=== PATIENT | male | born 1955 | race Caucasian/White ===

== ENCOUNTER 2018-12-10 15:49 | Emergency (ER) | payer MEDICARE, MEDICAID ==
[2018-12-10 16:05] VITALS: RESP 18; TEMP 98.2; O2SAT 98
[2018-12-10 16:12] VITALS: BMI 26.6
--- NOTE | 2018-12-10 16:43 | ED PDOC ---
Arrival/HPI - General Chief Complaint: Cough, Cold, Congestion Time Seen by Provider: 12/10/18 16:16 Historian: Patient - History of Present Illness Narrative History of Present Illness (Text): 12/10/18 16:16 Patient is a 63 year old male with past medical history of hypertension and hypothyroidism who presents to the emergency department with complaints of nasal congestion and non productive cough since 2 days. Patient states a subjective fever, but denies any chills, headache, dizziness, chest pain, shortness of breath, dyspnea on exertion, abdominal pain, nausea, vomiting, diarrhea, back pain, neck pain, or any other complaint. Time/Duration: < week Symptom Onset: Gradual Symptom Course: Unchanged Activities at Onset: Light Context: Home Past Medical History - Provider Review Nursing Documentation Reviewed: Yes - Cardiac Hx Hypertension: Yes - Neurological Hx Neurological Disorder: Yes Other/Comment: Brain tumor - HEENT Hx HEENT Disorder: Yes Hx Blind: Yes (LEGALLY BLIND) - Endocrine/Metabolic Hx Hypothyroidism: Yes - Musculoskeletal/Rheumatological Hx Musculoskeletal Disorders: Yes Hx Back Pain: Yes - Gastrointestinal Hx Gastrointestinal Disorders: Yes Hx Liver Failure: Yes (Liver transplant) - Psychiatric Hx Depression: Yes Hx Substance Use: No - Surgical History Hx Liver Transplant: Yes (2008) Other/Comment: Brain tumor removal - Anesthesia Hx Anesthesia: Yes Hx Anesthesia Reactions: No Hx Malignant Hyperthermia: No - Suicidal Assessment Feels Threatened In Home Enviroment: No Family/Social History - Physician Review Nursing Documentation Reviewed: Yes Family/Social History: Unknown Family HX Smoking Status: Light Smoker < 10 Cigarettes Daily Hx Alcohol Use: No Hx Substance Use: No Allergies/Home Meds Allergies/Adverse Reactions: Allergies No Known Allergies Allergy (Verified 12/10/18 16:13) Home Medications: Home Meds Medication Instructions Recorded Confirmed DULoxetine 07/28/18 Desmopressin 07/28/18 Donepezil 07/28/18 Gabapentin 07/28/18 Levothyroxine 07/28/18 Mag-Ox 07/28/18 Mycophenolate 07/28/18 Zolpidem 07/28/18 Review of Systems - Review of Systems Constitutional: Fevers Eyes: absent: Vision Changes ENT: Sinus Congestion Respiratory: Cough (non productive cough). absent: SOB Cardiovascular: absent: Chest Pain Gastrointestinal: absent: Abdominal Pain, Diarrhea, Nausea, Vomiting Genitourinary Male: absent: Dysuria Musculoskeletal: absent: Back Pain, Neck Pain Skin: absent: Rash Neurological: absent: Headache Psychiatric: absent: Anxiety Physical Exam Vital Signs Reviewed: Yes Vital Signs Temp Pulse Resp BP Pulse Ox 12/10/18 16:04 98.2 F 86 18 124/74 98 Temperature: Afebrile Blood Pressure: Normal Pulse: Regular Respiratory Rate: Normal Appearance: Positive for: Well-Appearing, Non-Toxic, Comfortable Pain Distress: None Mental Status: Positive for: Alert and Oriented X 3 - Systems Exam Head: Present: Atraumatic, Normocephalic Pupils: Present: PERRL Extroacular Muscles: Present: EOMI Conjunctiva: Present: Normal Mouth: Present: Moist Mucous Membranes Neck: Present: Normal Range of Motion Respiratory/Chest: Present: Clear to Auscultation, Good Air Exchange. No: Respiratory Distress, Accessory Muscle Use Cardiovascular: Present: Regular Rate and Rhythm, Normal S1, S2. No: Murmurs Abdomen: No: Tenderness, Distention, Peritoneal Signs Back: Present: Normal Inspection Upper Extremity: Present: Normal Inspection. No: Cyanosis, Edema Lower Extremity: Present: Normal Inspection. No: Edema Neurological: Present: GCS=15, CN II-XII Intact, Speech Normal Skin: Present: Warm, Dry, Normal Color. No: Rashes Psychiatric: Present: Alert, Oriented x 3, Normal Insight, Normal Concentration Medical Decision Making ED Course and Treatment: 12/10/18 16:16 Impression: Patient is a 63 year old male who presents to the Emergency department with nasal congestion and non productive cough. Plan: -- Chest X-Ray -- Reassess and disposition Prior Visits: Notes and results from previous visits were reviewed. Progress Notes: 12/10/18 17:50 CT Chest as reviewed by radiologist shows that: FINDINGS: LUNGS: No active pulmonary disease. PLEURA: No significant pleural effusion identified. No pneumothorax apparent. CARDIOVASCULAR: No aortic atherosclerotic calcification present. Normal cardiac size. No pulmonary vascular congestion. OSSEOUS STRUCTURES: No significant abnormalities. VISUALIZED UPPER ABDOMEN: Normal. OTHER FINDINGS: None. IMPRESSION: No active disease. - RAD Interpretation Radiology Orders: 12/10/18 16:31 CHEST TWO VIEWS (PA/LAT) [RAD] Stat Hospice Liaison: Radiologist - Scribe Statement The provider has reviewed the documentation as recorded by the Scribmerrill Barroso training with Fred All medical record entries made by the Scribe were at my direction and personally dictated by me. I have reviewed the chart and agree that the record accurately reflects my personal performance of the history, physical exam, medical decision making, and the department course for this patient. I have also personally directed, reviewed, and agree with the discharge instructions and disposition. Disposition/Present on Arrival - Present on Arrival Any Indicators Present on Arrival: No History of DVT/PE: No History of Uncontrolled Diabetes: No Urinary Catheter: No History of Decub. Ulcer: No History Surgical Site Infection Following: None - Disposition Have Diagnosis and Disposition been Completed?: Yes Diagnosis: Upper respiratory infection Disposition: HOME/ ROUTINE Disposition Time: 17:59 Patient Plan: Discharge Condition: GOOD Discharge Instructions (ExitCare): Viral Upper Respiratory Infection, Adult (DC) Prescriptions: Benzonatate [Tessalon Perles] 100 mg PO TID PRN #30 sgl PRN Reason: Cough Referrals: Chandrakant Yeung MD [Primary Care Provider] - Follow up with primary Forms: [facility] (Yakut)
--- NOTE | 2018-12-10 17:48 | RAD ---
Date of service: 12/10/2018 HISTORY: Cough COMPARISON: No prior. TECHNIQUE: Chest PA and lateral FINDINGS: LUNGS: No active pulmonary disease. PLEURA: No significant pleural effusion identified. No pneumothorax apparent. CARDIOVASCULAR: No aortic atherosclerotic calcification present. Normal cardiac size. No pulmonary vascular congestion. OSSEOUS STRUCTURES: No significant abnormalities. VISUALIZED UPPER ABDOMEN: Normal. OTHER FINDINGS: None. IMPRESSION: No active disease.
[2018-12-10 18:05] VITALS: BP 120/74; PULSE 81
== END 2018-12-10 18:49 | disposition home or self-care (01) ==
LOC: ED 15:49
DX: J06.9 Acute upper respiratory infection, unspecified (principal); F17.210 Nicotine dependence, cigarettes, uncomplicated; E03.9 Hypothyroidism, unspecified; I10 Essential (primary) hypertension

== ENCOUNTER 2019-01-03 15:30 | Inpatient (IN) | payer MEDICARE, MEDICAID ==
[2019-01-03 15:30] VITALS: BMI 26.6
--- NOTE | 2019-01-03 16:26 | ED PDOC ---
Arrival/HPI - General Chief Complaint: Back Pain Time Seen by Provider: 01/03/19 16:06 Historian: Patient - History of Present Illness Narrative History of Present Illness (Text): 01/03/19 16:23 63 year old male, whose past medical history includes includes Depression, hypertension , Hypothyroidism, chronic pain on narcotic regimen, liver transplant s/p psoriasis for evaluation of neck pain and back pain s/p mechanical fall 3 days ago. Patient is a poor historian. Patient reports history of brain tumor resection in the . Patient denies any fever, chills, chest pain, shortness of breath, nausea, vomiting, diarrhea, urinary symptoms, headache, dizziness, or any other complaints. PMD: Dr. Inocencio Yeung Time/Duration: Other (3 days) Symptom Onset: Sudden Symptom Course: Unchanged Activities at Onset: Light Context: Other (mechanical fall) Past Medical History - Provider Review Nursing Documentation Reviewed: Yes - Infectious Disease Hx of Infectious Diseases: None - Cardiac Hx Cardiac Disorders: Yes Hx Hypertension: Yes - Pulmonary Hx Respiratory Disorders: No - Neurological Hx Neurological Disorder: Yes HX Cerebrovascular Accident: Yes (x 3) Other/Comment: Brain tumor - HEENT Hx HEENT Disorder: Yes Hx Blind: Yes (LEGALLY BLIND) - Renal Hx Renal Disorder: No - Endocrine/Metabolic Hx Endocrine Disorders: Yes Hx Hypothyroidism: Yes - Hematological/Oncological Hx Blood Disorders: Yes Hx Anemia: Yes - Integumentary Hx Dermatological Disorder: No - Musculoskeletal/Rheumatological Hx Musculoskeletal Disorders: Yes Hx Back Pain: Yes - Gastrointestinal Hx Gastrointestinal Disorders: Yes Hx Liver Failure: Yes (Liver transplant) - Genitourinary/Gynecological Hx Genitourinary Disorders: No - Psychiatric Hx Depression: Yes Hx Substance Use: No - Surgical History Hx Liver Transplant: Yes (2008) Other/Comment: Brain tumor removal - Anesthesia Hx Anesthesia: Yes Hx Anesthesia Reactions: No Hx Malignant Hyperthermia: No - Suicidal Assessment Feels Threatened In Home Enviroment: No Family/Social History - Physician Review Nursing Documentation Reviewed: Yes Family/Social History: No Known Family HX Smoking Status: Light Smoker < 10 Cigarettes Daily Hx Alcohol Use: No Hx Substance Use: No Allergies/Home Meds Allergies/Adverse Reactions: Allergies No Known Allergies Allergy (Verified 12/24/18 16:48) Home Medications: Home Meds Medication Instructions Recorded Confirmed DULoxetine 60 mg PO BID 07/28/18 01/04/19 Desmopressin 10 mg PO BID 07/28/18 01/04/19 Mycophenolate 07/28/18 Atorvastatin [Lipitor] 40 mg PO 12/31/18 Donepezil [Aricept] 10 mg PO DAILY 12/31/18 01/04/19 Duloxetine HCl 60 mg PO DAILY 12/31/18 01/04/19 Everolimus [Zortress] 0.25 mg PO BID 12/31/18 01/04/19 Gabapentin [Neurontin] 300 mg PO QID 12/31/18 01/04/19 Metoprolol Tartrate [Lopressor] 25 mg PO BID 12/31/18 01/04/19 Mycophenolate Mofetil 2 tab PO BID 12/31/18 01/04/19 Omeprazole 40 mg PO DAILY 12/31/18 01/04/19 Tamsulosin [Flomax] 0.4 mg PO DAILY 01/04/19 01/04/19 Review of Systems - Physician Review All systems were reviewed & negative as marked: Yes - Review of Systems Constitutional: absent: Fevers, Other (chills) Respiratory: absent: SOB Cardiovascular: absent: Chest Pain Gastrointestinal: absent: Diarrhea, Nausea, Vomiting Genitourinary Male: absent: Dysuria, Frequency, Hematuria Musculoskeletal: Back Pain, Neck Pain Physical Exam Vital Signs Reviewed: Yes Vital Signs Temp Pulse Resp BP Pulse Ox 01/03/19 15:53 98.6 F 80 20 131/90 100 Temperature: Afebrile Blood Pressure: Normal Pulse: Regular Respiratory Rate: Normal Appearance: Positive for: Well-Appearing, Non-Toxic, Comfortable Pain Distress: None Mental Status: Positive for: Alert and Oriented X 3 - Systems Exam Head: Present: Atraumatic, Normocephalic Pupils: Present: PERRL Extroacular Muscles: Present: EOMI Conjunctiva: Present: Normal Mouth: Present: Moist Mucous Membranes Neck: Present: Normal Range of Motion, Other (Paracervical tenderness) Respiratory/Chest: Present: Clear to Auscultation, Good Air Exchange. No: Respiratory Distress, Accessory Muscle Use Cardiovascular: Present: Regular Rate and Rhythm, Normal S1, S2. No: Murmurs Abdomen: No: Tenderness, Distention, Peritoneal Signs Back: Present: Other (paralumbar tenderness) Upper Extremity: Present: Normal Inspection. No: Cyanosis, Edema Lower Extremity: Present: Normal Inspection. No: Edema Neurological: Present: GCS=15, CN II-XII Intact, Speech Normal Skin: Present: Warm, Dry, Normal Color. No: Rashes Psychiatric: Present: Alert, Oriented x 3, Normal Insight, Normal Concentration Medical Decision Making ED Course and Treatment: 01/03/19 16:23 Impression: 63 year old male presents complaining of neck pain and back pain s/p mechanical fall 3 days ago. Plan: -- CT Cervical Spine w/o contrast -- Head CT w/o contrast -- Labs -- Tylenol 325mg -- LS Spine AP/LAT x-ray -- Reassess and disposition Prior Visits: Notes and results from previous visits were reviewed. Progress Notes: 01/04/19 17:[address] shows mass. xr shows age indtermiante fx. accpeted by dr castillo for admissio will need neurosrugical and neuro eval. possible ir intervention and mri. - Lab Interpretations I have reviewed the lab results: Yes - RAD Interpretation Radiology Orders: 01/03/19 16:20 CERVICAL SPINE W/O CONTRAST [CT] Stat HEAD W/O CONTRAST [CT] Stat LS SPINE AP/LAT [RAD] Stat Babbitt Spinner: Radiologist - Medication Orders Current Medication Orders: Acetaminophen (Tylenol 325mg Tab) 975 mg PO STAT STA Stop: 01/03/19 16:21 - Scribe Statement The provider has reviewed the documentation as recorded by the Herman Trevino Provider Scribe Attestation: All medical record entries made by the Scribe were at my direction and personally dictated by me. I have reviewed the chart and agree that the record accurately reflects my personal performance of the history, physical exam, medical decision making, and the department course for this patient. I have also personally directed, reviewed, and agree with the discharge instructions and disposition. Disposition/Present on Arrival - Present on Arrival Any Indicators Present on Arrival: No History of DVT/PE: No History of Uncontrolled Diabetes: No Urinary Catheter: No History of Decub. Ulcer: No History Surgical Site Infection Following: None - Disposition Have Diagnosis and Disposition been Completed?: Yes Diagnosis: Craniopharyngioma, Compression fracture Disposition: HOSPITALIZED Disposition Time: 17:00 Condition: STABLE
--- NOTE | 2019-01-03 17:00 | RAD ---
Date of service: 01/03/2019 PROCEDURE: Radiographs of the Lumbar Spine. HISTORY: Fall COMPARISON: No prior. FINDINGS: BONES: There is degenerative 8 mm retrolisthesis of L2 on L3. There is normal lumbar lordosis. There is moderate dextroscoliosis in the thoracolumbar spine centered at L2-3. there is an age indeterminate anterior wedging of the L1 vertebral body. DISC SPACES: There is advanced multilevel degenerative disc disease with anterior spurring, reduced disc heights and multilevel facet arthropathy, worse at L2-3. OTHER FINDINGS: Large amount of stool in the colon. No pathologic soft tissue calcifications. IMPRESSION: 1. Age indeterminate anterior wedging of the L1 vertebral body. 2. Advanced multilevel degenerative disc disease, worse at L2-3 with degenerative 8 mm retrolisthesis of L2 on L3.
--- NOTE | 2019-01-03 17:23 | CT ---
Date of service: 01/03/2019 PROCEDURE: CT HEAD WITHOUT CONTRAST. HISTORY: fall COMPARISON: None available. TECHNIQUE: Axial computed tomography images were obtained through the head/brain without intravenous contrast. Radiation dose: Total exam DLP = 1036.49 mGy-cm. This CT exam was performed using one or more of the following dose reduction techniques: Automated exposure control, adjustment of the mA and/or kV according to patient size, and/or use of iterative reconstruction technique. FINDINGS: HEMORRHAGE: No intracranial hemorrhage. BRAIN: There is multifocal cystic encephalomalacia in the right frontal, parietal and parieto-occipital lobes. There is an old lacunar infarction in the right posterior limb of internal capsule. There is a large low-density mass with peripheral coarse calcifications in the sella with suprasellar extension predominantly on the right. VENTRICLES: There is mild age-related global parenchymal volume loss and proportionate enlargement of the ventricles and cortical sulci. CALVARIUM: Status post right perianal craniotomy. PARANASAL SINUSES: Predominantly clear. MASTOID AIR CELLS: Predominantly clear. OTHER FINDINGS: None. IMPRESSION: 1. No acute intracranial abnormality. 2. Large predominantly cystic sellar mass with suprasellar extension and peripheral coarse calcifications most compatible with a craniopharyngioma. 3. Multifocal cystic encephalomalacia in the right frontal lobe, parietal lobe and parieto-occipital lobes.
--- NOTE | 2019-01-03 17:27 | CT ---
Date of service: 01/03/2019 PROCEDURE: CT Cervical Spine without contrast HISTORY: trauma COMPARISON: None available. TECHNIQUE: Axial computed tomography images were obtained of the cervical spine without the use of intravenous contrast. Coronal and sagittal reformatted images were created and reviewed. Radiation dose: Total exam DLP = 600.01 mGy-cm. This CT exam was performed using one or more of the following dose reduction techniques: Automated exposure control, adjustment of the mA and/or kV according to patient size, and/or use of iterative reconstruction technique. FINDINGS: VERTEBRAE: There is degenerative 4 mm retrolisthesis of C5 on C6. There is normal cervical lordosis. There is no acute fracture or spondylolisthesis. The craniocervical junction is normal. The atlantoaxial joint is normal DISCS/SPINAL CANAL/NEURAL FORAMINA: There is multilevel degenerative disc disease due to combination of disc osteophyte complexes, uncovertebral joint hypertrophy and multilevel facet arthropathy worse at C6-7 with moderate right and severe left neural foraminal narrowing and mild spinal canal stenosis. PARASPINAL SOFT TISSUES: The paraspinous soft tissues are normal. OTHER FINDINGS: No apical pneumothorax. IMPRESSION: 1. No acute fracture or traumatic anterior listhesis. 2. Multilevel degenerative disc disease, worse at C6-7 with moderate right and severe left neural foraminal narrowing and mild spinal canal stenosis.
[2019-01-03 18:18] LABS: BASO # 0.03 K/mm3 (0.0-2.0); BASO % 0.4 % (0.0-3.0); EOS # 0.2 (0.0-0.7); EOS % 2.5 % (1.5-5.0); HEMOGLOBIN 12.5 g/dL (14.0-18.0); LYMPH # 3.3 (1.2-3.4); LYMPH % 44.7 % (22.0-35.0); MEAN CELL VOLUME 86.4 fl (80.0-105.0); MEAN CORPUSCULAR HEMOGLOBIN 27.4 pg (25.0-35.0); MEAN CORPUSCULAR HGB CONC 31.6 g/dl (31.0-37.0); MEAN PLATELET VOLUME 8.6 fl (7.0-11.0); MONO # 0.5 (0.1-0.6); MONO % 6.6 % (1.0-6.0); RBC 4.57 10^6/uL (3.5-6.1); RED CELL DISTRIBUTION WIDTH 14.9 % (11.5-14.5); WHITE BLOOD COUNT 7.3 10^3/uL (4.5-11.0)
[2019-01-03 18:22] LABS: INR 0.96; PARTIAL THROMBOPLASTIN TIME 36.3 Seconds (26.9-38.3); PROTHROMBIN TIME 10.7 SECONDS (9.4-12.5)
[2019-01-03 18:24] LABS: BLOOD UREA NITROGEN 17 mg/dL (7-21); CALCIUM 9.3 mg/dL (8.4-10.5); GFR NON-AFRICAN AMERICAN > 60
[2019-01-03 18:47] LABS: ALB/GLOB RATIO 1.3 (1.1-1.8); ALT/SGPT < 6 U/L (7-56); AST/SGOT 40 U/L (17-59)
[2019-01-04] MEDS ORDERED: POLYETHYLENE GLYCOL 3350 17 GM/Dose PACKET PO ONE (03:35)
[2019-01-04 07:57] VITALS: RESP 20
[2019-01-04] MEDS ORDERED: Lidocaine 5% Patch TD SCH (13:00)
[2019-01-04 13:08] LABS: IRON 52 ug/dL (45-180)
[2019-01-04 13:17] LABS: % IRON SATURATION 25 % (20-55); TOTAL IRON BINDING CAPACITY 204 ug/dL (261-462)
--- NOTE | 2019-01-04 15:11 | CP.PCM.APN ---
Subjective - Date & Time of Evaluation Date of Evaluation: 01/04/19 Time of Evaluation: 12:15 - Subjective Subjective: pt. seen and examined in bed, is complaining of pain to neck, lower back, facial pain, states pain is all over, denied shortness of breath, denied chest pain. Objective - Vital Signs/Intake and Output Vital Signs (last 24 hours): Temp Pulse Resp BP Pulse Ox 98.1 F 64 20 151/81 H 94 L 01/04/19 07:57 01/04/19 07:57 01/04/19 07:57 01/04/19 08:55 01/04/19 07:57 - Medications Medications: Current Medications Donepezil HCl (Aricept) 10 mg PO HS NETTA Duloxetine HCl (Cymbalta) 60 mg PO DAILY NETTA Lidocaine (Lidoderm) 1 ea TD DAILY NETTA Last Admin: 01/04/19 13:38 Dose: 1 ea Metoprolol Tartrate (Lopressor) 25 mg PO BRKDIN NETTA Ondansetron HCl (Zofran Inj) 4 mg IVP STAT PRN PRN Reason: Nausea/Vomiting Pantoprazole Sodium (Protonix Ec Tab) 40 mg PO 0600,1600 NETTA Pregabalin (Lyrica) 50 mg PO BID NETTA - Labs Labs: 01/03/19 18:00 01/03/19 18:00 PT 10.7 SECONDS (9.4-12.5) 01/03/19 18:00 INR 0.96 01/03/19 18:00 APTT 36.3 Seconds (26.9-38.3) 01/03/19 18:00 - Constitutional Appears: Well, Non-toxic - Head Exam Head Exam: NORMOCEPHALIC - Eye Exam Eye Exam: absent: Conjunctival injection, EOMI, Normal appearance, Nystagmus, Periorbital swelling, Periorbital tenderness, PERRL, Scleral icterus - ENT Exam ENT Exam: absent: Mucous Membranes Dry, Mucous Membranes Moist, Normal Exam, Normal External Ear Exam, Normal Oropharynx, TM's Normal Bilaterally - Neck Exam Neck Exam: Full ROM - Respiratory Exam Respiratory Exam: Clear to Ausculation Bilateral, NORMAL BREATHING PATTERN - Cardiovascular Exam Cardiovascular Exam: REGULAR RHYTHM - GI/Abdominal Exam GI & Abdominal Exam: Soft, Normal Bowel Sounds - Rectal Exam Rectal Exam: Deferred - Exam Exam: absent: Circumcision, NORMAL INSPECTION, Scrotal Swelling, Testicular Tenderness, Uretheral Discharge, Testicular Vertical Lie, Bladder Distension External exam: absent: Ecchymosis, Erythema, Lacerations, Lesions, NORMAL EXTERNAL EXAM, Swelling Speculum exam: absent: Cervical Discharge, Erythema, Foreign Body, Laceration, NORMAL SPECULUM EXAM, Tissue, Vaginal Bleeding, Vaginal Discharge Bimanual exam: absent: Adenexal Mass, Adnexal, Cervical Motion Tendernes, NORMAL BIMANUAL EXAM, Uterine Enlargement, Uterine Tenderness - Back Exam Back Exam: tenderness - Neurological Exam Neurological Exam: Awake - Skin Skin Exam: Dry, Intact, Normal Color Assessment and Plan - Assessment and Plan (Free Text) Assessment: ITS Impressions Cervical Spine CT 01/03/19 16:20 IMPRESSION: 1. No acute fracture or traumatic anterior listhesis. 2. Multilevel degenerative disc disease, worse at C6-7 with moderate right and severe left neural foraminal narrowing and mild spinal canal stenosis. Head CT 01/03/19 16:20 IMPRESSION: 1. No acute intracranial abnormality. 2. Large predominantly cystic sellar mass with suprasellar extension and peripheral coarse calcifications most compatible with a craniopharyngioma. 3. Multifocal cystic encephalomalacia in the right frontal lobe, parietal lobe and parieto-occipital lobes. Lumbar Spine X-Ray 01/03/19 16:20 IMPRESSION: 1. Age indeterminate anterior wedging of the L1 vertebral body. 2. Advanced multilevel degenerative disc disease, worse at L2-3 with degenerative 8 mm retrolisthesis of L2 on L3. Assessment: 63 yr. male, w.pmh of Depression, hypertension , Hypothyroidism, chronic pain on narcotic regimen, craniopharyngioma, liver transplant s/p psoriasis for evaluation of neck pain and back pain s/p mechanical fall 3 days ago. Plan: 1. Neck pain r/t C6,7 moderate foraminal narrowing w.stenosis pain meds per neurology, recs per neuro. advised neurosurgery consult. 2. Cystic encephalomalacia of right frontal lobe, chronic Neurosurg consult pending. 3. Deconditioning, PT eval pending. continue d/w consultants and PMD. Will continue to monitor closely
--- NOTE | 2019-01-04 15:49 | CP.PCM.PN ---
Subjective - Date & Time of Evaluation Date of Evaluation: 01/04/19 Time of Evaluation: 15:46 - Subjective Subjective: 63 year old male, whose past medical history includes includes Depression, hypertension , Hypothyroidism, chronic pain on narcotic regimen, liver transplant s/p psoriasis c/ total body pain thinks he hadmechanical fall 4 days ago. Patient is a poor historian. Patient reports history of brain tumor resection in the 1980s. Patient denies any fever, chills, chest pain, shortness of breath, nausea, vomiting, diarrhea, urinary symptoms, headache, dizziness, or any other complaints. has mult prior adm for back pain CT neck some dege disease X ray l spine l1 end plate fracture indeterminate age CT head craniopharyngioma He is a a not very cooperative has good st all limbs but state' he feel paralysed' no dec to pin all limbs Given hx would not suggest surgical intervention would be best off with PT and analgesic Very poor surgical candidate Objective - Vital Signs/Intake and Output Vital Signs (last 24 hours): Temp Pulse Resp BP Pulse Ox 98.1 F 64 20 151/81 H 94 L 01/04/19 07:57 01/04/19 07:57 01/04/19 07:57 01/04/19 08:55 01/04/19 07:57 - Medications Medications: Current Medications Donepezil HCl (Aricept) 10 mg PO HS NETTA Duloxetine HCl (Cymbalta) 60 mg PO DAILY COUNT INCLUDES THE [facility] Home Med (Home Med) 1 unit PO BID COUNT INCLUDES THE [facility] Lidocaine (Lidoderm) 1 ea TD DAILY COUNT INCLUDES THE [facility] Last Admin: 01/04/19 13:38 Dose: 1 ea Metoprolol Tartrate (Lopressor) 25 mg PO BRKDIN COUNT INCLUDES THE [facility] Ondansetron HCl (Zofran Inj) 4 mg IVP STAT PRN PRN Reason: Nausea/Vomiting Pantoprazole Sodium (Protonix Ec Tab) 40 mg PO 0600,1600 COUNT INCLUDES THE [facility] Pregabalin (Lyrica) 50 mg PO BID NETTA Tamsulosin HCl (Flomax) 0.4 mg PO DAILY COUNT INCLUDES THE [facility] - Labs Labs: 01/03/19 18:00 01/03/19 18:00 PT 10.7 SECONDS (9.4-12.5) 01/03/19 18:00 INR 0.96 01/03/19 18:00 APTT 36.3 Seconds (26.9-38.3) 01/03/19 18:00
[2019-01-04] MEDS ORDERED: Pantoprazole 40 mg EC Tab PO SCH (16:00)
[2019-01-04 16:47] LABS: FOLATE > 20.0 ng/mL
[2019-01-04 17:11] VITALS: BP 156/98; PULSE 93; TEMP 98.6; O2SAT 96
--- NOTE | 2019-01-04 17:30 | CON ---
DATE: 01/04/2019 NEUROLOGY CONSULTATION CHIEF COMPLAINT: Craniopharyngioma. HISTORY OF PRESENT ILLNESS: This is a 63-year-old man with history of right side craniotomy in the past for possible benign brain tumor in the 1980s, history of chronic back pain, neck pain, on chronic narcotics by pain management Dr. Loving at home, history of liver transplant status post liver cirrhosis, came in for mechanical fall few days ago and with chronic neck and back pain, was called to evaluate given the CAT scan showing large predominant cystic sellar mass with suprasellar extension and peripheral coarse calcification consistent with craniopharyngioma and history of evidence of a right pterional craniotomy at this time given with regard to his chronic pain we just recommend only Lyrica 50 mg p.o. twice a day, and Lidoderm patch for his lower back, and then possible neurosurgery consult with regard to his craniopharyngioma and suprasellar mass. No acute events overnight. He was apparently on Cymbalta and gabapentin at home, which we will recommend to hold off those agents for neuropathic relief since the patient will be placed on Lyrica. PAST MEDICAL HISTORY: As above. SOCIAL HISTORY: No illicit drug, smoking or EtOH abuse. FAMILY HISTORY: Noncontributory. ALLERGIES: NO KNOWN DRUG ALLERGIES. MEDICATIONS: Reviewed by nurse reconciliation sheet. REVIEW OF SYSTEMS: A 14-point review of systems is negative except as per HPI. LABORATORY DATA: Today's iron is 52, TIBC 204, total transferrin saturation 25. PHYSICAL EXAMINATION: VITAL SIGNS: Temperature 98.1, pulse rate is 64, blood pressure 172/97, respirations 20, oxygen saturation 98% on room air. GENERAL: The patient is lying in bed, in no acute distress. HEENT: Head is atraumatic and normocephalic. PERRLA. Extraocular muscles are intact. NECK: Supple. No JVD. No adenopathy noted. LUNGS: Clear to auscultation. No adventitious sounds. HEART: S1 and S2. Normal rate and rhythm. No murmurs, rubs, or gallops. ABDOMEN: Soft, nontender, and nondistended. Bowel sounds present. EXTREMITIES: No clubbing and no cyanosis. Peripheral pulses are 2+ bilaterally. NEUROLOGICAL: The patient is alert and oriented to person, place, month and year. Speech is fluent without any errors. Cranial nerves II through XII are intact. Motor exam; moves all extremities equally. Toes are downgoing bilaterally. Sensory; decreased light touch and pinprick, proprioception, and vibration are intact. DTRs are 2+throughout and 1 at both knees and ankles. Coordination; [id number] is intact. No dysmetria noted. Gait is deferred for now. IMPRESSION: This patient has evidence of a super large predominant cystic suprasellar mass with suprasellar extension consistent with craniopharyngioma, which is not emergent at this time, which possibly need to be evaluated by neurosurgery for further management down the line. In regard to his chronic pain, he does see a pain management by Dr. Loving, which he gets chronic opioid therapy as well as gabapentin and Cymbalta in the past for pain management. RECOMMENDATION: At this time, we recommend at least for his; 1. Chronic pain in terms of cervical lumbosacral area, give him Lyrica 50 mg p.o. twice a day for neuropathic relief, which is much stronger then gabapentin and in addition Lidoderm patch for lumbosacral area for low back pain. 2. PT/OT evaluation and follow with neurosurgery evaluation with regard to his craniopharyngioma. Thank you for this consult. Guido Nichols MD
[2019-01-04] MEDS ORDERED: ZORTRESS PO SCH (18:00)
[2019-01-04] MEDS ORDERED: MYCOPHENOLATE MOFETIL 500 MG PO SCH (18:00)
--- NOTE | 2019-01-04 20:04 | CP.PCM.CON ---
<Alan Guerrero - Last Filed: 01/04/19 20:22> History of Present Illness - History of Present Illness History of Present Illness: PGY5 Initial GI Consult Note Terrie Jean is a 63 year old male w/ hx of Depression, hypertension , Hypothyroidism, chronic pain on narcotic regimen, liver transplant s/p psoriasis for evaluation of neck pain and back pain s/p mechanical fall 3 days ago. GI was consulted for Liver med management. Pt was alert and oriented x3, but unable to give complete hx. Pt states that he has not been to [facility] since Apr 2018. He notes being transplanted in 2008. He stated that his etiology for liver cirrhosis or failure was drug induce or medication induced. Spoke with [facility] transplant center and as per their last records, he was on everolimus 0.5mg BID, cellcept 1g BID, and prednisone 5mg daily. He failed to follow-up since April 2018. Denies any scleral icturus or juandice. Denies nay fever, chills or diaphoresis. Denies any diarrhea or recent surgery or wound. PMHx: Cirrhosis? Medication Induced? s/p liver transplant 2008, HTN, Hypothyroid, Chronic Painm PSHx: brain tumor removal, Liver transplant Family Hx: unknown Social Hx: unknown Endo Hx: could not recall ROS: 12 point ROS conducted, neg other than above Past Patient History - Infectious Disease Hx of Infectious Diseases: None - Past Medical History & Family History Past Medical History?: Yes - Past Social History Smoking Status: Light Smoker < 10 Cigarettes Daily - CARDIAC Hx Cardiac Disorders: Yes Hx Hypertension: Yes - PULMONARY Hx Respiratory Disorders: No - NEUROLOGICAL Hx Neurological Disorder: Yes HX Cerebrovascular Accident: Yes (x 3) Other/Comment: Brain tumor - HEENT Hx HEENT Problems: Yes Hx Blind: Yes (LEGALLY BLIND) - RENAL Hx Chronic Kidney Disease: No - ENDOCRINE/METABOLIC Hx Endocrine Disorders: Yes Hx Hypothyroidism: Yes - HEMATOLOGICAL/ONCOLOGICAL Hx Blood Disorders: Yes Hx Anemia: Yes - INTEGUMENTARY Hx Dermatological Problems: No - MUSCULOSKELETAL/RHEUMATOLOGICAL Hx Musculoskeletal Disorders: Yes Hx Back Pain: Yes - GASTROINTESTINAL Hx Gastrointestinal Disorders: Yes Hx Liver Failure: Yes (Liver transplant) - GENITOURINARY/GYNECOLOGICAL Hx Genitourinary Disorders: No - PSYCHIATRIC Hx Depression: Yes Hx Substance Use: No - SURGICAL HISTORY Hx Liver Transplant: Yes (2008) Other/Comment: Brain tumor removal - ANESTHESIA Hx Anesthesia: Yes Hx Anesthesia Reactions: No Hx Malignant Hyperthermia: No Meds Allergies/Adverse Reactions: Allergies Allergy/AdvReac Type Severity Reaction Status Date / Time No Known Allergies Allergy Verified 12/24/18 16:48 Physical Exam - Constitutional Appears: Non-toxic, No Acute Distress - Head Exam Head Exam: ATRAUMATIC, NORMOCEPHALIC - Eye Exam Eye Exam: Normal appearance - ENT Exam ENT Exam: Mucous Membranes Moist, Normal Exam - Neck Exam Neck exam: Positive for: Normal Inspection - Respiratory Exam Respiratory Exam: Clear to Auscultation Bilateral, NORMAL BREATHING PATTERN. absent: Rales, Rhonchi, Wheezes, Respiratory Distress - Cardiovascular Exam Cardiovascular Exam: REGULAR RHYTHM, +S1, +S2 - GI/Abdominal Exam GI & Abdominal Exam: Normal Bowel Sounds, Soft. absent: Distended, Firm, Guarding, Hernia, Organomegaly, Pulsatile Mass, Rebound, Rigid, Tenderness - Extremities Exam Extremities exam: Negative for: joint swelling, pedal edema - Neurological Exam Neurological exam: Alert, Oriented x3 - Psychiatric Exam Psychiatric exam: Normal Affect, Normal Mood - Skin Skin Exam: Dry, Intact, Normal Color, Warm Results - Vital Signs Recent Vital Signs: Last Vital Signs Temp 98.6 F 01/04/19 17:10 Pulse 93 H 01/04/19 17:10 Resp 20 01/04/19 17:10 BP 156/98 H 01/04/19 17:10 Pulse Ox 96 01/04/19 17:10 - Labs Result Diagrams: 01/03/19 18:00 01/03/19 18:00 Labs: Laboratory Results - last 24 hr 01/04/19 01/04/19 10:38 10:38 Iron 52 TIBC 204 L % Saturation 25 Ferritin 100.0 Vitamin B12 283 Folate > 20.0 Assessment & Plan - Assessment and Plan (Free Text) Assessment: Terrie Jean is a 63 year old male w/ hx of Depression, hypertension , Hypothyroidism, chronic pain on narcotic regimen, liver transplant s/p psoriasis for evaluation of neck pain and back pain s/p mechanical fall 3 days ago. Liver transplant on chronic immunosupressive therapy HTN Depression Blind Plan: -will get everolimus levels -can restart everolimus 0.5mg BID -can start Cellcept 1g BID -will hold Prednisone for now -continue to monitor LFTs daily -recommend F/U with [facility], will try to make an appt for the Pt D/W Dr. Vu <Sabrina Vu V - Last Filed: 01/05/19 00:45> Results - Vital Signs Recent Vital Signs: Last Vital Signs Temp 98.6 F 01/04/19 17:10 Pulse 93 H 01/04/19 17:10 Resp 20 01/04/19 17:10 BP 156/98 H 01/04/19 17:10 Pulse Ox 96 01/04/19 17:10 - Labs Result Diagrams: 01/03/19 18:00 01/03/19 18:00 Labs: Laboratory Results - last 24 hr 01/04/19 01/04/19 10:38 10:38 Iron 52 TIBC 204 L % Saturation 25 Ferritin 100.0 Vitamin B12 283 Folate > 20.0 Attending/Attestation - Attestation I have personally seen and examined this patient.: Yes I have fully participated in the care of the patient.: Yes I have reviewed all pertinent clinical information: Yes Notes (Text): This is an addendum to GI progress report dictated by the GI Fellow. The patient was seen and examined earlier. Medical records, lab studies, imagings were reviewed. Last 24 hours events reviewed. Agreed with the above treatment plan as outlined in GI Fellow 's notes with the addition of the following 01/05/19 00:45
--- NOTE | 2019-01-04 21:23 | HP ---
DATE OF EXAM: 01/04/2019 HISTORY OF PRESENT ILLNESS: This 63-year-old male who was examined at his bedside on the cardiac [facility] of the [facility] on the morning of 01/04/2019. Present for this interview was his nurse, Andrew Shell, registered nurse. The patient presented to the [facility] ER and this case was reviewed with emergency room physician, Eric Nuñez. In the emergency room, he complained of neck and back pain. He stated he had fell at his home approximately 3 days prior and has a past medical history of depression, hypertension, hypothyroidism and is on chronic narcotics for chronic back pain. He states he also has a past medical history of psoriasis and a brain tumor resection in the at the [facility]. MEDICATIONS: The patient states as an outpatient his medications include Ambien, Neurontin, Aricept, and Lipitor. When I asked him specific doses of medications, he could not respond. REVIEW OF SYSTEMS: CONSTITUTIONAL REVIEW: He denied fever or chills. HEAD: No headache or seizures. EYES: No change in visual acuity. EARS: No hearing loss. THROAT: No swallowing difficulty. NECK: No stiffness. CARDIAC REVIEW: He states he has chronic hypertension. PULMONARY: No cough. No hemoptysis. GASTROINTESTINAL: Peptic ulcer disease with gastroesophageal reflux disease. GENITOURINARY: No dysuria. SKIN: No rash. VASCULAR: No claudication. PSYCHOLOGICAL: Chronic depression and anxiety. NEUROLOGICAL: No knowledge of stroke. SOCIAL HISTORY: He states he is a smoker, but denies any IV drug misuse or alcohol abuse. ALLERGIES: HE DENIED ANY ALLERGIES TO MEDICATION. PHYSICAL EXAMINATION: VITAL SIGNS: He was in a normal sinus rhythm on workshop manager with temperature 98.1, respirations 20, pulse 64, blood pressure 151/81, and a pulse ox of 94%. HEAD: Normocephalic and atraumatic. He has a scar that goes across his scalp from his ear to ear. EYES: No icterus. EARS: Clear. THROAT: Noninjected. NECK: Supple. HEART: S1 and S2. LUNGS: Clear. ABDOMEN: Soft. EXTREMITIES: No edema. SKIN: Without rash. NEUROLOGIC: He is lying in bed and appears deconditioned. VASCULAR: Legs warm to touch. PSYCHOLOGICAL: Alert. LABORATORY DATA: White count 7300, hemoglobin 12.5, hematocrit 39.5, and platelets 275,000. PT/INR 0.96 and PTT 36.3. Sodium 136, K 4.9, chloride 101, bicarb 30, BUN 17, creatinine 0.6, random blood sugar 74, and calcium 9.3. Bilirubin 0.6, AST 40, ALT 6, and alk phos 51. Cervical spine CT and lumbar spine CTs were reviewed and consistent with degenerative arthritis. Head CT was reviewed, it showed no acute intracranial abnormalities, but a cystic sellar mass with a suprasellar extension and calcifications compatible with craniopharyngioma and encephalomalacia in the right frontal lobe, parietal lobe, and parietal occipital lobes. IMPRESSION: A 63-year-old male with intractable back pain, abnormal CT of the head, history of hypertension, hyperlipidemia, and degenerative arthritis. PLAN: My plans are to obtain neurological evaluation with Dr. Guido Nichols from Neurology to outline a pain management program and I will consult Dr. Vu from GI to clarify if this gentleman did have a liver transplant and correct medication he should be on accordingly. For present, he will receive Lopressor 25 mg b.i.d., Tylenol 650 p.o. every 6 hours p.r.n. fever greater than 101 and Zofran 4 mg IV every 8 hours p.r.n. nausea and vomiting. I will also order given his mild anemia, vitamin B12 levels, ferritin, folic acid, iron and TIBC and a basic metabolic panel for the a.m. as well as an serum immunoelectrophoresis and CBC. Based on clinical progress, additional diagnostic workup and testing will be entertained. Greater than 75 minutes was spent in the care management, review of labs, orders and x-rays and discussion of this patient with himself and nursing. All questions were answered. Marleen Dasilva MD
== END 2019-01-04 19:22 | disposition left against medical advice (07) | DRG 552 ==
LOC: ED 15:30 → ERH 18:47 → 3RNO 22:04
PROVIDERS: ADMIT Internal Medicine; ATTEND Internal Medicine
DX: M51.36 Other intervertebral disc degeneration, lumbar region (principal); Z94.4 Liver transplant status; D44.4 Neoplasm of uncertain behavior of craniopharyngeal duct; M54.9 Dorsalgia, unspecified; M50.323 Other cervical disc degeneration at C6-C7 level; M48.02 Spinal stenosis, cervical region; I10 Essential (primary) hypertension; E03.9 Hypothyroidism, unspecified; G89.29 Other chronic pain; H54.8 Legal blindness, as defined in USA; Z86.73 Personal history of transient ischemic attack (TIA), and cerebral infarction without residual deficits; E78.5 Hyperlipidemia, unspecified; F17.210 Nicotine dependence, cigarettes, uncomplicated; F32.89 Other specified depressive episodes; M19.90 Unspecified osteoarthritis, unspecified site; Z91.81 History of falling; Z79.891 Long term (current) use of opiate analgesic; Z79.899 Other long term (current) drug therapy; Z86.011 Personal history of benign neoplasm of the brain

== ENCOUNTER 2019-02-14 13:05 | Inpatient (IN) | payer MEDICARE, MEDICAID ==
[2019-02-14 13:30] VITALS: BMI 27.4
--- NOTE | 2019-02-14 13:37 | ED PDOC ---
Arrival/HPI - General Time Seen by Provider: 02/14/19 13:17 Historian: Patient - History of Present Illness Narrative History of Present Illness (Text): 02/14/19 13:32 63 M with pmh of depression, CVA, Brain tumor, hypertension, Hypothyroidism, chronic pain on narcotic regimen, liver transplant presents with chief complaint of generalized weakness x3days. Patient reports that he has problems staying awake and eating less. Patient also complains of dysuria, cough w/SOB, and depression but denies any SI or HI. Patient endorses taking Aspirin but denies taking any medications relating to liver transplant. Patient denies any fevers, chills, headache, dizziness, abdominal pain, chest pain, shortness of breath, nausea, vomiting, diarrhea, back pain, neck pain, or any other complaint. Time/Duration: < week Symptom Onset: Gradual Symptom Course: Unchanged Activities at Onset: Light Context: Home Past Medical History - Provider Review Nursing Documentation Reviewed: Yes - Infectious Disease Hx of Infectious Diseases: None - Cardiac Hx Cardiac Disorders: Yes Hx Hypertension: Yes - Pulmonary Hx Respiratory Disorders: No - Neurological Hx Neurological Disorder: Yes HX Cerebrovascular Accident: Yes (x 3) Other/Comment: Brain tumor - HEENT Hx HEENT Disorder: Yes Hx Blind: Yes (LEGALLY BLIND) - Renal Hx Renal Disorder: No - Endocrine/Metabolic Hx Endocrine Disorders: Yes Hx Hypothyroidism: Yes - Hematological/Oncological Hx Blood Disorders: Yes Hx Anemia: Yes - Integumentary Hx Dermatological Disorder: No - Musculoskeletal/Rheumatological Hx Musculoskeletal Disorders: Yes Hx Back Pain: Yes - Gastrointestinal Hx Gastrointestinal Disorders: Yes Hx Liver Failure: Yes (Liver transplant) - Genitourinary/Gynecological Hx Genitourinary Disorders: No - Psychiatric Hx Depression: Yes Hx Substance Use: No - Surgical History Hx Liver Transplant: Yes (2008) Other/Comment: Brain tumor removal - Anesthesia Hx Anesthesia: Yes Hx Anesthesia Reactions: No Hx Malignant Hyperthermia: No - Suicidal Assessment Feels Threatened In Home Enviroment: No Family/Social History - Physician Review Nursing Documentation Reviewed: Yes Family/Social History: Unknown Family HX Smoking Status: Light Smoker < 10 Cigarettes Daily Hx Alcohol Use: No Hx Substance Use: No Allergies/Home Meds Allergies/Adverse Reactions: Allergies No Known Allergies Allergy (Verified 12/24/18 16:48) Home Medications: Home Meds Medication Instructions Recorded Confirmed DULoxetine 60 mg PO BID 07/28/18 01/04/19 Desmopressin 10 mg PO BID 07/28/18 01/04/19 Mycophenolate 07/28/18 Atorvastatin [Lipitor] 40 mg PO 12/31/18 Donepezil [Aricept] 10 mg PO DAILY 12/31/18 01/04/19 Duloxetine HCl 60 mg PO DAILY 12/31/18 01/04/19 Everolimus [Zortress] 0.25 mg PO BID 12/31/18 01/04/19 Gabapentin [Neurontin] 300 mg PO QID 12/31/18 01/04/19 Metoprolol Tartrate [Lopressor] 25 mg PO BID 12/31/18 01/04/19 Mycophenolate Mofetil 2 tab PO BID 12/31/18 01/04/19 Omeprazole 40 mg PO DAILY 12/31/18 01/04/19 Tamsulosin [Flomax] 0.4 mg PO DAILY 01/04/19 01/04/19 Review of Systems - Physician Review All systems were reviewed & negative as marked: Yes - Review of Systems Constitutional: Other (generalized weakness). absent: Fevers Eyes: absent: Vision Changes, Photophobia ENT: Normal. absent: Hearing Changes Respiratory: Normal. absent: SOB, Cough Cardiovascular: Normal. absent: Chest Pain, Palpitations, Calf Pain Gastrointestinal: Appetite Changes. absent: Abdominal Pain, Constipation, Diarrhea, Nausea, Vomiting Genitourinary Male: Dysuria. absent: Frequency, Hematuria Musculoskeletal: absent: Arthralgias, Back Pain Skin: Normal. absent: Rash Neurological: Normal. absent: Headache, Dizziness Endocrine: Normal Hemo/Lymphatic: Normal. absent: Adenopathy Psychiatric: Depression. absent: Suicidal Ideation Physical Exam Vital Signs Reviewed: Yes Temperature: Afebrile Blood Pressure: Normal Pulse: Regular Respiratory Rate: Normal Appearance: Positive for: Well-Appearing, Non-Toxic Pain Distress: Mild Mental Status: Positive for: Alert and Oriented X 3 - Systems Exam Head: Present: Atraumatic, Normocephalic Pupils: Present: PERRL Extroacular Muscles: Present: EOMI Conjunctiva: Present: Normal Ears: Present: Normal, NORMAL TM, Normal Canal. No: Erythema, TM Bulging, Fluid, TM Perf Mouth: Present: Moist Mucous Membranes Pharnyx: Present: Normal. No: ERYTHEMA, EXUDATE Neck: Present: Normal Range of Motion. No: Meningeal Signs, MIDLINE TENDERNESS Respiratory/Chest: Present: Clear to Auscultation, Good Air Exchange. No: Respiratory Distress, Accessory Muscle Use Cardiovascular: Present: Regular Rate and Rhythm, Normal S1, S2. No: Murmurs Abdomen: Present: Scars (previous for liver transplant). No: Tenderness, Distention, Peritoneal Signs Back: Present: Normal Inspection. No: CVA Tenderness, Midline Tenderness Upper Extremity: Present: Normal Inspection, Other (Good b/l strength). No: Cyanosis, Edema Lower Extremity: Present: Normal Inspection, Other (Good b/l strength). No: Edema Neurological: Present: GCS=15, CN II-XII Intact, Speech Normal, Motor Func Grossly Intact, Normal Sensory Function Skin: Present: Warm, Dry, Normal Color. No: Rashes Psychiatric: Present: Alert, Oriented x 3, Normal Insight, Normal Concentration Medical Decision Making ED Course and Treatment: 02/14/19 13:37 Impression: 63 M presents with hx of depression, CVA w/ residual L sided deficits, Brain tumor, hypertension, Hypothyroidism, chronic pain on narcotic regimen, liver transplant who presents with generalized weakness x3days. Per attached note written by pts sister; pt has sleeping continously since february 02 and has decreased PO intake. They were also concerned about possible UTI and ammonia levels. They are requesting Dr. Elizondo for admission, not Dr. marquez. On exam no meningeal signs, abdomen non-ttp. No fall or trauma noted. Good strength b/l. Likely FTT w/ depression Plan: -- Labs -- EKG -- CXR -- UA Prior Visits: Notes and results from previous visits were reviewed. Progress Notes: 02/14/19 13:37 EKG: Ordered, reviewed, and independently interpreted the EKG. Rate : 97 BPM Rhythm : NSR Interpretation : No STEMI 02/14/19 15:13 labs largely unremarkable pending imaging and UA 02/14/19 15:[address] WITHOUT CONTRAST Re-identified complex partially cystic sellar mass with suprasellar extension and associated coarse calcifications. Multifocal cystic encephalomalacia involving right frontal, parietal, and parietal occipital lobes. Please note that MRI with diffusion imaging is more sensitive in the detection of acute ischemic event. Small fluid within the right mastoid air cells; correlate clinically for history of mastoiditis. 02/14/19 15:46 pending ua repeat TM exam unremarkable, no erythema. No mastoid tenderness or erythema accepted by jaclyn, request DVT study, endorsed pending UA pt in NAD, no SI or HI - Scribe Statement The provider has reviewed the documentation as recorded by the Herman Viveros Provider Scribe Attestation: All medical record entries made by the Scribe were at my direction and personally dictated by me. I have reviewed the chart and agree that the record accurately reflects my personal performance of the history, physical exam, medical decision making, and the department course for this patient. I have also personally directed, reviewed, and agree with the discharge instructions and disposition. Disposition/Present on Arrival - Present on Arrival Any Indicators Present on Arrival: Yes History of DVT/PE: No History of Uncontrolled Diabetes: No Urinary Catheter: No History Surgical Site Infection Following: None - Disposition Have Diagnosis and Disposition been Completed?: No Diagnosis: FTT (failure to thrive) in adult Disposition Time: 15:48 Patient Problems: Current Active Problems Problem Status Onset FTT (failure to thrive) in adult Acute Condition: STABLE
[2019-02-14 14:25] LABS: BASO # 0.02 K/mm3 (0.0-2.0); BASO % 0.3 % (0.0-3.0); EOS # 0.2 (0.0-0.7); EOS % 2.5 % (1.5-5.0); HEMOGLOBIN 10.7 g/dL (14.0-18.0); LYMPH # 2.1 (1.2-3.4); LYMPH % 34.2 % (22.0-35.0); MEAN CORPUSCULAR HEMOGLOBIN 26.4 pg (25.0-35.0); MEAN CORPUSCULAR HGB CONC 32.2 g/dl (31.0-37.0); MEAN PLATELET VOLUME 8.5 fl (7.0-11.0); MONO # 0.4 (0.1-0.6); MONO % 6.7 % (1.0-6.0); RBC 4.05 10^6/uL (3.5-6.1); RED CELL DISTRIBUTION WIDTH 13.6 % (11.5-14.5); WHITE BLOOD COUNT 6.1 10^3/uL (4.5-11.0)
[2019-02-14 14:28] LABS: VENOUS BLOOD GAS BASE EXCESS 6.7 mmol/L (0.0-2.0); VENOUS BLOOD GAS PO2 34 mm/Hg (30-55); VENOUS BLOOD PH 7.39 (7.32-7.43)
[2019-02-14 14:39] LABS: ACETAMINOPHEN < 10.0 ug/ml (10.0-20.0); SALICYLATE < 1 mg/dL (2.0-20.0)
[2019-02-14 14:43] LABS: ALB/GLOB RATIO 1.1 (1.1-1.8); ALBUMIN 3.9 g/dL (3.0-4.8); ALT/SGPT 40 U/L (7-56); AST/SGOT 112 U/L (17-59); BLOOD UREA NITROGEN 11 mg/dL (7-21); CALCIUM 8.9 mg/dL (8.4-10.5); GFR NON-AFRICAN AMERICAN > 60
[2019-02-14 14:55] LABS: TROPONIN I < 0.01 ng/mL
[2019-02-14 15:13] LABS: B-TYPE NATRIURETIC PEPTIDE 169 pg/mL (0-450)
--- NOTE | 2019-02-14 15:15 | CT ---
Date of service: 02/14/2019 PROCEDURE: CT HEAD WITHOUT CONTRAST. HISTORY: weakness COMPARISON: Noncontrast head CT performed 01/03/19 TECHNIQUE: Axial computed tomography images were obtained through the head/brain without intravenous contrast. Radiation dose: Total exam DLP = 798.58 mGy-cm. This CT exam was performed using one or more of the following dose reduction techniques: Automated exposure control, adjustment of the mA and/or kV according to patient size, and/or use of iterative reconstruction technique. FINDINGS: Streak artifact limits evaluation of the skull base. HEMORRHAGE: No intracranial hemorrhage. BRAIN: There is multifocal cystic encephalomalacia in the right frontal, parietal and parieto-occipital lobes. Chronic lacunar infarction in the right posterior limb of internal capsule. Re-identified large low-density mass with peripheral coarse calcifications in the sella with suprasellar extension predominantly on the right. VENTRICLES: No hydrocephalus. CALVARIUM: Prior right sided craniotomy changes. PARANASAL SINUSES: Unremarkable as visualized. No significant inflammatory changes. MASTOID AIR CELLS: Small fluid in the right mastoid air cells. Included left mastoid air cells appear clear. OTHER FINDINGS: None. IMPRESSION: Re-identified complex partially cystic sellar mass with suprasellar extension and associated coarse calcifications. Multifocal cystic encephalomalacia involving right frontal, parietal, and parietal occipital lobes. Please note that MRI with diffusion imaging is more sensitive in the detection of acute ischemic event. Small fluid within the right mastoid air cells; correlate clinically for history of mastoiditis.
--- NOTE | 2019-02-14 15:57 | RAD ---
HISTORY: weak COMPARISON: Chest x-ray performed 12/10/18 TECHNIQUE: Chest PA and lateral, 2 views FINDINGS: LUNGS: No focal consolidation. Please note that chest x-ray has limited sensitivity for the detection of pulmonary masses. PLEURA: No significant pleural effusion identified. No definite pneumothorax . CARDIOVASCULAR: Heart size appears within normal limits. Ectatic aorta. Atherosclerotic calcifications of the aorta. OSSEOUS STRUCTURES: Degenerative changes. VISUALIZED UPPER ABDOMEN: Unremarkable. OTHER FINDINGS: None. IMPRESSION: No focal consolidation.
--- NOTE | 2019-02-14 17:19 | CP.PCM.HP ---
History of Present Illness - History of Present Illness History of Present Illness: Srikanth Pablo, PGY1 H&P for Dr. Elizondo's Service This is a 63 year old male with PMH of chronic pain on narcotics, HTN, depression, hypothyroidism, liver transplant 2/2 liver cirrhosis, craniopharyngioma, blindness, and psoriasis presenting to the hospital for 2 week history of generalized weakness. Patient states "every bone in my body hurts." He denies any recent trauma, lifestyle change or other inciting event. He denies ever having similar complaints in the past. He endorses compliance with his medication. He currently admits to fevers and denies CP, SOB, nausea, vomiting, numbness, tingling, abdominal pain, diarrhea, constipation, chills, urinary complaints, swelling, recent travel, recent sickness, sick contacts at home, recent diet change and recent medication change. 12 point ROS noted here, otherwise unremarkable. He was admitted to the hospital after mechanical fall two months ago and CT head at that time showed craniopharyngioma but neurosurgery recommended medical management. Patient signed out AMA during that admission. PMH: chronic pain on narcotics, HTN, depression, hypothyroidism, liver transplant 2/2 liver cirrhosis, blindness, craniopharyngioma and psoriasis PSH: Liver transplant, brain tumor removal SH: smokes 10 ciggs/per day for 5 years, uses marijuana. Denies drinking FH: denies PMD: Dr. Yeung All: NKDA Present on Admission - Present on Admission Any Indicators Present on Admission: No Past Patient History - Infectious Disease Hx of Infectious Diseases: None - Past Medical History & Family History Past Medical History?: Yes - Past Social History Smoking Status: Light Smoker < 10 Cigarettes Daily - CARDIAC Hx Cardiac Disorders: Yes Hx Hypertension: Yes - PULMONARY Hx Respiratory Disorders: No - NEUROLOGICAL Hx Neurological Disorder: Yes HX Cerebrovascular Accident: Yes (x 3) Other/Comment: Brain tumor - HEENT Hx HEENT Problems: Yes Hx Blind: Yes (LEGALLY BLIND) - RENAL Hx Chronic Kidney Disease: No - ENDOCRINE/METABOLIC Hx Endocrine Disorders: Yes Hx Hypothyroidism: Yes - HEMATOLOGICAL/ONCOLOGICAL Hx Blood Disorders: Yes Hx Anemia: Yes - INTEGUMENTARY Hx Dermatological Problems: No - MUSCULOSKELETAL/RHEUMATOLOGICAL Hx Musculoskeletal Disorders: Yes Hx Back Pain: Yes - GASTROINTESTINAL Hx Gastrointestinal Disorders: Yes Hx Liver Failure: Yes (Liver transplant) - GENITOURINARY/GYNECOLOGICAL Hx Genitourinary Disorders: No - PSYCHIATRIC Hx Depression: Yes Hx Substance Use: No - SURGICAL HISTORY Hx Liver Transplant: Yes (2008) Other/Comment: Brain tumor removal - ANESTHESIA Hx Anesthesia: Yes Hx Anesthesia Reactions: No Hx Malignant Hyperthermia: No Meds Allergies/Adverse Reactions: Allergies Allergy/AdvReac Type Severity Reaction Status Date / Time No Known Allergies Allergy Verified 12/24/18 16:48 Physical Exam - Constitutional Appears: No Acute Distress, Cachectic, Chronically Ill - Head Exam Head Exam: ATRAUMATIC, NORMAL INSPECTION - Eye Exam Eye Exam: EOMI Pupil Exam: PERRL - ENT Exam ENT Exam: Mucous Membranes Moist - Respiratory Exam Respiratory Exam: Clear to Auscultation Bilateral. absent: Wheezes, Respiratory Distress - Cardiovascular Exam Cardiovascular Exam: REGULAR RHYTHM, +S1, +S2 - GI/Abdominal Exam GI & Abdominal Exam: Normal Bowel Sounds, Soft. absent: Firm, Guarding, Tenderness Additional comments: Right sided abdominal scar noted - Extremities Exam Extremities exam: Positive for: pedal pulses present. Negative for: calf tenderness, tenderness Additional comments: +1 B/L LE edema noted - Back Exam Back exam: NORMAL INSPECTION - Neurological Exam Neurological exam: Alert, CN II-XII Intact, Oriented x3 - Skin Skin Exam: Normal Color, Warm Results - Vital Signs Recent Vital Signs: Last Vital Signs Temp 99.2 F 02/14/19 14:08 Pulse 93 H 02/14/19 14:08 Resp 18 02/14/19 14:08 BP 103/66 02/14/19 14:08 Pulse Ox 100 02/14/19 14:08 - Labs Result Diagrams: 02/14/19 14:15 02/14/19 14:15 Labs: Laboratory Results - last 24 hr 02/14/19 02/14/19 02/14/19 14:15 14:15 14:15 WBC 6.1 RBC 4.05 Hgb 10.7 L Hct 33.2 L MCV 82.0 D MCH 26.4 MCHC 32.2 RDW 13.6 Plt Count 330 MPV 8.5 Neut % (Auto) 56.3 Lymph % (Auto) 34.2 Benton % (Auto) 6.7 H Eos % (Auto) 2.5 Baso % (Auto) 0.3 Lymph # (Auto) 2.1 Benton # (Auto) 0.4 Eos # (Auto) 0.2 Baso # (Auto) 0.02 Absolute Neuts (auto) 3.42 pO2 34 VBG pH 7.39 VBG pCO2 55.0 VBG HCO3 33.3 H VBG Total CO2 35.0 H VBG O2 Sat (Calc) 67.8 H VBG Base Excess 6.7 H VBG Potassium 4.2 Sodium 134.0 135 Chloride 98.0 96 L Glucose 100 Lactate 0.8 FiO2 21.0 Potassium 4.3 Carbon Dioxide 29 Anion Gap 14 BUN 11 Creatinine 0.7 L Est GFR ( Amer) > 60 Est GFR (Non-Af Amer) > 60 Random Glucose 98 Calcium 8.9 Magnesium 1.7 Total Bilirubin 0.6 AST 112 H D ALT 40 Alkaline Phosphatase 84 Ammonia Troponin I < 0.01 NT-Pro-B Natriuret Pep 169 Total Protein 7.3 Albumin 3.9 Globulin 3.5 Albumin/Globulin Ratio 1.1 Venous Blood Potassium 4.2 Salicylates Acetaminophen Alcohol, Quantitative 02/14/19 02/14/19 02/14/19 14:15 14:15 14:15 WBC RBC Hgb Hct MCV MCH MCHC RDW Plt Count MPV Neut % (Auto) Lymph % (Auto) Benton % (Auto) Eos % (Auto) Baso % (Auto) Lymph # (Auto) Benton # (Auto) Eos # (Auto) Baso # (Auto) Absolute Neuts (auto) pO2 VBG pH VBG pCO2 VBG HCO3 VBG Total CO2 VBG O2 Sat (Calc) VBG Base Excess VBG Potassium Sodium Chloride Glucose Lactate FiO2 Potassium Carbon Dioxide Anion Gap BUN Creatinine Est GFR ( Amer) Est GFR (Non-Af Amer) Random Glucose Calcium Magnesium Total Bilirubin AST ALT Alkaline Phosphatase Ammonia < 9 L Troponin I NT-Pro-B Natriuret Pep Total Protein Albumin Globulin Albumin/Globulin Ratio Venous Blood Potassium Salicylates < 1 L Acetaminophen < 10.0 L Alcohol, Quantitative < 10 Assessment & Plan - Assessment and Plan (Free Text) Assessment: This is a 63 year old male with PMH of chronic pain on narcotics, HTN, depression, hypothyroidism, liver transplant 2/2 liver cirrhosis, craniopharyngioma, blindness, and psoriasis presenting to the hospital for 2 week history of generalized weakness. Plan: Generalized Weakness -history of craniopharyngioma -afebrile, no WBC count noted -CT head shows cystic sellar mass with suprasellar extension and calcifications. Multifocal cystic encephalomalacia in right frontal, parietal, occipital lobes. -CXR shows no focal consolidation -MRA head without contrast pending -CTAP with PO and IV contrast in the morning -D-dimer pending, will get CTA if elevated -PT/PTT pending -CEA, PSA pending -UDS pending -NS @ 100cc/hr -neurochecks q4 -Neuro on consult, Dr. Guido Nichols History of liver transplant -continue mycophenalate, zortress -transaminitis noted -GI on consult, Dr. Canas Depression -continue duloxetine, aricept -Psych on consult, Dr. Martin -denies suicidal/homicidal ideation Hx HTN -continue lopressor 25mg BID Anemia -iron studies pending Peripheral Neuropathy -continue gabapentin -LE duplex negative for DVT BPH -continue flomax HLD -continue lipitor PPX -SCD, protonix Patient case reviewed and discussed with attending, Dr. Elizondo
[2019-02-14] MEDS ORDERED: MYCOPHENOLATE MOFETIL PO SCH ×2 (18:00→18:17)
[2019-02-14 18:28] LABS: INR 1.29; PROTHROMBIN TIME 14.3 SECONDS (9.4-12.5)
[2019-02-14] MEDS: DESMOPRESSIN PO SCH (18:40)
[2019-02-14] MEDS: EVEROLIMUS 0.25 MG PO SCH (18:40)
[2019-02-14] MEDS: Sodium Chloride 0.9% 1,000 ML IV SCH (18:56)
[2019-02-14 19:05] LABS: PARTIAL THROMBOPLASTIN TIME 39.4 Seconds (26.9-38.3)
[2019-02-14] MEDS ORDERED: Enoxaparin 80 mg Syringe SC STA (19:05)
[2019-02-14] MEDS ORDERED: Iohexol 350 MG/100 ML VIAL ONE (19:26)
[2019-02-14 19:35] LABS: URINE BILIRUBIN NEGATIVE (NEGATIVE); URINE BLOOD NEGATIVE (NEGATIVE); URINE GLUCOSE (UA) NEGATIVE (NEGATIVE); URINE LEUKOCYTE ESTERASE NEGATIVE Leu/uL (NEGATIVE); URINE PROTEIN TRACE mg/dL (<30 mg/dL); URINE UROBILINOGEN 0.2 E.U./dL (<1 E.U./dL)
[2019-02-14 19:43] LABS: URINE APPEARANCE CLEAR (CLEAR); URINE COLOR YELLOW (YELLOW)
[2019-02-14 19:51] LABS: IRON < 10 ug/dL (45-180); TOTAL IRON BINDING CAPACITY 182 ug/dL (261-462)
[2019-02-14 19:56] LABS: % IRON SATURATION 5 % (20-55)
[2019-02-14 20:10] LABS: BARBITURATES, UR NEGATIVE (NEGATIVE); BENZODIAZEPINES, UR NEGATIVE (NEGATIVE)
[2019-02-14 20:11] LABS: OPIATES, UR NEGATIVE (NEGATIVE); PHENCYCLIDINE, UR NEGATIVE (NEGATIVE)
--- NOTE | 2019-02-14 20:30 | CARD ---
APPROVED REPORT Date of service: 02/14/2019 EKG Measurement Heart [id number] <Conclusion> Normal sinus rhythm Prolonged QT Abnormal ECG
[2019-02-15] MEDS ORDERED: Barium Sulfate Susp 2.1% w/v, 2.0% w/w 450 mL Bottle PO ONE (02:49)
[2019-02-15] MEDS: Pantoprazole 40 mg EC Tab PO SCH (05:46)
[2019-02-15] MEDS: Sodium Chloride 0.9% 1,000 ML IV SCH (05:58)
[2019-02-15] MEDS ORDERED: Enoxaparin 80 mg Syringe SC SCH (07:00)
[2019-02-15 07:17] LABS: BASO # 0.02 K/mm3 (0.0-2.0); BASO % 0.4 % (0.0-3.0); EOS # 0.1 (0.0-0.7); EOS % 1.8 % (1.5-5.0); HEMOGLOBIN 9.5 g/dL (14.0-18.0); LYMPH # 2.3 (1.2-3.4); LYMPH % 40.9 % (22.0-35.0); MEAN CORPUSCULAR HEMOGLOBIN 25.5 pg (25.0-35.0); MEAN CORPUSCULAR HGB CONC 31.5 g/dl (31.0-37.0); MEAN PLATELET VOLUME 8.6 fl (7.0-11.0); MONO # 0.6 (0.1-0.6); RBC 3.73 10^6/uL (3.5-6.1); RED CELL DISTRIBUTION WIDTH 13.7 % (11.5-14.5); WHITE BLOOD COUNT 5.5 10^3/uL (4.5-11.0)
[2019-02-15 07:21] LABS: ALBUMIN 3.3 g/dL (3.0-4.8); ALT/SGPT 36 U/L (7-56); AST/SGOT 102 U/L (17-59); BLOOD UREA NITROGEN 7 mg/dL (7-21); CALCIUM 8.4 mg/dL (8.4-10.5); GFR NON-AFRICAN AMERICAN > 60
[2019-02-15 07:25] LABS: FREE T4 0.42 ng/dL (0.78-2.19)
--- NOTE | 2019-02-15 07:47 | CP.PCM.PN ---
Subjective - Date & Time of Evaluation Date of Evaluation: 02/15/19 Time of Evaluation: 07:07 - Subjective Subjective: Sly Meade PGY2 IM Progress Note for Dr. Elizondo Patient was seen and examined at bedside. The patient is oriented to person and place but not time. He is not aware why he is admitted. There were no acute over night events. Objective - Vital Signs/Intake and Output Vital Signs (last 24 hours): Temp Pulse Resp BP Pulse Ox 97.4 F L 109 H 20 129/95 H 99 02/15/19 06:00 02/15/19 06:00 02/15/19 06:00 02/15/19 06:00 02/15/19 06:00 Intake and Output: 02/15/19 02/15/19 06:59 18:59 Intake Total 380 Output Total 228 Balance 152 - Medications Medications: Current Medications Atorvastatin Calcium (Lipitor) 40 mg PO DIN NETTA Donepezil HCl (Aricept) 10 mg PO HS [facility] Last Admin: 02/14/19 21:09 Dose: 10 mg Duloxetine HCl (Cymbalta) 60 mg PO BID [facility] Last Admin: 02/14/19 19:00 Dose: 60 mg Duloxetine HCl (Cymbalta) 60 mg PO DAILY [facility] Enoxaparin Sodium (Lovenox) 80 mg SC Q12H [facility]; Protocol Gabapentin (Neurontin) 300 mg PO QID [facility]; Protocol Last Admin: 02/14/19 21:10 Dose: 300 mg Home Med (Home Med) 10 unit PO BID [facility] Last Admin: 02/14/19 18:40 Dose: Not Given Home Med (Home Med) 0.25 unit PO BID [facility] Last Admin: 02/14/19 18:40 Dose: Not Given Sodium Chloride (Sodium Chloride 0.9%) 1,000 mls @ 100 mls/hr IV .Q10H [facility] Last Admin: 02/15/19 05:58 Dose: 100 mls/hr Metoprolol Tartrate (Lopressor) 25 mg PO BID [facility] Last Admin: 02/14/19 18:59 Dose: 25 mg Non-Formulary Medication (Mycophenolate Mofetil [Mycophenolate Mofetil]) 500 tab PO BID [facility] Pantoprazole Sodium (Protonix Ec Tab) 40 mg PO 0600 [facility] Last Admin: 02/15/19 05:46 Dose: 40 mg Tamsulosin HCl (Flomax) 0.4 mg PO DAILY NETTA - Labs Labs: 02/15/19 06:30 02/15/19 06:30 PT 14.3 SECONDS (9.4-12.5) H 02/14/19 14:15 INR 1.29 02/14/19 14:15 APTT 39.4 Seconds (26.9-38.3) H 02/14/19 14:15 - Constitutional Appears: Well, Non-toxic, No Acute Distress - Head Exam Head Exam: ATRAUMATIC, NORMAL INSPECTION - Eye Exam Eye Exam: Normal appearance Additional comments: decreased visual acuity - ENT Exam ENT Exam: Mucous Membranes Moist, Normal Exam - Neck Exam Neck Exam: Full ROM, Normal Inspection - Respiratory Exam Respiratory Exam: NORMAL BREATHING PATTERN. absent: Wheezes, Respiratory Distress - Cardiovascular Exam Cardiovascular Exam: RRR, +S1, +S2 - GI/Abdominal Exam GI & Abdominal Exam: Soft, Normal Bowel Sounds. absent: Tenderness - Extremities Exam Extremities Exam: Full ROM. absent: Pedal Edema - Neurological Exam Neurological Exam: Alert. absent: Oriented x3 (oriented to person and place, not time) - Skin Skin Exam: Normal Color, Warm Assessment and Plan - Assessment and Plan (Free Text) Assessment: 63 year old male with a PMH of chronic pain on narcotics, HTN, depression, hypothyroidism, liver transplant 2/2 liver cirrhosis, craniopharyngioma, blindness, and psoriasis presenting to the hospital for 2 week history of generalized weakness. Plan: 1. Generalized Weakness, r/o sepsis - CT head reviewed, re-demonstrates cystic sellar mass with suprasellar extension and calcifications. Multifocal cystic e ncephalomalacia in right frontal, parietal, occipital lobes. - CXR shows no focal consolidation - blood and urine cultures drawn - starting cefepime empirically - MRA head without contrast pending - CTA chest reviewed - will order MRI lumbar spine to evaluate lumbar spine compression fracture - bone scan to r/o pathologic fractures - NS @ 100cc/hr - neurochecks q4 - Neuro on consult, Dr. Guido Nichols 2. s/p liver transplant - continue mycophenalate, zortress - transaminitis noted - GI on consult, Dr. Canas 3. Depression - continue duloxetine, aricept - Psych on consult, Dr. Martin - denies suicidal/homicidal ideation 4. HTN - continue lopressor 25mg BID 5. Anemia - iron studies pending 6. Peripheral Neuropathy - hold gabapentin at this time - LE duplex negative for DVT 7. BPH - continue flomax 8. HLD - continue lipitor 9. PPX - SCDs for DVT ppx - protonix for GI ppx CAse was reviewed and discussed with Dr. Elizondo
--- NOTE | 2019-02-15 08:54 | US ---
HISTORY: Leg pain and swelling. Evaluate for DVT PHYSICIAN(S): Ac Bear MD. TECHNIQUE: Duplex sonography and color-flow Doppler with graded compression were used to evaluate the deep venous systems of both lower extremities. FINDINGS: The visualized deep venous systems of both lower extremities are sonographically normal and compressible. Normal wave forms and augmentation are seen. There is no sonographic evidence for deep venous thrombosis in the visualized segments of both lower extremities. IMPRESSION: No sonographic evidence for deep venous thrombosis in the visualized segments of both lower extremities.
--- NOTE | 2019-02-15 09:29 | CT ---
Date of service: 02/14/2019 PROCEDURE: CT Chest with contrast (Pulmonary Angiogram) HISTORY: generalized weakness, elevated d-dimer COMPARISON: None available. TECHNIQUE: Axial computed tomography images were obtained of the chest in the pulmonary arterial phase of enhancement. Coronal and sagittal reformatted images were created and reviewed. Intravenous contrast dose: 100 mL Omnipaque 350 Radiation dose: Total exam DLP = 514.56 mGy-cm. This CT exam was performed using one or more of the following dose reduction techniques: Automated exposure control, adjustment of the mA and/or kV according to patient size, and/or use of iterative reconstruction technique. FINDINGS: PULMONARY ARTERIES: Unremarkable. No pulmonary embolism. AORTA: No acute findings. No thoracic aortic aneurysm. No aortic atherosclerotic calcification or mural plaque present. LUNGS: Unremarkable. No nodule, mass or pulmonary consolidation. PLEURAL SPACES: Unremarkable. No effusion or pneumothorax. HEART: Unremarkable. No cardiomegaly. No significant pericardial effusion. LYMPH NODES: No lymphadenopathy. BONES, CHEST WALL: Mild anterior wedge compression deformity of the L1 vertebral body, age indeterminate. Old healed sternal body fracture. Old healed manubrium sternum fracture. OTHER FINDINGS: Questionable wedge-shaped areas of diminished or non enhancement in the kidneys bilaterally. Evaluation grossly limited by the timing of contrast administration for this CT angiogram. Nevertheless, the possibility of pyelonephritis should be considered and correlation with clinical and laboratory evaluation is advised. IMPRESSION: No evidence of pulmonary embolism. Mild anterior compression deformity of L1 vertebral body, age indeterminate. Old healed fractures of the sternal body and manubrium sternum. No infiltrate. Question is raised as to possible acute pyelonephritis though the evaluation is grossly limited due to the timing of contrast administration. Correlate clinically. The preliminary findings for this examination were reported by [facility] at 8:48 p.m. on 02/14/2019. There is discordance of this report with the preliminary findings. The possibility of bilateral pyelonephritis was not described in the preliminary report of this examination. Findings in this report were discussed by telephone with the patient's nurse on at 9:24 a.m. on 02/15/2019.
[2019-02-15] MEDS: DESMOPRESSIN PO SCH ×2 (09:35→20:31)
[2019-02-15] MEDS: EVEROLIMUS 0.25 MG PO SCH ×2 (09:35→20:31)
--- NOTE | 2019-02-15 13:19 | CON ---
DATE OF CONSULTATION: 02/15/2019 GASTROENTEROLOGY CONSULTATION REQUESTING PHYSICIAN: Dr. Elizondo. REASON FOR CONSULTATION/HISTORY OF PRESENT ILLNESS: I have been asked to see this 63-year-old male with multiple medical conditions including history of craniopharyngioma, blindness, depression, hypothyroidism, hypertension, chronic pain on narcotic analgesics with a history of liver transplantation back in 2008, whom I have been asked to see for mildly elevated AST. He denies any abdominal pain, nausea, or vomiting. He is unclear as to what kind of liver disease and cirrhosis prompted his liver transplantation. He follows up with his transplant surgeons every 2-3 months at [facility] in [place]. He denies any abdominal pain, nausea, or vomiting. PAST MEDICAL HISTORY: As above. Again, he has a history of liver transplant, liver cirrhosis, hypertension, hypothyroidism, craniopharyngioma, chronic pain, hypertension, and depression. PAST SURGICAL HISTORY: Notable for liver transplant. SOCIAL HISTORY: He smokes up to half a pack of cigarettes per day. Smokes marijuana. He denies alcohol use. FAMILY HISTORY: Noncontributory. REVIEW OF SYSTEMS: Fourteen-point review of systems is notable for generalized weakness and diffuse body aches. MEDICATIONS: Medications at home include tamsulosin, omeprazole, mycophenolate mofetil, metoprolol, Neurontin, Zortress, duloxetine, Aricept, desmopressin, and Lipitor. PHYSICAL EXAMINATION: GENERAL: Elderly male, appearing older than his stated age, in no distress. VITAL SIGNS: Reveal a temperature of 97.4, blood pressure 129/95, heart rate of 109. HEENT: Reveals sclerae to be white. Conjunctivae pink. He is blind. NECK: Supple. CHEST: Lungs are clear. HEART: Reveals regular rate and rhythm. ABDOMEN: Soft, nontender. There is a well-healed mid abdominal scar from his liver transplant. EXTREMITIES: Show no edema. LABORATORY DATA: Revealed a white blood cell count of 5.5, hemoglobin 9.5. Chemistries reveal a potassium of 3.5, iron saturation is 5, AST 102, ALT 36, alkaline phosphatase 179, and albumin of 3.3. IMPRESSION: A 63-year-old male with multiple medical problems and chronic pain, status post liver transplant in 2008, admitted to hospital with generalized weakness with mildly elevated AST. It is unclear to me if this is coming from his liver. I doubt that this is rejection of his transplant. Given the fact that only his AST is elevated, one must rule out chronic low-grade homolysis RECOMMENDATIONS: 1. Check a serum LDH level. 2. Check hepatitis serology. 3. The patient can follow up with the liver transplant team at [facility] upon discharge from the hospital. Kole Canas MD MTDD
[2019-02-15] MEDS: Levalbuterol 0.63 MG/3 ML Inhal Soln UD IH SCH ×2 (13:31→20:23)
--- NOTE | 2019-02-15 14:13 | PN ---
DATE: 02/15/2019 SUBJECTIVE: The patient is in room 563 bed 2. The patient is seen and evaluated. Overnight nurse's notes were reviewed. PHYSICAL EXAMINATION VITAL SIGNS: T-max is 99.7 down to 99, heart rate is 99 to 109, blood pressure 129/95, respirations 20 and O2 sat is 99%. GENERAL: The patient is lying in the bed. Overnight nurse's notes were reviewed. HEENT: Head examination shows positive right craniotomy. Positive blindness. Pale conjunctivae. Dry oral mucosa. No neck rigidity. CHEST: Kyphosis. LUNGS: Shows occasional rhonchi upper lung melara. CARDIOVASCULAR: S1 and S2, regular rhythm. ABDOMEN: Soft, positive bowel sounds. Positive stigmata of the liver transplant. GENITALIA: Male. EXTREMITIES: Shows positive swelling of the lower extremity. MUSCULOSKELETAL: Shows decreased muscle mass. NEUROLOGICAL: Examination is limited secondary to blindness. Gait examination is not tested. PSYCHIATRIC: Positive for depression. DIAGNOSTICS: WBC 5.5, hemoglobin/hematocrit 9.5/30.2 and platelets 365. D-dimer 941 and PT 14.3. Chemistry from today, potassium 3.5, iron less than 10, TIBC 182, iron saturation 5. The patient's MRI of the brain, CAT scan of the abdomen and pelvis is pending. CTA of the chest results were reviewed. IMPRESSION: 1. Generalized weakness and fatigue. 2. Low grade fever. 3. Tachycardia. 4. Questionable systemic inflammatory response syndrome. 5. Normocytic iron-deficiency anemia. 6. Elevated D-dimer. 7. Mild coagulopathy. 8. Hypokalemia. 9. Proteinuria. 10. Ketonuria. 11. Failure to thrive with poor p.o. intake. 12. Insomnia. 13. Tachycardia. 14. Anemia. 15. Esophagitis. 16. Right frontoparietal occipital cystic encephalomalacia. 17. Right internal capsule lacunar infarct. 18. Large sellar mass with right-sided suprasellar extension. 19. Right craniotomy. 20. History of hepatic cirrhosis status post liver transplant. 21. Depression. 22. Peripheral neuropathy. 23. Prostatic hypertrophy. 24. Narcotic dependent pain syndrome. 25. Hypothyroidism. 26. Bilateral eye blindness. 27. History of craniopharyngioma. 28. Nicotine dependence. 29. History of marijuana use. 30. History of cerebral infarct. 31. Questionable dementia. PLAN: At this time, the patient has been ordered serial labs. The patient is awaiting MRI and MRA of the brain. The patient is awaiting CT of the chest, abdomen and pelvis. The patient is awaiting Neurology and Gastroenterology evaluation and Psychiatry evaluation. The patient has been ordered GI/ DVT prophylaxis. Both pharmacological and non-pharmacological GI/DVT prophylaxis. The patient has been ordered out of bed physical therapy and occupational therapy. The patient is awaiting GI, Psychiatry and Neurology evaluation and recommendations. The patient has been ordered repeat labs. The patient will be continued on all the therapeutic intervention as per the MAR. The patient's further management will be dependent upon the patient's clinical condition, hemodynamic status and response to the therapeutic intervention as per the patient diagnostics test results. Due to the patient's multiple comorbidity and underlying medical condition, the patient prognosis appears to be guarded to poor which he has been explained. Dictated and electronically signed, not read. Signing off Neeraj Elizondo MD Neeraj Elizondo MD
--- NOTE | 2019-02-15 14:15 | CP.PCM.PCO ---
Additional Comments - Additional Comments Additional Comments: Generalized weakness, FTT, PMHx Liver transplant, hypothyroidism, HTN, Sellar brain mass, encephalomalacia. GI consulted elevated AST/liver transplant, MRI brain with and without contrast, MRA brain, CT abdomen/pelvis, BC/UC, PT/OT eval, pending, continue empiric treatment with antibiotics, repeat labs in am, reeval in am.
[2019-02-15] MEDS: Cefepime 1gm in NS 100ml 1 GM/100 ML BAG IVPB SCH ×2 (15:03→21:48)
[2019-02-15 15:04] LABS: FOLATE 18.2 ng/mL
[2019-02-15] MEDS: Enoxaparin 40 mg Syringe SC SCH (15:07)
--- NOTE | 2019-02-15 16:08 | CON ---
DATE: 02/15/2019 CHIEF COMPLAINT: History of craniopharyngioma, near syncope. HISTORY OF PRESENT ILLNESS: This is a 63-year-old man with history of right-sided craniotomy in the past for a benign brain tumor in , for which craniopharyngioma; history of chronic neck and back pain, on chronic narcotics in the past; history of liver cirrhosis, status post liver transplant; who comes in for generalized weakness and fatigue, found to have severely low iron level less than 10 and low saturation and ferritin and therefore was given IV iron infusion and had a low free T4 and low TSH. Currently, from a Neuro perspective, there is nothing surgical to be done in regards to his craniopharyngioma. Neurosurgery said in his last visit that he was not a surgical candidate. He is on gabapentin, Cymbalta for neuropathic relief as well. PAST MEDICAL HISTORY: As above. SOCIAL HISTORY: No illicit drug use, smoking or EtOH abuse. ALLERGIES: NO KNOWN DRUG ALLERGIES. MEDICATIONS: Reviewed by nurse's reconciliation sheet. REVIEW OF SYSTEMS: A 14-point review of systems is as per the HPI. PHYSICAL EXAMINATION: GENERAL: The patient is sitting up in bed, in no acute distress. VITAL SIGNS: Temperature 97.4, pulse rate of 108, blood pressure 102/81, respiratory rate 18, and oxygen saturation 98% on room air. HEENT: Atraumatic and normocephalic. PERRLA. Extraocular muscles intact. NECK: Supple. No JVD. No adenopathy noted. LUNGS: Clear to auscultation. No adventitious sounds. HEART: S1 and S2. Normal rate and rhythm. No murmurs, rubs, or gallops. ABDOMEN: Soft, nontender, nondistended. Bowel sounds present. EXTREMITIES: No clubbing. No cyanosis. Peripheral pulses are 2+ felt bilaterally. NEUROLOGIC: The patient is alert and oriented to person, place, month and year. Speech is fluent without any errors. Cranial nerves II through XII are intact. Motor Exam: Moves all extremities equally. Toes are downgoing bilaterally. Sensory Exam: Decreased light touch and pinprick up to the calves bilaterally. Decreased vibration of the toes. DTRs are 2+ throughout and 1 at both knees and ankles. Coordination: [id number] intact. No dysmetria noted. Gait is deferred for now. LABORATORY DATA: Sodium is 138, potassium 3.4, chloride 104, carbon dioxide 26, BUN of 7, creatinine 0.5, random glucose 106. IMPRESSION: The patient has evidence of large predominant cystic suprasellar mass with suprasellar extension consistent with craniopharyngioma. No neurosurgical intervention needed at this time from the last neurosurgery followup was done. His generalized weakness is also secondary to deconditioned state and generalized iron deficiency for which he was given iron replacement. RECOMMENDATIONS: At this time: 1. Continue with his Cymbalta and gabapentin in regards to his neuropathic relief. 2. PT/OT eval. 3. Iron infusion given low iron levels and monitor electrolytes and correct accordingly. Thank you for this consult. Guido Nichols MD
[2019-02-15] MEDS ORDERED: Iohexol 350 MG/100 ML VIAL ONE (19:14)
--- NOTE | 2019-02-15 20:55 | CON ---
DATE: 02/15/2019 HISTORY OF PRESENT ILLNESS: The patient is a 63-year-old [place] male with a history of depression, no psychiatric admissions, currently compliant with Cymbalta prescribed by Dr. Spears who was admitted to the medical floor due to a 2-week history of generalized weakness. The patient has numerous medical issues which to can be contributing to his depression and disorganization; please refer to medical notes for more details. I reviewed the patient's medical history. I also reviewed recent staff notes. The patient has had fair control on the unit, oriented x3 with periods of forgetfulness, which this provider also observed during our interview. Overall the patient is cooperative. Eye contact is poor likely secondary to the patient being legally blind. Affect is a little bit constricted, flat, preoccupied and the patient is surprisingly coherent regarding his responses and consistent, though he does not appear engaged with questioning. The patient reports he has been depressed, he has been depressed for years. Does not feel that Cymbalta ever helped him and reports having anxiety. The patient can be vague at times. He reports that major source of stress are problems with family. He says he does not want to kill himself, he does not want to . However, he says this extremely sadly and apathetically. The patient is willing to try a medication to help with his depression. Provocatively he indicates that he hallucinates all the time "whenever the situation comes and goes", however, he cannot elaborate on this. He has not been observed to be responding to internal stimuli by staff members or by this provider, however, I cannot discount the patient having these symptoms. His insight and judgment considered to be fair at this time. PAST PSYCHIATRIC HISTORY: The patient denies any psychiatric admissions, suicide attempts, reports he has been taking Cymbalta for a few years prescribed by Dr. Spears. He has never seen a psychiatrist. SOCIAL HISTORY: The patient was born in [place]. He is not . He has no kids. He lives by himself. He used to working in [employer]. He denies any drug or alcohol problems. The patient reports that he has conflicts with his family, which are contributing to his depression. RELEVANT PSYCHIATRIC MEDICATIONS: The patient is prescribed over the years include Cymbalta 60 mg b.i.d. IMPRESSION: Major depressive disorder, moderate. Likely contribution of adjustment disorder with anxiety and depression. Rule out contribution of mood disorder due to general medical condition. Rule out delirium as patient has been noted to exhibit forgetfulness on the unit. RECOMMENDATIONS: We will continue cymbalta 60 mg p.o. b.i.d. as this medication might be helping for neuropathic pain as the patient does have a history of chronic pain. I will add Abilify to complement Cymbalta at this time as this medication can be added as an augmenting agent for depression and will also help with hallucinations that patient may or may not have at this time. We have started a conservative dose of 2.5 mg at bedtime. Psychiatry will continue to follow up and to monitor his progress. Dheeraj George MD [facility]
[2019-02-16] MEDS: Levalbuterol 0.63 MG/3 ML Inhal Soln UD IH SCH ×4 (02:48→21:51)
[2019-02-16] MEDS: Pantoprazole 40 mg EC Tab PO SCH (05:36)
[2019-02-16] MEDS: Cefepime 1gm in NS 100ml 1 GM/100 ML BAG IVPB SCH ×3 (05:36→21:55)
[2019-02-16 06:42] LABS: BASO # 0.01 K/mm3 (0.0-2.0); BASO % 0.2 % (0.0-3.0); EOS # 0.1 (0.0-0.7); EOS % 2.5 % (1.5-5.0); HEMOGLOBIN 9.5 g/dL (14.0-18.0); LYMPH # 1.6 (1.2-3.4); LYMPH % 40.3 % (22.0-35.0); MEAN CELL VOLUME 82.1 fl (80.0-105.0); MEAN CORPUSCULAR HEMOGLOBIN 25.4 pg (25.0-35.0); MEAN CORPUSCULAR HGB CONC 30.9 g/dl (31.0-37.0); MEAN PLATELET VOLUME 8.7 fl (7.0-11.0); MONO # 0.2 (0.1-0.6); MONO % 5.9 % (1.0-6.0); RBC 3.74 10^6/uL (3.5-6.1); RED CELL DISTRIBUTION WIDTH 13.8 % (11.5-14.5); WHITE BLOOD COUNT 4.1 10^3/uL (4.5-11.0)
[2019-02-16 07:07] LABS: ALB/GLOB RATIO 1.1 (1.1-1.8); ALBUMIN 3.5 g/dL (3.0-4.8); ALT/SGPT 38 U/L (7-56); AST/SGOT 104 U/L (17-59); BILIRUBIN,DIRECT 0.4 mg/dL (0.0-0.4); BLOOD UREA NITROGEN 3 mg/dL (7-21); CALCIUM 8.9 mg/dL (8.4-10.5); GFR NON-AFRICAN AMERICAN > 60
--- NOTE | 2019-02-16 09:17 | CT ---
Date of service: 02/15/2019 PROCEDURE: CT Abdomen and Pelvis with contrast HISTORY: generalized weakness, history of liver transplant COMPARISON: None. TECHNIQUE: Contrast dose: 100 cc of Omni 350 Radiation dose: Total exam DLP = 682.58 mGy-cm. This CT exam was performed using one or more of the following dose reduction techniques: Automated exposure control, adjustment of the mA and/or kV according to patient size, and/or use of iterative reconstruction technique. FINDINGS: LOWER THORAX: There is mild mural thickening of the distal esophagus. Possible esophagitis LIVER: Unremarkable. No gross lesion or ductal dilatation. GALLBLADDER AND BILE DUCTS: Unremarkable. PANCREAS: Unremarkable. No gross lesion or ductal dilatation. SPLEEN: Unremarkable. ADRENALS: Unremarkable. No mass. KIDNEYS AND URETERS: Unremarkable. No hydronephrosis. No solid mass. VASCULATURE: Unremarkable. No aortic aneurysm. No aortic atherosclerotic calcification or mural plaque present. BOWEL: Unremarkable. No obstruction. No gross mural thickening. APPENDIX: Normal appendix. PERITONEUM: Unremarkable. No free fluid. No free air. LYMPH NODES: Unremarkable. No enlarged lymph nodes. BLADDER: There is a small 1 x 2 cm diverticulum arising from the left posterior bladder wall REPRODUCTIVE: Unremarkable. BONES: Multilevel disc degeneration. Chronic appearing compression deformity of L1 OTHER FINDINGS: The report concurs with the preliminary [facility] report IMPRESSION: There is mild mural thickening of the distal esophagus. Possible esophagitis No acute intra-abdominal findings
[2019-02-16] MEDS ORDERED: Potassium Chloride 20 mEq ER Tab PO ONE (09:36)
--- NOTE | 2019-02-16 09:37 | CP.PCM.PN ---
Subjective - Date & Time of Evaluation Date of Evaluation: 02/16/19 Time of Evaluation: 09:07 - Subjective Subjective: Sly Meade PGY2 IM Progress Note for Dr. Elizondo Patient was seen and examined at bedside. There were no acute events overnight. Patient has no complaints. Labs and nursing notes were reviewed. Objective - Vital Signs/Intake and Output Vital Signs (last 24 hours): Temp Pulse Resp BP Pulse Ox 97.7 F 88 18 109/71 90 L 02/16/19 06:00 02/16/19 06:00 02/16/19 06:00 02/16/19 06:00 02/16/19 06:00 Intake and Output: 02/16/19 02/16/19 06:59 18:59 Intake Total 600 Balance 600 - Medications Medications: Current Medications Acetaminophen (Tylenol 325mg Tab) 650 mg PO Q6 PRN PRN Reason: TEMP>=99.5F Acetaminophen (Tylenol 650 Mg Supp) 650 mg RC Q6H PRN PRN Reason: TEMP>=99.5F Aripiprazole (Abilify) 5 mg PO HS [facility] Aripiprazole (Abilify) 2.5 mg PO QAM [facility] Atorvastatin Calcium (Lipitor) 40 mg PO DIN [facility] Last Admin: 02/15/19 16:35 Dose: 40 mg Donepezil HCl (Aricept) 10 mg PO HS [facility] Last Admin: 02/15/19 21:49 Dose: 10 mg Duloxetine HCl (Cymbalta) 60 mg PO BID [facility] Last Admin: 02/15/19 18:57 Dose: 60 mg Enoxaparin Sodium (Lovenox) 40 mg SC DAILY [facility]; Protocol Last Admin: 02/15/19 15:07 Dose: 40 mg Home Med (Home Med) 10 unit PO BID [facility] Last Admin: 02/15/19 20:31 Dose: Not Given Home Med (Home Med) 0.25 unit PO BID [facility] Last Admin: 02/15/19 20:31 Dose: Not Given Sodium Chloride (Sodium Chloride 0.9%) 1,000 mls @ 100 mls/hr IV .Q10H [facility] Last Admin: 02/15/19 05:58 Dose: 100 mls/hr Iron Sucrose 200 mg/ Sodium (Chloride) 110 mls @ 110 mls/hr IVPB DAILY [facility] Stop: 02/19/19 10:59 Last Admin: 02/15/19 13:35 Dose: 110 mls/hr Cefepime HCl (Maxipime 1gm) 1 gm in 100 mls @ 100 mls/hr IVPB Q8 [facility]; Protocol Last Admin: 02/16/19 05:36 Dose: 100 mls/hr Levalbuterol HCl (Xopenex) 0.63 mg IH [id number] [facility] Last Admin: 02/16/19 07:41 Dose: 0.63 mg Metoprolol Tartrate (Lopressor) 25 mg PO BID [facility] Last Admin: 02/15/19 19:01 Dose: Not Given Mycophenolate Mofetil (Cellcept Cap) 500 mg PO BID [facility] Last Admin: 02/15/19 18:57 Dose: 500 mg Ondansetron HCl (Zofran Inj) 4 mg IVP Q4H PRN PRN Reason: Nausea/Vomiting Pantoprazole Sodium (Protonix Ec Tab) 40 mg PO 0600 [facility] Last Admin: 02/16/19 05:36 Dose: 40 mg Potassium Chloride (K-Dur 20 Meq Er Tab) 40 meq PO ONCE ONE Stop: 02/16/19 09:37 Tamsulosin HCl (Flomax) 0.4 mg PO DAILY [facility] Last Admin: 02/15/19 09:24 Dose: 0.4 mg - Labs Labs: 02/16/19 06:15 02/16/19 06:15 PT 14.3 SECONDS (9.4-12.5) H 02/14/19 14:15 INR 1.29 02/14/19 14:15 APTT 39.4 Seconds (26.9-38.3) H 02/14/19 14:15 - Constitutional Appears: Well, Non-toxic, No Acute Distress - Head Exam Head Exam: ATRAUMATIC, NORMAL INSPECTION - Eye Exam Eye Exam: Normal appearance Additional comments: decreased visual acuity - ENT Exam ENT Exam: Mucous Membranes Moist, Normal Exam - Neck Exam Neck Exam: Full ROM, Normal Inspection - Respiratory Exam Respiratory Exam: NORMAL BREATHING PATTERN. absent: Wheezes, Respiratory Distress - Cardiovascular Exam Cardiovascular Exam: RRR, +S1, +S2 - GI/Abdominal Exam GI & Abdominal Exam: Soft, Normal Bowel Sounds. absent: Tenderness - Extremities Exam Extremities Exam: Full ROM. absent: Pedal Edema - Neurological Exam Neurological Exam: Alert. absent: Oriented x3 (oriented to person and place, not time) - Skin Skin Exam: Normal Color, Warm Assessment and Plan - Assessment and Plan (Free Text) Assessment: 63 year old male with a PMH of chronic pain on narcotics, HTN, depression, hypothyroidism, liver transplant 2/2 liver cirrhosis, craniopharyngioma, blindness, and psoriasis presenting to the hospital for 2 week history of generalized weakness. Plan: 1. Generalized Weakness, r/o sepsis - CT head reviewed, re-demonstrates cystic sellar mass with suprasellar extension and calcifications. Multifocal cystic e ncephalomalacia in right frontal, parietal, occipital lobes. - MRI brain and MRA head pending - CXR shows no focal consolidation - blood cultures pending; urine cx negative - cont cefepime empirically - CTA chest reviewed - d/c NS and start LR @ 100cc/hr - neurochecks q4 - speech therapy eval - Neuro on consult, Dr. Guido Nichols 2. Lumbar compression fracture - MRI lumbar spine pending to evaluate lumbar spine compression fracture - bone scan to r/o pathologic fractures 3. s/p liver transplant - continue mycophenalate, zortress - transaminitis noted; hepatitis panel ordered - GI on consult, Dr. Canas 4. Depression - continue duloxetine, aricept - Psych on consult, Dr. Martin - denies suicidal/homicidal ideation 5. HTN - continue lopressor 25mg BID 6. Anemia, likely iron deficiency anemia - transfusing venofer 7. Peripheral Neuropathy - hold gabapentin at this time - LE duplex negative for DVT 8. BPH - continue flomax 9. HLD - continue lipitor 10. PPX - SCDs for DVT ppx - protonix for GI ppx Further recs per Dr. Elizondo Case was reviewed and discussed with Dr. Elizondo
[2019-02-16] MEDS ORDERED: Gadodiamide 287 MG/ML VIAL (15ML) IV ONE (10:31)
[2019-02-16] MEDS ORDERED: Potassium Phosphate 15 MMOLE in Sodium Chloride 0.9% 250 ML IVPB ONE (10:32)
[2019-02-16] MEDS: Enoxaparin 40 mg Syringe SC SCH (11:27)
[2019-02-16] MEDS: DESMOPRESSIN PO SCH ×2 (11:33→20:10)
[2019-02-16] MEDS: EVEROLIMUS 0.25 MG PO SCH ×2 (11:34→20:10)
--- NOTE | 2019-02-16 11:43 | CP.PCM.PCO ---
Physician Communication Note - Physician Communication Note Physician Communication Note: MRI/MRA results pending, PT eval pending
--- NOTE | 2019-02-16 11:49 | MRI ---
Date of service: 02/16/2019 PROCEDURE: MR LUMBAR SPINE WITHOUT CONTRAST HISTORY: Evaluate L1 compression fracture COMPARISON: Plain radiographs from 01/03/2019. TECHNIQUE: Multiecho multiplanar sequences were performed through the lumbar spine without the use of intravenous contrast. FINDINGS: There is mild dextroscoliosis in the lumbar spine. There is degenerative 5 mm retrolisthesis of L2 on L3. There is normal lumbar lordosis. There are advanced multilevel degenerative endplate marrow changes at L1-2, L2-3 and L3-4 with multilevel Schmorl's nodes. Otherwise bone marrow signal is heterogeneous however within normal limits. There is no evidence for acute fracture. There is a chronic anterior compression deformity in the L1 vertebral body. The conus medullaris terminates at a normal level. There is multilevel ventral indentation of the thecal sac and multilevel spinal canal stenosis in the upper lumbar spine. The paraspinous muscles are normal. Imaged portion of the retroperitoneum is within normal limits. T12-L1: Diffuse posterior disc bulge. No disc herniation, spinal canal stenosis or neural foraminal narrowing. L1-2: Diffuse posterior disc bulge without spinal canal stenosis or neural foraminal narrowing. L2-3: Diffuse posterior disc bulge indents the ventral thecal sac and in conjunction with mild ligamentum flavum infolding result in mild spinal canal stenosis. Mild bilateral facet arthropathy contribute to moderate neural foraminal narrowing, worse on the left. L3-4: Diffuse posterior disc bulge with superimposed large central and right paracentral disc protrusion result in mass effect on the ventral thecal sac and severe spinal canal stenosis. Severe bilateral facet arthropathy contribute to severe neural foraminal narrowing. L4-5: Diffuse posterior disc bulge indents the ventral thecal sac without central spinal canal stenosis. There is superimposed right posterolateral and foraminal annular tear and disc protrusion with probable impingement on the exiting right L4 nerve root. Moderate bilateral facet arthropathy contribute to this moderate to severe right and mild left neural foraminal narrowing. L5-S1: Diffuse posterior disc bulge indents the ventral thecal sac with mild spinal canal stenosis. Moderate bilateral facet arthropathy contribute to moderate neural foraminal narrowing. OTHER FINDINGS: None. IMPRESSION: 1. No acute fracture. Chronic anterior compression fracture deformity in the L1 vertebral body. 2. Advanced multilevel degenerative disc disease, worse at L3-4 with a large central and right paracentral disc protrusion which result in mass effect on the ventral thecal sac with severe spinal canal stenosis. Severe bilateral facet arthropathy contribute to severe neural foraminal narrowing. 3. At L4-5 with a diffuse posterior disc bulge and superimposed right posterolateral and foraminal annular tear and disc protrusions which impinge on the exiting right L4 nerve root.
[2019-02-16 12:21] LABS: HEPATITIS B SURFACE AG Negative (NEGATIVE)
[2019-02-16 12:27] LABS: HEPATITIS A IGM NEGATIVE (NEGATIVE); HEPATITIS B CORE AB NEGATIVE (NEGATIVE)
--- NOTE | 2019-02-16 12:27 | MRI ---
Date of service: 02/16/2019 PROCEDURE: Magnetic Resonance Angiography Brain HISTORY: weakness COMPARISON: None available. TECHNIQUE: 3D time of flight MR angiography of the intracranial arteries was performed. Rotating maximum intensity projection images were generated. FINDINGS: INTERNAL CAROTID ARTERIES: Normal flow related signal. The skull base, petrous, cavernous and supraclinoid segments are bilaterally widely patient. ANTERIOR CEREBRAL ARTERIES: Normal flow related signal. A1 and A2 segments are widely patent. Smaller distal branches unremarkable, as visualized. MIDDLE CEREBRAL ARTERIES: Normal flow related signal. There is short segment high-grade stenosis in the right distal M1 segment proximal to the bifurcation. There is normal flow related signal in the right proximal M1 segment. The left M1 and M2 segments are widely patent. There is attenuation of the right M2 branches. The left perisylvian branches are widely patent. POSTERIOR CIRCULATION: Basilar Artery: Normal flow related signal. Normal in caliber and widely patent. Distal Vertebral Arteries: Normal flow related signal. Widely patent. Posterior Cerebral Arteries: Normal flow related signal. Widely patent. Posterior Inferior Cerebellar Arteries: Normal flow related signal. Widely patent. ANEURYSM/ VASCULAR MALFORMATIONS: None. OTHER FINDINGS: None. IMPRESSION: 1. Short segment high-grade stenosis in the right distal M1 segment proximal to the bifurcation with attenuation of the distal branches. 2. No evidence of occlusion or saccular aneurysm.
[2019-02-16 12:39] LABS: HEPATITIS C ANTIBODY NEGATIVE (NEGATIVE)
--- NOTE | 2019-02-16 13:11 | MRI ---
Date of service: 02/16/2019 PROCEDURE: MRI BRAIN WITH AND WITHOUT CONTRAST HISTORY: ?CRANIOPHYRINGIOMA COMPARISON: CT head without contrast from 02/14/2019. TECHNIQUE: Multiplanar, multisequence MR images of the brain were obtained with and without intravenous contrast enhancement. 15 cc Omniscan was injected intravenously. FINDINGS: HEMORRHAGE: None DWI: There are few small foci of restricted diffusion in the right frontal cortex and right posterior parietal cortex. BRAIN PARENCHYMA: There is redemonstration of multifocal cystic encephalomalacia in the right frontal, parietal and parieto-occipital lobes with volume loss there is a chronic lacunar infarction in the right posterior basal ganglia. There is also a chronic infarction in the left frontal lobe and smaller chronic infarctions in the left parietal lobe. There is also a chronic infarction in the left jerrell wayne. There is a large T1 isointense and T2 hypointense sellar mass with suprasellar extension on the right measuring approximately 4.5 x 3.7 x 5.1 cm. The mass demonstrates peripheral coarse calcifications and results in expansion of the sella turcica and lateral displacement of the cavernous carotid signal voids. The cavernous carotid signal voids are patent. ENHANCEMENT: No abnormal parenchymal or leptomeningeal enhancement. VENTRICLES: There is moderate age advanced global parenchymal volume loss and proportionate enlargement of the ventricles and cortical sulci. CRANIUM: Status post right frontal and parietal craniotomies. ORBITS: Grossly unremarkable. PARANASAL SINUSES/MASTOIDS: Mild mucosal thickening in the paranasal sinuses. Bilateral mastoid effusions. VASCULAR SYSTEM: There are normal signal voids in the larger intracranial arteries. OTHER FINDINGS: None . IMPRESSION: 1. Approximately 4.5 x 3.7 x 5.6 cm sellar mass with suprasellar extension on the right site, the mass expense the sella, has peripheral coarse calcifications and demonstrates minimal enhancement, there is mass effect on the cavernous segments of the carotid arteries. Findings are most compatible with a craniopharyngioma. 2. Multifocal cystic encephalomalacia on the right and multifocal chronic infarctions as described above. 3. Moderate age-related global parenchymal volume loss.
[2019-02-16] MEDS ORDERED: Lactated Ringer's 1,000 ML IV SCH (14:30)
--- NOTE | 2019-02-16 17:12 | NM ---
Date of service: 02/16/2019 PROCEDURE: Whole Body Bone Scan HISTORY: r/o pathologic fractures COMPARISON: February 16, 2019. MR lumbar spine. 02/15/2019 CT abdomen and pelvis. 02/14/2019 01/03/2019 CT cervical spine. TECHNIQUE: Following administration of 26.8 miCu of Tc MDP multiplanar whole body images were obtained. FINDINGS: Evidence for bony metastatic disease: None. Degenerative uptake: Cervical, thoracic and lumbar spine. Bilateral knees. Physiologic uptake: Normal physiologic activity in the kidneys. Other findings: Abnormal foci of increased uptake right jerrell calvarium. Findings appear to be related to monica hole defect/craniotomy findings. Increased uptake in the sternum IMPRESSION: Multiple foci of abnormal uptake axial and appendicular skeleton described in greater detail above. Rigorous review, comparison with studies described above failed to identify any suspicious metastatic lesions. Confirmation of findings primarily in the spine and calvarium likely benign etiologies.
--- NOTE | 2019-02-16 17:12 | PN ---
DATE: 02/16/2019 SUBJECTIVE: The patient is lying in bed comfortable. He denies any abdominal pain, nausea or vomiting. He does admit to frequent reflux. The patient states that he had an upper endoscopy at [facility] ([facility] about for 4 to 5 weeks ago. He does not remember the physician or the results. OBJECTIVE: VITAL SIGNS: Reveal temperature of 97.7, blood pressure 109/71, heart rate of 88. HEENT: Reveal sclerae to be white. Conjunctivae pale. The patient is blind. NECK: Supple. CHEST: Reveal distant breath sounds. HEART: Reveals regular rate and rhythm. ABDOMEN: Soft, nontender. EXTREMITIES: Show no edema. LABORATORY DATA: Reveal white blood cell count 4.1, hemoglobin 9.5. Chemistries reveal BUN 3, creatinine 0.6, AST is stable at 104, ALT 38, LDH of 693. CT scan of the abdomen and pelvis revealed normal-appearing liver, mild nonspecific mural thickening of the EG junction. IMPRESSION: A 63-year-old male status post liver transplant about 10 years ago with elevated AST, etiology is unclear. He has nonspecific mild mural thickening of the esophagogastric junction on CAT scan. He does complain of frequent gastroesophageal reflux disease. He did have an endoscopy within the last 4-5 weeks at [facility] ([facility] RECOMMENDATIONS: 1. We will check a serum GGTP level. 2. Continue pantoprazole 40 mg once a day. Kole Canas MD
--- NOTE | 2019-02-16 19:04 | CON ---
DATE: 02/16/2019 HISTORY OF PRESENT ILLNESS: The patient is a 63-year-old [place] male with a history of depression. No psychiatric admissions. Currently compliant with Cymbalta prescribed by Dr. Spears. He was admitted to the medical floor and Psychiatry is following up due to depression and altered mental status. I reviewed recent staff notes. I met with the patient at bedside again this morning. The patient has been in fair control on the unit with periods of orientation interspersed with periods of confusion as well as forgetfulness. He is legally blind and demonstrates poor eye contact in this respect; however, he is cooperative with questions though is not entirely engaged, consistent with his presentation yesterday. Patient reports continued depression; however, he continues to deny having any suicidal or homicidal thoughts. Today, he appears to be more disoriented and indicates that it is 11/1918, however, he notes he is in a hospital. The patient reports that he is hallucinating. He says he sees children all over his legs and at his bed and he keeps trying to tell them to be careful so that they do not get harmed. The patient reports that he is seeing the children during night visit. The patient also reports hearing voices, although he does not elaborate on that. The patient took a dose of Abilify last night and denies any side effects and he is agreeable to increasing the dose. Again I reviewed its indication as well as possible benefits, possible side effects, and possible latency with the patient. His insight and judgment are poor due to his altered mental status at this time. RELEVANT PSYCHIATRIC MEDICATIONS: Include Cymbalta 60 mg b.i.d. and Abilify 2.5 mg at bedtime. Labs and vitals were reviewed. IMPRESSION: Major depressive disorder, severe with psychotic symptoms, likely contribution of adjustment disorder with depression and anxiety, rule out contribution of mood disorder due to general medical condition, rule out likely delirium as the patient has been noted to exhibit alternating states of consciousness, focus, and memory. RECOMMENDATIONS: We will continue with Cymbalta 60 mg b.i.d. and increase dose of Abilify to 5 mg at bedtime and 2.5 mg in the morning to help with psychosis including hallucinations and Psychiatry will continue to follow up and monitor the patient's tolerance to medications and indication per any further medication changes. Dheeraj George MD [facility] # [id number]
[2019-02-17] MEDS: Levalbuterol 0.63 MG/3 ML Inhal Soln UD IH SCH ×4 (03:19→20:10)
[2019-02-17] MEDS: Pantoprazole 40 mg EC Tab PO SCH (05:45)
[2019-02-17] MEDS: Cefepime 1gm in NS 100ml 1 GM/100 ML BAG IVPB SCH ×3 (05:45→22:18)
[2019-02-17 07:05] LABS: BASO # 0.01 K/mm3 (0.0-2.0); BASO % 0.2 % (0.0-3.0); EOS # 0.1 (0.0-0.7); EOS % 1.5 % (1.5-5.0); HEMOGLOBIN 10.2 g/dL (14.0-18.0); LYMPH # 1.9 (1.2-3.4); LYMPH % 34.8 % (22.0-35.0); MEAN CELL VOLUME 82.8 fl (80.0-105.0); MEAN CORPUSCULAR HEMOGLOBIN 25.8 pg (25.0-35.0); MEAN CORPUSCULAR HGB CONC 31.2 g/dl (31.0-37.0); MEAN PLATELET VOLUME 8.6 fl (7.0-11.0); MONO # 0.4 (0.1-0.6); MONO % 8.1 % (1.0-6.0); RBC 3.95 10^6/uL (3.5-6.1); RED CELL DISTRIBUTION WIDTH 14.1 % (11.5-14.5); WHITE BLOOD COUNT 5.4 10^3/uL (4.5-11.0)
[2019-02-17 07:27] LABS: ALBUMIN 3.3 g/dL (3.0-4.8); ALT/SGPT 33 U/L (7-56); AST/SGOT 81 U/L (17-59); BILIRUBIN,DIRECT 0.4 mg/dL (0.0-0.4); BLOOD UREA NITROGEN 4 mg/dL (7-21); CALCIUM 9.5 mg/dL (8.4-10.5); GAMMA GLUTAMYL TRANSPEPTIDASE 19 U/L (8-78); GFR NON-AFRICAN AMERICAN > 60
--- NOTE | 2019-02-17 08:30 | PN ---
DATE: 02/16/2019 SUBJECTIVE: The patient is in room 563, bed 2. Overnight nurse's notes were reviewed. The patient has been episodically screaming with episodic questionable disorientation and confusion, which the patient was reoriented. Overnight nurse's notes were reviewed. The patient was seen by Neurology and Psychiatry overnight. The patient was seen by Gastroenterology overnight. PHYSICAL EXAMINATION: VITAL SIGNS: T-max 97.7, heart rate 59-88, blood pressure 109/71 and 98/74, and O2 sat 90%-96%. HEENT: Head examination shows right craniotomy. Positive bilateral blindness. No facial asymmetry. Questionable soft carotid bruit. CHEST: Kyphosis. LUNGS: Shows no audible crackle, rales or wheezing. CARDIOVASCULAR: S1, S2, regular rhythm. ABDOMEN: Soft, positive bowel sounds, positive surgical scar of the liver transplant. GENITALIA: Male. RECTAL: Deferred. EXTREMITIES: Shows trace swelling of the lower extremity. NEUROLOGICAL: The patient is alert, awake, responsive, is able to answer questions. GAIT: Not tested. The patient is lying in the bed. Neurological examination is limited. Cranial nerves II-XII are limited. PSYCHIATRIC: As per the psychiatrist evaluation. DIAGNOSTICS: WBC 4.1, hemoglobin/hematocrit 9.5 and 30.7, and platelets 356. Sodium 148, potassium 3.7, chloride 115, CO2 of 26, BUN 3, creatinine 0.6. Glucose 139, calcium 8.9, phosphorus 2.1, magnesium 2.1, AST 104. The patient's MRI of the lumbar spine results are available, which is reviewed. MRI and MRA of the brain and bone scan is pending. IMPRESSION: 1. Episodic confusion, disorientation versus altered mental status versus toxic metabolic encephalopathy, etiology undetermined. 2. Hypotension. 3. Hypoxemia. 4. Normocytic iron-deficiency anemia. 5. Mild relative hypernatremia. 6. Hypokalemia, hypophosphatemia. 7. Transaminitis. 8. Dementia. 9. Episodic confusion. 10. Bilateral pyelonephritis. 11. Depression. 12. Adjustment disorder. 13. Anxiety disorder. 14. Possible delirium. 15. Questionable mood disorder. 16. Acute versus chronic L1 compression fracture. 17. Severe lumbar spine degenerative disc disease, multilevel lumbar spine degenerative disc disease. 18. Lumbar spine spinal stenosis and foraminal narrowing. 19. Sternal body and manubrium sterni fracture. 20. Distal esophageal thickening and esophagitis. 21. 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 23. Failure to thrive. 24. Generalized weakness and deconditioning. 25. Bilateral blindness. 26. History of hepatic cirrhosis and liver transplant. PLAN: At this time, the patient has been continued on IV fluid hydration. The patient will be continued on IV fluid hydration. The patient will be continued on incentive spirometry. The patient will be continued on oxygen supplementation. The patient will be continued on GI and DVT prophylaxis. The patient has been started on impairing broad-spectrum IV antibiotics for pyelonephritis. The patient will be continued on pharmacological and non-pharmacological GI and DVT prophylaxis. The patient will be given and continued on IV Venofer treatment. The patient will be continued on medications recommended by Psychiatry, Neurology and Gastroenterology. At present, the patient's MRI and MRA of the brain is pending, which will be reviewed once available. The patient's bone scan results is pending, which will be reviewed. The patient already had a CT of the chest, abdomen and pelvis, which was already reviewed. The patient's case has been referred for physical therapy, occupational therapy, ambulation therapy, and gait training. Overall, the patient's prognosis is guarded to poor once the patient has been evaluated and cleared by all the subspecialty. The patient will be considered for discharge. The patient's will be continued on the therapeutic intervention as per the MAR today, which was reviewed. Dictated and electronically signed, not read. Neeraj Elizondo MD
[2019-02-17] MEDS: Enoxaparin 40 mg Syringe SC SCH ×2 (09:16→09:24)
[2019-02-17] MEDS: DESMOPRESSIN PO SCH ×2 (09:17→17:50)
[2019-02-17] MEDS: EVEROLIMUS 0.25 MG PO SCH ×2 (09:17→17:50)
--- NOTE | 2019-02-17 09:19 | US ---
Date of service: 02/16/2019 PROCEDURE: HISTORY: swollen left arm COMPARISON: TECHNIQUE: FINDINGS: IMPRESSION:
--- NOTE | 2019-02-17 13:17 | CP.PCM.PCO ---
Physician Communication Note - Physician Communication Note Physician Communication Note: cont. IV antibiotics as per Dr. Elizondo for pyelonephritis, possible TCU 02/18
--- NOTE | 2019-02-17 14:40 | CP.PCM.PN ---
Subjective - Date & Time of Evaluation Date of Evaluation: 02/17/19 Time of Evaluation: 07:09 - Subjective Subjective: Sly Meade PGY2 IM Progress Note for Dr. Elizondo Patient was seen and examined at bedside. No acute overnight events per hospital staff. Patient complaining of constipation. Pending PT eval. Objective - Vital Signs/Intake and Output Vital Signs (last 24 hours): Temp Pulse Resp BP Pulse Ox 102.6 F H 98 H 18 102/69 94 L 02/17/19 14:00 02/17/19 06:00 02/17/19 06:00 02/17/19 06:00 02/17/19 06:00 Intake and Output: 02/17/19 02/17/19 06:59 18:59 Intake Total 120 Balance 120 - Medications Medications: Current Medications Acetaminophen (Tylenol 325mg Tab) 650 mg PO Q6 PRN PRN Reason: TEMP>=99.5F Acetaminophen (Tylenol 650 Mg Supp) 650 mg RC Q6H PRN PRN Reason: TEMP>=99.5F Aripiprazole (Abilify) 5 mg PO HS [facility] Last Admin: 02/16/19 21:56 Dose: 5 mg Aripiprazole (Abilify) 2.5 mg PO QAM [facility] Last Admin: 02/17/19 09:16 Dose: 2.5 mg Atorvastatin Calcium (Lipitor) 40 mg PO DIN [facility] Last Admin: 02/16/19 17:55 Dose: 40 mg Donepezil HCl (Aricept) 10 mg PO HS [facility] Last Admin: 02/16/19 21:56 Dose: 10 mg Duloxetine HCl (Cymbalta) 60 mg PO BID [facility] Last Admin: 02/17/19 09:16 Dose: 60 mg Enoxaparin Sodium (Lovenox) 40 mg SC DAILY [facility]; Protocol Last Admin: 02/17/19 09:24 Dose: Not Given Home Med (Home Med) 10 unit PO BID [facility] Last Admin: 02/17/19 09:17 Dose: Not Given Home Med (Home Med) 0.25 unit PO BID [facility] Last Admin: 02/17/19 09:17 Dose: Not Given Iron Sucrose 200 mg/ Sodium (Chloride) 110 mls @ 110 mls/hr IVPB DAILY [facility] Stop: 02/19/19 10:59 Last Admin: 02/17/19 11:05 Dose: 110 mls/hr Cefepime HCl (Maxipime 1gm) 1 gm in 100 mls @ 100 mls/hr IVPB Q8 [facility]; Protocol Last Admin: 02/17/19 13:16 Dose: 100 mls/hr Dextrose (Dextrose 5% In Water 1000 Ml) 1,000 mls @ 60 mls/hr IV .[id number] [facility] Last Admin: 02/17/19 09:15 Dose: 60 mls/hr Levalbuterol HCl (Xopenex) 0.63 mg IH [id number] [facility] Last Admin: 02/17/19 13:30 Dose: 0.63 mg Metoprolol Tartrate (Lopressor) 25 mg PO BID [facility] Last Admin: 02/17/19 09:17 Dose: 25 mg Mycophenolate Mofetil (Cellcept Cap) 500 mg PO BID [facility] Last Admin: 02/17/19 09:16 Dose: 500 mg Ondansetron HCl (Zofran Inj) 4 mg IVP Q4H PRN PRN Reason: Nausea/Vomiting Pantoprazole Sodium (Protonix Ec Tab) 40 mg PO 0600 [facility] Last Admin: 02/17/19 05:45 Dose: 40 mg Tamsulosin HCl (Flomax) 0.4 mg PO DAILY [facility] Last Admin: 02/17/19 09:16 Dose: 0.4 mg - Labs Labs: 02/17/19 06:35 02/17/19 06:35 PT 14.3 SECONDS (9.4-12.5) H 02/14/19 14:15 INR 1.29 02/14/19 14:15 APTT 39.4 Seconds (26.9-38.3) H 02/14/19 14:15 - Constitutional Appears: Well, Non-toxic, No Acute Distress - Head Exam Head Exam: ATRAUMATIC, NORMAL INSPECTION - Eye Exam Eye Exam: Normal appearance Additional comments: decreased visual acuity - ENT Exam ENT Exam: Mucous Membranes Moist, Normal Exam - Neck Exam Neck Exam: Full ROM, Normal Inspection - Respiratory Exam Respiratory Exam: NORMAL BREATHING PATTERN. absent: Wheezes, Respiratory Distress - Cardiovascular Exam Cardiovascular Exam: RRR, +S1, +S2 - GI/Abdominal Exam GI & Abdominal Exam: Soft, Normal Bowel Sounds. absent: Tenderness - Extremities Exam Extremities Exam: Full ROM. absent: Pedal Edema - Neurological Exam Neurological Exam: Alert, Oriented x3 - Skin Skin Exam: Normal Color, Warm Assessment and Plan - Assessment and Plan (Free Text) Assessment: 63 year old male with a PMH of chronic pain on narcotics, HTN, depression, hypothyroidism, liver transplant 2/2 liver cirrhosis, craniopharyngioma, blindness, and psoriasis presenting to the hospital for 2 week history of generalized weakness. Plan: 1. Generalized Weakness, r/o sepsis - CT head reviewed, re-demonstrates cystic sellar mass with suprasellar extension and calcifications. Multifocal cystic e ncephalomalacia in right frontal, parietal, occipital lobes. - MRI brain and MRA head reviewed - CXR shows no focal consolidation - blood cultures negative x48 hrs; urine cx negative - cont cefepime empirically - CTA chest reviewed - neurochecks q4 - speech therapy eval - Neuro on consult, Dr. Guido Nichols - PT eval pending 2. Lumbar compression fracture - MRI lumbar reviewed - bone scan r/o pathologic fractures 3. s/p liver transplant - continue mycophenalate, zortress - transaminitis improved - GI on consult, Dr. Canas 4. Depression - continue duloxetine, aricept - Psych on consult, Dr. Martin - denies suicidal/homicidal ideation 5. HTN - continue lopressor 25mg BID 6. Anemia, likely iron deficiency anemia - transfusing venofer 7. Peripheral Neuropathy - hold gabapentin at this time - LE duplex negative for DVT 8. BPH - continue flomax 9. HLD - continue lipitor 10. PPX - SCDs for DVT ppx - protonix for GI ppx Further recs per Dr. Elizondo Case was reviewed and discussed with Dr. Elizondo
[2019-02-17] MEDS ORDERED: Vancomycin 2 GM in Sodium Chloride 0.9% 500 ML IVPB ONE ×2 (14:44→14:47)
--- NOTE | 2019-02-17 14:52 | PN ---
DATE: 02/17/2019 LOCATION: The patient is seen in room 563, bed 2. SUBJECTIVE: Lying in the bed. Overnight nurse's notes were reviewed. The patient had some swelling of the upper extremity for which the patient underwent venous Doppler of both upper extremities which was negative for DVT, preliminary results. The patient was evaluated by speech therapist, was found to have oropharyngeal dysphagia with dietary modifications ordered. The patient refused physical therapy yesterday according to the physical therapy notes. PHYSICAL EXAMINATION: VITAL SIGNS: T-max 98.2; heart rate 98, 100, 120, down to heart rate of 100; blood pressure 110/70, 102/69; O2 sat 94%. HEENT: The patient's head examination shows positive right craniotomy. Positive bilateral blindness. Dry oral mucosa. Crusted lips. NECK: No neck rigidity. CHEST: Examination kyphosis. LUNGS: Examination shows occasional rhonchi in the upper lung melara. No audible crackle, rales or wheezing. CARDIOVASCULAR: S1, S2, regular rhythm. ABDOMEN: Soft, positive bowel sound. No palpable hepatosplenomegaly. GENITALIA: Male. RECTAL: Examination is deferred. EXTREMITIES: Shows no pitting edema. No calf tenderness. No Homans' sign. NEUROLOGIC: The patient is alert, awake, responsive; is able to move upper and lower extremities without assistance. Gait examination is not tested. The patient refused physical therapy. LABORATORY DATA: WBC 5.4, hemoglobin/hematocrit 10.2/33, platelet 4.7. Sodium has gone up to 154, potassium was still pending, chloride 118, CO2 of 28, BUN 4, creatinine 0.7, glucose 151, calcium 9.5, phosphorus 3.2, magnesium 1.9, AST 81. DIAGNOSTIC DATA: Bone scan, MRI of the brain, MRA of the brain reviewed. IMPRESSION: 1. Oropharyngeal dysphagia. 2. Bilateral upper extremity venous stasis with venous Doppler of the upper extremity negative. 3. Poor compliance and noncompliance. 4. Normocytic iron-deficiency anemia. 5. Hypernatremia 6. Hypokalemia and hypophosphatemia. 7. Transaminitis. 8. Degenerative joint disease of the cervical, thoracic and lumbar spine and knees. 9. Increased uptake of the right skull secondary to craniotomy and increased uptake in the sternum. 10. Right frontoparietal cortex restricted effusion with cystic encephalomalacia of the right frontoparietal occipital lobe. 11. Right basal ganglia, left frontal, left parietal; left pontine lacunar infarct. 12. Large sellar mass with suprasellar extension to the right with calcification consistent with craniopharyngioma. 13. Cerebral cortical atrophy of the brain with ventriculomegaly 14. Right frontal, right parietal craniotomy. 15. Bilateral mastoid effusion. 16. Right distal M1 high-grade stenosis proximal to bifurcation. 17. Distal esophagitis. 18. Major depression. 19. Psychosis. 20. Adjustment disorder. 21. Anxiety. 22. Failure to thrive. 23. History of liver transplant. 24. History of craniopharyngioma. 25. Generalized weakness, deconditioning, gait dysfunction. 26. Bilateral blindness. 27. Hypernatremia. 28. Bilateral possible pyelonephritis with bilateral perinephric stranding. 29. Gait dysfunction and deconditioning. 30. Poor compliance. 31. History of liver transplant. 32. Distal esophagitis. PLAN: At this time, the patient's IV fluid is changed to dextrose D5W. The patient is continued on IV antibiotic. The patient is continued on all the medications as per the MAR of today. The patient has been ordered physical therapy, occupational therapy, ambulation therapy, Neurology consultation, Psychiatry consultation. A Gastroenterology consultation has been ordered. Their recommendations are reviewed. The patient has been started on modified diet as per the speech therapist evaluation. The patient will be continued on all the therapeutic intervention as per the MAR of today. The patient's case will be referred to [facility] for discharge planning. As the patient most likely may require 24-hour care and supervision dependent upon the patient's family's needs and request and after evaluation by physical therapy, the patient's discharge disposition will be determined with cooperation of the patient and the patient's family. At present, the patient will be continued on above therapeutic intervention. Neeraj Elizondo MD
--- NOTE | 2019-02-17 15:23 | RAD ---
Date of service: 02/17/2019 HISTORY: fever COMPARISON: 02/14/2019 TECHNIQUE: 1 view obtained. FINDINGS: LUNGS: No active pulmonary disease. PLEURA: No significant pleural effusion identified, no pneumothorax apparent. CARDIOVASCULAR: No aortic atherosclerotic calcification present. Normal cardiac size. No pulmonary vascular congestion. OSSEOUS STRUCTURES: No significant abnormalities. VISUALIZED UPPER ABDOMEN: Normal. OTHER FINDINGS: None. IMPRESSION: No active disease.
[2019-02-17 15:56] LABS: BASO # 0.01 K/mm3 (0.0-2.0); BASO % 0.2 % (0.0-3.0); EOS # 0.1 (0.0-0.7); EOS % 0.9 % (1.5-5.0); HEMOGLOBIN 9.6 g/dL (14.0-18.0); LYMPH # 2.2 (1.2-3.4); LYMPH % 37.9 % (22.0-35.0); MEAN CELL VOLUME 83.7 fl (80.0-105.0); MEAN CORPUSCULAR HEMOGLOBIN 26.1 pg (25.0-35.0); MEAN CORPUSCULAR HGB CONC 31.2 g/dl (31.0-37.0); MEAN PLATELET VOLUME 8.8 fl (7.0-11.0); MONO # 0.4 (0.1-0.6); RBC 3.68 10^6/uL (3.5-6.1); RED CELL DISTRIBUTION WIDTH 14.3 % (11.5-14.5); WHITE BLOOD COUNT 5.9 10^3/uL (4.5-11.0)
[2019-02-17 16:15] LABS: ALBUMIN 3.2 g/dL (3.0-4.8); ALT/SGPT 27 U/L (7-56); AST/SGOT 77 U/L (17-59); BLOOD UREA NITROGEN 5 mg/dL (7-21); CALCIUM 9.2 mg/dL (8.4-10.5); GFR NON-AFRICAN AMERICAN > 60
--- NOTE | 2019-02-17 21:22 | PN ---
DATE: 02/17/2019 SUBJECTIVE: The patient is a 63-year-old [place] male with history of depression. The patient was admitted on medical side and psychiatric services were called in order to consult for the patient's agitation and confusion and forgetfulness and altered mental status. The patient was initially seen by Dr. Harris, notes reviewed, labs reviewed and medications reviewed. The patient was seen today on the medical side. The patient is comfortably resting in the bed. The patient is legally blind. The patient was disengaged and not willing to have an interview, but the patient was not in any acute distress. Collateral information was obtained from the patient's nurse. As per nurse, the patient took his medication, ate breakfast, and today the patient is not exhibiting any aggressive or agitated behavior. So far, the patient presented well. PHYSICAL EXAMINATION VITAL SIGNS: In regards of the patient's vital signs, the patient is having fever 104 today and tachycardia 98, blood pressure 102/69, respirations 18, and oxygen saturation is 94%. MEDICATIONS: Reviewed. The patient is on Tylenol, Abilify 2.5 mg in the morning time 5 mg at the night time, Lipitor, cefepime, dextrose, Colace, Aricept, Cymbalta 60 mg twice a day, and Lovenox. The patient also is on home medication. The patient is on , Lopressor, Zofran, Protonix, Flomax, and vancomycin. LABORATORY DATA: Reviewed, most recent was from today. Microbiology reviewed. Blood bank reviewed. Chest x-ray reviewed. No active diseases. DIAGNOSES: The patient was diagnosed with sepsis, generalized weakness, lumbar compression fracture, status post liver transplant, and depression. The patient also was diagnosed with hypertension, anemia, benign prostatic hyperplasia, dyslipidemia. MENTAL STATUS EXAMINATION: As this fha underwriter described above. The patient was disengaged. Not willing to have interview. IMPRESSION: As per his history, the patient has history of depression and anxiety. PLAN: We will continue current medications and current management as since the patient tolerates medications well and showed some improvement with his mood as well as behavior. This fha underwriter will follow up on the patient tomorrow and advice accordingly. Thank you very much for letting me to participate in the care of your patient. Veronica Brandt MD
[2019-02-18] MEDS: Levalbuterol 0.63 MG/3 ML Inhal Soln UD IH SCH ×4 (02:40→20:30)
[2019-02-18] MEDS: Pantoprazole 40 mg EC Tab PO SCH (06:06)
[2019-02-18] MEDS: Cefepime 1gm in NS 100ml 1 GM/100 ML BAG IVPB SCH ×3 (06:21→21:10)
[2019-02-18 06:49] LABS: BASO # 0.02 K/mm3 (0.0-2.0); BASO % 0.3 % (0.0-3.0); EOS # 0.2 (0.0-0.7); EOS % 2.7 % (1.5-5.0); HEMOGLOBIN 9.5 g/dL (14.0-18.0); LYMPH # 2.3 (1.2-3.4); LYMPH % 36.2 % (22.0-35.0); MEAN CELL VOLUME 84.5 fl (80.0-105.0); MEAN CORPUSCULAR HEMOGLOBIN 25.9 pg (25.0-35.0); MEAN CORPUSCULAR HGB CONC 30.6 g/dl (31.0-37.0); MONO # 0.4 (0.1-0.6); MONO % 6.5 % (1.0-6.0); RBC 3.67 10^6/uL (3.5-6.1); RED CELL DISTRIBUTION WIDTH 14.4 % (11.5-14.5); WHITE BLOOD COUNT 6.3 10^3/uL (4.5-11.0)
--- NOTE | 2019-02-18 07:29 | CP.PCM.PN ---
Subjective - Date & Time of Evaluation Date of Evaluation: 02/18/19 Time of Evaluation: 06:49 - Subjective Subjective: Sly Meade PGY2 IM Progress Note for Dr. Elizondo Patient was seen and examined at bedside. Yesterday, the patient had fevers early evening. sepsis work-up was ordered and patient received Vancomycin in addition to being on cefepime. Patient currently on cooling blanket, and fevers have improved. Patient is complaining of fevers and chills and appears uncomfortable, however, he denies any cough, abdominal pain, shortness of breath, nausea/vomiting/diarrhea, dysuria. Objective - Vital Signs/Intake and Output Vital Signs (last 24 hours): Temp Pulse Resp BP Pulse Ox 99.7 F H 98 H 18 96/62 L 94 L 02/18/19 06:00 02/18/19 06:00 02/18/19 06:00 02/18/19 06:00 02/18/19 06:00 Intake and Output: 02/18/19 02/18/19 06:59 18:59 Intake Total 240 Output Total 1100 Balance -860 - Medications Medications: Current Medications Acetaminophen (Tylenol 325mg Tab) 650 mg PO Q6 PRN PRN Reason: TEMP>=99.5F Last Admin: 02/17/19 22:18 Dose: 650 mg Acetaminophen (Tylenol 650 Mg Supp) 650 mg RC Q6H PRN PRN Reason: TEMP>=99.5F Last Admin: 02/17/19 14:44 Dose: 650 mg Aripiprazole (Abilify) 5 mg PO HS [facility] Last Admin: 02/17/19 22:18 Dose: 5 mg Aripiprazole (Abilify) 2.5 mg PO QAM [facility] Last Admin: 02/17/19 09:16 Dose: 2.5 mg Atorvastatin Calcium (Lipitor) 40 mg PO DIN [facility] Last Admin: 02/17/19 17:50 Dose: Not Given Docusate Sodium (Colace) 100 mg PO BID [facility] Last Admin: 02/17/19 17:50 Dose: Not Given Donepezil HCl (Aricept) 10 mg PO HS [facility] Last Admin: 02/17/19 22:18 Dose: 10 mg Duloxetine HCl (Cymbalta) 60 mg PO BID [facility] Last Admin: 02/17/19 17:50 Dose: Not Given Enoxaparin Sodium (Lovenox) 40 mg SC DAILY [facility]; Protocol Last Admin: 02/17/19 09:24 Dose: Not Given Home Med (Home Med) 10 unit PO BID [facility] Last Admin: 02/17/19 17:50 Dose: Not Given Home Med (Home Med) 0.25 unit PO BID [facility] Last Admin: 02/17/19 17:50 Dose: Not Given Iron Sucrose 200 mg/ Sodium (Chloride) 110 mls @ 110 mls/hr IVPB DAILY [facility] Stop: 02/19/19 10:59 Last Admin: 02/17/19 11:05 Dose: 110 mls/hr Cefepime HCl (Maxipime 1gm) 1 gm in 100 mls @ 100 mls/hr IVPB Q8 [facility]; Protocol Last Admin: 02/18/19 06:21 Dose: 100 mls/hr Dextrose (Dextrose 5% In Water 1000 Ml) 1,000 mls @ 60 mls/hr IV .[id number] [facility] Last Admin: 02/17/19 09:15 Dose: 60 mls/hr Vancomycin HCl (Vancomycin 1gm) 1 gm in 250 mls @ 167 mls/hr IVPB Q12H [facility]; Protocol Levalbuterol HCl (Xopenex) 0.63 mg IH [id number] [facility] Last Admin: 02/18/19 02:40 Dose: Not Given Metoprolol Tartrate (Lopressor) 25 mg PO BID [facility] Last Admin: 02/17/19 17:50 Dose: Not Given Mycophenolate Mofetil (Cellcept Cap) 500 mg PO BID [facility] Last Admin: 02/17/19 17:49 Dose: Not Given Ondansetron HCl (Zofran Inj) 4 mg IVP Q4H PRN PRN Reason: Nausea/Vomiting Pantoprazole Sodium (Protonix Ec Tab) 40 mg PO 0600 [facility] Last Admin: 02/18/19 06:06 Dose: 40 mg Tamsulosin HCl (Flomax) 0.4 mg PO DAILY [facility] Last Admin: 02/17/19 09:16 Dose: 0.4 mg - Labs Labs: 02/18/19 06:20 02/17/19 15:50 PT 14.3 SECONDS (9.4-12.5) H 02/14/19 14:15 INR 1.29 02/14/19 14:15 APTT 39.4 Seconds (26.9-38.3) H 02/14/19 14:15 - Constitutional Appears: Uncomfortable, Non-toxic, No Acute Distress - Head Exam Head Exam: ATRAUMATIC, NORMAL INSPECTION - Eye Exam Eye Exam: Normal appearance Additional comments: decreased visual acuity - ENT Exam ENT Exam: Mucous Membranes Dry, Normal Exam - Neck Exam Neck Exam: Full ROM, Normal Inspection - Respiratory Exam Respiratory Exam: NORMAL BREATHING PATTERN. absent: Wheezes, Respiratory Distress - Cardiovascular Exam Cardiovascular Exam: RRR, +S1, +S2 - GI/Abdominal Exam GI & Abdominal Exam: Soft, Normal Bowel Sounds. absent: Tenderness - Extremities Exam Extremities Exam: Full ROM. absent: Pedal Edema - Neurological Exam Neurological Exam: Alert, Oriented x3 - Skin Skin Exam: Normal Color, Warm Assessment and Plan - Assessment and Plan (Free Text) Assessment: 63 year old male with a PMH of chronic pain on narcotics, HTN, depression, hypothyroidism, liver transplant 2/2 liver cirrhosis, craniopharyngioma, blindness, and psoriasis presenting to the hospital for 2 week history of generalized weakness. Patient is febrile now, which prompted repeat of sepsis work-up. Plan: 1. Generalized Weakness, r/o sepsis - ID will be consulted - CXR reviewed - blood and urine cultures ordered - UA pending - on vanc and cefepime empirically - CT head reviewed, re-demonstrates cystic sellar mass with suprasellar extension and calcifications. Multifocal cystic e ncephalomalacia in right frontal, parietal, occipital lobes. - MRI brain and MRA head reviewed - CXR shows no focal consolidation - CTA chest reviewed - neurochecks q4 - speech therapy eval - Neuro on consult, Dr. Guido Nichols - PT eval pending 2. Hypernatremia - Serum Osm and Urine osm/lytes ordered - 4L free water deficity - will await osms and replete 3. Lumbar compression fracture - MRI lumbar reviewed - bone scan r/o pathologic fractures 4. s/p liver transplant - continue mycophenalate, zortress - transaminitis improved - GI on consult, Dr. Canas 5. Depression - continue duloxetine, aricept - Psych on consult, Dr. Martin - denies suicidal/homicidal ideation 6. HTN - continue lopressor 25mg BID 7. Anemia, likely iron deficiency anemia - monitor H/H 8. Peripheral Neuropathy - hold gabapentin at this time - LE duplex negative for DVT 9. BPH - continue flomax - PSA ordered 10. HLD - continue lipitor 11. PPX - SCDs for DVT ppx - protonix for GI ppx Further recs per Dr. Elizondo Case was reviewed and discussed with Dr. Elizondo
[2019-02-18 07:41] LABS: ALBUMIN 3.4 g/dL (3.0-4.8); ALT/SGPT 53 U/L (7-56); AST/SGOT 80 U/L (17-59); BILIRUBIN,DIRECT 0.2 mg/dL (0.0-0.4); BLOOD UREA NITROGEN 7 mg/dL (7-21); GFR NON-AFRICAN AMERICAN > 60
[2019-02-18 08:56] LABS: PH,URINE 6.5 (4.7-8.0); URINE BILIRUBIN NEGATIVE (NEGATIVE); URINE BLOOD NEGATIVE (NEGATIVE); URINE GLUCOSE (UA) NEGATIVE (NEGATIVE); URINE LEUKOCYTE ESTERASE TRACE Leu/uL (NEGATIVE); URINE PROTEIN 30 mg/dL (<30 mg/dL); URINE UROBILINOGEN 0.2 E.U./dL (<1 E.U./dL)
[2019-02-18 09:07] LABS: URINE APPEARANCE CLEAR (CLEAR); URINE COLOR YELLOW (YELLOW)
[2019-02-18 09:29] LABS: URINE BACTERIA MOD /hpf; URINE EPITHELIAL CELLS 0 - 2 /hpf (0-5)
[2019-02-18] MEDS: Enoxaparin 40 mg Syringe SC SCH (09:56)
[2019-02-18] MEDS: DESMOPRESSIN PO SCH ×2 (09:57→17:27)
[2019-02-18] MEDS: EVEROLIMUS 0.25 MG PO SCH ×2 (09:58→17:28)
[2019-02-18] MEDS: Vancomycin 1gm in NS 250ml 1 GM/250 ML BAG IVPB SCH ×2 (11:06→21:11)
[2019-02-18 11:37] LABS: OSMOLALITY,URINE 237 mosm/kg (300-1000)
--- NOTE | 2019-02-18 12:42 | PN ---
DATE: 02/18/2019 SUBJECTIVE: The patient is in room 563 bed two. Overnight and last 24 hours event noted. The patient developed high-grade fever later in the day yesterday with a peak temperature of 104 coming down to 99.8. The patient is in room 563 bed two. The patient is seen lying in the bed. The patient is lethargic, but responsive. PHYSICAL EXAMINATION: VITAL SIGNS: T-max 104 degrees Fahrenheit, down to 102, down to 101.8, down to 99.8. Heart rate 98-100, blood pressure 110/70, respirations 18-20, O2 sat 93-94%. HEENT: Head examination shows positive craniotomy. Positive pinkish pale conjunctivae. Crusted lips. Dry oral mucosa. Positive blindness. No jugular venous distention. CHEST: Kyphosis. LUNGS: Shows questionable rhonchi upper lung melara, no crackles, rales or wheezing. CARDIOVASCULAR: S1, S2, regular rhythm. ABDOMEN: Soft, positive bowel sounds. No palpable hepatosplenomegaly. Positive stigmata of liver transplant noted. GENITALIA: Male. RECTAL: Deferred. EXTREMITIES: Shows no pitting edema, no calf tenderness, no Homans' sign. NEUROLOGIC: The patient is alert, awake, responsive, but lethargic. He is able to move upper and lower extremity without assistance. Gait examination is not tested as the patient is lying in the bed. VASCULAR: Appears to be palpable pulses. Cranial nerves II-XII limited. PSYCHIATRIC: As per the psychiatrist evaluation. DIAGNOSTIC DATA: The patient's this morning 02/18/2019 diagnostic data is pending. Lactic acid was done which was 1.5. Chest x-ray was done which was negative for any infiltrate. Blood cultures, urine cultures were done and received. IMPRESSION AND PLAN: 1. High-grade fever of 104 degrees Fahrenheit, etiology undetermined. 2. Questionable systemic inflammatory response syndrome. 3. Tachycardia. 4. High-grade fever. 5. Transient hypoxemia. 6. Hypotension. 7. History of craniopharyngioma with suprasellar extension. 8. 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 9. Hypernatremia. 10. Normocytic iron-deficiency anemia. 11. Bilateral blindness. 12. Status post liver transplant. 13. Hepatic cirrhosis. 14. Deconditioning. 15. Gait dysfunction. 16. Failure to thrive. 17. Iron-deficiency anemia and normocytic anemia. 18. Questionable depression. PLAN: At this time, the patient has been ordered garcia cultures of blood and urine. Infectious Disease consultation requested. The patient is to be continued on IV cefepime for suspected pyelonephritis plus the patient has been started on IV vancomycin 1 g IV every 12 hours. We will await further recommendations by Infectious Disease regarding IV antibiotic recommendation and duration. The patient will be continued on D5W at present and the patient's electrolytes from this morning are available and CMP and LFTs are available from this morning. The patient will be continued on both GI and DVT prophylaxis. The patient will be continued on all the medications as per the MAR. The patient is currently on consult with Psychiatry, Infectious Disease, Gastroenterology, and Neurology. The patient will be followed up by all subspecialty. At present, we have contacted the patient's sister, and she is in agreement for the patient's consideration for TCU. The patient's sister does not want subacute rehab or long-term placement, and the patient's sister is agreeable to take the patient home after the TCU stay, but the patient's sister does not wish the patient to go to subacute rehab or long-term placement. At present, the patient will be continued on the therapeutic intervention as per the MAR. The patient will be continued on IV fluids. Depending upon the patient's chemistry, IV fluid will be modified and changed. The patient will have serial labs ordered on a daily basis, still we have consistent stable labs. The patient will be continued on physical therapy, occupational therapy, ambulation therapy, gait training, out of bed to chair. The patient will be continued on both pharmacological and non-pharmacological GI DVT prophylaxis. The patient's overall prognosis is guarded to poor due to multiple comorbidities and deconditioned state and acute decompensation. Neeraj Elizondo MD
--- NOTE | 2019-02-18 20:59 | PN ---
DATE: 02/18/2019 SUBJECTIVE: The patient is a 63-year-old male, legally blind. The patient has history of hypertension, depression, hypothyroidism, liver transplant secondary to liver cirrhosis. The patient was admitted for generalized weakness. The patient was febrile and right now he is on sepsis workup. Psychiatry was called for evaluation of agitated episodes and this television script writer took over on Friday. This television script writer is following up on the patient today. The patient presented as much better to compare with yesterday. Yesterday, the patient was feverish and that is why he refused to talk to this television script writer. Today, the patient was more talkative. The patient presented to be pleasant and cooperative. The patient's sister Alexandra Solano is next to the patient. The patient's sister's phone number is [phone]. The patient's sister reported that she is willing to accept the patient in her house in [place] and she flew here in order to take patient with her. The patient seems to be excited about that news. As per sister right now, the patient presented better and she is willing to take him back immediately. She wants to book the ticket and take the patient back. This television script writer advised the patient's sister to talk to the medical team and complete the treatment. Both the patient and as well as the sister verbalized understanding. The patient and sister are aware that the medical team is ruling out sepsis at the present moment. As per collateral information from the nursing staff, the patient refused to take Abilify because he was feeling that drowsiness was related to Abilify. This television script writer educated the patient that he had fever yesterday and probably that is why he was feeling drowsy. The patient verbalized understanding. No agitation. No aggression. The patient is having fair appetite and sleep. PHYSICAL EXAMINATION: Vital signs; seem to be stable. Temperature 98.4, pulse is 97, blood pressure 106/62, respiration 20 and oxygen saturation is 95%. MEDICATIONS: Reviewed. Tylenol, Abilify 5 mg at the nighttime and 2.5 mg at the morning time. We can hold morning dose of Abilify because the patient does not want to take it. The patient also is on Lipitor, amoxapine, dextrose, Colace, Aricept, Cymbalta 60 mg twice a day, Lovenox, also iron sucrose, Lopressor, Zofran, Protonix, Flomax, and vancomycin. LABORATORY DATA: Labs reviewed. Most recent was from today. Coagulation reviewed. Chemistry reviewed. Sodium 155. Urinalysis reviewed. Toxicology reviewed and serology reviewed. MENTAL EXAMINATION: The patient presented to be more alert and was able to participate in the interview. Mood described as better. Affect was flat. Thought process more coherent but concrete. Thought content; the patient denied visual, auditory or tactile hallucinations. Denied paranoid ideation. The patient denied thoughts of harming himself or others, denied intent or plan. Insight and judgment seems to be improving. Impulses are well controlled. IMPRESSION: Most likely the patient was in delirium stage, which is slowly improving. The patient also has major depressive disorder, for what he is taking Cymbalta. Rule out impulse control disorder. PLAN: Abilify in the morning time is on hold. Abilify 5 mg at the nighttime for mood stabilization. Cymbalta needs to be continued in case the patient wants to live with the sister. The risks, benefits and alternatives of the treatment need to be discussed with the patient as well as family. Meanwhile, the patient is not agitated, not aggressive, can be followed up every other day. Should you have any questions, give me a call back. Thank you very much for letting me participate in the care of your patient. Veronica Brandt MD
--- NOTE | 2019-02-18 23:30 | CON ---
DATE: 02/18/2019 LOCATION: The patient was seen earlier today in 563, bed 2. CHIEF COMPLAINT: Weakness times several days. HISTORY OF PRESENT ILLNESS: This is a 63-year-old male who was admitted with the diagnosis of generalized weakness and failure to thrive on 02/15/2019. The patient on admission did not have fevers on 02/14/2019, 02/15/2019, and 02/16/2019, and on 02/17/2019, yesterday the patient had a temperature of 102.6. An Infectious Disease consultation requested. The patient was seen in the emergency room on 02/14/[address] Sherman Obando, the patient was safe and that the patient has depression, cerebrovascular accident, brain tumor, hypertension, hypothyroidism, chronic pain syndrome on narcotics. The patient also has a history of liver transplant who was admitted with weakness, complained of dysuria, cough, shortness of breath, and depression. REVIEW OF SYSTEMS: A 12-point review of systems is performed. PAST MEDICAL HISTORY: Significant for depression, cerebrovascular accident, hypertension, hypothyroidism, brain tumor, chronic pain syndrome, arthritis, anemia, and legally blind. PAST SURGICAL HISTORY: Significant for liver transplant in 2008. ALLERGIES: THE PATIENT HAS NO KNOWN ALLERGIES. MEDICATIONS AT HOME: Include omeprazole, Lopressor, Neurontin, duloxetine, Aricept, Lipitor, Flomax, Mycophenolate. PHYSICAL EXAMINATION GENERAL: The patient in bed appearing chronically ill, debilitated, endstage, cachectic. VITAL SIGNS: Temperature of 98, T-max was 104 yesterday with a heart rate of 111, respiratory rate of 18 up to 20, and blood pressure is 120/70. HEENT: Unremarkable. NECK: Supple. LUNGS: Decreased breath sounds. HEART: Normal S1, S2. ABDOMEN: Soft and nontender. No organomegaly. No rebound. No guarding. No masses. EXTREMITIES: Examination of right arm; some infiltrate, erythema where the IV site was, which has been removed. LABORATORY DATA: Reveals white count of 6.3, hemoglobin of 9. Sed rate is 127, BUN of 7, creatinine of 0.8. Elevated C-reactive protein. Urinalysis is noted. Toxicology is noted. Serology is reviewed. Microbiology; blood cultures are negative from yesterday. Initial blood cultures and urine cultures are negative. The patient had an MRI of the spine, which shows advanced multilevel degenerative disc disease, disc bulge in L4 and L5. The patient had extremities ultrasound, results are pending. The patient had a bone scan, also had a CAT scan of the head which shows cystic sellar mass and the bone scan shows multiple uptake axial and appendicular of skeleton suspicious for metastatic disease. MRI of the head is reviewed. The patient also had an MRA of the head which shows a mass. 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 The patient was a liver transplant, currently on vancomycin and cefepime. Negative blood cultures. Local wound compresses for the right arm. Concern about the bone metastases most likely with malignancy, however, the transplant was compromised. The patient who is from [place] opportunistic infections may be a concern. We will check on our final culture results. We will discuss with Dr. Elizondo in this 63-year-old on his bone and metastases concern. Overall prognosis is quite poor for this patient. The patient's sister at the bedside, who is here from [place]. Lengthy discussion with the sister. We will follow with you. Marcelo Jones MD
[2019-02-19] MEDS: Levalbuterol 0.63 MG/3 ML Inhal Soln UD IH SCH ×4 (01:09→19:18)
[2019-02-19] MEDS: Cefepime 1gm in NS 100ml 1 GM/100 ML BAG IVPB SCH ×3 (05:20→22:06)
[2019-02-19] MEDS: Pantoprazole 40 mg EC Tab PO SCH (05:20)
[2019-02-19 06:58] LABS: BASO # 0.03 K/mm3 (0.0-2.0); BASO % 0.4 % (0.0-3.0); EOS # 0.4 (0.0-0.7); EOS % 5.8 % (1.5-5.0); HEMOGLOBIN 8.3 g/dL (14.0-18.0); LYMPH % 29.6 % (22.0-35.0); MEAN CELL VOLUME 84.2 fl (80.0-105.0); MEAN CORPUSCULAR HEMOGLOBIN 26.2 pg (25.0-35.0); MEAN CORPUSCULAR HGB CONC 31.1 g/dl (31.0-37.0); MEAN PLATELET VOLUME 8.8 fl (7.0-11.0); MONO # 0.4 (0.1-0.6); MONO % 6.4 % (1.0-6.0); RBC 3.17 10^6/uL (3.5-6.1); RED CELL DISTRIBUTION WIDTH 14.4 % (11.5-14.5); WHITE BLOOD COUNT 6.8 10^3/uL (4.5-11.0)
[2019-02-19 07:12] LABS: ALBUMIN 3.1 g/dL (3.0-4.8); ALT/SGPT 31 U/L (7-56); AST/SGOT 66 U/L (17-59); BILIRUBIN,DIRECT 0.2 mg/dL (0.0-0.4); BLOOD UREA NITROGEN 10 mg/dL (7-21); CALCIUM 8.3 mg/dL (8.4-10.5); GFR NON-AFRICAN AMERICAN > 60
[2019-02-19] MEDS ORDERED: Potassium Phosphate 15 MMOLE in Dextrose 5% In Water 250 ML IVPB ONE (08:45)
--- NOTE | 2019-02-19 09:08 | CP.PCM.PN ---
Subjective - Date & Time of Evaluation Date of Evaluation: 02/19/19 Time of Evaluation: 07:38 - Subjective Subjective: Sly Meade PGY2 IM Progress Note for Dr. Elizondo Patient was seen and examined at bedside. Patient had fever once overnight but has been afebrile for a majority of the time. ID was consulted yesterday. PAtient tolerating his diet, and denies any shortness of breath, cough or abdominal pain. Objective - Vital Signs/Intake and Output Vital Signs (last 24 hours): Temp Pulse Resp BP Pulse Ox 98.6 F 61 18 125/61 98 02/19/19 06:00 02/19/19 06:00 02/19/19 06:00 02/19/19 06:00 02/19/19 06:00 Intake and Output: 02/19/19 02/19/19 06:59 18:59 Intake Total 240 Output Total 400 Balance -160 - Medications Medications: Current Medications Acetaminophen (Tylenol 325mg Tab) 650 mg PO Q6 PRN PRN Reason: TEMP>=99.5F Last Admin: 02/18/19 21:11 Dose: 650 mg Acetaminophen (Tylenol 650 Mg Supp) 650 mg RC Q6H PRN PRN Reason: TEMP>=99.5F Last Admin: 02/17/19 14:44 Dose: 650 mg Aripiprazole (Abilify) 5 mg PO HS [facility] Last Admin: 02/18/19 21:11 Dose: 5 mg Atorvastatin Calcium (Lipitor) 40 mg PO DIN [facility] Last Admin: 02/18/19 17:27 Dose: 40 mg Docusate Sodium (Colace) 100 mg PO BID [facility] Last Admin: 02/18/19 17:27 Dose: 100 mg Donepezil HCl (Aricept) 10 mg PO HS [facility] Last Admin: 02/18/19 21:11 Dose: 10 mg Duloxetine HCl (Cymbalta) 60 mg PO BID [facility] Last Admin: 02/18/19 17:27 Dose: 60 mg Enoxaparin Sodium (Lovenox) 40 mg SC DAILY [facility]; Protocol Last Admin: 02/18/19 09:56 Dose: 40 mg Home Med (Home Med) 10 unit PO BID [facility] Last Admin: 02/18/19 17:27 Dose: Not Given Home Med (Home Med) 0.25 unit PO BID [facility] Last Admin: 02/18/19 17:28 Dose: Not Given Iron Sucrose 200 mg/ Sodium (Chloride) 110 mls @ 110 mls/hr IVPB DAILY [facility] Stop: 02/19/19 10:59 Last Admin: 02/18/19 09:58 Dose: 110 mls/hr Cefepime HCl (Maxipime 1gm) 1 gm in 100 mls @ 100 mls/hr IVPB Q8 [facility]; Protocol Last Admin: 02/19/19 05:20 Dose: 100 mls/hr Vancomycin HCl (Vancomycin 1gm) 1 gm in 250 mls @ 167 mls/hr IVPB Q12H [facility]; Protocol Last Admin: 02/18/19 21:11 Dose: 167 mls/hr Dextrose (Dextrose 5% In Water 1000 Ml) 1,000 mls @ 100 mls/hr IV .Q10H [facility] Last Admin: 02/19/19 03:59 Dose: 100 mls/hr Potassium Phosphate 15 mmole/ (Dextrose) 255 mls @ 42.5 mls/hr IVPB ONCE ONE Stop: 02/19/19 14:44 Levalbuterol HCl (Xopenex) 0.63 mg IH [id number] [facility] Last Admin: 02/19/19 07:27 Dose: 0.63 mg Metoprolol Tartrate (Lopressor) 25 mg PO BID [facility] Last Admin: 02/18/19 17:28 Dose: Not Given Mycophenolate Mofetil (Cellcept Cap) 500 mg PO BID [facility] Last Admin: 02/18/19 17:27 Dose: 500 mg Ondansetron HCl (Zofran Inj) 4 mg IVP Q4H PRN PRN Reason: Nausea/Vomiting Pantoprazole Sodium (Protonix Ec Tab) 40 mg PO 0600 [facility] Last Admin: 02/19/19 05:20 Dose: 40 mg Tamsulosin HCl (Flomax) 0.4 mg PO DAILY [facility] Last Admin: 02/18/19 09:56 Dose: 0.4 mg - Labs Labs: 02/19/19 06:20 02/19/19 06:20 PT 14.3 SECONDS (9.4-12.5) H 02/14/19 14:15 INR 1.29 02/14/19 14:15 APTT 39.4 Seconds (26.9-38.3) H 02/14/19 14:15 - Constitutional Appears: Uncomfortable, Non-toxic, No Acute Distress - Head Exam Head Exam: ATRAUMATIC, NORMAL INSPECTION - Eye Exam Eye Exam: Normal appearance Additional comments: decreased visual acuity - ENT Exam ENT Exam: Mucous Membranes Dry, Normal Exam - Neck Exam Neck Exam: Full ROM, Normal Inspection - Respiratory Exam Respiratory Exam: NORMAL BREATHING PATTERN. absent: Wheezes, Respiratory Distress - Cardiovascular Exam Cardiovascular Exam: RRR, +S1, +S2 - GI/Abdominal Exam GI & Abdominal Exam: Soft, Normal Bowel Sounds. absent: Tenderness - Extremities Exam Extremities Exam: Full ROM. absent: Pedal Edema - Neurological Exam Neurological Exam: Alert, Oriented x3 - Skin Skin Exam: Normal Color, Warm Assessment and Plan - Assessment and Plan (Free Text) Assessment: 63 year old male with a PMH of chronic pain on narcotics, HTN, depression, hypothyroidism, liver transplant 2/2 liver cirrhosis, craniopharyngioma, blindness, and psoriasis presenting to the hospital for 2 week history of generalized weakness. Patient is febrile now, which prompted repeat of sepsis work-up. Plan: 1. Generalized Weakness, r/o sepsis - ID consulted, recs apprecaited - CXR reviewed - urine cultures negative - blood cultures negative x24hrs, will f/u - on vanc and cefepime empirically - CT head reviewed, re-demonstrates cystic sellar mass with suprasellar extension and calcifications. Multifocal cystic e ncephalomalacia in right frontal, parietal, occipital lobes. - MRI brain and MRA head reviewed - CTA chest reviewed - neurochecks q4 - speech therapy eval - Neuro on consult, Dr. Guido Nichols - PT eval pending 2. Hypernatremia, likely due to fevers; improving - Serum Osm and Urine osm/lytes reviewed - 4L free water deficit, will cont to replete 3. Lumbar compression fracture - MRI lumbar reviewed - bone scan r/o pathologic fractures - cont pain regimen 4. s/p liver transplant - continue mycophenalate, zortress - transaminitis improved - GI on consult, Dr. Canas 5. Depression - continue duloxetine, aricept - Psych on consult, Dr. Martin - denies suicidal/homicidal ideation 6. HTN - continue lopressor 25mg BID 7. Anemia, likely iron deficiency anemia - monitor H/H 8. Peripheral Neuropathy - hold gabapentin at this time - LE duplex negative for DVT 9. BPH - continue flomax - PSA ordered 10. HLD - continue lipitor 11. PPX - SCDs for DVT ppx - protonix for GI ppx Further recs per Dr. Elizondo Case was reviewed and discussed with Dr. Elizondo
[2019-02-19] MEDS: Vancomycin 1gm in NS 250ml 1 GM/250 ML BAG IVPB SCH ×2 (10:13→22:07)
[2019-02-19] MEDS: Mupirocin 2% Ointment 15 GM TUBE TOP SCH ×2 (10:14→19:04)
[2019-02-19] MEDS: Enoxaparin 40 mg Syringe SC SCH (10:15)
[2019-02-19] MEDS: EVEROLIMUS 0.25 MG PO SCH ×2 (10:16→19:05)
[2019-02-19] MEDS: DESMOPRESSIN PO SCH ×2 (10:16→19:05)
--- NOTE | 2019-02-19 16:23 | PN ---
DATE: 02/19/2019 SUBJECTIVE: The patient is seen lying in the bed. The patient's sister is bedside. The patient is more comfortable today. Does not appear to be in any distress. Communicating very clearly. Overnight nurse's notes were reviewed. PHYSICAL EXAMINATION VITAL SIGNS: T-max in the last 24 to 48 hours, 104 degrees Fahrenheit down to 102.3, down to 101.4, down to 100.5, down to 99.9 to 100.5. Heart rate 61 to 88, O2 sat 97%, blood pressure 93/60, 125/61 and O2 sat 97% to 98%, respirations 18. HEENT: Head examination shows positive right craniotomy. Positive facial HEENT examination shows pinkish pale conjunctivae. Positive bilateral blindness. No oropharyngeal lesion. No neck rigidity. Dry oral mucosa. CHEST: Kyphosis. LUNGS: Shows no audible crackle, rales or wheezing. CARDIOVASCULAR: S1 and S2. Regular rhythm. ABDOMEN: Soft, positive bowel sounds positive surgical scar of the liver transplant. GENITALIA: Male. RECTAL: Examination is deferred. EXTREMITIES: Shows no pitting edema, no calf tenderness, no Homans' sign. Positive right upper extremity IV site noted. There is some very slight to mild erythema noted of the upper extremity, puffiness and swelling of the both upper extremities resolved. NEUROLOGIC: The patient is alert, awake, responsive, is able to follow command move upper and lower extremity without assistance. Gait examination is not tested. MUSCULOSKELETAL: Examination as per the body mass index. DIAGNOSTICS: From February 19, WBC 6.8, hemoglobin/hematocrit is dropped to 8.3 and 27 with platelets 354. ESR 127. Sodium down to 149, potassium 3.6, chloride 190, CO2 of 26, BUN and creatinine 0.8, glucose 94, calcium 8.3, phosphorus 2.1, magnesium 1.9, AST 66, CRP greater than 15 and greater than 153, blood urine cultures negative. IMPRESSION: 1. High-grade fever, etiology unclear questionable central pyrexia versus etiology questionable. 2. Questionable sepsis. 3. Questionable right upper extremity cellulitis. 4. Anemia with decreasing hemoglobin/hematocrit. 5. Elevated erythrocyte sedimentation rate of 127. 6. Hypernatremia, slow resolving. 7. Borderline hypokalemia. 8. Hypophosphatemia. 9. Elevated AST questionable transaminitis. 10. Elevated C-reactive protein of greater than 15 and 158. 11. Delirium. 12. Major depression. 13. Questionable impulse control disorder. 14. Bilateral blindness. 15. Craniopharyngioma with large sellar mass with suprasellar extension to the right with calcification. 16. Multiple right-sided frontoparietal occipital lobe infarct. 17. Status post right craniotomy. 18. Status post liver transplant. 19. Iron-deficiency normocytic anemia. 20. Gait dysfunction. 21. Deconditioning. 22. High-grade fever. 23. Questionable and possible central pyrexia. 24. Deconditioning. 25. Transient hypotension. 26. Tachycardia. 27. Failure to thrive. 28. Transient hypotension and tachycardia. PLAN: At this time the patient is to be maintained on cooling blanket foot temperature for high fever. The patient is to be continued on IV fluids, D5W till the patient's sodium corrects. The patient will be ordered transfusion of PRBC of 1 unit. The patient will be given K-Phos rider. The patient has been seen by Infectious Disease. The patient is to be continued on IV cefepime and IV vancomycin, which will be continued. The patient will be continued with Neurology, Infectious Disease, Gastroenterology and Psychiatric followup. We will evaluate possible consideration for Neurosurgery evaluation; though the patient was seen by Neurosurgery last month during the last previous admission and though Neurosurgery did not recommend any surgical intervention, but in the previous admission the patient did not have an MRI of the brain done. Now MRI is done and since we have new diagnostic data available, we may most likely consider neurosurgical evaluation for further input and recommendations. The patient will be continued on all the medications and IV antibiotics as per the MAR. The patient will be continued on both pharmacological and non-pharmacological GI/DVT prophylaxis. The patient will be continued on IV fluid. The patient's repeats labs have been ordered on a daily basis. The patient has been ordered out of bed to chair, physical therapy, occupational therapy, ambulation therapy and gait training. The patient's condition, diagnosis, treatment plan, treatment options detail discussed with the patient and the patient's sister who has been present at the bedside. The patient's sister have spoken to the social worker psychiatric, caser up. They do not want the patient to go to subacute rehab. They may consider TCU for 7 to 8 days and after that the patient's family wishes to take the patient home with them. I have explained to the patient's sister and the patient about the patient's overall guarded to poor prognosis, which they acknowledge and understand. Dictated and electronically signed, not read. Signing off Neeraj Elizondo MD, thank you. Neeraj Elizondo MD
[2019-02-20] MEDS: Levalbuterol 0.63 MG/3 ML Inhal Soln UD IH SCH ×4 (01:05→20:25)
--- NOTE | 2019-02-20 01:13 | PN ---
DATE: 02/19/2019 SUBJECTIVE: The patient is in bed, in no acute distress. The patient was seen early this morning in room 563, bed 2. No fevers and no chills. The patient did have a fever yesterday. PHYSICAL EXAMINATION: VITAL SIGNS: Temperature is 98, T-max was 100.5 actually earlier this morning, blood pressure is 85/50, respiratory rate of 18, heart rate of 70. HEENT: Unremarkable. NECK: Supple. LUNGS: Decreased breath sounds. HEART: Normal S1 and S2. ABDOMEN: Soft. LABORATORY EXAMINATION: Reveals a white count of 6.8, hemoglobin of 8. Platelets are noted. Chemistries are noted. BUN of 10, creatinine of 0.8. The patient's procalcitonin is 0.27. Microbiology reveals blood cultures are negative, repeat blood cultures are negative, urine cultures are negative. Review of orders reveals the patient to be on cefepime and vancomycin. 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 The patient is with liver transplant, currently with blood cultures and urine cultures negative, with sepsis with right arm cellulitis, most likely of the intravenous site. Continues to do well. If cultures are negative, we will able to discontinue the antibiotics in the next 24 hours. The patient did have a chest x-ray which revealed no active disease. The arm is improving. Marcelo Jones MD
[2019-02-20] MEDS: Cefepime 1gm in NS 100ml 1 GM/100 ML BAG IVPB SCH (06:07)
[2019-02-20] MEDS: Pantoprazole 40 mg EC Tab PO SCH (06:08)
[2019-02-20 08:16] LABS: BASO # 0.02 K/mm3 (0.0-2.0); BASO % 0.2 % (0.0-3.0); EOS # 0.2 (0.0-0.7); EOS % 2.3 % (1.5-5.0); HEMOGLOBIN 10.4 g/dL (14.0-18.0); LYMPH # 2.4 (1.2-3.4); LYMPH % 24.2 % (22.0-35.0); MEAN CELL VOLUME 84.5 fl (80.0-105.0); MEAN CORPUSCULAR HGB CONC 30.8 g/dl (31.0-37.0); MEAN PLATELET VOLUME 9.3 fl (7.0-11.0); MONO # 0.6 (0.1-0.6); MONO % 5.9 % (1.0-6.0); RED CELL DISTRIBUTION WIDTH 14.4 % (11.5-14.5); WHITE BLOOD COUNT 9.9 10^3/uL (4.5-11.0)
[2019-02-20 08:53] LABS: ALB/GLOB RATIO 1.1 (1.1-1.8); ALBUMIN 3.3 g/dL (3.0-4.8); ALT/SGPT 24 U/L (7-56); AST/SGOT 67 U/L (17-59); BLOOD UREA NITROGEN 10 mg/dL (7-21); CALCIUM 8.6 mg/dL (8.4-10.5); GFR NON-AFRICAN AMERICAN > 60
--- NOTE | 2019-02-20 09:47 | CP.PCM.PN ---
Subjective - Date & Time of Evaluation Date of Evaluation: 02/20/19 Time of Evaluation: 08:00 - Subjective Subjective: SUBJECTIVE: The patient was seen and examined at bedside on the general medical marley. He was noted to be febrile overnight with T 101.3. He continues to endorse malaise and chills as well as epigastric abdominal discomfort. He denies nausea, vomiting or diarrhea. OBJECTIVE: VS: Tm 101.3, Tc 101.3, P 73, BP 80/54, RR 20, O2 98% RA General: NAD HEENT: PERRL, EOMI, no scleral icterus, no conjunctival pallor Neck: No JVD Lungs: CTA CV: RRR, normal S1, S2 Abdomen: NABS, soft, tender to palpation to epigastrum with voluntary guarding, no rigidity, no tympany, no fluid wave Ext: no c/c/e Neurologic: AAO x 3, no focal motor deficits. LABORATORY DATA: CBC reviewed, no leukocytosis, Hb 10. CMP reviewed and with Na 149. ASSESSMENT: The patient is a 63 year old man with multiple medical comorbidities who was admitted for management of sepsis secondary to RUE cellulitis. PLAN: 1. Sepsis secondary to RUE cellulitis. Input from Dr. Jones noted. The patient remains febrile and with negative blood cultures. Continue with care as per ID. 2. Hypernatremia, trending favorably. Continue with gentle IV fluid hydration. 3. HTN. BP borderline low thus we will d/c Lopressor. We will monitor hemodynamics and resume antihypertensives as needed. 4. Normocytic anemia s/p transfusion of 2 units PRBC. Continue to monitor H/H and transfuse as needed. 5. BPH. Continue Flomax. 6. Hyperlipidemia. Continue Lipitor. 7. History of liver transplant. 8. Depression. Input from Dr. Martin noted. Continue with current medications. Objective - Vital Signs/Intake and Output Vital Signs (last 24 hours): Temp Pulse Resp BP Pulse Ox 101.3 F H 73 18 80/54 L 98 02/20/19 06:08 02/20/19 06:00 02/20/19 06:00 02/20/19 06:00 02/20/19 06:00 Intake and Output: 02/20/19 02/20/19 06:59 18:59 Intake Total 240 Balance 240 - Medications Medications: Current Medications Acetaminophen (Tylenol 325mg Tab) 650 mg PO Q6 PRN PRN Reason: TEMP>=99.5F Last Admin: 02/20/19 06:08 Dose: 650 mg Acetaminophen (Tylenol 650 Mg Supp) 650 mg RC Q6H PRN PRN Reason: TEMP>=99.5F Last Admin: 02/19/19 10:16 Dose: 650 mg Aripiprazole (Abilify) 5 mg PO HS [facility] Last Admin: 02/19/19 22:00 Dose: 5 mg Atorvastatin Calcium (Lipitor) 40 mg PO DIN [facility] Last Admin: 02/19/19 19:05 Dose: 40 mg Docusate Sodium (Colace) 100 mg PO BID [facility] Last Admin: 02/19/19 19:04 Dose: 100 mg Donepezil HCl (Aricept) 10 mg PO HS [facility] Last Admin: 02/19/19 22:00 Dose: 10 mg Duloxetine HCl (Cymbalta) 60 mg PO BID [facility] Last Admin: 02/19/19 19:04 Dose: 60 mg Enoxaparin Sodium (Lovenox) 40 mg SC DAILY [facility]; Protocol Last Admin: 02/19/19 10:15 Dose: 40 mg Home Med (Home Med) 10 unit PO BID [facility] Last Admin: 02/19/19 19:05 Dose: Not Given Home Med (Home Med) 0.25 unit PO BID [facility] Last Admin: 02/19/19 19:05 Dose: Not Given Cefepime HCl (Maxipime 1gm) 1 gm in 100 mls @ 100 mls/hr IVPB Q8 [facility]; Protocol Last Admin: 02/20/19 06:07 Dose: 100 mls/hr Vancomycin HCl (Vancomycin 1gm) 1 gm in 250 mls @ 167 mls/hr IVPB Q12H [facility]; Protocol Last Admin: 02/19/19 22:07 Dose: Not Given Dextrose (Dextrose 5% In Water 1000 Ml) 1,000 mls @ 100 mls/hr IV .Q10H [facility] Last Admin: 02/19/19 03:59 Dose: 100 mls/hr Levalbuterol HCl (Xopenex) 0.63 mg IH [id number] [facility] Last Admin: 02/20/19 07:35 Dose: 0.63 mg Midodrine (Proamatine) 2.5 mg PO Q8H [facility] Mupirocin (Bactroban Ointment) 0 gm TOP TID [facility] Last Admin: 02/19/19 19:04 Dose: 1 applic Mycophenolate Mofetil (Cellcept Cap) 500 mg PO BID [facility] Last Admin: 02/19/19 19:04 Dose: 500 mg Ondansetron HCl (Zofran Inj) 4 mg IVP Q4H PRN PRN Reason: Nausea/Vomiting Pantoprazole Sodium (Protonix Ec Tab) 40 mg PO 0600 [facility] Last Admin: 02/20/19 06:08 Dose: 40 mg Tamsulosin HCl (Flomax) 0.4 mg PO DAILY [facility] Last Admin: 02/19/19 10:15 Dose: 0.4 mg - Labs Labs: 02/20/19 07:00 02/20/19 07:00 PT 14.3 SECONDS (9.4-12.5) H 02/14/19 14:15 INR 1.29 02/14/19 14:15 APTT 39.4 Seconds (26.9-38.3) H 02/14/19 14:15
[2019-02-20] MEDS: Enoxaparin 40 mg Syringe SC SCH (11:33)
[2019-02-20] MEDS: Mupirocin 2% Ointment 15 GM TUBE TOP SCH ×3 (11:34→18:50)
[2019-02-20] MEDS: DESMOPRESSIN PO SCH ×2 (11:35→18:49)
[2019-02-20] MEDS: EVEROLIMUS 0.25 MG PO SCH ×2 (11:36→18:49)
[2019-02-20] MEDS: Vancomycin 1gm in NS 250ml 1 GM/250 ML BAG IVPB SCH (11:36)
[2019-02-20] MEDS: Meropenem IV 1 gm in NS 1 GM/50 ML BAG IVPB SCH ×2 (16:16→21:44)
--- NOTE | 2019-02-20 18:25 | PN ---
DATE: 02/20/2019 SUBJECTIVE: The patient seen earlier this morning in 563, bed 2. Has a fever which is new. No fevers yesterday. PHYSICAL EXAMINATION: VITAL SIGNS: On exam, temperature is 101.3, blood pressure is 80/50, respiratory rate of 18, heart rate of 73. HEENT: Examination of HEENT is unremarkable. NECK: Supple. LUNGS: Have decreased breath sounds. HEART: Normal S1, S2. ABDOMEN: Soft, nontender. LABORATORY DATA: Laboratory examination reveals a white count of 9.9, hemoglobin of 10, platelets of 388. Chemistries reveals a BUN of 10, creatinine of 1. Urinalysis is noted. Toxicology is reviewed. Serology is reviewed. Microbiology reveals blood culture is negative. Urine culture is negative. Repeat blood culture is negative. Repeat urine culture is negative. Dr. Tadeo Jeffery's note from this morning is noted. The patient had a chest x-ray on 02/17/2019 which shows no active disease. Review of orders reveals the patient to be on cefepime and vancomycin. ASSESSMENT/PLAN: A 63-year-old male with a history of depression, cerebrovascular accident, FIG WASHER tumor, bone metastases, chronic pain syndrome, arthritis, hypertension, hyperlipidemia, liver transplant and, blood cultures and urine cultures negative, sepsis of the right arm cellulitis which appears to be improving, now has fevers again. We will discontinue the vancomycin and cefepime and repeat pancultures and imaging.. Blood cultures x2, sputum cultures, urine cultures and pro calcitonin.. Review of the fever curve reveals the patient does have intermittent fevers on admission had low grade fevers and review of imaging reveals that the patient has had a CT scan of the chest on the 02/14/2019, no infiltrates. CT scan of the abdomen and pelvis, no acute findings. The patient has esophagitis. Ultrasound of the extremities on 02/16/2019, no results are available. Bone scan from 02/16/2019 is reviewed. We will start empiric meropenem and discontinue the vancomycin and Maxipime. We will start doxycycline we will make further recommendations. Marcelo Jones MD [facility] # [id number]
[2019-02-21] MEDS: Levalbuterol 0.63 MG/3 ML Inhal Soln UD IH SCH ×4 (05:50→20:35)
--- NOTE | 2019-02-21 06:32 | CP.PCM.PN ---
Subjective - Date & Time of Evaluation Date of Evaluation: 02/21/19 Time of Evaluation: 06:31 - Subjective Subjective: Patient was seen for hypoxia/hypotension. See my note from today elsewhere with . Objective - Vital Signs/Intake and Output Vital Signs (last 24 hours): Temp Pulse Resp BP Pulse Ox 102.9 F H 89 20 93/61 L 98 02/21/19 00:43 02/20/19 22:00 02/20/19 22:00 02/20/19 22:00 02/20/19 22:00 Intake and Output: 02/20/19 02/21/19 18:59 06:59 Output Total 140 Balance -140 - Medications Medications: Current Medications Acetaminophen (Tylenol 325mg Tab) 650 mg PO Q6 PRN PRN Reason: TEMP>=99.5F Last Admin: 02/21/19 00:43 Dose: 650 mg Acetaminophen (Tylenol 650 Mg Supp) 650 mg RC Q6H PRN PRN Reason: TEMP>=99.5F Last Admin: 02/19/19 10:16 Dose: 650 mg Aripiprazole (Abilify) 5 mg PO HS [facility] Last Admin: 02/20/19 21:44 Dose: 5 mg Atorvastatin Calcium (Lipitor) 40 mg PO DIN [facility] Last Admin: 02/20/19 18:47 Dose: 40 mg Docusate Sodium (Colace) 100 mg PO BID [facility] Last Admin: 02/20/19 18:47 Dose: 100 mg Donepezil HCl (Aricept) 10 mg PO HS [facility] Last Admin: 02/20/19 21:44 Dose: 10 mg Duloxetine HCl (Cymbalta) 60 mg PO BID [facility] Last Admin: 02/20/19 18:47 Dose: 60 mg Enoxaparin Sodium (Lovenox) 40 mg SC DAILY [facility]; Protocol Last Admin: 02/20/19 11:33 Dose: 40 mg Home Med (Home Med) 10 unit PO BID [facility] Last Admin: 02/20/19 18:49 Dose: Not Given Home Med (Home Med) 0.25 unit PO BID [facility] Last Admin: 02/20/19 18:49 Dose: Not Given Dextrose (Dextrose 5% In Water 1000 Ml) 1,000 mls @ 100 mls/hr IV .Q10H [facility] Last Admin: 02/20/19 11:34 Dose: 100 mls/hr Doxycycline Hyclate 100 mg/ (Sodium Chloride) 100 mls @ 100 mls/hr IVPB Q12 [facility]; Protocol Stop: 03/01/19 13:16 Last Admin: 02/20/19 23:35 Dose: 100 mls/hr Meropenem (Merrem Iv 1 Gm Premix) 1 gm in 50 mls @ 100 mls/hr IVPB Q8 [facility]; Protocol Stop: 03/01/19 14:01 Last Admin: 02/20/19 21:44 Dose: 100 mls/hr Levalbuterol HCl (Xopenex) 0.63 mg IH [id number] [facility] Last Admin: 02/20/19 20:25 Dose: 0.63 mg Midodrine (Proamatine) 2.5 mg PO Q8H [facility] Last Admin: 02/21/19 00:44 Dose: 2.5 mg Mupirocin (Bactroban Ointment) 0 gm TOP TID [facility] Last Admin: 02/20/19 18:50 Dose: 1 applic Mycophenolate Mofetil (Cellcept Cap) 500 mg PO BID [facility] Last Admin: 02/20/19 18:47 Dose: 500 mg Ondansetron HCl (Zofran Inj) 4 mg IVP Q4H PRN PRN Reason: Nausea/Vomiting Pantoprazole Sodium (Protonix Ec Tab) 40 mg PO 0600 [facility] Last Admin: 02/20/19 06:08 Dose: 40 mg Tamsulosin HCl (Flomax) 0.4 mg PO DAILY [facility] Last Admin: 02/20/19 11:34 Dose: 0.4 mg - Labs Labs: 02/20/19 07:00 02/20/19 07:00 PT 14.3 SECONDS (9.4-12.5) H 02/14/19 14:15 INR 1.29 02/14/19 14:15 APTT 39.4 Seconds (26.9-38.3) H 02/14/19 14:15
[2019-02-21] MEDS ORDERED: Magnesium Sulfate 1 gm in D5W 1 GM/100 ML BAG IVPB ONE ×2 (06:34→10:54)
--- NOTE | 2019-02-21 06:47 | CP.PCM.PN ---
Subjective - Date & Time of Evaluation Date of Evaluation: 02/21/19 Time of Evaluation: 06:34 - Subjective Subjective: House Doc Overnight Progress Note: Called by nurse for: low BP 86/56, pulse ox 84% This is a 63 year old male with PMH liver transplant s/p cirrhosis, chronic pain on narcotics, HTN, depression, hypothyroidism, blindness, craniopharyngioma and psoriasis, is currently hospitalized for fever, generalized weakness, sepsis 2/2 likely RUE cellulitis. Nurse called for low BP and low pulse ox 82-84%. Objective - Vital Signs/Intake and Output Vital Signs (last 24 hours): Temp Pulse Resp BP Pulse Ox 102.9 F H 89 20 93/61 L 98 02/21/19 00:43 02/20/19 22:00 02/20/19 22:00 02/20/19 22:00 02/20/19 22:00 Intake and Output: 02/20/19 02/21/19 18:59 06:59 Output Total 140 Balance -140 - Medications Medications: Current Medications Acetaminophen (Tylenol 325mg Tab) 650 mg PO Q6 PRN PRN Reason: TEMP>=99.5F Last Admin: 02/21/19 00:43 Dose: 650 mg Acetaminophen (Tylenol 650 Mg Supp) 650 mg RC Q6H PRN PRN Reason: TEMP>=99.5F Last Admin: 02/19/19 10:16 Dose: 650 mg Aripiprazole (Abilify) 5 mg PO HS [facility] Last Admin: 02/20/19 21:44 Dose: 5 mg Atorvastatin Calcium (Lipitor) 40 mg PO DIN [facility] Last Admin: 02/20/19 18:47 Dose: 40 mg Docusate Sodium (Colace) 100 mg PO BID [facility] [place] Last Admin: 02/20/19 18:47 Dose: 100 mg Donepezil HCl (Aricept) 10 mg PO HS [facility] Last Admin: 02/20/19 21:44 Dose: 10 mg Duloxetine HCl (Cymbalta) 60 mg PO BID [facility] Last Admin: 02/20/19 18:47 Dose: 60 mg Enoxaparin Sodium (Lovenox) 40 mg SC DAILY [facility] [place]; Protocol Last Admin: 02/20/19 11:33 Dose: 40 mg Home Med (Home Med) 10 unit PO BID [facility] [place] Last Admin: 02/20/19 18:49 Dose: Not Given Home Med (Home Med) 0.25 unit PO BID [facility] Last Admin: 02/20/19 18:49 Dose: Not Given Dextrose (Dextrose 5% In Water 1000 Ml) 1,000 mls @ 100 mls/hr IV .Q10H [facility] Last Admin: 02/20/19 11:34 Dose: 100 mls/hr Doxycycline Hyclate 100 mg/ (Sodium Chloride) 100 mls @ 100 mls/hr IVPB Q12 [facility]; Protocol Stop: 03/01/19 13:16 Last Admin: 02/20/19 23:35 Dose: 100 mls/hr Meropenem (Merrem Iv 1 Gm Premix) 1 gm in 50 mls @ 100 mls/hr IVPB Q8 [facility]; Protocol Stop: 03/01/19 14:01 Last Admin: 02/20/19 21:44 Dose: 100 mls/hr Levalbuterol HCl (Xopenex) 0.63 mg IH [id number] [facility] Last Admin: 02/20/19 20:25 Dose: 0.63 mg Midodrine (Proamatine) 2.5 mg PO Q8H [facility] Last Admin: 02/21/19 00:44 Dose: 2.5 mg Mupirocin (Bactroban Ointment) 0 gm TOP TID [facility] Last Admin: 02/20/19 18:50 Dose: 1 applic Mycophenolate Mofetil (Cellcept Cap) 500 mg PO BID [facility] Last Admin: 02/20/19 18:47 Dose: 500 mg Ondansetron HCl (Zofran Inj) 4 mg IVP Q4H PRN PRN Reason: Nausea/Vomiting Pantoprazole Sodium (Protonix Ec Tab) 40 mg PO 0600 [facility] Last Admin: 02/20/19 06:08 Dose: 40 mg Tamsulosin HCl (Flomax) 0.4 mg PO DAILY [facility] Last Admin: 02/20/19 11:34 Dose: 0.4 mg - Labs Labs: 02/20/19 07:00 02/20/19 07:00 PT 14.3 SECONDS (9.4-12.5) H 02/14/19 14:15 INR 1.29 02/14/19 14:15 APTT 39.4 Seconds (26.9-38.3) H 02/14/19 14:15
[2019-02-21] MEDS ORDERED: Dextrose 5%/0.45% NS 1,000 ML IV SCH (07:00)
[2019-02-21] MEDS ORDERED: Midazolam 2 MG/2 ML VIAL ONE ×2 (07:10→07:16)
[2019-02-21] MEDS ORDERED: Sodium Chloride 0.9% 500 ML IV STA (07:24)
[2019-02-21] MEDS ORDERED: Magnesium Sulfate 2 gm/50 ml 2 GM/50 ML BAG IVPB ONE (07:26)
--- NOTE | 2019-02-21 07:33 | CP.PCM.CON ---
<BrooklynnShari - Last Filed: 02/21/19 07:29> History of Present Illness - History of Present Illness History of Present Illness: Shari Overton, PGY2, ICU Consult Note for Dr Melvin: Reason for consult: low bp, low pulse ox This is a 63 year old male with PMH liver transplant s/p cirrhosis, chronic pain on narcotics, HTN, depression, hypothyroidism, blindness, craniopharyngioma and psoriasis, is currently hospitalized for fever, generalized weakness, sepsis 2/2 likely RUE cellulitis. Nurse called this AM for low BP 84/55 and low pulse ox 78% on 5 L NC. Patient mildly lethargic, but responding to few questions. Patient given duoneb treatment, started on 100% nonrebreather. Patient's blood work, including abg ordered, CXR showed likely RLL developing aspiration pneumonia. Given midodrine 10 mg PO. After 30 mins of non rebreather, patient remains lethargic, pulse ox 82%, patient intubated to protect airway. Will take to ICU for further evaluation and management. Patient denies any cp, sob, abdominal pain, nausea, vomiting, fevers. ROS limited due as patient is lethargic. PMH: chronic pain on narcotics, HTN, depression, hypothyroidism, liver transplant 2/2 liver cirrhosis, blindness, craniopharyngioma and psoriasis PSH: Liver transplant, brain tumor removal SH: smokes 10 ciggs/per day for 5 years, uses marijuana. Denies drinking FH: denies PMD: Dr. Yeung All: NKDA Review of Systems - Review of Systems Systems not reviewed;Unavailable: Intubated Past Patient History - Infectious Disease Hx of Infectious Diseases: None - Past Medical History & Family History Past Medical History?: Yes - Past Social History Smoking Status: Light Smoker < 10 Cigarettes Daily - CARDIAC Hx Hypertension: Yes - PULMONARY Hx Respiratory Disorders: No - NEUROLOGICAL Hx Neurological Disorder: Yes HX Cerebrovascular Accident: Yes (x 3) Other/Comment: Brain tumor - HEENT Hx HEENT Problems: Yes Hx Blind: Yes (LEGALLY BLIND) - RENAL Hx Chronic Kidney Disease: No - ENDOCRINE/METABOLIC Hx Hypothyroidism: Yes - HEMATOLOGICAL/ONCOLOGICAL Hx Blood Disorders: Yes Hx Anemia: Yes - INTEGUMENTARY Hx Dermatological Problems: No - MUSCULOSKELETAL/RHEUMATOLOGICAL Hx Arthritis: Yes - GASTROINTESTINAL Hx Gastrointestinal Disorders: Yes Hx Liver Failure: Yes (Liver transplant) - GENITOURINARY/GYNECOLOGICAL Hx Genitourinary Disorders: No - PSYCHIATRIC Hx Depression: Yes Hx Substance Use: No - SURGICAL HISTORY Hx Liver Transplant: Yes (2008) Other/Comment: Brain tumor removal - ANESTHESIA Hx Anesthesia: Yes Hx Anesthesia Reactions: No Hx Malignant Hyperthermia: No Meds Allergies/Adverse Reactions: Allergies Allergy/AdvReac Type Severity Reaction Status Date / Time No Known Allergies Allergy Verified 12/24/18 16:48 - Medications Medications: Current Medications Acetaminophen (Tylenol 325mg Tab) 650 mg PO Q6 PRN PRN Reason: TEMP>=99.5F Last Admin: 02/21/19 00:43 Dose: 650 mg Acetaminophen (Tylenol 650 Mg Supp) 650 mg RC Q6H PRN PRN Reason: TEMP>=99.5F Last Admin: 02/19/19 10:16 Dose: 650 mg Aripiprazole (Abilify) 5 mg PO HS [facility] Last Admin: 02/20/19 21:44 Dose: 5 mg Atorvastatin Calcium (Lipitor) 40 mg PO DIN [facility] Last Admin: 02/20/19 18:47 Dose: 40 mg Docusate Sodium (Colace) 100 mg PO BID [facility] Last Admin: 02/20/19 18:47 Dose: 100 mg Donepezil HCl (Aricept) 10 mg PO HS [facility] Last Admin: 02/20/19 21:44 Dose: 10 mg Duloxetine HCl (Cymbalta) 60 mg PO BID [facility] Last Admin: 02/20/19 18:47 Dose: 60 mg Enoxaparin Sodium (Lovenox) 40 mg SC DAILY [facility]; Protocol Last Admin: 02/20/19 11:33 Dose: 40 mg Home Med (Home Med) 10 unit PO BID [facility] Last Admin: 02/20/19 18:49 Dose: Not Given Home Med (Home Med) 0.25 unit PO BID [facility] Last Admin: 02/20/19 18:49 Dose: Not Given Dextrose (Dextrose 5% In Water 1000 Ml) 1,000 mls @ 100 mls/hr IV .Q10H [facility] Last Admin: 02/20/19 11:34 Dose: 100 mls/hr Doxycycline Hyclate 100 mg/ (Sodium Chloride) 100 mls @ 100 mls/hr IVPB Q12 [facility]; Protocol Stop: 03/01/19 13:16 Last Admin: 02/20/19 23:35 Dose: 100 mls/hr Meropenem (Merrem Iv 1 Gm Premix) 1 gm in 50 mls @ 100 mls/hr IVPB Q8 [facility]; Protocol Stop: 03/01/19 14:01 Last Admin: 02/20/19 21:44 Dose: 100 mls/hr Sodium Chloride (Sodium Chloride 0.9%) 500 mls @ 999 mls/hr IV .Q31M [facility] Stop: 02/21/19 07:54 Magnesium Sulfate (Magnesium Sulfate 2 Gm/50 Ml Water) 2 gm in 50 mls @ 50 mls/hr IVPB ONCE ONE Stop: 02/21/19 08:25 Levalbuterol HCl (Xopenex) 0.63 mg IH [id number] [facility] Last Admin: 02/21/19 05:50 Dose: 0.63 mg Midodrine (Proamatine) 2.5 mg PO Q8H [facility] Last Admin: 02/21/19 00:44 Dose: 2.5 mg Mupirocin (Bactroban Ointment) 0 gm TOP TID [facility] Last Admin: 02/20/19 18:50 Dose: 1 applic Mycophenolate Mofetil (Cellcept Cap) 500 mg PO BID [facility] Last Admin: 02/20/19 18:47 Dose: 500 mg Ondansetron HCl (Zofran Inj) 4 mg IVP Q4H PRN PRN Reason: Nausea/Vomiting Pantoprazole Sodium (Protonix Ec Tab) 40 mg PO 0600 [facility] Last Admin: 02/20/19 06:08 Dose: 40 mg Tamsulosin HCl (Flomax) 0.4 mg PO DAILY [facility] Last Admin: 02/20/19 11:34 Dose: 0.4 mg Physical Exam - Constitutional Appears: Toxic, Older Than Stated Age, Chronically Ill - Head Exam Head Exam: ATRAUMATIC, NORMOCEPHALIC - Eye Exam Eye Exam: EOMI, PERRL. absent: Conjunctival injection, Nystagmus, Scleral icterus Pupil Exam: NORMAL ACCOMODATION, PERRL. absent: Irregular, Miosis, Unequal - ENT Exam ENT Exam: Mucous Membranes Dry - Neck Exam Neck exam: Positive for: Full Rom - Respiratory Exam Respiratory Exam: Decreased Breath Sounds, Rhonchi ( RLL). absent: Chest Wall Tenderness, Rales, Wheezes, Stridor - Cardiovascular Exam Cardiovascular Exam: Tachycardia, +S1, +S2. absent: Systolic Murmur - GI/Abdominal Exam GI & Abdominal Exam: Normal Bowel Sounds, Soft. absent: Diminished Bowel Sounds, Distended, Firm, Guarding, Rebound, Rigid, Tenderness - Extremities Exam Extremities exam: Positive for: normal inspection. Negative for: calf tenderness, pedal edema Additional comments: + RUE forearm cellulitis patch noted, erythematous, mild warmth, no tenderness. - Back Exam Back exam: NORMAL INSPECTION - Neurological Exam Neurological exam: Altered - Skin Skin Exam: Normal Color, Warm Results - Vital Signs Recent Vital Signs: Last Vital Signs Temp 102.9 F H 02/21/19 00:43 Pulse 89 02/20/19 22:00 Resp 20 02/20/19 22:00 BP 93/61 L 02/20/19 22:00 Pulse Ox 98 02/20/19 22:00 - Labs Result Diagrams: 02/20/19 07:00 02/20/19 07:00 Labs: Laboratory Results - last 24 hr 02/19/19 02/20/19 02/20/19 07:10 07:00 07:00 WBC 9.9 D RBC 4.00 Hgb 10.4 L D Hct 33.8 L MCV 84.5 MCH 26.0 MCHC 30.8 L RDW 14.4 Plt Count 388 MPV 9.3 Neut % (Auto) 67.4 Lymph % (Auto) 24.2 [place] % (Auto) 5.9 Eos % (Auto) 2.3 Baso % (Auto) 0.2 Lymph # (Auto) 2.4 [place] # (Auto) 0.6 Eos # (Auto) 0.2 Baso # (Auto) 0.02 Absolute Neuts (auto) 6.67 H Sodium 149 H Potassium 3.6 Chloride 117 H Carbon Dioxide 24 Anion Gap 12 BUN 10 Creatinine 1.0 Est GFR ( Amer) > 60 Est GFR (Non-Af Amer) > 60 Random Glucose 93 Calcium 8.6 Phosphorus 2.7 Magnesium 1.6 L Total Bilirubin 0.4 Direct Bilirubin 0.0 AST 67 H ALT 24 Alkaline Phosphatase 82 Total Protein 6.3 Albumin 3.3 Globulin 3.1 Albumin/Globulin Ratio 1.1 Procalcitonin HIV 1&2 Ag/Ab, 4th Gen Nonreactive 04/13/19 13:40 WBC RBC Hgb Hct MCV MCH MCHC RDW Plt Count MPV Neut % (Auto) Lymph % (Auto) [place] % (Auto) Eos % (Auto) Baso % (Auto) Lymph # (Auto) [place] # (Auto) Eos # (Auto) Baso # (Auto) Absolute Neuts (auto) Sodium Potassium Chloride Carbon Dioxide Anion Gap BUN Creatinine Est GFR ( Amer) Est GFR (Non-Af Amer) Random Glucose Calcium Phosphorus Magnesium Total Bilirubin Direct Bilirubin AST ALT Alkaline Phosphatase Total Protein Albumin Globulin Albumin/Globulin Ratio Procalcitonin 0.65 H HIV 1&2 Ag/Ab, 4th Gen Assessment & Plan - Assessment and Plan (Free Text) Assessment: This is a 63 year old male with PMH liver transplant s/p cirrhosis, chronic pain on narcotics, HTN, depression, hypothyroidism, blindness, craniopharyngioma and psoriasis, admitted to ICU for hypotension, respiratory difficulty 2/2 likely aspiration pneumonia: # RUE cellulitis, currently on Merrem and Doxy as per ID # liver transplant # blindness # craniopharyngioma # HTN Neuro: lethargic. now intubated. will monitor. CV: BP 92/55 after 10 mg midodrine this AM, HR 110 NSR. Will give NS 500 cc bolus. Hx of HTN. will continue to hold anti-HTN Maintain MAP>65. c/w midodrine 2.5 mg PO tid. Cont to monitor. Pulm: intubated. Maintain O2 sat>90% Continue with HOB elevation> 35 degrees, aspiration precautions. Continue with protected lung ventilation strategies with TV of 6 ml/kg of IBW, plateau pressure less than 35, head of bed elevation above 35 degrees, bronchodilators, keep oxygenation above 90% - continue with Xopenex q 6 guanaco GI: NPO. Protonix 40 IV daily. Renal : BUN/Cr 10/1.0. Mg 1.6 yesterday, repleted with 2 gm MgSo4 IV. Replace lytes, maintain euvolemia. Continue to monitor. Hypernatremia 149, on D5W at 100, will continue ID: + fevers, no leunokocytosis. CXR this AM shows right lobe aspiration pneumonia. RUE cellulitis procal 0.65 yesterday Blood cultures 02/17 and urine cultures all negative f/u blood cultures, urine culture collected yesterday On merrem and doxy as per ID ID on board, follow up recs. Endo: BS 93. on D5W at 100. continue to monitor. NPO. Maintain euglycemia. Heme: Hgb 10.4. s/p 2 units prbcs tranafusion. Stable. Cont to monitor. DVT ppx - lovenox 40 sdq GI ppx - Protonix 40 IV Case seen and discussed with Dr Melvin. <Juan Melvin - Last Filed: 02/21/19 09:33> Meds - Medications Medications: Current Medications Acetaminophen (Tylenol 325mg Tab) 650 mg PO Q6 PRN PRN Reason: TEMP>=99.5F Last Admin: 02/21/19 00:43 Dose: 650 mg Acetaminophen (Tylenol 650 Mg Supp) 650 mg RC Q6H PRN PRN Reason: TEMP>=99.5F Last Admin: 02/19/19 10:16 Dose: 650 mg Aripiprazole (Abilify) 5 mg PO HS [facility] Last Admin: 02/20/19 21:44 Dose: 5 mg Atorvastatin Calcium (Lipitor) 40 mg PO DIN [facility] Last Admin: 02/20/19 18:47 Dose: 40 mg Docusate Sodium (Colace) 100 mg PO BID [facility] Last Admin: 02/20/19 18:47 Dose: 100 mg Donepezil HCl (Aricept) 10 mg PO HS [facility] Last Admin: 02/20/19 21:44 Dose: 10 mg Duloxetine HCl (Cymbalta) 60 mg PO BID [facility] Last Admin: 02/20/19 18:47 Dose: 60 mg Enoxaparin Sodium (Lovenox) 40 mg SC DAILY [facility]; Protocol Last Admin: 02/20/19 11:33 Dose: 40 mg Home Med (Home Med) 10 unit PO BID [facility] Last Admin: 02/20/19 18:49 Dose: Not Given Home Med (Home Med) 0.25 unit PO BID [facility] Last Admin: 02/20/19 18:49 Dose: Not Given Hydrocortisone Sodium Succinate (Solu-Cortef) 50 mg IVP Q6H [facility] Dextrose (Dextrose 5% In Water 1000 Ml) 1,000 mls @ 100 mls/hr IV .Q10H [facility] Last Admin: 02/20/19 11:34 Dose: 100 mls/hr Doxycycline Hyclate 100 mg/ (Sodium Chloride) 100 mls @ 100 mls/hr IVPB Q12 [facility]; Protocol Stop: 03/01/19 13:16 Last Admin: 02/20/19 23:35 Dose: 100 mls/hr Meropenem (Merrem Iv 1 Gm Premix) 1 gm in 50 mls @ 100 mls/hr IVPB Q8 [facility]; Protocol Stop: 03/01/19 14:01 Last Admin: 02/20/19 21:44 Dose: 100 mls/hr Fentanyl Citrate (Fentanyl Citrate/Sodium Chloride 1 Mg/100 Ml) 1,000 mcg in 100 mls @ 2 mls/hr IV .Q24H [facility]; Protocol PRN Reason: TITRATE PER MD ORDER Levalbuterol HCl (Xopenex) 0.63 mg IH [id number] [facility] Last Admin: 02/21/19 05:50 Dose: 0.63 mg Midodrine (Proamatine) 2.5 mg PO Q8H [facility] Last Admin: 02/21/19 00:44 Dose: 2.5 mg Mupirocin (Bactroban Ointment) 0 gm TOP TID [facility] Last Admin: 02/20/19 18:50 Dose: 1 applic Mycophenolate Mofetil (Cellcept Cap) 500 mg PO BID [facility] Last Admin: 02/20/19 18:47 Dose: 500 mg Ondansetron HCl (Zofran Inj) 4 mg IVP Q4H PRN PRN Reason: Nausea/Vomiting Pantoprazole Sodium (Protonix Ec Tab) 40 mg PO 0600 [facility] Last Admin: 02/20/19 06:08 Dose: 40 mg Pantoprazole Sodium (Protonix Inj) 40 mg IVP DAILY [facility] Tamsulosin HCl (Flomax) 0.4 mg PO DAILY [facility] Last Admin: 02/20/19 11:34 Dose: 0.4 mg Results - Vital Signs Recent Vital Signs: Last Vital Signs Temp 98.5 F 02/21/19 06:00 Pulse 119 H 02/21/19 06:00 Resp 20 02/21/19 06:00 BP 80/54 L 02/21/19 06:00 Pulse Ox 98 02/20/19 22:00 - Labs Result Diagrams: 02/21/19 08:35 02/21/19 08:35 Labs: Laboratory Results - last 24 hr 02/20/19 02/21/1902/21/19 13:40 08:35 08:35 WBC 10.9 RBC 3.73 Hgb 9.7 L Hct 31.6 L MCV 84.7 MCH 26.0 MCHC 30.7 L RDW 14.7 H Plt Count 330 MPV 9.6 Neut % (Auto) 84.1 H Lymph % (Auto) 11.5 L [place] % (Auto) 4.2 Eos % (Auto) 0.1 L Baso % (Auto) 0.1 Lymph # (Auto) 1.3 [place] # (Auto) 0.5 Eos # (Auto) 0.0 Baso # (Auto) 0.01 Absolute Neuts (auto) 9.16 H pCO2 pO2 HCO3 ABG pH ABG Total CO2 ABG O2 Saturation ABG O2 Content ABG Base Excess ABG Hemoglobin ABG Carboxyhemoglobin POC ABG HHb (Measured) ABG Methemoglobin ABG O2 Capacity Hgb O2 Saturation FiO2 Sodium 149 H Potassium 3.7 Chloride 122 H Carbon Dioxide 20 L Anion Gap 11 BUN 11 Creatinine 1.1 Est GFR ( Amer) > 60 Est GFR (Non-Af Amer) > 60 Random Glucose 156 H Calcium 8.1 L Phosphorus 3.3 Magnesium 1.6 L Total Bilirubin 0.4 AST 82 H D ALT 31 Alkaline Phosphatase 71 Troponin I < 0.01 Total Protein 4.8 L Albumin 2.4 L Globulin 2.3 Albumin/Globulin Ratio 1.0 L Procalcitonin 0.65 H 02/21/19 09:00 WBC RBC Hgb Hct MCV MCH MCHC RDW Plt Count MPV Neut % (Auto) Lymph % (Auto) [place] % (Auto) Eos % (Auto) Baso % (Auto) Lymph # (Auto) [place] # (Auto) Eos # (Auto) Baso # (Auto) Absolute Neuts (auto) pCO2 32 L pO2 57.0 L HCO3 19.4 L ABG pH 7.39 ABG Total CO2 20.4 L ABG O2 Saturation 93.2 L ABG O2 Content 11.9 L ABG Base Excess -4.9 L ABG Hemoglobin 9.3 L ABG Carboxyhemoglobin 2.1 H POC ABG HHb (Measured) 6.6 H ABG Methemoglobin 0.7 ABG O2 Capacity 12.8 L Hgb O2 Saturation 90.7 L FiO2 100.0 Sodium Potassium Chloride Carbon Dioxide Anion Gap BUN Creatinine Est GFR ( Amer) Est GFR (Non-Af Amer) Random Glucose Calcium Phosphorus Magnesium Total Bilirubin AST ALT Alkaline Phosphatase Troponin I Total Protein Albumin Globulin Albumin/Globulin Ratio Procalcitonin Attending/Attestation - Attestation I have personally seen and examined this patient.: Yes I have fully participated in the care of the patient.: Yes I have reviewed all pertinent clinical information: Yes Notes (Text): 02/21/19 09:31 # 7.5 [address]TT was [address] without difficulty after sedating patient wih 2mg + 2mg IV Versed. ABG was drawn from left inguinal area. CCT spent was 30 minutes.
--- NOTE | 2019-02-21 08:26 | CP.CCUPN ---
CCU Subjective - Physician Review Subjective (Free Text): Chapo Chan DO, PGY-1 MICU Progress Note for Dr. Feldman Patient was seen and examined at bedside this AM on fifth floor prior to transfer and again in MICU. He was intubated on fifth floor and is now on ventilator. CCU Objective - Vital Signs / Intake & Output Vital Signs (Last 4 hours): Vital Signs Temp Pulse Resp BP 02/21/19 06:00 98.5 F 119 H 20 80/54 L Intake and Output (Last 8hrs): Intake & Output 02/20/19 02/21/19 02/21/19 22:59 06:59 14:59 Output Total 140 Balance -140 Output: Urine 140 Urine, Voided 140 - Physical Exam Physical Exam Limitations: Positive for: Clinical Condition Head: Positive for: Atraumatic, Normocephalic Pupils: Positive for: PERRL Extroacular Muscles: Positive for: EOMI Conjunctiva: Positive for: Normal Ears: Positive for: Normal, NORMAL TM, Normal Canal. Negative for: Erythema, TM Bulging, Fluid, TM Perf Mouth: Positive for: Moist Mucous Membranes Nose (External): Positive for: Atraumatic Neck: Positive for: Normal Range of Motion. Negative for: Meningeal Signs, MIDLINE TENDERNESS Respiratory/Chest: Positive for: Rales (R-sided crackles ), Other (on ventilator, breath sounds auscultated b/l). Negative for: Wheezes, Rhonchi Cardiovascular: Positive for: Normal S1, S2, Tachycardic, Other (hypertensive). Negative for: Murmurs Abdomen: Positive for: Scars (in RUQ consistent with prior liver transplant). Negative for: Tenderness, Distention, Peritoneal Signs Back: Positive for: Normal Inspection. Negative for: CVA Tenderness, Midline Tenderness Upper Extremity: Positive for: Normal Inspection, NORMAL PULSES. Negative for: Cyanosis, Edema Lower Extremity: Positive for: Normal Inspection, NORMAL PULSES, Capillary Refill < 2 s. Negative for: Edema Neurological: Positive for: Other (intubated, sedated) Skin: Positive for: Warm, Dry, Normal Color. Negative for: Rashes - Medications Active Medications: Active Medications Generic Name Dose Route Start Last Admin Trade Name Freq PRN Reason Stop Dose Admin Acetaminophen 650 mg 02/15/19 09:01 02/21/19 00:43 Tylenol 325mg Tab PO 650 mg Q6 PRN Administration TEMP>=99.5F Acetaminophen 650 mg 02/15/19 09:01 02/19/19 10:16 Tylenol 650 Mg Supp RC 650 mg Q6H PRN Administration TEMP>=99.5F Aripiprazole 5 mg 02/16/19 08:34 02/20/19 21:44 Abilify PO 5 mg HS [facility] Administration Atorvastatin Calcium 40 mg 02/15/19 17:00 02/20/19 18:47 Lipitor PO 40 mg DIN [facility] Administration Docusate Sodium 100 mg 02/17/19 18:00 02/20/19 18:47 Colace PO 100 mg BID [facility] Administration Donepezil HCl 10 mg 02/14/19 22:00 02/20/19 21:44 Aricept PO 10 mg HS [facility] Administration Duloxetine HCl 60 mg 02/14/19 18:00 02/20/19 18:47 Cymbalta PO 60 mg BID [facility] Administration Enoxaparin Sodium 40 mg 02/15/19 10:00 02/20/19 11:33 Lovenox SC 40 mg DAILY [facility] Administration Protocol Home Med 10 unit 02/14/19 18:00 02/20/19 18:49 Home Med PO Not Given BID [facility] Home Med 0.25 unit 02/14/19 18:00 02/20/19 18:49 Home Med PO Not Given BID [facility] Dextrose 1,000 mls @ 100 mls/hr 02/18/19 09:00 02/20/19 11:34 Dextrose 5% In Water 1000 Ml IV 100 mls/hr .Q10H [facility] Administration Doxycycline Hyclate 100 mg/ 100 mls @ 100 mls/hr 02/20/19 13:15 02/20/19 23:35 Sodium Chloride IVPB 03/01/19 13:16 100 mls/hr Q12 [facility] Administration Protocol Meropenem 1 gm in 50 mls @ 100 mls/hr 02/20/19 14:00 02/20/19 21:44 Merrem Iv 1 Gm Premix IVPB 03/01/19 14:01 100 mls/hr Q8 [facility] Administration Protocol Magnesium Sulfate 2 gm in 50 mls @ 50 mls/hr 02/21/19 07:26 Magnesium Sulfate 2 Gm/50 Ml Water IVPB 02/21/19 08:25 ONCE ONE Levalbuterol HCl 0.63 mg 02/15/19 14:00 02/21/19 05:50 Xopenex IH 0.63 mg [id number] [facility] Administration Midodrine 2.5 mg 02/20/19 08:30 02/21/19 00:44 Proamatine PO 2.5 mg Q8H [facility] Administration Mupirocin 0 gm 02/19/19 10:00 02/20/19 18:50 Bactroban Ointment TOP 1 applic TID [facility] Administration Mycophenolate Mofetil 500 mg 02/15/19 18:00 02/20/19 18:47 Cellcept Cap PO 500 mg BID [facility] Administration Ondansetron HCl 4 mg 02/15/19 09:01 Zofran Inj IVP Q4H PRN Nausea/Vomiting Pantoprazole Sodium 40 mg 02/15/19 06:00 02/20/19 06:08 Protonix Ec Tab PO 40 mg 0600 [facility] Administration Pantoprazole Sodium 40 mg 02/21/19 10:00 Protonix Inj IVP DAILY [facility] Tamsulosin HCl 0.4 mg 02/15/19 10:00 02/20/19 11:34 Flomax PO 0.4 mg DAILY [facility] Administration - Patient Studies Lab Studies: Microbiology Studies 02/17/19 15:50 Blood Culture - Preliminary Blood NO GROWTH AFTER 3 DAYS 02/17/19 15:50 Blood Culture - Preliminary Blood NO GROWTH AFTER 3 DAYS 02/15/19 08:50 Blood Culture - Final Blood NO GROWTH AFTER 5 DAYS Gram Stain - Final TEST NOT PERFORMED 02/15/19 09:05 Blood Culture - Final Blood NO GROWTH AFTER 5 DAYS Gram Stain - Final TEST NOT PERFORMED Lab Studies 02/20/19 02/20/19 Range/Units 13:40 07:00 Sodium 149 H (132-148) mmol/L Potassium 3.6 (3.6-5.0) mmol/L Chloride 117 H (98-107) mmol/L Carbon Dioxide 24 (21-33) mmol/L Anion Gap 12 (10-20) BUN 10 (7-21) mg/dL Creatinine 1.0 (0.8-1.5) mg/dl Est GFR ( Amer) > 60 Est GFR (Non-Af Amer) > 60 Random Glucose 93 (70-110) mg/dL Calcium 8.6 (8.4-10.5) mg/dL Phosphorus 2.7 (2.5-4.5) mg/dL Magnesium 1.6 L (1.7-2.2) mg/dL Total Bilirubin 0.4 (0.2-1.3) mg/dL Direct Bilirubin 0.0 (0.0-0.4) mg/dL AST 67 H (17-59) U/L ALT 24 (7-56) U/L Alkaline Phosphatase 82 (38-126) U/L Total Protein 6.3 (5.8-8.3) g/dL Albumin 3.3 (3.0-4.8) g/dL Globulin 3.1 gm/dL Albumin/Globulin Ratio 1.1 (1.1-1.8) Procalcitonin 0.65 H (0.19-0.49) NG/ML Laboratory Results - last 24 hr 02/20/19 02/20/19 07:00 13:40 Sodium 149 H Potassium 3.6 Chloride 117 H Carbon Dioxide 24 Anion Gap 12 BUN 10 Creatinine 1.0 Est GFR ( Amer) > 60 Est GFR (Non-Af Amer) > 60 Random Glucose 93 Calcium 8.6 Phosphorus 2.7 Magnesium 1.6 L Total Bilirubin 0.4 Direct Bilirubin 0.0 AST 67 H ALT 24 Alkaline Phosphatase 82 Total Protein 6.3 Albumin 3.3 Globulin 3.1 Albumin/Globulin Ratio 1.1 Procalcitonin 0.65 H EKG/Cardiology Studies: Cardiology / EKG Studies 02/21/19 06:21 ELECTROCARDIOGRAM Stat Comment: Reason For Exam: hypoxic Critical Care Progress Note - Ventilator Checklist Head of Bed 30 Degrees: Yes Daily Sedation Vacation: Yes Daily Assessment of Readiness to Wean: Yes Daily Spontaneous Breathing Trial: Yes PUD Prophalyxis: Yes DVT Prophylaxis: Yes Oral Care with Chlorhexidine Gluconate {CHG}: Yes - Nutrition Nutrition: Nutrition Category Date Time Status NPO Diet [DIET] Diets 02/21/19 Breakfast Ordered Assessment/Plan - Assessment and Plan (Free Text) Assessment: 63 yo M with PMH of chronic pain on narcotics, HTN, depression, hypothyroidism, liver transplant 2/2 liver cirrhosis, craniopharyngioma, blindness, and psoriasis admitted to hospital for 2 week history of worsening weakness. He is admitted to MICU for management of septic shock and hypoxemic respiratory failure. Plan: Neuro: AAOx3, no focal deficit, moving extremities past midline, able to protect airway Reorient as necessary Cardio: RRR, normotensive, no signs of HD compromise EKG: TTE: Troponin: Maintain MAP>65 Monitor for S/Sx of HD compromise Pulm: ABG: CXR: Maintain SpO2 >90%. Ventilator settings: Appropriate ventilator management with: Maintain head of bed > 30 degrees Maintain oral hygiene Daily ABG and CXR Daily sedation and weaning trials GI: Tolerating regular diet well without nausea/vomiting /Nephro: BUN/Cr stable at UOP Continue Strict I & O Replete electrolytes as needed Maintain euvolemia Endo: Random glucose: Maintain euglycemia Heme/Onc: H/H stable at Continue monitoring H/H and for sx of HD compromise ID: Afebrile, no leukocytosis Blood Cx: Urine Cx: Sputum Cx: F/u garcia cx, procal, lactate Monitor for sx of infection DVT/GI PPX: Full Code Diet: Monitor in MICU Patient seen, examined with, and plan confirmed with my attending Caden Soto.Papo. IM Resident PGY-1 Pager:[phone]
[2019-02-21 08:51] LABS: BASO # 0.01 K/mm3 (0.0-2.0); BASO % 0.1 % (0.0-3.0); EOS % 0.1 % (1.5-5.0); HEMOGLOBIN 9.7 g/dL (14.0-18.0); LYMPH # 1.3 (1.2-3.4); LYMPH % 11.5 % (22.0-35.0); MEAN CELL VOLUME 84.7 fl (80.0-105.0); MEAN CORPUSCULAR HGB CONC 30.7 g/dl (31.0-37.0); MEAN PLATELET VOLUME 9.6 fl (7.0-11.0); MONO # 0.5 (0.1-0.6); MONO % 4.2 % (1.0-6.0); RBC 3.73 10^6/uL (3.5-6.1); RED CELL DISTRIBUTION WIDTH 14.7 % (11.5-14.5); WHITE BLOOD COUNT 10.9 10^3/uL (4.5-11.0)
[2019-02-21] MEDS: NOREPINEPHRINE BIT/0.9 % NACL 4 MG/250 ML BAG IV PRN ×3 (09:00→21:01)
[2019-02-21 09:07] LABS: ALBUMIN 2.4 g/dL (3.0-4.8); ALT/SGPT 31 U/L (7-56); AST/SGOT 82 U/L (17-59); BLOOD UREA NITROGEN 11 mg/dL (7-21); CALCIUM 8.1 mg/dL (8.4-10.5); GFR NON-AFRICAN AMERICAN > 60
[2019-02-21 09:11] LABS: ARTERIAL BLOOD GAS HCO3 19.4 mmol/L (21-28); ARTERIAL BLOOD GAS HEMOGLOBIN 9.3 g/dL (11.7-17.4); ARTERIAL BLOOD GAS O2 CAPACITY 12.8 mL/dl (16-24); ARTERIAL BLOOD GAS O2 CONTENT 11.9 ML/dl (15-23); ARTERIAL BLOOD GAS O2 SAT 93.2 % (95-98); ARTERIAL BLOOD GAS PCO2 32 mm/Hg (35-45); ARTERIAL BLOOD GAS PH 7.39 (7.35-7.45); ARTERIAL BLOOD GAS TCO2 20.4 mmol.L (22-28)
[2019-02-21 09:11] LABS: TROPONIN I < 0.01 ng/mL
[2019-02-21] MEDS: Sodium Chloride 0.9% 1,000 ML IV STA ×2 (09:30→10:30)
[2019-02-21] MEDS ORDERED: Insulin Regular 100 UNITS in Sodium Chloride 0.9% 99 ML IV PRN (09:33)
[2019-02-21] MEDS ORDERED: Sodium Chloride 0.9% 1,000 ML IV STA (09:43)
[2019-02-21] MEDS: Vancomycin 1gm in NS 250ml 1 GM/250 ML BAG IVPB SCH ×2 (09:57→21:01)
[2019-02-21 10:00] LABS: BILIRUBIN,DIRECT 0.3 mg/dL (0.0-0.4)
--- NOTE | 2019-02-21 10:50 | PCM.PROC ---
Procedures Attestation:: I certify that I have explained the specified Operation(s) or Procedure(s), risks, benefits and reasonable alternatives to the Patient and/or other person responsible. The opportunity was given to ask questions and all questions answered - Central Line Placement Right Femoral Triple Lumen Catheter Aseptic technique was employed throughout the procedure: Hand Hygiene done prior to procedure, Full sterile barriers (mask, hair cover, sterile gown, sterile gloves), Chloraprep Antiseptic: 2 minute prep for Femoral Pt. Placed on Pulse Ox Monitor: Yes Local Anesthesia Used: Lidocaine 1% Ultrasound Used for Placement: Yes Central Line Lumen Inserted: triple Central Line Length: 20 cm Post Procedure: Sutured in Place, Good Blood Return, All Ports Aspirated, Flushed, Capped, Sterile Dressing Applied Secured by: Suture Post procedure dressing: Gauze Post Procedure X-Ray: No Patient Tolerated Procedure: Well
[2019-02-21] MEDS: Fentanyl 1000mcg/100ml NS 1,000 MCG/100 ML BAG IV PRN (10:58)
[2019-02-21] MEDS: Enoxaparin 40 mg Syringe SC SCH (11:18)
--- NOTE | 2019-02-21 11:20 | CP.PCM.PN ---
Subjective - Date & Time of Evaluation Date of Evaluation: 02/21/19 Time of Evaluation: 11:08 - Subjective Subjective: Patient seen and examined at bedside, intubated, sedated. History gathered from overnight team, and chart. R femoral TLC placed, on vasopressor support. Objective - Vital Signs/Intake and Output Vital Signs (last 24 hours): Temp Pulse Resp BP Pulse Ox 98.5 F 119 H 20 99/45 L 98 02/21/19 06:00 02/21/19 06:00 02/21/19 06:00 02/21/19 11:05 02/20/19 22:00 Intake and Output: 02/21/19 02/21/19 06:59 18:59 Output Total 140 Balance -140 - Medications Medications: Current Medications Acetaminophen (Tylenol 325mg Tab) 650 mg PO Q6 PRN PRN Reason: TEMP>=99.5F Last Admin: 02/21/19 00:43 Dose: 650 mg Acetaminophen (Tylenol 650 Mg Supp) 650 mg RC Q6H PRN PRN Reason: TEMP>=99.5F Last Admin: 02/19/19 10:16 Dose: 650 mg Aripiprazole (Abilify) 5 mg PO HS [facility] Last Admin: 02/20/19 21:44 Dose: 5 mg Atorvastatin Calcium (Lipitor) 40 mg PO DIN [facility] Last Admin: 02/20/19 18:47 Dose: 40 mg Docusate Sodium (Colace) 100 mg PO BID [facility] Last Admin: 02/20/19 18:47 Dose: 100 mg Donepezil HCl (Aricept) 10 mg PO HS [facility] Last Admin: 02/20/19 21:44 Dose: 10 mg Duloxetine HCl (Cymbalta) 60 mg PO BID [facility] Last Admin: 02/20/19 18:47 Dose: 60 mg Enoxaparin Sodium (Lovenox) 40 mg SC DAILY [facility]; Protocol Last Admin: 02/20/19 11:33 Dose: 40 mg Home Med (Home Med) 10 unit PO BID [facility] Last Admin: 02/20/19 18:49 Dose: Not Given Home Med (Home Med) 0.25 unit PO BID [facility] Last Admin: 02/20/19 18:49 Dose: Not Given Hydrocortisone Sodium Succinate (Solu-Cortef) 50 mg IVP Q6H [facility] Last Admin: 02/21/19 09:57 Dose: 50 mg Dextrose (Dextrose 5% In Water 1000 Ml) 1,000 mls @ 100 mls/hr IV .Q10H [facility] Last Admin: 02/20/19 11:34 Dose: 100 mls/hr Doxycycline Hyclate 100 mg/ (Sodium Chloride) 100 mls @ 100 mls/hr IVPB Q12 [facility]; Protocol Stop: 03/01/19 13:16 Last Admin: 02/20/19 23:35 Dose: 100 mls/hr Meropenem (Merrem Iv 1 Gm Premix) 1 gm in 50 mls @ 100 mls/hr IVPB Q8 [facility]; Protocol Stop: 03/01/19 14:01 Last Admin: 02/20/19 21:44 Dose: 100 mls/hr Fentanyl Citrate (Fentanyl Citrate/Sodium Chloride 1 Mg/100 Ml) 1,000 mcg in 100 mls @ 2 mls/hr IV .Q24H PRN; Protocol PRN Reason: TITRATE PER MD ORDER Last Admin: 02/21/19 10:58 Dose: 20 mcg/hr, 2 mls/hr Insulin Human Regular 100 (units/ Sodium Chloride) 100 mls @ 4 mls/hr IV .Q24H PRN; Protocol PRN Reason: TITRATE PER MD ORDER Last Admin: 02/21/19 10:53 Dose: 1.5 units/hr, 1.5 mls/hr NOREPINEPHRINE BIT/0.9 % NACL (Levophed 4 Mg/ 250 Ml Ns Premixed) 4 mg in 250 mls @ 15 mls/hr IV .[id number] PRN; Protocol PRN Reason: TITRATE PER MD ORDER Last Admin: 02/21/19 09:00 Dose: 6 mcg/min, 22.5 mls/hr Vasopressin 20 units/ Sodium (Chloride) 101 mls @ 9.09 mls/hr IV .Q11H7M [facility]; Protocol Last Admin: 02/21/19 11:05 Dose: 9.09 mls/hr Vancomycin HCl (Vancomycin 1gm) 1 gm in 250 mls @ 167 mls/hr IVPB Q12H [facility]; Protocol Stop: 03/02/19 09:46 Last Admin: 02/21/19 09:57 Dose: 167 mls/hr Magnesium Sulfate/Dextrose (Magnesium Sulfate 1 Gm/100 Ml D5w) 1 gm in 100 mls @ 100 mls/hr IVPB ONCE ONE Stop: 02/21/19 11:53 Potassium Chloride (Potassium Chloride 10 Meq/100 Ml) 10 meq in 100 mls @ 50 mls/hr IVPB Q2H [facility] Stop: 02/21/19 14:59 Levalbuterol HCl (Xopenex) 0.63 mg IH [id number] [facility] Last Admin: 02/21/19 05:50 Dose: 0.63 mg Mupirocin (Bactroban Ointment) 0 gm TOP TID [facility] Last Admin: 02/20/19 18:50 Dose: 1 applic Mycophenolate Mofetil (Cellcept Cap) 500 mg PO BID [facility] Last Admin: 02/20/19 18:47 Dose: 500 mg Ondansetron HCl (Zofran Inj) 4 mg IVP Q4H PRN PRN Reason: Nausea/Vomiting Pantoprazole Sodium (Protonix Ec Tab) 40 mg PO 0600 [facility] Last Admin: 02/20/19 06:08 Dose: 40 mg Pantoprazole Sodium (Protonix Inj) 40 mg IVP DAILY [facility] Tamsulosin HCl (Flomax) 0.4 mg PO DAILY [facility] Last Admin: 02/20/19 11:34 Dose: 0.4 mg - Labs Labs: 02/21/19 08:35 02/21/19 08:35 PT 14.3 SECONDS (9.4-12.5) H 02/14/19 14:15 INR 1.29 02/14/19 14:15 APTT 39.4 Seconds (26.9-38.3) H 02/14/19 14:15 - Constitutional Appears: Toxic, In Acute Distress, Older Than Stated Age, Chronically Ill - Head Exam Head Exam: ATRAUMATIC - Eye Exam Eye Exam: Normal appearance - ENT Exam ENT Exam: Mucous Membranes Dry - Respiratory Exam Respiratory Exam: Decreased Breath Sounds, NORMAL BREATHING PATTERN - Cardiovascular Exam Cardiovascular Exam: REGULAR RHYTHM, +S1, +S2 - GI/Abdominal Exam GI & Abdominal Exam: Soft, Normal Bowel Sounds - Skin Skin Exam: Warm Assessment and Plan - Assessment and Plan (Free Text) Assessment: 63yo male with extensive PMHX including, liver transplant s/p cirrhosis, chronic pain on narcotics, HTN, depression, hypothyroidism, blindness, craniopharyngioma and psoriasis, initially admitted for fever, generalized weakness, sepsis likely 2/2 RUE cellulitis This morning patient became hypotensive, hypoxic, intubated, transferred to MICU Currently intubated, sedated R femoral TLC placed, started on Levophed, Vasopressin, Stress dose steroids Intubated, on PRVC 500/PEEP10/100%/RR12 Profound hypoxemia, unclear etiology. CT ANgio PE protocol neg on admission, CT A/P on admission neg for intra abdominal pathology ID following GI following Bedside ECHO demonstrates hyperdynamic LV, normal RV function/size; poor windows Shock, likely septic/hyperdynamic Resp failure, acute, hypoxic Hx liver transplant on immunosuppressants Cirrhosis HTN Depression Hypothyroidism Hx craniopharyngioma RUE cellulitis Recommend:- - cont with vent support, low tidal vol ventilation, repeat ABG, place arterial line - broad spectrum abx, Vanco, Merrem, Doxy - follow up ID, follow up cultures - Vasopressor support, Levophed, Vasopressin, Stress dose steroids - IVF bolus total 3L - D5W for hypernatremia - Obtain PICC line tomorrow - follow up GI - obtain ECHO - repeat blood cultures - repeat ammonia level - Rifaximin, Lactulose - GI ppx - DVT ppx - Overall prognosis extremely poor Critical care time 45 minutes
[2019-02-21] MEDS: Meropenem IV 1 gm in NS 1 GM/50 ML BAG IVPB SCH ×2 (13:01→21:00)
--- NOTE | 2019-02-21 13:28 | PN ---
DATE: 02/21/2019 SUBJECTIVE: The patient seen in 129 in the Unit, Bed 2. He is intubated on a ventilator in poor condition. He continues to have fevers and became hypotensive. PHYSICAL EXAMINATION: VITAL SIGNS: Temperature is 102.9, blood pressure is 80/50, and respiratory rate on a vent and heart rate of 119. HEENT: ET tube to be in place. NECK: Supple. LUNGS: Have decreased breath sounds. HEART: Normal S1 and S2. ABDOMEN: Soft, nontender. LABORATORY EXAMINATION: White count is reported to be 10.9. BUN of 11, creatinine of 1.1. Procalcitonin is 0.65. Microbiology reveals the blood culture are negative, urine cultures are negative. Chest x-ray is reviewed. The patient had an MRI of the brain on 02/16/2019 which shows multifocal cystic encephalomalacia, chronic lacunar infarct, chronic infarction of the left frontal lobe. There is a mass with suprasellar extension, displacement of the cavernous carotid signal, minimal enhancement consistent with craniopharyngioma. Multiple blood cultures are negative. Urine cultures are negative. Hepatitis serology is negative. RPR is negative. HIV is negative. ASSESSMENT AND PLAN: A 63-year-old male with history of depression, cerebrovascular accident, central nervous system tumor, bone metastases, chronic pain syndrome, arthritis, hypertension and hyperlipidemia, liver transplant, the blood cultures and urine cultures were negative, severe sepsis, respiratory failure, intubated on the ventilator, questionable aspiration pneumonia. We will treat the patient with vancomycin and meropenem. Consider central nervous system as a source of the fever in a patient who is immunocompromised. We will repeat garcia cultures and check on the procalcitonin on vancomycin and meropenem on day #2. Overall, prognosis is quite poor in the patient who has septic shock at this point. Lung versus central nervous system is the source. Consider Neurology and spinal tap in this patient with craniopharyngioma; maybe central nervous system related fevers. Overall prognosis is quite poor. Marcelo Jones MD
--- NOTE | 2019-02-21 14:32 | RAD ---
Date of service: 02/21/2019 HISTORY: Rule out pneumothorax or pneumonia. COMPARISON: Comparison chest 02/17/2019 TECHNIQUE: 1 view obtained. FINDINGS: Study is slightly limited due to partial obscuration of the lung apex by overlying facemask LUNGS: Areas of subsegmental left lung base. Diffuse hazy appearance of most of the right lung; rule out developing ground-glass opacities; concomitant layering effusion not excluded. PLEURA: As above. No definitive pneumothorax apparent. CARDIOVASCULAR: No aortic atherosclerotic calcification present. Normal cardiac size. No pulmonary vascular congestion. OSSEOUS STRUCTURES: No significant abnormalities. VISUALIZED UPPER ABDOMEN: Normal. OTHER FINDINGS: None. IMPRESSION: Areas of subsegmental left lung base. Diffuse hazy appearance of most of the right lung; rule out developing ground-glass opacities; concomitant layering effusion not excluded.
--- NOTE | 2019-02-21 14:34 | RAD ---
Date of service: 02/21/2019 HISTORY: intubated, ngt COMPARISON: No prior. TECHNIQUE: 1 view obtained. FINDINGS: In situ ETT, tip of which lies approximately 3.9 cm above tricia. NGT is present tip of which lies left upper quadrant of the abdomen LUNGS: There are patchy infiltrates seen in the right upper lobe as well as suprahilar region and with atelectasis and/or infiltrate left lower lung field. PLEURA: No significant pleural effusion identified, no pneumothorax apparent. CARDIOVASCULAR: No aortic atherosclerotic calcification present. Normal cardiac size. No pulmonary vascular congestion. OSSEOUS STRUCTURES: No significant abnormalities. VISUALIZED UPPER ABDOMEN: Normal. OTHER FINDINGS: None. IMPRESSION: ETT and NGT as above. There are patchy infiltrates seen in the right upper lobe as well as suprahilar region and with atelectasis and/or infiltrate left lower lung field.
[2019-02-21] MEDS: Mupirocin 2% Ointment 15 GM TUBE TOP SCH ×2 (15:00→18:00)
[2019-02-21 17:21] LABS: PH,URINE 5.5 (4.7-8.0); URINE BILIRUBIN NEGATIVE (NEGATIVE); URINE BLOOD MODERATE (NEGATIVE); URINE GLUCOSE (UA) NEGATIVE (NEGATIVE); URINE LEUKOCYTE ESTERASE NEGATIVE Leu/uL (NEGATIVE); URINE PROTEIN 30 mg/dL (<30 mg/dL); URINE UROBILINOGEN 0.2 E.U./dL (<1 E.U./dL)
[2019-02-21 17:22] LABS: URINE APPEARANCE SLIGHT-CLOUDY (CLEAR); URINE COLOR YELLOW (YELLOW)
[2019-02-21 17:25] LABS: URINE BACTERIA MANY /hpf; URINE HYALINE CAST 0 - 2 /hpf; URINE WBC 0 - 2 /hpf (0-6)
[2019-02-21 17:26] LABS: URINE COARSE GRANULAR CAST TRACE /hpf
--- NOTE | 2019-02-21 20:51 | CP.PCM.PN ---
Subjective - Date & Time of Evaluation Date of Evaluation: 02/21/19 Time of Evaluation: 15:20 - Subjective Subjective: SUBJECTIVE: The patient was seen and examined at bedside in the ICU. He was intubated and transferred for continued managment of septic shock and acute hypoxic respiratory failure. He remains intubated, sedated and on vasopressor support. OBJECTIVE: VS: T 99.1, P 111, BP 110/68, RR 12 on 100% FiO2 General: intubated and sedated HEENT: PERRL, no scleral icterus, no conjunctival pallor Neck: No JVD Lungs: coarse anterior breath sounds CV: tachycardic, normal S1, S2 Abdomen: NABS, soft, NT, ND. Ext: no c/c/e, Right femoral central line in place. Neurologic: intubated and sedated. LABORATORY DATA: CBC reviewed. CMP reviewed. ASSESSMENT: The patient is a 63 year old man with multiple medical comorbidities who was admitted for management of sepsis secondary to RUE cellulitis and whose hospital course was complicated by admission to the ICU s/p intubation for acute hypoxic respiratory failure and septic shock. PLAN: 1. Acute hypoxic respiratory failure. Input from Dr. Feldman and ICU appreciated. Continue with care as per ICU team. 2. Septic shock, consider secondary to RN RELIEF CHARGE etiology vs RUE cellulitis. Input from Dr. Jones noted. Continue with current antimicrobials as per ID. Continue with vassopressor support as needed. 3. Hypernatremia, stable. Continue with gentle IV fluid hydration. 4. HTN. Antihypertensives on hold in setting of septic shock. 5. Normocytic anemia s/p transfusion of 2 units PRBC. Continue to monitor H/H and transfuse as needed. 6. BPH. Continue Flomax. 7. Hyperlipidemia. Continue Lipitor. 8. History of liver transplant. 9. Depression. Input from Dr. Martin noted. Continue with current medications. Objective - Vital Signs/Intake and Output Vital Signs (last 24 hours): Temp Pulse Resp BP Pulse Ox 99.1 F 111 H 20 110/68 100 02/21/19 19:49 02/21/19 19:49 02/21/19 06:00 02/21/19 18:38 02/21/19 12:45 Intake and Output: 02/21/19 02/22/19 18:59 06:59 Intake Total 5305.2 Output Total 80 Balance 5225.2 - Medications Medications: Current Medications Acetaminophen (Tylenol 325mg Tab) 650 mg PO Q6 PRN PRN Reason: TEMP>=99.5F Last Admin: 02/21/19 00:43 Dose: 650 mg Acetaminophen (Tylenol 650 Mg Supp) 650 mg RC Q6H PRN PRN Reason: TEMP>=99.5F Last Admin: 02/19/19 10:16 Dose: 650 mg Aripiprazole (Abilify) 5 mg PO HS [facility] Last Admin: 02/20/19 21:44 Dose: 5 mg Atorvastatin Calcium (Lipitor) 40 mg PO DIN [facility] Last Admin: 02/20/19 18:47 Dose: 40 mg Docusate Sodium (Colace) 100 mg PO BID [facility] Last Admin: 02/20/19 18:47 Dose: 100 mg Donepezil HCl (Aricept) 10 mg PO HS [facility] Last Admin: 02/20/19 21:44 Dose: 10 mg Duloxetine HCl (Cymbalta) 60 mg PO BID [facility] Last Admin: 02/20/19 18:47 Dose: 60 mg Enoxaparin Sodium (Lovenox) 40 mg SC DAILY [facility]; Protocol Last Admin: 02/21/19 11:18 Dose: 40 mg Home Med (Home Med) 10 unit PO BID [facility] Last Admin: 02/20/19 18:49 Dose: Not Given Home Med (Home Med) 0.25 unit PO BID [facility] Last Admin: 02/20/19 18:49 Dose: Not Given Hydrocortisone Sodium Succinate (Solu-Cortef) 50 mg IVP Q6H [facility] Last Admin: 02/21/19 16:19 Dose: 50 mg Dextrose (Dextrose 5% In Water 1000 Ml) 1,000 mls @ 100 mls/hr IV .Q10H [facility] Last Admin: 02/21/19 11:16 Dose: 100 mls/hr Doxycycline Hyclate 100 mg/ (Sodium Chloride) 100 mls @ 100 mls/hr IVPB Q12 [facility]; Protocol Stop: 03/01/19 13:16 Last Admin: 02/21/19 11:55 Dose: 100 mls/hr Meropenem (Merrem Iv 1 Gm Premix) 1 gm in 50 mls @ 100 mls/hr IVPB Q8 [facility]; Protocol Stop: 03/01/19 14:01 Last Admin: 04/14/19 13:01 Dose: 100 mls/hr Fentanyl Citrate (Fentanyl Citrate/Sodium Chloride 1 Mg/100 Ml) 1,000 mcg in 100 mls @ 2 mls/hr IV .Q24H PRN; Protocol PRN Reason: TITRATE PER MD ORDER Last Admin: 02/21/19 10:58 Dose: 20 mcg/hr, 2 mls/hr NOREPINEPHRINE BIT/0.9 % NACL (Levophed 4 Mg/ 250 Ml Ns Premixed) 4 mg in 250 mls @ 15 mls/hr IV .[id number] PRN; Protocol PRN Reason: TITRATE PER MD ORDER Last Admin: 02/21/19 15:26 Dose: 12 mcg/min, 45 mls/hr Vasopressin 20 units/ Sodium (Chloride) 101 mls @ 9.09 mls/hr IV .Q11H7M [facility]; Protocol Last Admin: 02/21/19 18:38 Dose: 9.09 mls/hr Vancomycin HCl (Vancomycin 1gm) 1 gm in 250 mls @ 167 mls/hr IVPB Q12H [facility]; Protocol Stop: 03/02/19 09:46 Last Admin: 02/21/19 09:57 Dose: 167 mls/hr Levalbuterol HCl (Xopenex) 0.63 mg IH [id number] [facility] Last Admin: 02/21/19 20:35 Dose: 0.63 mg Mupirocin (Bactroban Ointment) 0 gm TOP TID [facility] Last Admin: 02/20/19 18:50 Dose: 1 applic Mycophenolate Mofetil (Cellcept Cap) 500 mg PO BID [facility] Last Admin: 02/20/19 18:47 Dose: 500 mg Ondansetron HCl (Zofran Inj) 4 mg IVP Q4H PRN PRN Reason: Nausea/Vomiting Pantoprazole Sodium (Protonix Ec Tab) 40 mg PO 0600 [facility] Last Admin: 02/20/19 06:08 Dose: 40 mg Pantoprazole Sodium (Protonix Inj) 40 mg IVP DAILY [facility] Last Admin: 02/21/19 11:17 Dose: 40 mg Tamsulosin HCl (Flomax) 0.4 mg PO DAILY [facility] Last Admin: 02/20/19 11:34 Dose: 0.4 mg - Labs Labs: 02/21/19 08:35 02/21/19 08:35 PT 14.3 SECONDS (9.4-12.5) H 02/14/19 14:15 INR 1.29 02/14/19 14:15 APTT 39.4 Seconds (26.9-38.3) H 02/14/19 14:15
[2019-02-22] MEDS: Levalbuterol 0.63 MG/3 ML Inhal Soln UD IH SCH ×4 (01:05→20:15)
[2019-02-22] MEDS: NOREPINEPHRINE BIT/0.9 % NACL 4 MG/250 ML BAG IV PRN ×2 (02:34→09:25)
[2019-02-22] MEDS: Meropenem IV 1 gm in NS 1 GM/50 ML BAG IVPB SCH ×3 (05:29→21:12)
[2019-02-22 06:20] LABS: BASO # 0.01 K/mm3 (0.0-2.0); HEMOGLOBIN 9.1 g/dL (14.0-18.0); LYMPH # 0.8 (1.2-3.4); LYMPH % 3.9 % (22.0-35.0); MEAN CELL VOLUME 86.7 fl (80.0-105.0); MEAN CORPUSCULAR HEMOGLOBIN 26.2 pg (25.0-35.0); MEAN CORPUSCULAR HGB CONC 30.2 g/dl (31.0-37.0); MEAN PLATELET VOLUME 9.7 fl (7.0-11.0); MONO # 0.6 (0.1-0.6); MONO % 2.8 % (1.0-6.0); PLATELET COUNT 364 10^3/uL (120.0-450.0); RBC 3.47 10^6/uL (3.5-6.1); RED CELL DISTRIBUTION WIDTH 15.5 % (11.5-14.5); WHITE BLOOD COUNT 21.3 10^3/uL (4.5-11.0)
[2019-02-22 06:32] LABS: ARTERIAL BLOOD GAS HCO3 18.3 mmol/L (21-28); ARTERIAL BLOOD GAS HEMOGLOBIN 10.3 g/dL (11.7-17.4); ARTERIAL BLOOD GAS O2 CAPACITY 14.4 mL/dl (16-24); ARTERIAL BLOOD GAS O2 CONTENT 14.2 ML/dl (15-23); ARTERIAL BLOOD GAS O2 SAT 98.9 % (95-98); ARTERIAL BLOOD GAS PCO2 31 mm/Hg (35-45); ARTERIAL BLOOD GAS PH 7.38 (7.35-7.45); ARTERIAL BLOOD GAS TCO2 19.3 mmol.L (22-28)
[2019-02-22 06:50] LABS: ALBUMIN 2.8 g/dL (3.0-4.8); ALT/SGPT 24 U/L (7-56); AST/SGOT 63 U/L (17-59); BILIRUBIN,DIRECT 0.3 mg/dL (0.0-0.4); BLOOD UREA NITROGEN 19 mg/dL (7-21); CALCIUM 7.7 mg/dL (8.4-10.5); GFR NON-AFRICAN AMERICAN > 60
--- NOTE | 2019-02-22 07:08 | CARD ---
APPROVED REPORT Date of service: 02/21/2019 EKG Measurement Heart [id number] <Conclusion> Sinus tachycardia Low voltage QRS Borderline ECG
[2019-02-22] MEDS ORDERED: Dextrose 50% SYRINGE Inj (50 ml) IVP PRN (07:50)
--- NOTE | 2019-02-22 09:21 | CP.PCM.PN ---
Subjective - Date & Time of Evaluation Date of Evaluation: 02/22/19 Time of Evaluation: 07:21 - Subjective Subjective: Sly Meade PGY2 IM Progress Note for Dr. Elizondo Patient was seen and examined at bedside in ICU. The patient is still on vent, and being sedated. He is requiring vasopressor support with Levophed and Vasopressin for pressure support. No other acute overnight events. Objective - Vital Signs/Intake and Output Vital Signs (last 24 hours): Temp Pulse Resp BP Pulse Ox 99.3 F 90 20 109/76 100 02/22/19 03:39 02/22/19 08:00 02/21/19 06:00 02/22/19 05:27 02/21/19 22:20 Intake and Output: 02/22/19 02/22/19 06:59 18:59 Intake Total 2242 Output Total 180 Balance 2062 - Medications Medications: Current Medications Acetaminophen (Tylenol 325mg Tab) 650 mg PO Q6 PRN PRN Reason: TEMP>=99.5F Last Admin: 02/21/19 00:43 Dose: 650 mg Acetaminophen (Tylenol 650 Mg Supp) 650 mg RC Q6H PRN PRN Reason: TEMP>=99.5F Last Admin: 02/19/19 10:16 Dose: 650 mg Aripiprazole (Abilify) 5 mg PO HS [facility] Last Admin: 02/20/19 21:44 Dose: 5 mg Atorvastatin Calcium (Lipitor) 40 mg PO DIN [facility] Last Admin: 02/20/19 18:47 Dose: 40 mg Dextrose (Dextrose 50% Inj) 50 ml IVP PRN PRN PRN Reason: Low blood sugar Docusate Sodium (Colace) 100 mg PO BID [facility] Last Admin: 02/20/19 18:47 Dose: 100 mg Donepezil HCl (Aricept) 10 mg PO HS [facility] Last Admin: 02/20/19 21:44 Dose: 10 mg Duloxetine HCl (Cymbalta) 60 mg PO BID [facility] Last Admin: 02/20/19 18:47 Dose: 60 mg Enoxaparin Sodium (Lovenox) 40 mg SC DAILY [facility]; Protocol Last Admin: 02/21/19 11:18 Dose: 40 mg Home Med (Home Med) 10 unit PO BID [facility] Last Admin: 02/20/19 18:49 Dose: Not Given Home Med (Home Med) 0.25 unit PO BID [facility] Last Admin: 02/20/19 18:49 Dose: Not Given Hydrocortisone Sodium Succinate (Solu-Cortef) 50 mg IVP Q6H [facility] Last Admin: 02/22/19 02:33 Dose: 50 mg Dextrose (Dextrose 5% In Water 1000 Ml) 1,000 mls @ 100 mls/hr IV .Q10H [facility] Last Admin: 02/22/19 05:30 Dose: Not Given Doxycycline Hyclate 100 mg/ (Sodium Chloride) 100 mls @ 100 mls/hr IVPB Q12 [facility]; Protocol Stop: 03/01/19 13:16 Last Admin: 02/21/19 21:03 Dose: 100 mls/hr Meropenem (Merrem Iv 1 Gm Premix) 1 gm in 50 mls @ 100 mls/hr IVPB Q8 [facility]; Protocol Stop: 03/01/19 14:01 Last Admin: 02/22/19 05:29 Dose: 100 mls/hr Fentanyl Citrate (Fentanyl Citrate/Sodium Chloride 1 Mg/100 Ml) 1,000 mcg in 100 mls @ 2 mls/hr IV .Q24H PRN; Protocol PRN Reason: TITRATE PER MD ORDER Last Titration: 02/21/19 20:00 Dose: 20 mcg/hr, 2 mls/hr NOREPINEPHRINE BIT/0.9 % NACL (Levophed 4 Mg/ 250 Ml Ns Premixed) 4 mg in 250 mls @ 15 mls/hr IV .[id number] PRN; Protocol PRN Reason: TITRATE PER MD ORDER Last Admin: 02/22/19 02:34 Dose: 12 mcg/min, 45 mls/hr Vasopressin 20 units/ Sodium (Chloride) 101 mls @ 9.09 mls/hr IV .Q11H7M [facility]; Protocol Last Admin: 02/22/19 05:27 Dose: 9.09 mls/hr Vancomycin HCl (Vancomycin 1gm) 1 gm in 250 mls @ 167 mls/hr IVPB Q12H [facility]; Protocol Stop: 03/02/19 09:46 Last Admin: 02/21/19 21:01 Dose: 167 mls/hr Insulin Human Lispro (Humalog Med) 0 units SC AC [facility]; Protocol Levalbuterol HCl (Xopenex) 0.63 mg IH [id number] [facility] Last Admin: 02/22/19 07:42 Dose: 0.63 mg Mupirocin (Bactroban Ointment) 0 gm TOP TID [facility] Last Admin: 02/20/19 18:50 Dose: 1 applic Mycophenolate Mofetil (Cellcept Cap) 500 mg PO BID [facility] Last Admin: 02/20/19 18:47 Dose: 500 mg Ondansetron HCl (Zofran Inj) 4 mg IVP Q4H PRN PRN Reason: Nausea/Vomiting Pantoprazole Sodium (Protonix Ec Tab) 40 mg PO 0600 [facility] Last Admin: 02/20/19 06:08 Dose: 40 mg Pantoprazole Sodium (Protonix Inj) 40 mg IVP DAILY [facility] Last Admin: 02/21/19 11:17 Dose: 40 mg Tamsulosin HCl (Flomax) 0.4 mg PO DAILY [facility] Last Admin: 02/20/19 11:34 Dose: 0.4 mg - Labs Labs: 02/22/19 05:30 02/22/19 05:30 PT 14.3 SECONDS (9.4-12.5) H 02/14/19 14:15 INR 1.29 02/14/19 14:15 APTT 39.4 Seconds (26.9-38.3) H 02/14/19 14:15 - Constitutional Appears: Non-toxic, No Acute Distress - Head Exam Head Exam: ATRAUMATIC, NORMAL INSPECTION - Eye Exam Eye Exam: Normal appearance, PERRL - ENT Exam ENT Exam: Mucous Membranes Dry Additional comments: ETT in place - Neck Exam Neck Exam: Full ROM, Normal Inspection - Respiratory Exam Respiratory Exam: absent: Wheezes, Respiratory Distress Additional comments: on vent, ETT in place - Cardiovascular Exam Cardiovascular Exam: RRR, +S1, +S2 - GI/Abdominal Exam GI & Abdominal Exam: Soft. absent: Distended, Tenderness - Extremities Exam Extremities Exam: absent: Pedal Edema Additional comments: RUE skin discoloration and small superficial ulcer with moderate swelling - Neurological Exam Neurological Exam: Altered (sedated) - Skin Skin Exam: Normal Color, Warm Assessment and Plan - Assessment and Plan (Free Text) Assessment: 63 year old male with a PMH of chronic pain on narcotics, HTN, depression, hypothyroidism, liver transplant 2/2 liver cirrhosis, craniopharyngioma, blindness, and psoriasis presenting to the hospital for 2 week history of generalized weakness. Patient is febrile now, which prompted repeat of sepsis work-up. Plan: 1. Septic shock Likely secondary to aspiration pneumonia vs cellulitis vs central fevers - cont Vancomycin, Meropenem and Doxycycline per ID recs - cont stress-dosed steroids per ICU - procal elevated - currently on Levophed and Vasopressin - cont ICU management - holding mycophenolate - cont Bactroban topical - PPI for GI ppx - blood cultures negative x24 hrs - urine cultures pending - CXR reviewed - will order chest, abdomen, pelvis CT 2. Hypoxic respiratory failure, failure to protect airway - currently intubated, and on sedation w/ fentanyl for protection of airway as patient was lethargic - elevate HOB - cont Xopenex and Mucomyst - daily sedation vacations per ICU management - Abx per ID 3. Hypernatremia, likely due to fevers; improving - cont IVF repletion 4. Lumbar compression fracture - MRI lumbar reviewed - bone scan r/o pathologic fractures - cont pain regimen 5. s/p liver transplant - holding immunosuppressants at this time - transaminitis improved - GI on consult, Dr. Canas 6. Depression - continue duloxetine, aricept - Psych on consult, Dr. Martin - denies suicidal/homicidal ideation 7. HTN - holding lopressor 25mg BID due to current shock 8. Anemia, likely iron deficiency anemia - monitor H/H 9. Peripheral Neuropathy - hold gabapentin at this time 10. BPH - continue flomax - grossman inserted 11. HLD - hold lipitor 12. PPX - SCDs/Lovenox for DVT ppx - protonix for GI ppx Further recs per Dr. Elizondo Case was reviewed and discussed with Dr. Elizondo
[2019-02-22] MEDS: Enoxaparin 40 mg Syringe SC SCH (09:22)
[2019-02-22] MEDS: Vancomycin 1gm in NS 250ml 1 GM/250 ML BAG IVPB SCH ×2 (09:24→21:11)
[2019-02-22 09:40] LABS: BAND 8 % (0-2); LYMPHOCYTE 2 % (22.0-35.0); MONOCYTE 1 % (1.0-6.0); NEUTROPHIL 89 % (50.0-70.0)
[2019-02-22 09:41] LABS: PLATELET ESTIMATE NORMAL (NORMAL)
--- NOTE | 2019-02-22 09:44 | RAD ---
Date of service: 02/22/2019 HISTORY: intubated COMPARISON: 02/21/2019 TECHNIQUE: 1 view obtained. FINDINGS: LUNGS: Improvement in right upper lobe infiltrate PLEURA: No significant pleural effusion identified, no pneumothorax apparent. CARDIOVASCULAR: No aortic atherosclerotic calcification present. Normal cardiac size. No pulmonary vascular congestion. OSSEOUS STRUCTURES: No significant abnormalities. VISUALIZED UPPER ABDOMEN: Normal. OTHER FINDINGS: Endotracheal tube and nasogastric tube in satisfactory position IMPRESSION: Improvement in right upper lobe infiltrate
--- NOTE | 2019-02-22 10:11 | CP.CCUPN ---
<Chapo Chan - Last Filed: 02/22/19 10:43> CCU Subjective - Physician Review Events Since Last Encounter (Free Text): Chapo Chan DO, PGY-1 MICU Progress Note for Dr. Feldman Patient continued to require pressor support overnight with levophed and vasopressin. Still on maintenance fluids and broad spectrum abx. Subjective (Free Text): Patient was seen and examined at bedside this AM. He remains intubated, sedated. FiO2 was titrated down to 40%. CCU Objective - Vital Signs / Intake & Output Vital Signs (Last 4 hours): Vital Signs Pulse 02/22/19 08:00 90 Intake and Output (Last 8hrs): Intake & Output 02/21/19 02/22/19 02/22/19 22:59 06:59 14:59 Intake Total 5536 1972 250 Output Total 80 180 Balance 5456 1792 250 Intake: IV 5536 1972 250 Left Hand 350 Right Femoral 5050 1372 Output: Urine 80 180 Urethral (Rdz) 80 180 Stool 0 Emesis 0 - Physical Exam Physical Exam Limitations: Positive for: Clinical Condition Head: Positive for: Atraumatic, Normocephalic Pupils: Positive for: PERRL Extroacular Muscles: Positive for: EOMI Conjunctiva: Positive for: Icteric Mouth: Positive for: Moist Mucous Membranes Pharnyx: Positive for: Normal. Negative for: ERYTHEMA, EXUDATE Neck: Negative for: Lymphadenopathy Respiratory/Chest: Positive for: Clear to Auscultation (intubated, on ventilator, breath sounds auscultated b/l). Negative for: Wheezes, Rales, Rhonchi Cardiovascular: Positive for: Regular Rate and Rhythm, Normal S1, S2. Negative for: Murmurs, Rub, Gallop Abdomen: Positive for: Normal Bowel Sounds, Scars (previous for liver transplant). Negative for: Tenderness, Distention, Peritoneal Signs Upper Extremity: Positive for: NORMAL PULSES, Capillary Refill < 2s, Other (RUE with area of erythema, approximately 3 x 5 cm). Negative for: Cyanosis, Edema Lower Extremity: Positive for: NORMAL PULSES, Capillary Refill < 2 s. Negative for: Edema Neurological: Positive for: Other (intubated, sedated) Skin: Positive for: Warm, Dry, Other (diffusely jaundiced and pale) Psychiatric: Positive for: Other (intubated, sedated) - Medications Active Medications: Active Medications Generic Name Dose Route Start Last Admin Trade Name Freq PRN Reason Stop Dose Admin Acetaminophen 650 mg 02/15/19 09:01 02/21/19 00:43 Tylenol 325mg Tab PO 650 mg Q6 PRN Administration TEMP>=99.5F Acetaminophen 650 mg 02/15/19 09:01 02/19/19 10:16 Tylenol 650 Mg Supp RC 650 mg Q6H PRN Administration TEMP>=99.5F Aripiprazole 5 mg 02/16/19 08:34 02/20/19 21:44 Abilify PO 5 mg HS NETTA Administration Atorvastatin Calcium 40 mg 02/15/19 17:00 02/20/19 18:47 Lipitor PO 40 mg DIN NETTA Administration Dextrose 50 ml 02/22/19 07:50 Dextrose 50% Inj IVP PRN PRN Low blood sugar Docusate Sodium 100 mg 02/17/19 18:00 02/20/19 18:47 Colace PO 100 mg BID NETTA Administration Donepezil HCl 10 mg 02/14/19 22:00 02/20/19 21:44 Aricept PO 10 mg HS NETTA Administration Duloxetine HCl 60 mg 02/14/19 18:00 02/20/19 18:47 Cymbalta PO 60 mg BID NETTA Administration Enoxaparin Sodium 40 mg 02/15/19 10:00 02/22/19 09:22 Lovenox SC 40 mg DAILY NETTA Administration Protocol Home Med 10 unit 02/14/19 18:00 02/20/19 18:49 Home Med PO Not Given BID NETTA Home Med 0.25 unit 02/14/19 18:00 02/20/19 18:49 Home Med PO Not Given BID NETTA Hydrocortisone Sodium Succinate 50 mg 02/21/19 09:30 02/22/19 09:21 Solu-Cortef IVP 50 mg Q6H NETTA Administration Dextrose 1,000 mls @ 100 mls/hr 02/18/19 09:00 02/22/19 05:30 Dextrose 5% In Water 1000 Ml IV Not Given .Q10H NETTA Doxycycline Hyclate 100 mg/ 100 mls @ 100 mls/hr 02/20/19 13:15 02/21/19 21:03 Sodium Chloride IVPB 03/01/19 13:16 100 mls/hr Q12 NETTA Administration Protocol Meropenem 1 gm in 50 mls @ 100 mls/hr 02/20/19 14:00 02/22/19 05:29 Merrem Iv 1 Gm Premix IVPB 03/01/19 14:01 100 mls/hr Q8 NETTA Administration Protocol Fentanyl Citrate 1,000 mcg in 100 mls @ 2 mls/hr 02/21/19 09:30 02/21/19 20:00 Fentanyl Citrate/Sodium Chloride 1 Mg/100 Ml IV 20 mcg/hr .Q24H PRN 2 mls/hr TITRATE PER MD ORDER Titration Protocol 20 MCG/HR NOREPINEPHRINE BIT/0.9 % NACL 4 mg in 250 mls @ 15 mls/hr 02/21/19 09:35 02/22/19 09:41 Levophed 4 Mg/ 250 Ml Ns Premixed IV 8 mcg/min .[id number] PRN 30 mls/hr TITRATE PER MD ORDER Titration Protocol 4 MCG/MIN Vasopressin 20 units/ Sodium 101 mls @ 9.09 mls/hr 02/21/19 09:45 02/22/19 05:27 Chloride IV 9.09 mls/hr .[id number] NETTA Administration Protocol 0.03 U/MIN Vancomycin HCl 1 gm in 250 mls @ 167 mls/hr 02/21/19 09:45 02/22/19 09:24 Vancomycin 1gm IVPB 03/02/19 09:46 167 mls/hr Q12H NETTA Administration Protocol Insulin Human Lispro 0 units 02/22/19 11:30 Humalog Med SC AC [facility] Protocol Levalbuterol HCl 0.63 mg 02/15/19 14:00 02/22/19 07:42 Xopenex IH 0.63 mg [id number] NETTA Administration Mupirocin 0 gm 02/19/19 10:00 02/20/19 18:50 Bactroban Ointment TOP 1 applic TID NETTA Administration Mycophenolate Mofetil 500 mg 02/15/19 18:00 02/20/19 18:47 Cellcept Cap PO 500 mg BID NETTA Administration Ondansetron HCl 4 mg 02/15/19 09:01 Zofran Inj IVP Q4H PRN Nausea/Vomiting Pantoprazole Sodium 40 mg 02/15/19 06:00 02/20/19 06:08 Protonix Ec Tab PO 40 mg 0600 NETTA Administration Pantoprazole Sodium 40 mg 02/21/19 10:00 02/22/19 09:26 Protonix Inj IVP 40 mg DAILY NETTA Administration Tamsulosin HCl 0.4 mg 02/15/19 10:00 02/20/19 11:34 Flomax PO 0.4 mg DAILY NETTA Administration - Patient Studies Lab Studies: Microbiology Studies 02/21/19 17:00 Gram Stain - Final Trachasp 02/17/19 15:50 Blood Culture - Preliminary Blood NO GROWTH AFTER 4 DAYS 02/17/19 15:50 Blood Culture - Preliminary Blood NO GROWTH AFTER 4 DAYS 02/20/19 14:00 Blood Culture - Preliminary Blood NO GROWTH AFTER 24 HOURS 02/20/19 13:40 Blood Culture - Preliminary Blood NO GROWTH AFTER 24 HOURS Lab Studies 02/22/19 02/22/19 02/22/19 Range/Units 07:34 06:20 05:30 WBC (4.5-11.0) 10^3/uL RBC (3.5-6.1) 10^6/uL Hgb (14.0-18.0) g/dL Hct (42.0-52.0) % MCV (80.0-105.0) fl MCH (25.0-35.0) pg MCHC (31.0-37.0) g/dl RDW (11.5-14.5) % Plt Count (120.0-450.0) 10^3/uL MPV (7.0-11.0) fl Neut % (Auto) (50.0-68.0) % Lymph % (Auto) (22.0-35.0) % Ogle % (Auto) (1.0-6.0) % Eos % (Auto) (1.5-5.0) % Baso % (Auto) (0.0-3.0) % Lymph # (Auto) (1.2-3.4) Ogle # (Auto) (0.1-0.6) Eos # (Auto) (0.0-0.7) Baso # (Auto) (0.0-2.0) K/mm3 Absolute Neuts (auto) (1.4-6.5) Neutrophils % (Manual) (50.0-70.0) % Band Neutrophils % (0-2) % Lymphocytes % (Manual) (22.0-35.0) % Monocytes % (Manual) (1.0-6.0) % Platelet Evaluation (NORMAL) pCO2 31 L (35-45) mm/Hg pO2 116.0 H (80-100) mm/Hg HCO3 18.3 L (21-28) mmol/L ABG pH 7.38 (7.35-7.45) ABG Total CO2 19.3 L (22-28) mmol.L ABG O2 Saturation 98.9 H (95-98) % ABG O2 Content 14.2 L (15-23) ML/dl ABG Base Excess -5.9 L (-2.0-3.0) mmol/L ABG Hemoglobin 10.3 L (11.7-17.4) g/dL ABG Carboxyhemoglobin 1.0 (0.5-1.5) % POC ABG HHb (Measured) 1.1 (0-5) % ABG Methemoglobin 1.2 (0.0-3.0) % ABG O2 Capacity 14.4 L (16-24) mL/dl Hgb O2 Saturation 96.7 (95.0-98.0) % FiO2 40.0 % Sodium (132-148) mmol/L Potassium (3.6-5.0) mmol/L Chloride (98-107) mmol/L Carbon Dioxide (21-33) mmol/L Anion Gap (10-20) BUN (7-21) mg/dL Creatinine (0.8-1.5) mg/dl Est GFR ( Amer) Est GFR (Non-Af Amer) POC Glucose (mg/dL) 213 H (65-110) mg/dL Random Glucose (70-110) mg/dL Calcium (8.4-10.5) mg/dL Phosphorus (2.5-4.5) mg/dL Magnesium (1.7-2.2) mg/dL Total Bilirubin (0.2-1.3) mg/dL Direct Bilirubin (0.0-0.4) mg/dL AST (17-59) U/L ALT (7-56) U/L Alkaline Phosphatase (38-126) U/L Ammonia < 9 L (9-33) umol/L Total Protein (5.8-8.3) g/dL Albumin (3.0-4.8) g/dL Globulin gm/dL Albumin/Globulin Ratio (1.1-1.8) Procalcitonin (0.19-0.49) NG/ML Urine Color (YELLOW) Urine Appearance (CLEAR) Urine pH (4.7-8.0) Ur Specific [place] (1.005-1.035) Urine Protein (<30 mg/dL) mg/dL Urine Glucose (UA) (NEGATIVE) mg/dL Urine Ketones (NEGATIVE) mg/dL Urine Blood (NEGATIVE) Urine Nitrate (NEGATIVE) Urine Bilirubin (NEGATIVE) Urine Urobilinogen (<1 E.U./dL) E.U./dL Ur Leukocyte Esterase (NEGATIVE) Marisela/uL Urine RBC (0-2) /hpf Urine WBC (0-6) /hpf Ur Epithelial Cells (0-5) /hpf Urine Bacteria (NONE) /hpf Hyaline Casts (NONE) /hpf Coarse Granular Casts (NONE) /hpf 02/22/19 02/22/19 02/21/19 Range/Units 05:30 05:30 23:53 WBC 21.3 H D (4.5-11.0) 10^3/uL RBC 3.47 L (3.5-6.1) 10^6/uL Hgb 9.1 L (14.0-18.0) g/dL Hct 30.1 L (42.0-52.0) % MCV 86.7 (80.0-105.0) fl MCH 26.2 (25.0-35.0) pg MCHC 30.2 L (31.0-37.0) g/dl RDW 15.5 H (11.5-14.5) % Plt Count 364 (120.0-450.0) 10^3/uL MPV 9.7 (7.0-11.0) fl Neut % (Auto) 93.3 H (50.0-68.0) % Lymph % (Auto) 3.9 L (22.0-35.0) % Ogle % (Auto) 2.8 (1.0-6.0) % Eos % (Auto) 0.0 L (1.5-5.0) % Baso % (Auto) 0.0 (0.0-3.0) % Lymph # (Auto) 0.8 L (1.2-3.4) Ogle # (Auto) 0.6 (0.1-0.6) Eos # (Auto) 0.0 (0.0-0.7) Baso # (Auto) 0.01 (0.0-2.0) K/mm3 Absolute Neuts (auto) 19.82 H (1.4-6.5) Neutrophils % (Manual) 89 H (50.0-70.0) % Band Neutrophils % 8 H (0-2) % Lymphocytes % (Manual) 2 L (22.0-35.0) % Monocytes % (Manual) 1 (1.0-6.0) % Platelet Evaluation Normal (NORMAL) pCO2 (35-45) mm/Hg pO2 (80-100) mm/Hg HCO3 (21-28) mmol/L ABG pH (7.35-7.45) ABG Total CO2 (22-28) mmol.L ABG O2 Saturation (95-98) % ABG O2 Content (15-23) ML/dl ABG Base Excess (-2.0-3.0) mmol/L ABG Hemoglobin (11.7-17.4) g/dL ABG Carboxyhemoglobin (0.5-1.5) % POC ABG HHb (Measured) (0-5) % ABG Methemoglobin (0.0-3.0) % ABG O2 Capacity (16-24) mL/dl Hgb O2 Saturation (95.0-98.0) % FiO2 % Sodium 146 (132-148) mmol/L Potassium 4.8 (3.6-5.0) mmol/L Chloride 118 H (98-107) mmol/L Carbon Dioxide 20 L (21-33) mmol/L Anion Gap 13 (10-20) BUN 19 (7-21) mg/dL Creatinine 1.0 (0.8-1.5) mg/dl Est GFR ( Amer) > 60 Est GFR (Non-Af Amer) > 60 POC Glucose (mg/dL) 206 H (65-110) mg/dL Random Glucose 191 H (70-110) mg/dL Calcium 7.7 L (8.4-10.5) mg/dL Phosphorus 2.9 (2.5-4.5) mg/dL Magnesium 2.1 (1.7-2.2) mg/dL Total Bilirubin 0.4 (0.2-1.3) mg/dL Direct Bilirubin 0.3 (0.0-0.4) mg/dL AST 63 H D (17-59) U/L ALT 24 (7-56) U/L Alkaline Phosphatase 85 (38-126) U/L Ammonia (9-33) umol/L Total Protein 5.8 (5.8-8.3) g/dL Albumin 2.8 L (3.0-4.8) g/dL Globulin 3.0 gm/dL Albumin/Globulin Ratio 1.0 L (1.1-1.8) Procalcitonin (0.19-0.49) NG/ML Urine Color (YELLOW) Urine Appearance (CLEAR) Urine pH (4.7-8.0) Ur Specific [place] (1.005-1.035) Urine Protein (<30 mg/dL) mg/dL Urine Glucose (UA) (NEGATIVE) mg/dL Urine Ketones (NEGATIVE) mg/dL Urine Blood (NEGATIVE) Urine Nitrate (NEGATIVE) Urine Bilirubin (NEGATIVE) Urine Urobilinogen (<1 E.U./dL) E.U./dL Ur Leukocyte Esterase (NEGATIVE) Marisela/uL Urine RBC (0-2) /hpf Urine WBC (0-6) /hpf Ur Epithelial Cells (0-5) /hpf Urine Bacteria (NONE) /hpf Hyaline Casts (NONE) /hpf Coarse Granular Casts (NONE) /hpf 02/21/19 02/21/19 02/21/19 Range/Units 22:17 17:03 17:00 WBC (4.5-11.0) 10^3/uL RBC (3.5-6.1) 10^6/uL Hgb (14.0-18.0) g/dL Hct (42.0-52.0) % MCV (80.0-105.0) fl MCH (25.0-35.0) pg MCHC (31.0-37.0) g/dl RDW (11.5-14.5) % Plt Count (120.0-450.0) 10^3/uL MPV (7.0-11.0) fl Neut % (Auto) (50.0-68.0) % Lymph % (Auto) (22.0-35.0) % Ogle % (Auto) (1.0-6.0) % Eos % (Auto) (1.5-5.0) % Baso % (Auto) (0.0-3.0) % Lymph # (Auto) (1.2-3.4) Ogle # (Auto) (0.1-0.6) Eos # (Auto) (0.0-0.7) Baso # (Auto) (0.0-2.0) K/mm3 Absolute Neuts (auto) (1.4-6.5) Neutrophils % (Manual) (50.0-70.0) % Band Neutrophils % (0-2) % Lymphocytes % (Manual) (22.0-35.0) % Monocytes % (Manual) (1.0-6.0) % Platelet Evaluation (NORMAL) pCO2 (35-45) mm/Hg pO2 (80-100) mm/Hg HCO3 (21-28) mmol/L ABG pH (7.35-7.45) ABG Total CO2 (22-28) mmol.L ABG O2 Saturation (95-98) % ABG O2 Content (15-23) ML/dl ABG Base Excess (-2.0-3.0) mmol/L ABG Hemoglobin (11.7-17.4) g/dL ABG Carboxyhemoglobin (0.5-1.5) % POC ABG HHb (Measured) (0-5) % ABG Methemoglobin (0.0-3.0) % ABG O2 Capacity (16-24) mL/dl Hgb O2 Saturation (95.0-98.0) % FiO2 % Sodium (132-148) mmol/L Potassium (3.6-5.0) mmol/L Chloride (98-107) mmol/L Carbon Dioxide (21-33) mmol/L Anion Gap (10-20) BUN (7-21) mg/dL Creatinine (0.8-1.5) mg/dl Est GFR ( Amer) Est GFR (Non-Af Amer) POC Glucose (mg/dL) 238 H 160 H (65-110) mg/dL Random Glucose (70-110) mg/dL Calcium (8.4-10.5) mg/dL Phosphorus (2.5-4.5) mg/dL Magnesium (1.7-2.2) mg/dL Total Bilirubin (0.2-1.3) mg/dL Direct Bilirubin (0.0-0.4) mg/dL AST (17-59) U/L ALT (7-56) U/L Alkaline Phosphatase (38-126) U/L Ammonia (9-33) umol/L Total Protein (5.8-8.3) g/dL Albumin (3.0-4.8) g/dL Globulin gm/dL Albumin/Globulin Ratio (1.1-1.8) Procalcitonin (0.19-0.49) NG/ML Urine Color Yellow (YELLOW) Urine Appearance Slight-cloudy (CLEAR) Urine pH 5.5 (4.7-8.0) Ur Specific [place] 1.020 (1.005-1.035) Urine Protein 30 H (<30 mg/dL) mg/dL Urine Glucose (UA) Negative (NEGATIVE) mg/dL Urine Ketones Negative (NEGATIVE) mg/dL Urine Blood Moderate H (NEGATIVE) Urine Nitrate Negative (NEGATIVE) Urine Bilirubin Negative (NEGATIVE) Urine Urobilinogen 0.2 (<1 E.U./dL) E.U./dL Ur Leukocyte Esterase Negative (NEGATIVE) Marisela/uL Urine RBC 1 - 3 H (0-2) /hpf Urine WBC 0 - 2 (0-6) /hpf Ur Epithelial Cells None (0-5) /hpf Urine Bacteria Many (NONE) /hpf Hyaline Casts 0 - 2 (NONE) /hpf Coarse Granular Casts Trace (NONE) /hpf 02/21/19 02/21/19 02/21/19 Range/Units 16:18 15:19 13:59 WBC (4.5-11.0) 10^3/uL RBC (3.5-6.1) 10^6/uL Hgb (14.0-18.0) g/dL Hct (42.0-52.0) % MCV (80.0-105.0) fl MCH (25.0-35.0) pg MCHC (31.0-37.0) g/dl RDW (11.5-14.5) % Plt Count (120.0-450.0) 10^3/uL MPV (7.0-11.0) fl Neut % (Auto) (50.0-68.0) % Lymph % (Auto) (22.0-35.0) % Ogle % (Auto) (1.0-6.0) % Eos % (Auto) (1.5-5.0) % Baso % (Auto) (0.0-3.0) % Lymph # (Auto) (1.2-3.4) Ogle # (Auto) (0.1-0.6) Eos # (Auto) (0.0-0.7) Baso # (Auto) (0.0-2.0) K/mm3 Absolute Neuts (auto) (1.4-6.5) Neutrophils % (Manual) (50.0-70.0) % Band Neutrophils % (0-2) % Lymphocytes % (Manual) (22.0-35.0) % Monocytes % (Manual) (1.0-6.0) % Platelet Evaluation (NORMAL) pCO2 (35-45) mm/Hg pO2 (80-100) mm/Hg HCO3 (21-28) mmol/L ABG pH (7.35-7.45) ABG Total CO2 (22-28) mmol.L ABG O2 Saturation (95-98) % ABG O2 Content (15-23) ML/dl ABG Base Excess (-2.0-3.0) mmol/L ABG Hemoglobin (11.7-17.4) g/dL ABG Carboxyhemoglobin (0.5-1.5) % POC ABG HHb (Measured) (0-5) % ABG Methemoglobin (0.0-3.0) % ABG O2 Capacity (16-24) mL/dl Hgb O2 Saturation (95.0-98.0) % FiO2 % Sodium (132-148) mmol/L Potassium (3.6-5.0) mmol/L Chloride (98-107) mmol/L Carbon Dioxide (21-33) mmol/L Anion Gap (10-20) BUN (7-21) mg/dL Creatinine (0.8-1.5) mg/dl Est GFR ( Amer) Est GFR (Non-Af Amer) POC Glucose (mg/dL) 166 H 184 H 193 H (65-110) mg/dL Random Glucose (70-110) mg/dL Calcium (8.4-10.5) mg/dL Phosphorus (2.5-4.5) mg/dL Magnesium (1.7-2.2) mg/dL Total Bilirubin (0.2-1.3) mg/dL Direct Bilirubin (0.0-0.4) mg/dL AST (17-59) U/L ALT (7-56) U/L Alkaline Phosphatase (38-126) U/L Ammonia (9-33) umol/L Total Protein (5.8-8.3) g/dL Albumin (3.0-4.8) g/dL Globulin gm/dL Albumin/Globulin Ratio (1.1-1.8) Procalcitonin (0.19-0.49) NG/ML Urine Color (YELLOW) Urine Appearance (CLEAR) Urine pH (4.7-8.0) Ur Specific [place] (1.005-1.035) Urine Protein (<30 mg/dL) mg/dL Urine Glucose (UA) (NEGATIVE) mg/dL Urine Ketones (NEGATIVE) mg/dL Urine Blood (NEGATIVE) Urine Nitrate (NEGATIVE) Urine Bilirubin (NEGATIVE) Urine Urobilinogen (<1 E.U./dL) E.U./dL Ur Leukocyte Esterase (NEGATIVE) Marisela/uL Urine RBC (0-2) /hpf Urine WBC (0-6) /hpf Ur Epithelial Cells (0-5) /hpf Urine Bacteria (NONE) /hpf Hyaline Casts (NONE) /hpf Coarse Granular Casts (NONE) /hpf 02/21/19 02/21/19 02/21/19 Range/Units 12:54 11:40 10:46 WBC (4.5-11.0) 10^3/uL RBC (3.5-6.1) 10^6/uL Hgb (14.0-18.0) g/dL Hct (42.0-52.0) % MCV (80.0-105.0) fl MCH (25.0-35.0) pg MCHC (31.0-37.0) g/dl RDW (11.5-14.5) % Plt Count (120.0-450.0) 10^3/uL MPV (7.0-11.0) fl Neut % (Auto) (50.0-68.0) % Lymph % (Auto) (22.0-35.0) % Ogle % (Auto) (1.0-6.0) % Eos % (Auto) (1.5-5.0) % Baso % (Auto) (0.0-3.0) % Lymph # (Auto) (1.2-3.4) Ogle # (Auto) (0.1-0.6) Eos # (Auto) (0.0-0.7) Baso # (Auto) (0.0-2.0) K/mm3 Absolute Neuts (auto) (1.4-6.5) Neutrophils % (Manual) (50.0-70.0) % Band Neutrophils % (0-2) % Lymphocytes % (Manual) (22.0-35.0) % Monocytes % (Manual) (1.0-6.0) % Platelet Evaluation (NORMAL) pCO2 (35-45) mm/Hg pO2 (80-100) mm/Hg HCO3 (21-28) mmol/L ABG pH (7.35-7.45) ABG Total CO2 (22-28) mmol.L ABG O2 Saturation (95-98) % ABG O2 Content (15-23) ML/dl ABG Base Excess (-2.0-3.0) mmol/L ABG Hemoglobin (11.7-17.4) g/dL ABG Carboxyhemoglobin (0.5-1.5) % POC ABG HHb (Measured) (0-5) % ABG Methemoglobin (0.0-3.0) % ABG O2 Capacity (16-24) mL/dl Hgb O2 Saturation (95.0-98.0) % FiO2 % Sodium (132-148) mmol/L Potassium (3.6-5.0) mmol/L Chloride (98-107) mmol/L Carbon Dioxide (21-33) mmol/L Anion Gap (10-20) BUN (7-21) mg/dL Creatinine (0.8-1.5) mg/dl Est GFR ( Amer) Est GFR (Non-Af Amer) POC Glucose (mg/dL) 179 H 168 H 163 H (65-110) mg/dL Random Glucose (70-110) mg/dL Calcium (8.4-10.5) mg/dL Phosphorus (2.5-4.5) mg/dL Magnesium (1.7-2.2) mg/dL Total Bilirubin (0.2-1.3) mg/dL Direct Bilirubin (0.0-0.4) mg/dL AST (17-59) U/L ALT (7-56) U/L Alkaline Phosphatase (38-126) U/L Ammonia (9-33) umol/L Total Protein (5.8-8.3) g/dL Albumin (3.0-4.8) g/dL Globulin gm/dL Albumin/Globulin Ratio (1.1-1.8) Procalcitonin (0.19-0.49) NG/ML Urine Color (YELLOW) Urine Appearance (CLEAR) Urine pH (4.7-8.0) Ur Specific [place] (1.005-1.035) Urine Protein (<30 mg/dL) mg/dL Urine Glucose (UA) (NEGATIVE) mg/dL Urine Ketones (NEGATIVE) mg/dL Urine Blood (NEGATIVE) Urine Nitrate (NEGATIVE) Urine Bilirubin (NEGATIVE) Urine Urobilinogen (<1 E.U./dL) E.U./dL Ur Leukocyte Esterase (NEGATIVE) Marisela/uL Urine RBC (0-2) /hpf Urine WBC (0-6) /hpf Ur Epithelial Cells (0-5) /hpf Urine Bacteria (NONE) /hpf Hyaline Casts (NONE) /hpf Coarse Granular Casts (NONE) /hpf 02/21/19 Range/Units 08:15 WBC (4.5-11.0) 10^3/uL RBC (3.5-6.1) 10^6/uL Hgb (14.0-18.0) g/dL Hct (42.0-52.0) % MCV (80.0-105.0) fl MCH (25.0-35.0) pg MCHC (31.0-37.0) g/dl RDW (11.5-14.5) % Plt Count (120.0-450.0) 10^3/uL MPV (7.0-11.0) fl Neut % (Auto) (50.0-68.0) % Lymph % (Auto) (22.0-35.0) % Ogle % (Auto) (1.0-6.0) % Eos % (Auto) (1.5-5.0) % Baso % (Auto) (0.0-3.0) % Lymph # (Auto) (1.2-3.4) Ogle # (Auto) (0.1-0.6) Eos # (Auto) (0.0-0.7) Baso # (Auto) (0.0-2.0) K/mm3 Absolute Neuts (auto) (1.4-6.5) Neutrophils % (Manual) (50.0-70.0) % Band Neutrophils % (0-2) % Lymphocytes % (Manual) (22.0-35.0) % Monocytes % (Manual) (1.0-6.0) % Platelet Evaluation (NORMAL) pCO2 (35-45) mm/Hg pO2 (80-100) mm/Hg HCO3 (21-28) mmol/L ABG pH (7.35-7.45) ABG Total CO2 (22-28) mmol.L ABG O2 Saturation (95-98) % ABG O2 Content (15-23) ML/dl ABG Base Excess (-2.0-3.0) mmol/L ABG Hemoglobin (11.7-17.4) g/dL ABG Carboxyhemoglobin (0.5-1.5) % POC ABG HHb (Measured) (0-5) % ABG Methemoglobin (0.0-3.0) % ABG O2 Capacity (16-24) mL/dl Hgb O2 Saturation (95.0-98.0) % FiO2 % Sodium (132-148) mmol/L Potassium (3.6-5.0) mmol/L Chloride (98-107) mmol/L Carbon Dioxide (21-33) mmol/L Anion Gap (10-20) BUN (7-21) mg/dL Creatinine (0.8-1.5) mg/dl Est GFR ( Amer) Est GFR (Non-Af Amer) POC Glucose (mg/dL) (65-110) mg/dL Random Glucose (70-110) mg/dL Calcium (8.4-10.5) mg/dL Phosphorus (2.5-4.5) mg/dL Magnesium (1.7-2.2) mg/dL Total Bilirubin (0.2-1.3) mg/dL Direct Bilirubin (0.0-0.4) mg/dL AST (17-59) U/L ALT (7-56) U/L Alkaline Phosphatase (38-126) U/L Ammonia (9-33) umol/L Total Protein (5.8-8.3) g/dL Albumin (3.0-4.8) g/dL Globulin gm/dL Albumin/Globulin Ratio (1.1-1.8) Procalcitonin 48.62 H (0.19-0.49) NG/ML Urine Color (YELLOW) Urine Appearance (CLEAR) Urine pH (4.7-8.0) Ur Specific [place] (1.005-1.035) Urine Protein (<30 mg/dL) mg/dL Urine Glucose (UA) (NEGATIVE) mg/dL Urine Ketones (NEGATIVE) mg/dL Urine Blood (NEGATIVE) Urine Nitrate (NEGATIVE) Urine Bilirubin (NEGATIVE) Urine Urobilinogen (<1 E.U./dL) E.U./dL Ur Leukocyte Esterase (NEGATIVE) Marisela/uL Urine RBC (0-2) /hpf Urine WBC (0-6) /hpf Ur Epithelial Cells (0-5) /hpf Urine Bacteria (NONE) /hpf Hyaline Casts (NONE) /hpf Coarse Granular Casts (NONE) /hpf Laboratory Results - last 24 hr 02/21/19 02/21/19 02/21/19 08:15 10:46 11:40 WBC RBC Hgb Hct MCV MCH MCHC RDW Plt Count MPV Neut % (Auto) Lymph % (Auto) Ogle % (Auto) Eos % (Auto) Baso % (Auto) Lymph # (Auto) Ogle # (Auto) Eos # (Auto) Baso # (Auto) Absolute Neuts (auto) Neutrophils % (Manual) Band Neutrophils % Lymphocytes % (Manual) Monocytes % (Manual) Platelet Evaluation pCO2 pO2 HCO3 ABG pH ABG Total CO2 ABG O2 Saturation ABG O2 Content ABG Base Excess ABG Hemoglobin ABG Carboxyhemoglobin POC ABG HHb (Measured) ABG Methemoglobin ABG O2 Capacity Hgb O2 Saturation FiO2 Sodium Potassium Chloride Carbon Dioxide Anion Gap BUN Creatinine Est GFR ( Amer) Est GFR (Non-Af Amer) POC Glucose (mg/dL) 163 H 168 H Random Glucose Calcium Phosphorus Magnesium Total Bilirubin Direct Bilirubin AST ALT Alkaline Phosphatase Ammonia Total Protein Albumin Globulin Albumin/Globulin Ratio Procalcitonin 48.62 H Urine Color Urine Appearance Urine pH Ur Specific [place] Urine Protein Urine Glucose (UA) Urine Ketones Urine Blood Urine Nitrate Urine Bilirubin Urine Urobilinogen Ur Leukocyte Esterase Urine RBC Urine WBC Ur Epithelial Cells Urine Bacteria Hyaline Casts Coarse Granular Casts 02/21/19 02/21/19 02/21/19 12:54 13:59 15:19 WBC RBC Hgb Hct MCV MCH MCHC RDW Plt Count MPV Neut % (Auto) Lymph % (Auto) Ogle % (Auto) Eos % (Auto) Baso % (Auto) Lymph # (Auto) Ogle # (Auto) Eos # (Auto) Baso # (Auto) Absolute Neuts (auto) Neutrophils % (Manual) Band Neutrophils % Lymphocytes % (Manual) Monocytes % (Manual) Platelet Evaluation pCO2 pO2 HCO3 ABG pH ABG Total CO2 ABG O2 Saturation ABG O2 Content ABG Base Excess ABG Hemoglobin ABG Carboxyhemoglobin POC ABG HHb (Measured) ABG Methemoglobin ABG O2 Capacity Hgb O2 Saturation FiO2 Sodium Potassium Chloride Carbon Dioxide Anion Gap BUN Creatinine Est GFR ( Amer) Est GFR (Non-Af Amer) POC Glucose (mg/dL) 179 H 193 H 184 H Random Glucose Calcium Phosphorus Magnesium Total Bilirubin Direct Bilirubin AST ALT Alkaline Phosphatase Ammonia Total Protein Albumin Globulin Albumin/Globulin Ratio Procalcitonin Urine Color Urine Appearance Urine pH Ur Specific [place] Urine Protein Urine Glucose (UA) Urine Ketones Urine Blood Urine Nitrate Urine Bilirubin Urine Urobilinogen Ur Leukocyte Esterase Urine RBC Urine WBC Ur Epithelial Cells Urine Bacteria Hyaline Casts Coarse Granular Casts 02/21/19 02/21/19 02/21/19 16:18 17:00 17:03 WBC RBC Hgb Hct MCV MCH MCHC RDW Plt Count MPV Neut % (Auto) Lymph % (Auto) Ogle % (Auto) Eos % (Auto) Baso % (Auto) Lymph # (Auto) Ogle # (Auto) Eos # (Auto) Baso # (Auto) Absolute Neuts (auto) Neutrophils % (Manual) Band Neutrophils % Lymphocytes % (Manual) Monocytes % (Manual) Platelet Evaluation pCO2 pO2 HCO3 ABG pH ABG Total CO2 ABG O2 Saturation ABG O2 Content ABG Base Excess ABG Hemoglobin ABG Carboxyhemoglobin POC ABG HHb (Measured) ABG Methemoglobin ABG O2 Capacity Hgb O2 Saturation FiO2 Sodium Potassium Chloride Carbon Dioxide Anion Gap BUN Creatinine Est GFR ( Amer) Est GFR (Non-Af Amer) POC Glucose (mg/dL) 166 H 160 H Random Glucose Calcium Phosphorus Magnesium Total Bilirubin Direct Bilirubin AST ALT Alkaline Phosphatase Ammonia Total Protein Albumin Globulin Albumin/Globulin Ratio Procalcitonin Urine Color Yellow Urine Appearance Slight-cloudy Urine pH 5.5 Ur Specific [place] 1.020 Urine Protein 30 H Urine Glucose (UA) Negative Urine Ketones Negative Urine Blood Moderate H Urine Nitrate Negative Urine Bilirubin Negative Urine Urobilinogen 0.2 Ur Leukocyte Esterase Negative Urine RBC 1 - 3 H Urine WBC 0 - 2 Ur Epithelial Cells None Urine Bacteria Many Hyaline Casts 0 - 2 Coarse Granular Casts Trace 02/21/19 02/21/19 02/22/19 22:17 23:53 05:30 WBC 21.3 H D RBC 3.47 L Hgb 9.1 L Hct 30.1 L MCV 86.7 MCH 26.2 MCHC 30.2 L RDW 15.5 H Plt Count 364 MPV 9.7 Neut % (Auto) 93.3 H Lymph % (Auto) 3.9 L Ogle % (Auto) 2.8 Eos % (Auto) 0.0 L Baso % (Auto) 0.0 Lymph # (Auto) 0.8 L Ogle # (Auto) 0.6 Eos # (Auto) 0.0 Baso # (Auto) 0.01 Absolute Neuts (auto) 19.82 H Neutrophils % (Manual) 89 H Band Neutrophils % 8 H Lymphocytes % (Manual) 2 L Monocytes % (Manual) 1 Platelet Evaluation Normal pCO2 pO2 HCO3 ABG pH ABG Total CO2 ABG O2 Saturation ABG O2 Content ABG Base Excess ABG Hemoglobin ABG Carboxyhemoglobin POC ABG HHb (Measured) ABG Methemoglobin ABG O2 Capacity Hgb O2 Saturation FiO2 Sodium Potassium Chloride Carbon Dioxide Anion Gap BUN Creatinine Est GFR ( Amer) Est GFR (Non-Af Amer) POC Glucose (mg/dL) 238 H 206 H Random Glucose Calcium Phosphorus Magnesium Total Bilirubin Direct Bilirubin AST ALT Alkaline Phosphatase Ammonia Total Protein Albumin Globulin Albumin/Globulin Ratio Procalcitonin Urine Color Urine Appearance Urine pH Ur Specific [place] Urine Protein Urine Glucose (UA) Urine Ketones Urine Blood Urine Nitrate Urine Bilirubin Urine Urobilinogen Ur Leukocyte Esterase Urine RBC Urine WBC Ur Epithelial Cells Urine Bacteria Hyaline Casts Coarse Granular Casts 02/22/19 02/22/19 02/22/19 05:30 05:30 06:20 WBC RBC Hgb Hct MCV MCH MCHC RDW Plt Count MPV Neut % (Auto) Lymph % (Auto) Ogle % (Auto) Eos % (Auto) Baso % (Auto) Lymph # (Auto) Ogle # (Auto) Eos # (Auto) Baso # (Auto) Absolute Neuts (auto) Neutrophils % (Manual) Band Neutrophils % Lymphocytes % (Manual) Monocytes % (Manual) Platelet Evaluation pCO2 31 L pO2 116.0 H HCO3 18.3 L ABG pH 7.38 ABG Total CO2 19.3 L ABG O2 Saturation 98.9 H ABG O2 Content 14.2 L ABG Base Excess -5.9 L ABG Hemoglobin 10.3 L ABG Carboxyhemoglobin 1.0 POC ABG HHb (Measured) 1.1 ABG Methemoglobin 1.2 ABG O2 Capacity 14.4 L Hgb O2 Saturation 96.7 FiO2 40.0 Sodium 146 Potassium 4.8 Chloride 118 H Carbon Dioxide 20 L Anion Gap 13 BUN 19 Creatinine 1.0 Est GFR ( Amer) > 60 Est GFR (Non-Af Amer) > 60 POC Glucose (mg/dL) Random Glucose 191 H Calcium 7.7 L Phosphorus 2.9 Magnesium 2.1 Total Bilirubin 0.4 Direct Bilirubin 0.3 AST 63 H D ALT 24 Alkaline Phosphatase 85 Ammonia < 9 L Total Protein 5.8 Albumin 2.8 L Globulin 3.0 Albumin/Globulin Ratio 1.0 L Procalcitonin Urine Color Urine Appearance Urine pH Ur Specific [place] Urine Protein Urine Glucose (UA) Urine Ketones Urine Blood Urine Nitrate Urine Bilirubin Urine Urobilinogen Ur Leukocyte Esterase Urine RBC Urine WBC Ur Epithelial Cells Urine Bacteria Hyaline Casts Coarse Granular Casts 02/22/19 07:34 WBC RBC Hgb Hct MCV MCH MCHC RDW Plt Count MPV Neut % (Auto) Lymph % (Auto) Ogle % (Auto) Eos % (Auto) Baso % (Auto) Lymph # (Auto) Ogle # (Auto) Eos # (Auto) Baso # (Auto) Absolute Neuts (auto) Neutrophils % (Manual) Band Neutrophils % Lymphocytes % (Manual) Monocytes % (Manual) Platelet Evaluation pCO2 pO2 HCO3 ABG pH ABG Total CO2 ABG O2 Saturation ABG O2 Content ABG Base Excess ABG Hemoglobin ABG Carboxyhemoglobin POC ABG HHb (Measured) ABG Methemoglobin ABG O2 Capacity Hgb O2 Saturation FiO2 Sodium Potassium Chloride Carbon Dioxide Anion Gap BUN Creatinine Est GFR ( Amer) Est GFR (Non-Af Amer) POC Glucose (mg/dL) 213 H Random Glucose Calcium Phosphorus Magnesium Total Bilirubin Direct Bilirubin AST ALT Alkaline Phosphatase Ammonia Total Protein Albumin Globulin Albumin/Globulin Ratio Procalcitonin Urine Color Urine Appearance Urine pH Ur Specific [place] Urine Protein Urine Glucose (UA) Urine Ketones Urine Blood Urine Nitrate Urine Bilirubin Urine Urobilinogen Ur Leukocyte Esterase Urine RBC Urine WBC Ur Epithelial Cells Urine Bacteria Hyaline Casts Coarse Granular Casts Radiology Impressions: Radiology Impressions Chest X-Ray 02/21/19 06:21 IMPRESSION: Areas of subsegmental left lung base. Diffuse hazy appearance of most of the right lung; rule out developing ground-glass opacities; concomitant layering effusion not excluded. Chest X-Ray 02/21/19 07:43 IMPRESSION: ETT and NGT as above. There are patchy infiltrates seen in the right upper lobe as well as suprahilar region and with atelectasis and/or infiltrate left lower lung field. Chest X-Ray 02/22/19 07:00 IMPRESSION: Improvement in right upper lobe infiltrate Fingerstick Blood Sugar Results: 166 Critical Care Progress Note - Ventilator Checklist Head of Bed 30 Degrees: Yes Daily Sedation Vacation: Yes Daily Assessment of Readiness to Wean: Yes Daily Spontaneous Breathing Trial: Yes PUD Prophalyxis: Yes DVT Prophylaxis: Yes Oral Care with Chlorhexidine Gluconate {CHG}: Yes - Vent Settings MODE:: PRVC TIDAL VOLUME:: 400 RESP RATE:: 12 FIO2:: 40 PEEP:: 10 - Extremities/Vascular Does the Patient have a Central Venous Catheter?: Yes Insertion Site: Femoral Vein Does the Patient have a Rdz Catheter?: Yes Catheter Insertion Criteria: Need for accurate measurement of output in critically ill patient - Restraints Justification for Restraints: High risk for removing IV access - Prophylaxis GI Prophylaxis GI: PPI - Prophylaxis DVT Prophylaxis DVT: Lovenox, SCDs - Nutrition Nutrition: Nutrition Category Date Time Status NPO Diet [DIET] Diets 02/21/19 Breakfast Ordered Assessment/Plan - Assessment and Plan (Free Text) Assessment: 63 yo M with PMH of cirrhosis (s/p liver transplant), chronic pain on narcotics, HTN, depression, hypothyroidism, blindness, craniopharyngioma, and psoriasis initially admitted for fever, generalized weakness, and sepsis thought to be 2/2 RUE cellulitis. Yesterday morning, he began to acutely decompensate into septic shock, requiring rapid IVF resuscitation, ET intubation, and trasnfer to MICU. Plan: Neuro: Remains intubated, sedated on fentanyl MRI brain completed during admission showed suprasellar mass with bony mets identified on bone scan Neurology following, all recs appreciated Cardio: Maintaining MAP > 65 on levophed 8 and vasopressin 0.3 Was tachycardic on initial examination yesterday but has improved and maintained RRR since last night Request PICC line placement to continue to administer pressors Would like to d/c R femoral access as soon as possible due to high risk of infection Continue to monitor HD parameters closely Pulm: Acute hypoxic respiratory failure CXR: completed yesterday and again this AM confirm placement of ET tube and lines CXR also with new RUL infiltrate, improved this AM Repeat ABG this AM shows improvement Ventilator settings: 400/12/10, FiO2 of 40% Appropriate ventilator management as follows: Maintain head of bed > 30 degrees Maintain oral hygiene Daily ABG and CXR Daily sedation and weaning trials with assessment of readiness to wean Endo: Random glucose: 191 Continue ISS - medium Maintain glucose between 140-180 Hypernatremia noted, may be 2/2 volume depletion from sepsis and/or aggressive NS IVF resuscitation Patient switched to D5, 1/2 NS maintenance IVF with improvement Continue to monitor electrolytes, replete PRN GI: NPO, on ventilator GI ppx with daily protonix 40 mg IVP /Nephro: Renal function parameters stable Monitor UOP closely Maintain euvolemia, continue maintenance IVF Heme/Onc: Normocytic anemia likely 2/2 anemia of chronic disease H/H improved this AM Continue serial CBC, monitor for HD compromise MRI brain identified suprasellar mass with bony lesions on bone scan concerning for mets Unclear primary malignancy, unclear if patient had followed up about this Will discuss situation with patient's family Palliative care consult placed, all recs appreciated ID: Persistently febrile throughout hospitalization but afebrile since admission to MICU Per ID, suspect source of infection is RUL infiltrate, less likely RUE cellulitis However, garcia cx negative to date NELLY was performed at last admission, no vegetations found May need to consider repeat NELLY ID following, all recs appreciated DVT/GI PPX: Lovenox/protonix Full Code NPO Monitor in MICU Patient seen, examined with, and plan confirmed with my attending Dr. Gaston Chan D.O. IM Resident PGY-1 Pager: [phone] <Royce Feldman - Last Filed: 02/22/19 12:36> CCU Objective - Vital Signs / Intake & Output Intake and Output (Last 8hrs): Intake & Output 02/21/19 02/22/19 02/22/19 22:59 06:59 14:59 Intake Total 5536 1972 300.7 Output Total 80 180 Balance 5456 1792 300.7 Intake: IV 5536 1972 300.7 Left Hand 350 Right Femoral 5050 1372 Output: Urine 80 180 Urethral (Rdz) 80 180 Stool 0 Emesis 0 - Medications Active Medications: Active Medications Generic Name Dose Route Start Last Admin Trade Name Freq PRN Reason Stop Dose Admin Acetaminophen 650 mg 02/15/19 09:01 02/21/19 00:43 Tylenol 325mg Tab PO 650 mg Q6 PRN Administration TEMP>=99.5F Acetaminophen 650 mg 02/15/19 09:01 02/19/19 10:16 Tylenol 650 Mg Supp RC 650 mg Q6H PRN Administration TEMP>=99.5F Acetylcysteine 4 ml 02/22/19 14:00 Acetylcysteine 20% IH [id number] NETTA Aripiprazole 5 mg 02/16/19 08:34 02/20/19 21:44 Abilify PO 5 mg HS NETTA Administration Atorvastatin Calcium 40 mg 02/15/19 17:00 02/20/19 18:47 Lipitor PO 40 mg DIN NETTA Administration Dextrose 50 ml 02/22/19 07:50 Dextrose 50% Inj IVP PRN PRN Low blood sugar Docusate Sodium 100 mg 02/17/19 18:00 02/20/19 18:47 Colace PO 100 mg BID NETTA Administration Donepezil HCl 10 mg 02/14/19 22:00 02/20/19 21:44 Aricept PO 10 mg HS NETTA Administration Duloxetine HCl 60 mg 02/14/19 18:00 02/20/19 18:47 Cymbalta PO 60 mg BID NETTA Administration Enoxaparin Sodium 40 mg 02/15/19 10:00 02/22/19 09:22 Lovenox SC 40 mg DAILY NETTA Administration Protocol Home Med 10 unit 02/14/19 18:00 02/20/19 18:49 Home Med PO Not Given BID NETTA Home Med 0.25 unit 02/14/19 18:00 02/20/19 18:49 Home Med PO Not Given BID NETTA Hydrocortisone Sodium Succinate 50 mg 02/21/19 09:30 02/22/19 09:21 Solu-Cortef IVP 50 mg Q6H NETTA Administration Dextrose 1,000 mls @ 100 mls/hr 02/18/19 09:00 02/22/19 05:30 Dextrose 5% In Water 1000 Ml IV Not Given .Q10H NETTA Doxycycline Hyclate 100 mg/ 100 mls @ 100 mls/hr 02/20/19 13:15 02/22/19 11:40 Sodium Chloride IVPB 03/01/19 13:16 100 mls/hr Q12 NETTA Administration Protocol Meropenem 1 gm in 50 mls @ 100 mls/hr 02/20/19 14:00 02/22/19 05:29 Merrem Iv 1 Gm Premix IVPB 03/01/19 14:01 100 mls/hr Q8 NETTA Administration Protocol Fentanyl Citrate 1,000 mcg in 100 mls @ 2 mls/hr 02/21/19 09:30 02/21/19 20:00 Fentanyl Citrate/Sodium Chloride 1 Mg/100 Ml IV 20 mcg/hr .Q24H PRN 2 mls/hr TITRATE PER MD ORDER Titration Protocol 20 MCG/HR NOREPINEPHRINE BIT/0.9 % NACL 4 mg in 250 mls @ 15 mls/hr 02/21/19 09:35 02/22/19 11:21 Levophed 4 Mg/ 250 Ml Ns Premixed IV 6 mcg/min .[id number] PRN 22.5 mls/hr TITRATE PER MD ORDER Titration Protocol 4 MCG/MIN Vasopressin 20 units/ Sodium 101 mls @ 9.09 mls/hr 02/21/19 09:45 02/22/19 05:27 Chloride IV 9.09 mls/hr .[id number] NETTA Administration Protocol 0.03 U/MIN Vancomycin HCl 1 gm in 250 mls @ 167 mls/hr 02/21/19 09:45 02/22/19 09:24 Vancomycin 1gm IVPB 03/02/19 09:46 167 mls/hr Q12H NETTA Administration Protocol Insulin Human Lispro 0 units 02/22/19 11:30 Humalog Med SC AC [facility] Protocol Levalbuterol HCl 0.63 mg 02/15/19 14:00 02/22/19 07:42 Xopenex IH 0.63 mg [id number] NETTA Administration Mupirocin 0 gm 02/19/19 10:00 02/20/19 18:50 Bactroban Ointment TOP 1 applic TID NETTA Administration Mycophenolate Mofetil 500 mg 02/15/19 18:00 02/20/19 18:47 Cellcept Cap PO 500 mg BID NETTA Administration Ondansetron HCl 4 mg 02/15/19 09:01 Zofran Inj IVP Q4H PRN Nausea/Vomiting Pantoprazole Sodium 40 mg 02/15/19 06:00 02/20/19 06:08 Protonix Ec Tab PO 40 mg 0600 NETTA Administration Pantoprazole Sodium 40 mg 02/21/19 10:00 02/22/19 09:26 Protonix Inj IVP 40 mg DAILY NETTA Administration Tamsulosin HCl 0.4 mg 02/15/19 10:00 02/20/19 11:34 Flomax PO 0.4 mg DAILY NETTA Administration - Patient Studies Lab Studies: Microbiology Studies 02/21/19 17:00 Gram Stain - Final Trachasp 02/17/19 15:50 Blood Culture - Preliminary Blood NO GROWTH AFTER 4 DAYS 02/17/19 15:50 Blood Culture - Preliminary Blood NO GROWTH AFTER 4 DAYS 02/20/19 14:00 Blood Culture - Preliminary Blood NO GROWTH AFTER 24 HOURS 02/20/19 13:40 Blood Culture - Preliminary Blood NO GROWTH AFTER 24 HOURS Lab Studies 02/22/19 02/22/19 02/22/19 Range/Units 11:31 07:34 06:20 WBC (4.5-11.0) 10^3/uL RBC (3.5-6.1) 10^6/uL Hgb (14.0-18.0) g/dL Hct (42.0-52.0) % MCV (80.0-105.0) fl MCH (25.0-35.0) pg MCHC (31.0-37.0) g/dl RDW (11.5-14.5) % Plt Count (120.0-450.0) 10^3/uL MPV (7.0-11.0) fl Neut % (Auto) (50.0-68.0) % Lymph % (Auto) (22.0-35.0) % Ogle % (Auto) (1.0-6.0) % Eos % (Auto) (1.5-5.0) % Baso % (Auto) (0.0-3.0) % Lymph # (Auto) (1.2-3.4) Ogle # (Auto) (0.1-0.6) Eos # (Auto) (0.0-0.7) Baso # (Auto) (0.0-2.0) K/mm3 Absolute Neuts (auto) (1.4-6.5) Neutrophils % (Manual) (50.0-70.0) % Band Neutrophils % (0-2) % Lymphocytes % (Manual) (22.0-35.0) % Monocytes % (Manual) (1.0-6.0) % Platelet Evaluation (NORMAL) pCO2 31 L (35-45) mm/Hg pO2 116.0 H (80-100) mm/Hg HCO3 18.3 L (21-28) mmol/L ABG pH 7.38 (7.35-7.45) ABG Total CO2 19.3 L (22-28) mmol.L ABG O2 Saturation 98.9 H (95-98) % ABG O2 Content 14.2 L (15-23) ML/dl ABG Base Excess -5.9 L (-2.0-3.0) mmol/L ABG Hemoglobin 10.3 L (11.7-17.4) g/dL ABG Carboxyhemoglobin 1.0 (0.5-1.5) % POC ABG HHb (Measured) 1.1 (0-5) % ABG Methemoglobin 1.2 (0.0-3.0) % ABG O2 Capacity 14.4 L (16-24) mL/dl Hgb O2 Saturation 96.7 (95.0-98.0) % FiO2 40.0 % Sodium (132-148) mmol/L Potassium (3.6-5.0) mmol/L Chloride (98-107) mmol/L Carbon Dioxide (21-33) mmol/L Anion Gap (10-20) BUN (7-21) mg/dL Creatinine (0.8-1.5) mg/dl Est GFR ( Amer) Est GFR (Non-Af Amer) POC Glucose (mg/dL) 225 H 213 H (65-110) mg/dL Random Glucose (70-110) mg/dL Calcium (8.4-10.5) mg/dL Phosphorus (2.5-4.5) mg/dL Magnesium (1.7-2.2) mg/dL Total Bilirubin (0.2-1.3) mg/dL Direct Bilirubin (0.0-0.4) mg/dL AST (17-59) U/L ALT (7-56) U/L Alkaline Phosphatase (38-126) U/L Ammonia (9-33) umol/L Total Protein (5.8-8.3) g/dL Albumin (3.0-4.8) g/dL Globulin gm/dL Albumin/Globulin Ratio (1.1-1.8) Procalcitonin (0.19-0.49) NG/ML Urine Color (YELLOW) Urine Appearance (CLEAR) Urine pH (4.7-8.0) Ur Specific [place] (1.005-1.035) Urine Protein (<30 mg/dL) mg/dL Urine Glucose (UA) (NEGATIVE) mg/dL Urine Ketones (NEGATIVE) mg/dL Urine Blood (NEGATIVE) Urine Nitrate (NEGATIVE) Urine Bilirubin (NEGATIVE) Urine Urobilinogen (<1 E.U./dL) E.U./dL Ur Leukocyte Esterase (NEGATIVE) Marisela/uL Urine RBC (0-2) /hpf Urine WBC (0-6) /hpf Ur Epithelial Cells (0-5) /hpf Urine Bacteria (NONE) /hpf Hyaline Casts (NONE) /hpf Coarse Granular Casts (NONE) /hpf Crossmatch 02/22/19 02/22/19 02/22/19 Range/Units 05:30 05:30 05:30 WBC 21.3 H D (4.5-11.0) 10^3/uL RBC 3.47 L (3.5-6.1) 10^6/uL Hgb 9.1 L (14.0-18.0) g/dL Hct 30.1 L (42.0-52.0) % MCV 86.7 (80.0-105.0) fl MCH 26.2 (25.0-35.0) pg MCHC 30.2 L (31.0-37.0) g/dl RDW 15.5 H (11.5-14.5) % Plt Count 364 (120.0-450.0) 10^3/uL MPV 9.7 (7.0-11.0) fl Neut % (Auto) 93.3 H (50.0-68.0) % Lymph % (Auto) 3.9 L (22.0-35.0) % Ogle % (Auto) 2.8 (1.0-6.0) % Eos % (Auto) 0.0 L (1.5-5.0) % Baso % (Auto) 0.0 (0.0-3.0) % Lymph # (Auto) 0.8 L (1.2-3.4) Ogle # (Auto) 0.6 (0.1-0.6) Eos # (Auto) 0.0 (0.0-0.7) Baso # (Auto) 0.01 (0.0-2.0) K/mm3 Absolute Neuts (auto) 19.82 H (1.4-6.5) Neutrophils % (Manual) 89 H (50.0-70.0) % Band Neutrophils % 8 H (0-2) % Lymphocytes % (Manual) 2 L (22.0-35.0) % Monocytes % (Manual) 1 (1.0-6.0) % Platelet Evaluation Normal (NORMAL) pCO2 (35-45) mm/Hg pO2 (80-100) mm/Hg HCO3 (21-28) mmol/L ABG pH (7.35-7.45) ABG Total CO2 (22-28) mmol.L ABG O2 Saturation (95-98) % ABG O2 Content (15-23) ML/dl ABG Base Excess (-2.0-3.0) mmol/L ABG Hemoglobin (11.7-17.4) g/dL ABG Carboxyhemoglobin (0.5-1.5) % POC ABG HHb (Measured) (0-5) % ABG Methemoglobin (0.0-3.0) % ABG O2 Capacity (16-24) mL/dl Hgb O2 Saturation (95.0-98.0) % FiO2 % Sodium 146 (132-148) mmol/L Potassium 4.8 (3.6-5.0) mmol/L Chloride 118 H (98-107) mmol/L Carbon Dioxide 20 L (21-33) mmol/L Anion Gap 13 (10-20) BUN 19 (7-21) mg/dL Creatinine 1.0 (0.8-1.5) mg/dl Est GFR ( Amer) > 60 Est GFR (Non-Af Amer) > 60 POC Glucose (mg/dL) (65-110) mg/dL Random Glucose 191 H (70-110) mg/dL Calcium 7.7 L (8.4-10.5) mg/dL Phosphorus 2.9 (2.5-4.5) mg/dL Magnesium 2.1 (1.7-2.2) mg/dL Total Bilirubin 0.4 (0.2-1.3) mg/dL Direct Bilirubin 0.3 (0.0-0.4) mg/dL AST 63 H D (17-59) U/L ALT 24 (7-56) U/L Alkaline Phosphatase 85 (38-126) U/L Ammonia < 9 L (9-33) umol/L Total Protein 5.8 (5.8-8.3) g/dL Albumin 2.8 L (3.0-4.8) g/dL Globulin 3.0 gm/dL Albumin/Globulin Ratio 1.0 L (1.1-1.8) Procalcitonin (0.19-0.49) NG/ML Urine Color (YELLOW) Urine Appearance (CLEAR) Urine pH (4.7-8.0) Ur Specific [place] (1.005-1.035) Urine Protein (<30 mg/dL) mg/dL Urine Glucose (UA) (NEGATIVE) mg/dL Urine Ketones (NEGATIVE) mg/dL Urine Blood (NEGATIVE) Urine Nitrate (NEGATIVE) Urine Bilirubin (NEGATIVE) Urine Urobilinogen (<1 E.U./dL) E.U./dL Ur Leukocyte Esterase (NEGATIVE) Marisela/uL Urine RBC (0-2) /hpf Urine WBC (0-6) /hpf Ur Epithelial Cells (0-5) /hpf Urine Bacteria (NONE) /hpf Hyaline Casts (NONE) /hpf Coarse Granular Casts (NONE) /hpf Crossmatch 02/21/19 02/21/19 02/21/19 Range/Units 23:53 22:17 17:03 WBC (4.5-11.0) 10^3/uL RBC (3.5-6.1) 10^6/uL Hgb (14.0-18.0) g/dL Hct (42.0-52.0) % MCV (80.0-105.0) fl MCH (25.0-35.0) pg MCHC (31.0-37.0) g/dl RDW (11.5-14.5) % Plt Count (120.0-450.0) 10^3/uL MPV (7.0-11.0) fl Neut % (Auto) (50.0-68.0) % Lymph % (Auto) (22.0-35.0) % Ogle % (Auto) (1.0-6.0) % Eos % (Auto) (1.5-5.0) % Baso % (Auto) (0.0-3.0) % Lymph # (Auto) (1.2-3.4) Ogle # (Auto) (0.1-0.6) Eos # (Auto) (0.0-0.7) Baso # (Auto) (0.0-2.0) K/mm3 Absolute Neuts (auto) (1.4-6.5) Neutrophils % (Manual) (50.0-70.0) % Band Neutrophils % (0-2) % Lymphocytes % (Manual) (22.0-35.0) % Monocytes % (Manual) (1.0-6.0) % Platelet Evaluation (NORMAL) pCO2 (35-45) mm/Hg pO2 (80-100) mm/Hg HCO3 (21-28) mmol/L ABG pH (7.35-7.45) ABG Total CO2 (22-28) mmol.L ABG O2 Saturation (95-98) % ABG O2 Content (15-23) ML/dl ABG Base Excess (-2.0-3.0) mmol/L ABG Hemoglobin (11.7-17.4) g/dL ABG Carboxyhemoglobin (0.5-1.5) % POC ABG HHb (Measured) (0-5) % ABG Methemoglobin (0.0-3.0) % ABG O2 Capacity (16-24) mL/dl Hgb O2 Saturation (95.0-98.0) % FiO2 % Sodium (132-148) mmol/L Potassium (3.6-5.0) mmol/L Chloride (98-107) mmol/L Carbon Dioxide (21-33) mmol/L Anion Gap (10-20) BUN (7-21) mg/dL Creatinine (0.8-1.5) mg/dl Est GFR ( Amer) Est GFR (Non-Af Amer) POC Glucose (mg/dL) 206 H 238 H 160 H (65-110) mg/dL Random Glucose (70-110) mg/dL Calcium (8.4-10.5) mg/dL Phosphorus (2.5-4.5) mg/dL Magnesium (1.7-2.2) mg/dL Total Bilirubin (0.2-1.3) mg/dL Direct Bilirubin (0.0-0.4) mg/dL AST (17-59) U/L ALT (7-56) U/L Alkaline Phosphatase (38-126) U/L Ammonia (9-33) umol/L Total Protein (5.8-8.3) g/dL Albumin (3.0-4.8) g/dL Globulin gm/dL Albumin/Globulin Ratio (1.1-1.8) Procalcitonin (0.19-0.49) NG/ML Urine Color (YELLOW) Urine Appearance (CLEAR) Urine pH (4.7-8.0) Ur Specific [place] (1.005-1.035) Urine Protein (<30 mg/dL) mg/dL Urine Glucose (UA) (NEGATIVE) mg/dL Urine Ketones (NEGATIVE) mg/dL Urine Blood (NEGATIVE) Urine Nitrate (NEGATIVE) Urine Bilirubin (NEGATIVE) Urine Urobilinogen (<1 E.U./dL) E.U./dL Ur Leukocyte Esterase (NEGATIVE) Marisela/uL Urine RBC (0-2) /hpf Urine WBC (0-6) /hpf Ur Epithelial Cells (0-5) /hpf Urine Bacteria (NONE) /hpf Hyaline Casts (NONE) /hpf Coarse Granular Casts (NONE) /hpf Crossmatch 02/21/19 02/21/19 02/21/19 Range/Units 17:00 16:18 15:19 WBC (4.5-11.0) 10^3/uL RBC (3.5-6.1) 10^6/uL Hgb (14.0-18.0) g/dL Hct (42.0-52.0) % MCV (80.0-105.0) fl MCH (25.0-35.0) pg MCHC (31.0-37.0) g/dl RDW (11.5-14.5) % Plt Count (120.0-450.0) 10^3/uL MPV (7.0-11.0) fl Neut % (Auto) (50.0-68.0) % Lymph % (Auto) (22.0-35.0) % Ogle % (Auto) (1.0-6.0) % Eos % (Auto) (1.5-5.0) % Baso % (Auto) (0.0-3.0) % Lymph # (Auto) (1.2-3.4) Ogle # (Auto) (0.1-0.6) Eos # (Auto) (0.0-0.7) Baso # (Auto) (0.0-2.0) K/mm3 Absolute Neuts (auto) (1.4-6.5) Neutrophils % (Manual) (50.0-70.0) % Band Neutrophils % (0-2) % Lymphocytes % (Manual) (22.0-35.0) % Monocytes % (Manual) (1.0-6.0) % Platelet Evaluation (NORMAL) pCO2 (35-45) mm/Hg pO2 (80-100) mm/Hg HCO3 (21-28) mmol/L ABG pH (7.35-7.45) ABG Total CO2 (22-28) mmol.L ABG O2 Saturation (95-98) % ABG O2 Content (15-23) ML/dl ABG Base Excess (-2.0-3.0) mmol/L ABG Hemoglobin (11.7-17.4) g/dL ABG Carboxyhemoglobin (0.5-1.5) % POC ABG HHb (Measured) (0-5) % ABG Methemoglobin (0.0-3.0) % ABG O2 Capacity (16-24) mL/dl Hgb O2 Saturation (95.0-98.0) % FiO2 % Sodium (132-148) mmol/L Potassium (3.6-5.0) mmol/L Chloride (98-107) mmol/L Carbon Dioxide (21-33) mmol/L Anion Gap (10-20) BUN (7-21) mg/dL Creatinine (0.8-1.5) mg/dl Est GFR ( Amer) Est GFR (Non-Af Amer) POC Glucose (mg/dL) 166 H 184 H (65-110) mg/dL Random Glucose (70-110) mg/dL Calcium (8.4-10.5) mg/dL Phosphorus (2.5-4.5) mg/dL Magnesium (1.7-2.2) mg/dL Total Bilirubin (0.2-1.3) mg/dL Direct Bilirubin (0.0-0.4) mg/dL AST (17-59) U/L ALT (7-56) U/L Alkaline Phosphatase (38-126) U/L Ammonia (9-33) umol/L Total Protein (5.8-8.3) g/dL Albumin (3.0-4.8) g/dL Globulin gm/dL Albumin/Globulin Ratio (1.1-1.8) Procalcitonin (0.19-0.49) NG/ML Urine Color Yellow (YELLOW) Urine Appearance Slight-cloudy (CLEAR) Urine pH 5.5 (4.7-8.0) Ur Specific [place] 1.020 (1.005-1.035) Urine Protein 30 H (<30 mg/dL) mg/dL Urine Glucose (UA) Negative (NEGATIVE) mg/dL Urine Ketones Negative (NEGATIVE) mg/dL Urine Blood Moderate H (NEGATIVE) Urine Nitrate Negative (NEGATIVE) Urine Bilirubin Negative (NEGATIVE) Urine Urobilinogen 0.2 (<1 E.U./dL) E.U./dL Ur Leukocyte Esterase Negative (NEGATIVE) Marisela/uL Urine RBC 1 - 3 H (0-2) /hpf Urine WBC 0 - 2 (0-6) /hpf Ur Epithelial Cells None (0-5) /hpf Urine Bacteria Many (NONE) /hpf Hyaline Casts 0 - 2 (NONE) /hpf Coarse Granular Casts Trace (NONE) /hpf Crossmatch 02/21/19 02/21/19 02/21/19 Range/Units 13:59 12:54 08:15 WBC (4.5-11.0) 10^3/uL RBC (3.5-6.1) 10^6/uL Hgb (14.0-18.0) g/dL Hct (42.0-52.0) % MCV (80.0-105.0) fl MCH (25.0-35.0) pg MCHC (31.0-37.0) g/dl RDW (11.5-14.5) % Plt Count (120.0-450.0) 10^3/uL MPV (7.0-11.0) fl Neut % (Auto) (50.0-68.0) % Lymph % (Auto) (22.0-35.0) % Ogle % (Auto) (1.0-6.0) % Eos % (Auto) (1.5-5.0) % Baso % (Auto) (0.0-3.0) % Lymph # (Auto) (1.2-3.4) Ogle # (Auto) (0.1-0.6) Eos # (Auto) (0.0-0.7) Baso # (Auto) (0.0-2.0) K/mm3 Absolute Neuts (auto) (1.4-6.5) Neutrophils % (Manual) (50.0-70.0) % Band Neutrophils % (0-2) % Lymphocytes % (Manual) (22.0-35.0) % Monocytes % (Manual) (1.0-6.0) % Platelet Evaluation (NORMAL) pCO2 (35-45) mm/Hg pO2 (80-100) mm/Hg HCO3 (21-28) mmol/L ABG pH (7.35-7.45) ABG Total CO2 (22-28) mmol.L ABG O2 Saturation (95-98) % ABG O2 Content (15-23) ML/dl ABG Base Excess (-2.0-3.0) mmol/L ABG Hemoglobin (11.7-17.4) g/dL ABG Carboxyhemoglobin (0.5-1.5) % POC ABG HHb (Measured) (0-5) % ABG Methemoglobin (0.0-3.0) % ABG O2 Capacity (16-24) mL/dl Hgb O2 Saturation (95.0-98.0) % FiO2 % Sodium (132-148) mmol/L Potassium (3.6-5.0) mmol/L Chloride (98-107) mmol/L Carbon Dioxide (21-33) mmol/L Anion Gap (10-20) BUN (7-21) mg/dL Creatinine (0.8-1.5) mg/dl Est GFR ( Amer) Est GFR (Non-Af Amer) POC Glucose (mg/dL) 193 H 179 H (65-110) mg/dL Random Glucose (70-110) mg/dL Calcium (8.4-10.5) mg/dL Phosphorus (2.5-4.5) mg/dL Magnesium (1.7-2.2) mg/dL Total Bilirubin (0.2-1.3) mg/dL Direct Bilirubin (0.0-0.4) mg/dL AST (17-59) U/L ALT (7-56) U/L Alkaline Phosphatase (38-126) U/L Ammonia (9-33) umol/L Total Protein (5.8-8.3) g/dL Albumin (3.0-4.8) g/dL Globulin gm/dL Albumin/Globulin Ratio (1.1-1.8) Procalcitonin 48.62 H (0.19-0.49) NG/ML Urine Color (YELLOW) Urine Appearance (CLEAR) Urine pH (4.7-8.0) Ur Specific [place] (1.005-1.035) Urine Protein (<30 mg/dL) mg/dL Urine Glucose (UA) (NEGATIVE) mg/dL Urine Ketones (NEGATIVE) mg/dL Urine Blood (NEGATIVE) Urine Nitrate (NEGATIVE) Urine Bilirubin (NEGATIVE) Urine Urobilinogen (<1 E.U./dL) E.U./dL Ur Leukocyte Esterase (NEGATIVE) Marisela/uL Urine RBC (0-2) /hpf Urine WBC (0-6) /hpf Ur Epithelial Cells (0-5) /hpf Urine Bacteria (NONE) /hpf Hyaline Casts (NONE) /hpf Coarse Granular Casts (NONE) /hpf Crossmatch 02/19/19 Range/Units 09:20 WBC (4.5-11.0) 10^3/uL RBC (3.5-6.1) 10^6/uL Hgb (14.0-18.0) g/dL Hct (42.0-52.0) % MCV (80.0-105.0) fl MCH (25.0-35.0) pg MCHC (31.0-37.0) g/dl RDW (11.5-14.5) % Plt Count (120.0-450.0) 10^3/uL MPV (7.0-11.0) fl Neut % (Auto) (50.0-68.0) % Lymph % (Auto) (22.0-35.0) % Ogle % (Auto) (1.0-6.0) % Eos % (Auto) (1.5-5.0) % Baso % (Auto) (0.0-3.0) % Lymph # (Auto) (1.2-3.4) Ogle # (Auto) (0.1-0.6) Eos # (Auto) (0.0-0.7) Baso # (Auto) (0.0-2.0) K/mm3 Absolute Neuts (auto) (1.4-6.5) Neutrophils % (Manual) (50.0-70.0) % Band Neutrophils % (0-2) % Lymphocytes % (Manual) (22.0-35.0) % Monocytes % (Manual) (1.0-6.0) % Platelet Evaluation (NORMAL) pCO2 (35-45) mm/Hg pO2 (80-100) mm/Hg HCO3 (21-28) mmol/L ABG pH (7.35-7.45) ABG Total CO2 (22-28) mmol.L ABG O2 Saturation (95-98) % ABG O2 Content (15-23) ML/dl ABG Base Excess (-2.0-3.0) mmol/L ABG Hemoglobin (11.7-17.4) g/dL ABG Carboxyhemoglobin (0.5-1.5) % POC ABG HHb (Measured) (0-5) % ABG Methemoglobin (0.0-3.0) % ABG O2 Capacity (16-24) mL/dl Hgb O2 Saturation (95.0-98.0) % FiO2 % Sodium (132-148) mmol/L Potassium (3.6-5.0) mmol/L Chloride (98-107) mmol/L Carbon Dioxide (21-33) mmol/L Anion Gap (10-20) BUN (7-21) mg/dL Creatinine (0.8-1.5) mg/dl Est GFR ( Amer) Est GFR (Non-Af Amer) POC Glucose (mg/dL) (65-110) mg/dL Random Glucose (70-110) mg/dL Calcium (8.4-10.5) mg/dL Phosphorus (2.5-4.5) mg/dL Magnesium (1.7-2.2) mg/dL Total Bilirubin (0.2-1.3) mg/dL Direct Bilirubin (0.0-0.4) mg/dL AST (17-59) U/L ALT (7-56) U/L Alkaline Phosphatase (38-126) U/L Ammonia (9-33) umol/L Total Protein (5.8-8.3) g/dL Albumin (3.0-4.8) g/dL Globulin gm/dL Albumin/Globulin Ratio (1.1-1.8) Procalcitonin (0.19-0.49) NG/ML Urine Color (YELLOW) Urine Appearance (CLEAR) Urine pH (4.7-8.0) Ur Specific [place] (1.005-1.035) Urine Protein (<30 mg/dL) mg/dL Urine Glucose (UA) (NEGATIVE) mg/dL Urine Ketones (NEGATIVE) mg/dL Urine Blood (NEGATIVE) Urine Nitrate (NEGATIVE) Urine Bilirubin (NEGATIVE) Urine Urobilinogen (<1 E.U./dL) E.U./dL Ur Leukocyte Esterase (NEGATIVE) Marisela/uL Urine RBC (0-2) /hpf Urine WBC (0-6) /hpf Ur Epithelial Cells (0-5) /hpf Urine Bacteria (NONE) /hpf Hyaline Casts (NONE) /hpf Coarse Granular Casts (NONE) /hpf Crossmatch See Detail Laboratory Results - last 24 hr 02/19/19 02/21/19 02/21/19 09:20 08:15 12:54 WBC RBC Hgb Hct MCV MCH MCHC RDW Plt Count MPV Neut % (Auto) Lymph % (Auto) Ogle % (Auto) Eos % (Auto) Baso % (Auto) Lymph # (Auto) Ogle # (Auto) Eos # (Auto) Baso # (Auto) Absolute Neuts (auto) Neutrophils % (Manual) Band Neutrophils % Lymphocytes % (Manual) Monocytes % (Manual) Platelet Evaluation pCO2 pO2 HCO3 ABG pH ABG Total CO2 ABG O2 Saturation ABG O2 Content ABG Base Excess ABG Hemoglobin ABG Carboxyhemoglobin POC ABG HHb (Measured) ABG Methemoglobin ABG O2 Capacity Hgb O2 Saturation FiO2 Sodium Potassium Chloride Carbon Dioxide Anion Gap BUN Creatinine Est GFR ( Amer) Est GFR (Non-Af Amer) POC Glucose (mg/dL) 179 H Random Glucose Calcium Phosphorus Magnesium Total Bilirubin Direct Bilirubin AST ALT Alkaline Phosphatase Ammonia Total Protein Albumin Globulin Albumin/Globulin Ratio Procalcitonin 48.62 H Urine Color Urine Appearance Urine pH Ur Specific [place] Urine Protein Urine Glucose (UA) Urine Ketones Urine Blood Urine Nitrate Urine Bilirubin Urine Urobilinogen Ur Leukocyte Esterase Urine RBC Urine WBC Ur Epithelial Cells Urine Bacteria Hyaline Casts Coarse Granular Casts Crossmatch See Detail 02/21/19 02/21/19 02/21/19 13:59 15:19 16:18 WBC RBC Hgb Hct MCV MCH MCHC RDW Plt Count MPV Neut % (Auto) Lymph % (Auto) Ogle % (Auto) Eos % (Auto) Baso % (Auto) Lymph # (Auto) Ogle # (Auto) Eos # (Auto) Baso # (Auto) Absolute Neuts (auto) Neutrophils % (Manual) Band Neutrophils % Lymphocytes % (Manual) Monocytes % (Manual) Platelet Evaluation pCO2 pO2 HCO3 ABG pH ABG Total CO2 ABG O2 Saturation ABG O2 Content ABG Base Excess ABG Hemoglobin ABG Carboxyhemoglobin POC ABG HHb (Measured) ABG Methemoglobin ABG O2 Capacity Hgb O2 Saturation FiO2 Sodium Potassium Chloride Carbon Dioxide Anion Gap BUN Creatinine Est GFR ( Amer) Est GFR (Non-Af Amer) POC Glucose (mg/dL) 193 H 184 H 166 H Random Glucose Calcium Phosphorus Magnesium Total Bilirubin Direct Bilirubin AST ALT Alkaline Phosphatase Ammonia Total Protein Albumin Globulin Albumin/Globulin Ratio Procalcitonin Urine Color Urine Appearance Urine pH Ur Specific [place] Urine Protein Urine Glucose (UA) Urine Ketones Urine Blood Urine Nitrate Urine Bilirubin Urine Urobilinogen Ur Leukocyte Esterase Urine RBC Urine WBC Ur Epithelial Cells Urine Bacteria Hyaline Casts Coarse Granular Casts Crossmatch 02/21/19 02/21/19 02/21/19 17:00 17:03 22:17 WBC RBC Hgb Hct MCV MCH MCHC RDW Plt Count MPV Neut % (Auto) Lymph % (Auto) Ogle % (Auto) Eos % (Auto) Baso % (Auto) Lymph # (Auto) Ogle # (Auto) Eos # (Auto) Baso # (Auto) Absolute Neuts (auto) Neutrophils % (Manual) Band Neutrophils % Lymphocytes % (Manual) Monocytes % (Manual) Platelet Evaluation pCO2 pO2 HCO3 ABG pH ABG Total CO2 ABG O2 Saturation ABG O2 Content ABG Base Excess ABG Hemoglobin ABG Carboxyhemoglobin POC ABG HHb (Measured) ABG Methemoglobin ABG O2 Capacity Hgb O2 Saturation FiO2 Sodium Potassium Chloride Carbon Dioxide Anion Gap BUN Creatinine Est GFR ( Amer) Est GFR (Non-Af Amer) POC Glucose (mg/dL) 160 H 238 H Random Glucose Calcium Phosphorus Magnesium Total Bilirubin Direct Bilirubin AST ALT Alkaline Phosphatase Ammonia Total Protein Albumin Globulin Albumin/Globulin Ratio Procalcitonin Urine Color Yellow Urine Appearance Slight-cloudy Urine pH 5.5 Ur Specific [place] 1.020 Urine Protein 30 H Urine Glucose (UA) Negative Urine Ketones Negative Urine Blood Moderate H Urine Nitrate Negative Urine Bilirubin Negative Urine Urobilinogen 0.2 Ur Leukocyte Esterase Negative Urine RBC 1 - 3 H Urine WBC 0 - 2 Ur Epithelial Cells None Urine Bacteria Many Hyaline Casts 0 - 2 Coarse Granular Casts Trace Crossmatch 02/21/19 02/22/19 02/22/19 23:53 05:30 05:30 WBC 21.3 H D RBC 3.47 L Hgb 9.1 L Hct 30.1 L MCV 86.7 MCH 26.2 MCHC 30.2 L RDW 15.5 H Plt Count 364 MPV 9.7 Neut % (Auto) 93.3 H Lymph % (Auto) 3.9 L Ogle % (Auto) 2.8 Eos % (Auto) 0.0 L Baso % (Auto) 0.0 Lymph # (Auto) 0.8 L Ogle # (Auto) 0.6 Eos # (Auto) 0.0 Baso # (Auto) 0.01 Absolute Neuts (auto) 19.82 H Neutrophils % (Manual) 89 H Band Neutrophils % 8 H Lymphocytes % (Manual) 2 L Monocytes % (Manual) 1 Platelet Evaluation Normal pCO2 pO2 HCO3 ABG pH ABG Total CO2 ABG O2 Saturation ABG O2 Content ABG Base Excess ABG Hemoglobin ABG Carboxyhemoglobin POC ABG HHb (Measured) ABG Methemoglobin ABG O2 Capacity Hgb O2 Saturation FiO2 Sodium 146 Potassium 4.8 Chloride 118 H Carbon Dioxide 20 L Anion Gap 13 BUN 19 Creatinine 1.0 Est GFR ( Amer) > 60 Est GFR (Non-Af Amer) > 60 POC Glucose (mg/dL) 206 H Random Glucose 191 H Calcium 7.7 L Phosphorus 2.9 Magnesium 2.1 Total Bilirubin 0.4 Direct Bilirubin 0.3 AST 63 H D ALT 24 Alkaline Phosphatase 85 Ammonia Total Protein 5.8 Albumin 2.8 L Globulin 3.0 Albumin/Globulin Ratio 1.0 L Procalcitonin Urine Color Urine Appearance Urine pH Ur Specific [place] Urine Protein Urine Glucose (UA) Urine Ketones Urine Blood Urine Nitrate Urine Bilirubin Urine Urobilinogen Ur Leukocyte Esterase Urine RBC Urine WBC Ur Epithelial Cells Urine Bacteria Hyaline Casts Coarse Granular Casts Crossmatch 02/22/19 02/22/19 02/22/19 05:30 06:20 07:34 WBC RBC Hgb Hct MCV MCH MCHC RDW Plt Count MPV Neut % (Auto) Lymph % (Auto) Ogle % (Auto) Eos % (Auto) Baso % (Auto) Lymph # (Auto) Ogle # (Auto) Eos # (Auto) Baso # (Auto) Absolute Neuts (auto) Neutrophils % (Manual) Band Neutrophils % Lymphocytes % (Manual) Monocytes % (Manual) Platelet Evaluation pCO2 31 L pO2 116.0 H HCO3 18.3 L ABG pH 7.38 ABG Total CO2 19.3 L ABG O2 Saturation 98.9 H ABG O2 Content 14.2 L ABG Base Excess -5.9 L ABG Hemoglobin 10.3 L ABG Carboxyhemoglobin 1.0 POC ABG HHb (Measured) 1.1 ABG Methemoglobin 1.2 ABG O2 Capacity 14.4 L Hgb O2 Saturation 96.7 FiO2 40.0 Sodium Potassium Chloride Carbon Dioxide Anion Gap BUN Creatinine Est GFR ( Amer) Est GFR (Non-Af Amer) POC Glucose (mg/dL) 213 H Random Glucose Calcium Phosphorus Magnesium Total Bilirubin Direct Bilirubin AST ALT Alkaline Phosphatase Ammonia < 9 L Total Protein Albumin Globulin Albumin/Globulin Ratio Procalcitonin Urine Color Urine Appearance Urine pH Ur Specific [place] Urine Protein Urine Glucose (UA) Urine Ketones Urine Blood Urine Nitrate Urine Bilirubin Urine Urobilinogen Ur Leukocyte Esterase Urine RBC Urine WBC Ur Epithelial Cells Urine Bacteria Hyaline Casts Coarse Granular Casts Crossmatch 02/22/19 11:31 WBC RBC Hgb Hct MCV MCH MCHC RDW Plt Count MPV Neut % (Auto) Lymph % (Auto) Ogle % (Auto) Eos % (Auto) Baso % (Auto) Lymph # (Auto) Ogle # (Auto) Eos # (Auto) Baso # (Auto) Absolute Neuts (auto) Neutrophils % (Manual) Band Neutrophils % Lymphocytes % (Manual) Monocytes % (Manual) Platelet Evaluation pCO2 pO2 HCO3 ABG pH ABG Total CO2 ABG O2 Saturation ABG O2 Content ABG Base Excess ABG Hemoglobin ABG Carboxyhemoglobin POC ABG HHb (Measured) ABG Methemoglobin ABG O2 Capacity Hgb O2 Saturation FiO2 Sodium Potassium Chloride Carbon Dioxide Anion Gap BUN Creatinine Est GFR ( Amer) Est GFR (Non-Af Amer) POC Glucose (mg/dL) 225 H Random Glucose Calcium Phosphorus Magnesium Total Bilirubin Direct Bilirubin AST ALT Alkaline Phosphatase Ammonia Total Protein Albumin Globulin Albumin/Globulin Ratio Procalcitonin Urine Color Urine Appearance Urine pH Ur Specific [place] Urine Protein Urine Glucose (UA) Urine Ketones Urine Blood Urine Nitrate Urine Bilirubin Urine Urobilinogen Ur Leukocyte Esterase Urine RBC Urine WBC Ur Epithelial Cells Urine Bacteria Hyaline Casts Coarse Granular Casts Crossmatch Radiology Impressions: Radiology Impressions Chest X-Ray 02/21/19 06:21 IMPRESSION: Areas of subsegmental left lung base. Diffuse hazy appearance of most of the right lung; rule out developing ground-glass opacities; concomitant layering effusion not excluded. Chest X-Ray 02/21/19 07:43 IMPRESSION: ETT and NGT as above. There are patchy infiltrates seen in the right upper lobe as well as suprahilar region and with atelectasis and/or infiltrate left lower lung field. Chest X-Ray 02/22/19 07:00 IMPRESSION: Improvement in right upper lobe infiltrate Critical Care Progress Note - Nutrition Nutrition: Nutrition Category Date Time Status NPO Diet [DIET] Diets 02/21/19 Breakfast Ordered Assessment/Plan - Assessment and Plan (Free Text) Plan: I saw and examined the patient on rounds, with resident, agree with note with following additions/exceptions: Patient is 63yo male with extensive PMHX including, liver transplant s/p cirrhosis, chronic pain on narcotics, HTN, depression, hypothyroidism, bli ndness, craniopharyngioma and psoriasis, initially admitted for fever, generalized weakness, sepsis likely 2/2 RUE cellulitis Yesterday became hypotensive, hypoxic, intubated, transferred to MICU Currently intubated, sedated R femoral TLC placed, started on Levophed, Vasopressin, Stress dose steroids Intubated, on PRVC 500/PEEP10/40%/RR12 Profound hypoxemia, improved, now on 40% FiO2. CT Angio PE protocol neg on admission, CT A/P on admission neg for intra abdominal pathology ID following GI following Bedside ECHO demonstrates hyperdynamic LV, normal RV function/size; poor windows Official ECHO pending Shock, likely septic/hyperdynamic Resp failure, acute, hypoxic Hx liver transplant on immunosuppressants Cirrhosis HTN Depression Hypothyroidism Hx craniopharyngioma RUE cellulitis PNA Recommend:- - cont with vent support, low tidal vol ventilation, daily ABG, CXR, daily sedation vacation - broad spectrum abx, Vanco, Merrem, Doxy - follow up ID, follow up cultures - Vasopressor support, Levophed, Vasopressin, Stress dose steroids - D5W for hypernatremia - Obtain PICC line - DC R femoral line - follow up GI - obtain ECHO - repeat blood cultures - repeat ammonia level - Rifaximin, Lactulose - GI ppx - DVT ppx - Overall prognosis extremely poor Critical care time 35 minutes
[2019-02-22] MEDS: Mupirocin 2% Ointment 15 GM TUBE TOP SCH ×3 (11:00→18:11)
[2019-02-22] MEDS: Acetylcysteine 20% Inhal Soln (4ml) IH SCH ×2 (12:59→20:15)
--- NOTE | 2019-02-22 14:37 | PN ---
DATE: 02/22/2019 SUBJECTIVE: The patient's events over the weekend noted. The patient was seen over the weekend by Dr. Tadeo Jeffery, who was covering for me. The patient is seen in CCU bed 2. The patient is intubated on ventilator. Sedated. Overnight, last 12-24 hours event noted. PHYSICAL EXAMINATION VITAL SIGNS: T-max is 99.3. Telemetry shows sinus rhythm, sinus tachycardia; heart rate 90-100; blood pressure 100-110 systolic, diastolic in 60s and 70s; respirations 18-20; O2 sat 100% on a ventilator. HEENT: Head examination shows right craniotomy surgical scar. Positive bilateral blindness. Positive NG tube. Positive ET tube. CHEST: Kyphosis. LUNGS: Show positive bilateral rhonchi, right more than the left. CARDIOVASCULAR: S1, S2, tachycardic rhythm. Questionable soft systolic murmur left sternal border, right second intercostal space, left second intercostal space. ABDOMEN: Soft. Positive bowel sounds. Positive surgical scar of the liver transplant noted. GENITALIA: Male. Positive Rdz catheter. EXTREMITIES: Show trace swelling of the lower extremity. MUSCULOSKELETAL: As per the body mass index. NEUROLOGIC: The patient is sedated on ventilator. On fentanyl drip. DIAGNOSTICS: 02/22/2019; WBC 21.3, hemoglobin 9.1, hematocrit 30.6, platelets 364, 93% segs. ABG on 40% FIO2; pH of 7.38, pCO2 of 31, pO2 of 116, bicarb 18, saturation of 99%. Sodium 146, potassium 4.8, chloride 118, CO2 of 20, BUN 19, creatinine 1.0, glucose 191, calcium 7.7, phosphorus 2.9, magnesium 2.1. AST 63, total protein 5.8, albumin 2.8. Procalcitonin level 0.65 and 48.62. Urine shows proteinuria. Fingerstick ESR 127. C-reactive protein is 158 and greater than 15. Chest x-ray report shows ET tube above tricia, positive right upper lobe, right middle lobe, right lower lobe pneumonia and infiltrate. IMPRESSION 1. Ventilator dependent hypoxic respiratory failure. 2. Septic and hypovolemic hypotensive shock. 3. Sepsis secondary to right upper lobe, right middle lobe, right lower lobe possible aspiration pneumonia. 4. Questionable right upper extremity cellulitis. 5. Leukocytosis with granulocytosis. 6. Normocytic anemia. 7. Status post packed red blood cell transfusion x1. 8. Hypoxic respiratory failure. 9. Granulocytosis. 10. Steroid-induced hyperglycemia. 11. Hypocalcemia. 12. Mild protein malnutrition and hypoalbuminemia. 13. Hyperprocalcitoninemia. 14. Elevated erythrocyte sedimentation rate of 127. 15. Elevated C-reactive protein of greater than 158 and greater than 15. 16. Proteinuria. 17. Right upper lobe, right middle lobe, right lower lobe multilobar right-sided aspiration pneumonia. 18. Sinus tachycardia. 19. Status post right femoral triple-lumen catheter placement. 20. Voiding dysfunction, requiring Rdz catheterization. 21. History of bilateral blindness and history of craniopharyngioma. 22. 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 23. Encephalomalacia. 24. History of hepatic cirrhosis, status post liver transplant. 25. Gait dysfunction. 26. Deconditioning. 27. Failure to thrive. 28. Depression. 29. Decompensation. PLAN: At this time, the patient is to be continued on Levophed and vasopressin drip. The patient is to be continued on IV fluid D5W. The patient is started on broad-spectrum IV antibiotics by Infectious Disease. The patient is to be continued on pharmacological, nonpharmacological GI/DVT prophylaxis. The patient's overall prognosis is guarded to poor. The patient's sister, Susanne Jean has been updated about the patient's condition. The patient has been ordered serial labs. The patient has been ordered consultation with Cardiology, Neurology, Infectious Disease, Psychiatry, Gastroenterology. Overall prognosis guarded to poor. Time spent more than 35 minutes. Dictated and electronically signed, not read. Neeraj Elizondo MD
--- NOTE | 2019-02-22 18:04 | US ---
HISTORY: Leg pain and swelling. Evaluate for DVT PHYSICIAN(S): Ac Bear MD. TECHNIQUE: Duplex sonography and color-flow Doppler with graded compression were used to evaluate the deep venous systems of both lower extremities. The exam is somewhat limited by edema FINDINGS: The visualized deep venous systems of both lower extremities are sonographically normal and compressible. Normal wave forms and augmentation are seen. There is no sonographic evidence for deep venous thrombosis in the visualized segments of both lower extremities. IMPRESSION: No sonographic evidence for deep venous thrombosis in the visualized segments of both lower extremities.
[2019-02-22] MEDS: Insulin Lispro (humaLOG) MEDIUM Coverage SC SCH ×2 (19:16→19:17)
--- NOTE | 2019-02-22 20:02 | CP.PCM.PN ---
Subjective - Date & Time of Evaluation Date of Evaluation: 02/22/19 Time of Evaluation: 08:40 - Subjective Subjective: Patient continues to be on the ventilator, sedated, not in distress, no fevers. Objective - Vital Signs/Intake and Output Vital Signs (last 24 hours): Temp Pulse Resp BP Pulse Ox 99.1 F 111 H 20 110/68 100 02/21/19 19:49 02/21/19 19:49 02/21/19 06:00 02/21/19 18:38 02/21/19 12:45 Intake and Output: 02/21/19 02/22/19 18:59 06:59 Intake Total 5305.2 Output Total 80 Balance 5225.2 - Medications Medications: Current Medications Acetaminophen (Tylenol 325mg Tab) 650 mg PO Q6 PRN PRN Reason: TEMP>=99.5F Last Admin: 02/21/19 00:43 Dose: 650 mg Acetaminophen (Tylenol 650 Mg Supp) 650 mg RC Q6H PRN PRN Reason: TEMP>=99.5F Last Admin: 02/19/19 10:16 Dose: 650 mg Aripiprazole (Abilify) 5 mg PO HS [facility] Last Admin: 02/20/19 21:44 Dose: 5 mg Atorvastatin Calcium (Lipitor) 40 mg PO DIN [facility] Last Admin: 02/20/19 18:47 Dose: 40 mg Docusate Sodium (Colace) 100 mg PO BID [facility] Last Admin: 02/20/19 18:47 Dose: 100 mg Donepezil HCl (Aricept) 10 mg PO HS [facility] Last Admin: 02/20/19 21:44 Dose: 10 mg Duloxetine HCl (Cymbalta) 60 mg PO BID [facility] Last Admin: 02/20/19 18:47 Dose: 60 mg Enoxaparin Sodium (Lovenox) 40 mg SC DAILY [facility]; Protocol Last Admin: 02/21/19 11:18 Dose: 40 mg Home Med (Home Med) 10 unit PO BID [facility] Last Admin: 02/20/19 18:49 Dose: Not Given Home Med (Home Med) 0.25 unit PO BID [facility] Last Admin: 02/20/19 18:49 Dose: Not Given Hydrocortisone Sodium Succinate (Solu-Cortef) 50 mg IVP Q6H [facility] Last Admin: 02/21/19 16:19 Dose: 50 mg Dextrose (Dextrose 5% In Water 1000 Ml) 1,000 mls @ 100 mls/hr IV .Q10H [facility] Last Admin: 02/21/19 11:16 Dose: 100 mls/hr Doxycycline Hyclate 100 mg/ (Sodium Chloride) 100 mls @ 100 mls/hr IVPB Q12 [facility]; Protocol Stop: 03/01/19 13:16 Last Admin: 02/21/19 11:55 Dose: 100 mls/hr Meropenem (Merrem Iv 1 Gm Premix) 1 gm in 50 mls @ 100 mls/hr IVPB Q8 [facility]; Protocol Stop: 03/01/19 14:01 Last Admin: 02/21/19 13:01 Dose: 100 mls/hr Fentanyl Citrate (Fentanyl Citrate/Sodium Chloride 1 Mg/100 Ml) 1,000 mcg in 100 mls @ 2 mls/hr IV .Q24H PRN; Protocol PRN Reason: TITRATE PER MD ORDER Last Admin: 02/21/19 10:58 Dose: 20 mcg/hr, 2 mls/hr NOREPINEPHRINE BIT/0.9 % NACL (Levophed 4 Mg/ 250 Ml Ns Premixed) 4 mg in 250 mls @ 15 mls/hr IV .[id number] PRN; Protocol PRN Reason: TITRATE PER MD ORDER Last Admin: 02/21/19 15:26 Dose: 12 mcg/min, 45 mls/hr Vasopressin 20 units/ Sodium (Chloride) 101 mls @ 9.09 mls/hr IV .[id number] [facility]; Protocol Last Admin: 02/21/19 18:38 Dose: 9.09 mls/hr Vancomycin HCl (Vancomycin 1gm) 1 gm in 250 mls @ 167 mls/hr IVPB Q12H [facility]; Protocol Stop: 03/02/19 09:46 Last Admin: 02/21/19 09:57 Dose: 167 mls/hr Levalbuterol HCl (Xopenex) 0.63 mg IH [id number] [facility] Last Admin: 02/21/19 20:35 Dose: 0.63 mg Mupirocin (Bactroban Ointment) 0 gm TOP TID [facility] Last Admin: 02/20/19 18:50 Dose: 1 applic Mycophenolate Mofetil (Cellcept Cap) 500 mg PO BID [facility] Last Admin: 02/20/19 18:47 Dose: 500 mg Ondansetron HCl (Zofran Inj) 4 mg IVP Q4H PRN PRN Reason: Nausea/Vomiting Pantoprazole Sodium (Protonix Ec Tab) 40 mg PO 0600 [facility] Last Admin: 02/20/19 06:08 Dose: 40 mg Pantoprazole Sodium (Protonix Inj) 40 mg IVP DAILY [facility] Last Admin: 02/21/19 11:17 Dose: 40 mg Tamsulosin HCl (Flomax) 0.4 mg PO DAILY [facility] Last Admin: 02/20/19 11:34 Dose: 0.4 mg - Labs Labs: 02/21/19 08:35 02/21/19 08:35 PT 14.3 SECONDS (9.4-12.5) H 02/14/19 14:15 INR 1.29 02/14/19 14:15 APTT 39.4 Seconds (26.9-38.3) H 02/14/19 14:15 - Constitutional Appears: Chronically Ill, Other (intubated and sedated) - Head Exam Head Exam: NORMAL INSPECTION - ENT Exam Additional comments: ET tube in place - Respiratory Exam Respiratory Exam: Decreased Breath Sounds - Cardiovascular Exam Cardiovascular Exam: +S1, +S2 - GI/Abdominal Exam GI & Abdominal Exam: Soft. absent: Tenderness Assessment and Plan - Assessment and Plan (Free Text) Plan: Assessment severe sepsis with VDRF R/O aspiration pneumonia depression CVA LINE THERAPIST tumor with bone metastases chronic pain syndrome arthritis HTN dyslipidemia S/P liver transplant Plan continue Vancomycin and Merrem day 2 and follow up final blood, trach aspirate cx overall prognosis is poor
--- NOTE | 2019-02-22 20:48 | CARD ---
APPROVED REPORT Date of service: 02/22/2019 EXAM: Two-dimensional and M-mode echocardiogram with Doppler and color Doppler. INDICATION Infection:Rule out subacute bacterial endocarditis SEPTIC SHOCK 2D DIMENSIONS Left Atrium (2D)4.1 (1.6-4.0cm)IVSd1.1 (0.7-1.1cm) LVDd3.5 (3.9-5.9cm)PWd1.2 (0.7-1.1cm) LVDs2.3 (2.5-4.0cm)FS (%) 34.0 % LVEF (%)64.1 (>50%) M-Mode DIMENSIONS Aortic Root2.20 (2.2-3.7cm)Aortic Cusp Exc.1.10 (1.5-2.0cm) Aortic Valve AoV Peak Ougvhwgp733.0cm/Benito Peak GR.8mmHg Mitral Valve MV E Cqbeorhd86.6cm/sMV A Edmirdhx30.4cm/sE/A ratio0.8 TDI E/Lateral E'0.0E/Medial E'0.0 Tricuspid Valve TR Peak [id number] [id number] Peak Gr.23mmHg [id number] LEFT VENTRICLE The left ventricle is normal size. There is normal left ventricular wall thickness. The left ventricular function is normal. The left ventricular ejection fraction is within the normal range. There is normal LV segmental wall motion. Transmitral Doppler flow pattern is Grade I-abnormal relaxation pattern. RIGHT VENTRICLE The right ventricle is normal size. There is normal right ventricular wall thickness. The right ventricular systolic function is normal. ATRIA The left atrium is borderline dilated. 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 The right atrium size is normal. AORTIC VALVE The aortic valve is not well visualized. No aortic regurgitation is present. There is no aortic valvular stenosis. MITRAL VALVE The mitral valve is normal in structure. There is no mitral valve stenosis. There is no evidence of mitral valve prolapse. TRICUSPID VALVE The tricuspid valve is normal in structure. There is no tricuspid valve regurgitation noted. PULMONIC VALVE The pulmonary valve is normal in structure. There is trace pulmonic valvular regurgitation. GREAT VESSELS The aortic root is normal in size. The IVC is dilated. PERICARDIAL EFFUSION There is a trace pericardial effusion. <Conclusion> There is normal left ventricular wall thickness. The left ventricular function is normal. The left ventricular ejection fraction is within the normal range. There is normal LV segmental wall motion. Transmitral Doppler flow pattern is Grade I-abnormal relaxation pattern. 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
[2019-02-22] MEDS ORDERED: Dextrose 50% SYRINGE Inj (50 ml) IV PRN (21:32)
[2019-02-22] MEDS ORDERED: Insulin Lispro (humaLOG) MEDIUM Coverage SC SCH (21:45)
[2019-02-22] MEDS: Fentanyl 1000mcg/100ml NS 1,000 MCG/100 ML BAG IV PRN (23:39)
[2019-02-23] MEDS: Acetylcysteine 20% Inhal Soln (4ml) IH SCH ×4 (01:15→19:27)
[2019-02-23] MEDS: Levalbuterol 0.63 MG/3 ML Inhal Soln UD IH SCH ×4 (01:15→19:27)
--- NOTE | 2019-02-23 05:26 | CP.PCM.CON ---
<Tanesha Agrawal - Last Filed: 02/23/19 08:44> History of Present Illness - History of Present Illness History of Present Illness: 63 M with hx of Liver transplant for cirrhosis 2008 currently being treated for bilateral pneumonia intubated, sedated and on Vasopressin. Surgery was asked to evaluate d/t hx of liver transplant. Pt currently GCS 5T. PMH:HTN, Chronic pain, hypothyroidism, blindness, psoriasiss, craniopharyngioma PSH: Liver transplant, brain tumor removal All: NKDA Medications: MAR reviewed Social: unable to obtain Primary: Mikhail Review of Systems - Review of Systems Systems not reviewed;Unavailable: Intubated Past Patient History - Infectious Disease Hx of Infectious Diseases: None - Past Medical History & Family History Past Medical History?: Yes - Past Social History Smoking Status: Light Smoker < 10 Cigarettes Daily - CARDIAC Hx Hypertension: Yes - PULMONARY Hx Respiratory Disorders: No - NEUROLOGICAL Hx Neurological Disorder: Yes HX Cerebrovascular Accident: Yes (x 3) Other/Comment: Brain tumor - HEENT Hx HEENT Problems: Yes Hx Blind: Yes (LEGALLY BLIND) - RENAL Hx Chronic Kidney Disease: No - ENDOCRINE/METABOLIC Hx Hypothyroidism: Yes - HEMATOLOGICAL/ONCOLOGICAL Hx Blood Disorders: Yes Hx Anemia: Yes - INTEGUMENTARY Hx Dermatological Problems: No - MUSCULOSKELETAL/RHEUMATOLOGICAL Hx Arthritis: Yes - GASTROINTESTINAL Hx Gastrointestinal Disorders: Yes Hx Liver Failure: Yes (Liver transplant) - GENITOURINARY/GYNECOLOGICAL Hx Genitourinary Disorders: No - PSYCHIATRIC Hx Depression: Yes Hx Substance Use: No - SURGICAL HISTORY Hx Liver Transplant: Yes (2008) Other/Comment: Brain tumor removal - ANESTHESIA Hx Anesthesia: Yes Hx Anesthesia Reactions: No Hx Malignant Hyperthermia: No Meds Allergies/Adverse Reactions: Allergies Allergy/AdvReac Type Severity Reaction Status Date / Time No Known Allergies Allergy Verified 12/24/18 16:48 - Medications Medications: Current Medications Acetaminophen (Tylenol 325mg Tab) 650 mg PO Q6 PRN PRN Reason: TEMP>=99.5F Last Admin: 02/21/19 00:43 Dose: 650 mg Acetaminophen (Tylenol 650 Mg Supp) 650 mg RC Q6H PRN PRN Reason: TEMP>=99.5F Last Admin: 02/19/19 10:16 Dose: 650 mg Acetylcysteine (Acetylcysteine 20%) 4 ml IH [id number] NETTA Last Admin: 02/23/19 01:15 Dose: 4 ml Aripiprazole (Abilify) 5 mg PO HS [facility] Last Admin: 02/20/19 21:44 Dose: 5 mg Atorvastatin Calcium (Lipitor) 40 mg PO DIN [facility] Last Admin: 02/20/19 18:47 Dose: 40 mg Dextrose (Dextrose 50% Inj) 50 ml IVP PRN PRN PRN Reason: Low blood sugar Dextrose (Dextrose 50% Inj) 0 ml IV STAT PRN; Protocol PRN Reason: Hypoglycemia Protocol Docusate Sodium (Colace) 100 mg PO BID [facility] Last Admin: 02/20/19 18:47 Dose: 100 mg Donepezil HCl (Aricept) 10 mg PO HS [facility] Last Admin: 02/20/19 21:44 Dose: 10 mg Duloxetine HCl (Cymbalta) 60 mg PO BID [facility] Last Admin: 02/20/19 18:47 Dose: 60 mg Enoxaparin Sodium (Lovenox) 40 mg SC DAILY [facility]; Protocol Last Admin: 02/22/19 09:22 Dose: 40 mg Home Med (Home Med) 10 unit PO BID [facility] Last Admin: 02/20/19 18:49 Dose: Not Given Home Med (Home Med) 0.25 unit PO BID [facility] Last Admin: 02/20/19 18:49 Dose: Not Given Hydrocortisone Sodium Succinate (Solu-Cortef) 50 mg IVP Q6H [facility] Last Admin: 02/23/19 03:39 Dose: 50 mg Dextrose (Dextrose 5% In Water 1000 Ml) 1,000 mls @ 100 mls/hr IV .Q10H [facility] Last Admin: 02/22/19 23:39 Dose: 100 mls/hr Doxycycline Hyclate 100 mg/ (Sodium Chloride) 100 mls @ 100 mls/hr IVPB Q12 NETTA; Protocol Stop: 03/01/19 13:16 Last Admin: 02/22/19 21:18 Dose: 100 mls/hr Meropenem (Merrem Iv 1 Gm Premix) 1 gm in 50 mls @ 100 mls/hr IVPB Q8 NETTA; Protocol Stop: 03/01/19 14:01 Last Admin: 02/22/19 21:12 Dose: 100 mls/hr Fentanyl Citrate (Fentanyl Citrate/Sodium Chloride 1 Mg/100 Ml) 1,000 mcg in 100 mls @ 2 mls/hr IV .Q24H PRN; Protocol PRN Reason: TITRATE PER MD ORDER Last Admin: 02/22/19 23:39 Dose: 20 mcg/hr, 2 mls/hr NOREPINEPHRINE BIT/0.9 % NACL (Levophed 4 Mg/ 250 Ml Ns Premixed) 4 mg in 250 mls @ 15 mls/hr IV .[id number] PRN; Protocol PRN Reason: TITRATE PER MD ORDER Last Titration: 02/22/19 19:17 Dose: 0 mcg/min, 0 mls/hr Vasopressin 20 units/ Sodium (Chloride) 101 mls @ 9.09 mls/hr IV .Q11H7M NETTA; Protocol Last Admin: 02/23/19 03:35 Dose: 9.09 mls/hr Vancomycin HCl (Vancomycin 1gm) 1 gm in 250 mls @ 167 mls/hr IVPB Q12H [facility]; Protocol Stop: 03/02/19 09:46 Last Admin: 02/22/19 21:11 Dose: 167 mls/hr Dextrose (Dextrose 5% In Water 1000 Ml) 1,000 mls @ 0 mls/hr IV .Q0M PRN; Protocol PRN Reason: Hypoglycemia Protocol Insulin Human Lispro (Humalog Med) 0 units SC Q6H [facility]; Protocol Levalbuterol HCl (Xopenex) 0.63 mg IH [id number] [facility] Last Admin: 02/23/19 01:15 Dose: 0.63 mg Mupirocin (Bactroban Ointment) 0 gm TOP TID [facility] Last Admin: 02/22/19 18:11 Dose: 1 applic Mycophenolate Mofetil (Cellcept Cap) 500 mg PO BID [facility] Last Admin: 02/20/19 18:47 Dose: 500 mg Ondansetron HCl (Zofran Inj) 4 mg IVP Q4H PRN PRN Reason: Nausea/Vomiting Pantoprazole Sodium (Protonix Ec Tab) 40 mg PO 0600 [facility] Last Admin: 02/20/19 06:08 Dose: 40 mg Pantoprazole Sodium (Protonix Inj) 40 mg IVP DAILY [facility] Last Admin: 02/22/19 09:26 Dose: 40 mg Tamsulosin HCl (Flomax) 0.4 mg PO DAILY [facility] Last Admin: 02/20/19 11:34 Dose: 0.4 mg Physical Exam - Constitutional Appears: Older Than Stated Age, Chronically Ill - Head Exam Head Exam: ATRAUMATIC, NORMOCEPHALIC - Eye Exam Additional comments: unable to open eyes d/t crusting - Respiratory Exam Respiratory Exam: NORMAL BREATHING PATTERN - Cardiovascular Exam Cardiovascular Exam: Tachycardia, REGULAR RHYTHM - GI/Abdominal Exam GI & Abdominal Exam: Soft. absent: Distended, Guarding, Rigid, Tenderness Additional comments: well healed brittany lorelei scar - Extremities Exam Extremities exam: Negative for: calf tenderness, pedal edema Additional comments: upper extremity edema 2+ - Neurological Exam Additional comments: GCS 5T - Skin Skin Exam: Dry, Intact, Normal Color, Warm Additional comments: abdominal scar as noted above Results - Vital Signs Recent Vital Signs: Last Vital Signs Temp 99.0 F 02/23/19 00:00 Pulse 99 H 02/23/19 00:00 Resp 20 02/21/19 06:00 BP 114/72 02/23/19 03:35 Pulse Ox 99 02/22/19 19:10 - Labs Result Diagrams: 02/23/19 05:40 02/23/19 05:40 Labs: Laboratory Results - last 24 hr 02/19/19 02/19/19 02/22/19 07:10 09:20 05:30 WBC 21.3 H D RBC 3.47 L Hgb 9.1 L Hct 30.1 L MCV 86.7 MCH 26.2 MCHC 30.2 L RDW 15.5 H Plt Count 364 MPV 9.7 Neut % (Auto) 93.3 H Lymph % (Auto) 3.9 L [place] % (Auto) 2.8 Eos % (Auto) 0.0 L Baso % (Auto) 0.0 Lymph # (Auto) 0.8 L [place] # (Auto) 0.6 Eos # (Auto) 0.0 Baso # (Auto) 0.01 Absolute Neuts (auto) 19.82 H Neutrophils % (Manual) 89 H Band Neutrophils % 8 H Lymphocytes % (Manual) 2 L Monocytes % (Manual) 1 Platelet Evaluation Normal pCO2 pO2 HCO3 ABG pH ABG Total CO2 ABG O2 Saturation ABG O2 Content ABG Base Excess ABG Hemoglobin ABG Carboxyhemoglobin POC ABG HHb (Measured) ABG Methemoglobin ABG O2 Capacity Hgb O2 Saturation FiO2 Sodium Potassium Chloride Carbon Dioxide Anion Gap BUN Creatinine Est GFR ( Amer) Est GFR (Non-Af Amer) POC Glucose (mg/dL) Random Glucose Calcium Phosphorus Magnesium Total Bilirubin Direct Bilirubin AST ALT Alkaline Phosphatase Ammonia Total Protein Albumin Globulin Albumin/Globulin Ratio T.pallidum Ab (FTA-ABS) Nonreactive Crossmatch See Detail 02/22/19 02/22/19 02/22/19 05:30 05:30 06:20 WBC RBC Hgb Hct MCV MCH MCHC RDW Plt Count MPV Neut % (Auto) Lymph % (Auto) [place] % (Auto) Eos % (Auto) Baso % (Auto) Lymph # (Auto) [place] # (Auto) Eos # (Auto) Baso # (Auto) Absolute Neuts (auto) Neutrophils % (Manual) Band Neutrophils % Lymphocytes % (Manual) Monocytes % (Manual) Platelet Evaluation pCO2 31 L pO2 116.0 H HCO3 18.3 L ABG pH 7.38 ABG Total CO2 19.3 L ABG O2 Saturation 98.9 H ABG O2 Content 14.2 L ABG Base Excess -5.9 L ABG Hemoglobin 10.3 L ABG Carboxyhemoglobin 1.0 POC ABG HHb (Measured) 1.1 ABG Methemoglobin 1.2 ABG O2 Capacity 14.4 L Hgb O2 Saturation 96.7 FiO2 40.0 Sodium 146 Potassium 4.8 Chloride 118 H Carbon Dioxide 20 L Anion Gap 13 BUN 19 Creatinine 1.0 Est GFR ( Amer) > 60 Est GFR (Non-Af Amer) > 60 POC Glucose (mg/dL) Random Glucose 191 H Calcium 7.7 L Phosphorus 2.9 Magnesium 2.1 Total Bilirubin 0.4 Direct Bilirubin 0.3 AST 63 H D ALT 24 Alkaline Phosphatase 85 Ammonia < 9 L Total Protein 5.8 Albumin 2.8 L Globulin 3.0 Albumin/Globulin Ratio 1.0 L T.pallidum Ab (FTA-ABS) Crossmatch 02/22/19 02/22/19 02/22/19 07:34 11:31 16:43 WBC RBC Hgb Hct MCV MCH MCHC RDW Plt Count MPV Neut % (Auto) Lymph % (Auto) [place] % (Auto) Eos % (Auto) Baso % (Auto) Lymph # (Auto) [place] # (Auto) Eos # (Auto) Baso # (Auto) Absolute Neuts (auto) Neutrophils % (Manual) Band Neutrophils % Lymphocytes % (Manual) Monocytes % (Manual) Platelet Evaluation pCO2 pO2 HCO3 ABG pH ABG Total CO2 ABG O2 Saturation ABG O2 Content ABG Base Excess ABG Hemoglobin ABG Carboxyhemoglobin POC ABG HHb (Measured) ABG Methemoglobin ABG O2 Capacity Hgb O2 Saturation FiO2 Sodium Potassium Chloride Carbon Dioxide Anion Gap BUN Creatinine Est GFR ( Amer) Est GFR (Non-Af Amer) POC Glucose (mg/dL) 213 H 225 H 196 H Random Glucose Calcium Phosphorus Magnesium Total Bilirubin Direct Bilirubin AST ALT Alkaline Phosphatase Ammonia Total Protein Albumin Globulin Albumin/Globulin Ratio T.pallidum Ab (FTA-ABS) Crossmatch Assessment & Plan - Assessment and Plan (Free Text) Assessment: 63 yr old male with hx of liver transplant currently being treated for bilaterally pneumonia, intubated and sedated Plan: - agree with held mycophenolate - continue to monitor LFTs for increases - recommend placing patient on half dose of Celcep if LFT increase - further recs per Dr. Diaz, PGY 1 - Date & Time Date: 02/23/19 Time: 00:05 <Surendra Pratt - Last Filed: 02/25/19 08:22> Meds - Medications Medications: Current Medications Acetaminophen (Tylenol 325mg Tab) 650 mg PO Q6 PRN PRN Reason: TEMP>=99.5F Last Admin: 02/21/19 00:43 Dose: 650 mg Acetaminophen (Tylenol 650 Mg Supp) 650 mg RC Q6H PRN PRN Reason: TEMP>=99.5F Last Admin: 02/19/19 10:16 Dose: 650 mg Acetylcysteine (Acetylcysteine 20%) 4 ml IH [id number] NETTA Last Admin: 02/25/19 07:08 Dose: 4 ml Aripiprazole (Abilify) 5 mg PO HS [facility] Last Admin: 02/20/19 21:44 Dose: 5 mg Artificial Tears (Refresh Opth Soln) 0.3 ml OU Q4H PRN PRN Reason: Dry eyes Last Admin: 02/23/19 18:41 Dose: 1 drop Artificial Tears (Puralube Opht Oint) 1 appl OU Q4H PRN PRN Reason: Dry eyes Atorvastatin Calcium (Lipitor) 40 mg PO DIN [facility] Last Admin: 02/20/19 18:47 Dose: 40 mg Dextrose (Dextrose 50% Inj) 50 ml IVP PRN PRN PRN Reason: Low blood sugar Dextrose (Dextrose 50% Inj) 0 ml IV STAT PRN; Protocol PRN Reason: Hypoglycemia Protocol Docusate Sodium (Colace) 100 mg PO BID [facility] Last Admin: 02/20/19 18:47 Dose: 100 mg Donepezil HCl (Aricept) 10 mg PO HS [facility] Last Admin: 02/20/19 21:44 Dose: 10 mg Duloxetine HCl (Cymbalta) 60 mg PO BID [facility] Last Admin: 02/20/19 18:47 Dose: 60 mg Enoxaparin Sodium (Lovenox) 40 mg SC DAILY [facility]; Protocol Last Admin: 02/24/19 11:00 Dose: 40 mg Fentanyl (Fentanyl) 50 mcg IVP Q6 PRN PRN Reason: Agitation Home Med (Home Med) 10 unit PO BID [facility] Last Admin: 02/20/19 18:49 Dose: Not Given Home Med (Home Med) 0.25 unit PO BID [facility] Last Admin: 02/20/19 18:49 Dose: Not Given Doxycycline Hyclate 100 mg/ (Sodium Chloride) 100 mls @ 100 mls/hr IVPB Q12 [facility]; Protocol Stop: 03/01/19 13:16 Last Admin: 02/24/19 22:03 Dose: 100 mls/hr Meropenem (Merrem Iv 1 Gm Premix) 1 gm in 50 mls @ 100 mls/hr IVPB Q8 [facility]; Protocol Stop: 03/01/19 14:01 Last Admin: 02/25/19 05:38 Dose: 100 mls/hr Vancomycin HCl (Vancomycin 1gm) 1 gm in 250 mls @ 167 mls/hr IVPB Q12H [facility]; Protocol Stop: 03/02/19 09:46 Last Admin: 02/24/19 21:25 Dose: 167 mls/hr Dextrose (Dextrose 5% In Water 1000 Ml) 1,000 mls @ 0 mls/hr IV .Q0M PRN; Protocol PRN Reason: Hypoglycemia Protocol Dextrose (Dextrose 5% In Water 1000 Ml) 1,000 mls @ 125 mls/hr IV .Q8H [facility] Last Admin: 02/25/19 05:00 Dose: 125 mls/hr Fluconazole (Diflucan Iv 200 Mg/100 Ml Ns) 100 mls @ 100 mls/hr IVPB DAILY [facility]; Protocol Stop: 03/01/19 10:59 Potassium Phosphate 15 mmole/ (Dextrose) 255 mls @ 42.5 mls/hr IVPB ONCE ONE Stop: 02/25/19 14:17 Insulin Human Lispro (Humalog Med) 0 units SC Q6 [facility]; Protocol Last Admin: 02/25/19 06:23 Dose: Not Given Levalbuterol HCl (Xopenex) 0.63 mg IH [id number] [facility] Last Admin: 02/25/19 07:08 Dose: 0.63 mg Morphine Sulfate (Morphine) 2 mg IVP Q4H PRN PRN Reason: Pain, moderate (4-7) Last Admin: 02/24/19 12:17 Dose: 2 mg Mupirocin (Bactroban Ointment) 0 gm TOP TID [facility] Last Admin: 02/24/19 18:00 Dose: 1 applic Mycophenolate Mofetil (Cellcept Cap) 500 mg PO BID [facility] Last Admin: 02/24/19 19:25 Dose: 500 mg Ondansetron HCl (Zofran Inj) 4 mg IVP Q4H PRN PRN Reason: Nausea/Vomiting Pantoprazole Sodium (Protonix Ec Tab) 40 mg PO 0600 [facility] Last Admin: 02/20/19 06:08 Dose: 40 mg Pantoprazole Sodium (Protonix Inj) 40 mg IVP DAILY [facility] Last Admin: 02/24/19 11:00 Dose: 40 mg Prednisone (Prednisone Tab) 5 mg PO BID [facility] Last Admin: 02/24/19 19:20 Dose: 5 mg Tamsulosin HCl (Flomax) 0.4 mg PO DAILY [facility] Last Admin: 02/20/19 11:34 Dose: 0.4 mg Results - Vital Signs Recent Vital Signs: Last Vital Signs Temp 97.8 F 02/25/19 04:00 Pulse 92 H 02/25/19 03:30 Resp 31 H 02/25/19 03:30 BP 106/56 L 02/25/19 03:00 Pulse Ox 95 02/25/19 03:30 - Labs Result Diagrams: 02/25/19 05:30 02/25/19 05:30 Labs: Laboratory Results - last 24 hr 02/23/19 02/24/19 02/24/19 23:26 05:45 12:47 WBC RBC Hgb Hct MCV MCH MCHC RDW Plt Count MPV Neut % (Auto) Lymph % (Auto) [place] % (Auto) Eos % (Auto) Baso % (Auto) Lymph # (Auto) [place] # (Auto) Eos # (Auto) Baso # (Auto) Absolute Neuts (auto) PT INR Sodium Potassium Chloride Carbon Dioxide Anion Gap BUN Creatinine Est GFR ( Amer) Est GFR (Non-Af Amer) POC Glucose (mg/dL) 203 H 148 H 112 H Random Glucose Serum Osmolality Calcium Phosphorus Magnesium Total Bilirubin Direct Bilirubin AST ALT Alkaline Phosphatase Total Protein Albumin Globulin Albumin/Globulin Ratio Urine Color Urine Appearance Urine pH Ur Specific [place] Urine Protein Urine Glucose (UA) Urine Ketones Urine Blood Urine Nitrate Urine Bilirubin Urine Urobilinogen Ur Leukocyte Esterase Urine RBC Urine WBC Ur Epithelial Cells Urine Bacteria Urine Osmolality Ur Random Sodium 02/24/19 02/24/19 02/24/19 17:37 18:07 21:10 WBC RBC Hgb Hct MCV MCH MCHC RDW Plt Count MPV Neut % (Auto) Lymph % (Auto) [place] % (Auto) Eos % (Auto) Baso % (Auto) Lymph # (Auto) [place] # (Auto) Eos # (Auto) Baso # (Auto) Absolute Neuts (auto) PT INR Sodium 160 H* 159 H* Potassium 3.3 L 3.3 L Chloride 134 H 133 H Carbon Dioxide 23 24 Anion Gap 6 L 6 L BUN 22 H 20 Creatinine 0.7 L 0.7 L Est GFR ( Amer) > 60 > 60 Est GFR (Non-Af Amer) > 60 > 60 POC Glucose (mg/dL) 171 H Random Glucose 156 H 177 H Serum Osmolality Calcium 8.1 L 8.1 L Phosphorus Magnesium Total Bilirubin Direct Bilirubin AST ALT Alkaline Phosphatase Total Protein Albumin Globulin Albumin/Globulin Ratio Urine Color Urine Appearance Urine pH Ur Specific [place] Urine Protein Urine Glucose (UA) Urine Ketones Urine Blood Urine Nitrate Urine Bilirubin Urine Urobilinogen Ur Leukocyte Esterase Urine RBC Urine WBC Ur Epithelial Cells Urine Bacteria Urine Osmolality Ur Random Sodium 02/24/19 02/24/19 02/24/19 21:10 21:30 21:30 WBC RBC Hgb Hct MCV MCH MCHC RDW Plt Count MPV Neut % (Auto) Lymph % (Auto) [place] % (Auto) Eos % (Auto) Baso % (Auto) Lymph # (Auto) [place] # (Auto) Eos # (Auto) Baso # (Auto) Absolute Neuts (auto) PT INR Sodium Potassium Chloride Carbon Dioxide Anion Gap BUN Creatinine Est GFR ( Amer) Est GFR (Non-Af Amer) POC Glucose (mg/dL) Random Glucose Serum Osmolality 337 H Calcium Phosphorus Magnesium Total Bilirubin Direct Bilirubin AST ALT Alkaline Phosphatase Total Protein Albumin Globulin Albumin/Globulin Ratio Urine Color Yellow Urine Appearance Sl cloudy Urine pH 6.0 Ur Specific [place] 1.015 Urine Protein Negative Urine Glucose (UA) Negative Urine Ketones Negative Urine Blood Large H Urine Nitrate Negative Urine Bilirubin Negative Urine Urobilinogen 0.2 Ur Leukocyte Esterase Trace H Urine RBC 15 - 20 H Urine WBC 5 - 10 H Ur Epithelial Cells 6 - 8 H Urine Bacteria Mod Urine Osmolality 124 L Ur Random Sodium < 5 02/24/19 02/25/19 02/25/19 23:13 00:05 05:30 WBC 13.6 H RBC 4.42 Hgb 11.9 L Hct 37.6 L MCV 85.1 MCH 26.9 MCHC 31.6 RDW 15.9 H Plt Count 386 MPV 10.1 Neut % (Auto) 80.4 H Lymph % (Auto) 12.9 L [place] % (Auto) 6.4 H Eos % (Auto) 0.1 L Baso % (Auto) 0.2 Lymph # (Auto) 1.8 [place] # (Auto) 0.9 H Eos # (Auto) 0.0 Baso # (Auto) 0.03 Absolute Neuts (auto) 10.92 H PT INR Sodium Potassium Chloride Carbon Dioxide Anion Gap BUN Creatinine Est GFR ( Amer) Est GFR (Non-Af Amer) POC Glucose (mg/dL) 150 H 138 H Random Glucose Serum Osmolality Calcium Phosphorus Magnesium Total Bilirubin Direct Bilirubin AST ALT Alkaline Phosphatase Total Protein Albumin Globulin Albumin/Globulin Ratio Urine Color Urine Appearance Urine pH Ur Specific [place] Urine Protein Urine Glucose (UA) Urine Ketones Urine Blood Urine Nitrate Urine Bilirubin Urine Urobilinogen Ur Leukocyte Esterase Urine RBC Urine WBC Ur Epithelial Cells Urine Bacteria Urine Osmolality Ur Random Sodium 02/25/19 02/25/19 02/25/19 05:30 05:30 06:21 WBC RBC Hgb Hct MCV MCH MCHC RDW Plt Count MPV Neut % (Auto) Lymph % (Auto) [place] % (Auto) Eos % (Auto) Baso % (Auto) Lymph # (Auto) [place] # (Auto) Eos # (Auto) Baso # (Auto) Absolute Neuts (auto) PT 12.1 INR 1.07 Sodium 164 H* Potassium 3.6 Chloride 135 H Carbon Dioxide 25 Anion Gap 7 L BUN 18 Creatinine 0.7 L Est GFR ( Amer) > 60 Est GFR (Non-Af Amer) > 60 POC Glucose (mg/dL) 105 Random Glucose 95 Serum Osmolality Calcium 8.3 L Phosphorus 2.3 L Magnesium 2.7 H Total Bilirubin 0.3 Direct Bilirubin 0.3 AST 46 ALT 23 Alkaline Phosphatase 86 Total Protein 5.8 Albumin 2.8 L Globulin 3.0 Albumin/Globulin Ratio 0.9 L Urine Color Urine Appearance Urine pH Ur Specific [place] Urine Protein Urine Glucose (UA) Urine Ketones Urine Blood Urine Nitrate Urine Bilirubin Urine Urobilinogen Ur Leukocyte Esterase Urine RBC Urine WBC Ur Epithelial Cells Urine Bacteria Urine Osmolality Ur Random Sodium 02/25/19 06:53 WBC RBC Hgb Hct MCV MCH MCHC RDW Plt Count MPV Neut % (Auto) Lymph % (Auto) [place] % (Auto) Eos % (Auto) Baso % (Auto) Lymph # (Auto) [place] # (Auto) Eos # (Auto) Baso # (Auto) Absolute Neuts (auto) PT INR Sodium Potassium Chloride Carbon Dioxide Anion Gap BUN Creatinine Est GFR ( Amer) Est GFR (Non-Af Amer) POC Glucose (mg/dL) 115 H Random Glucose Serum Osmolality Calcium Phosphorus Magnesium Total Bilirubin Direct Bilirubin AST ALT Alkaline Phosphatase Total Protein Albumin Globulin Albumin/Globulin Ratio Urine Color Urine Appearance Urine pH Ur Specific [place] Urine Protein Urine Glucose (UA) Urine Ketones Urine Blood Urine Nitrate Urine Bilirubin Urine Urobilinogen Ur Leukocyte Esterase Urine RBC Urine WBC Ur Epithelial Cells Urine Bacteria Urine Osmolality Ur Random Sodium Assessment & Plan - Assessment and Plan (Free Text) Plan: All medical record entries made by the resident were at my direction. I have reviewed the chart and agree that the record accurately reflects my personal performance of the history, physical exam, and medical decision making. hold immunosuppression, monitor liver enzymes
[2019-02-23] MEDS: Meropenem IV 1 gm in NS 1 GM/50 ML BAG IVPB SCH ×3 (05:58→22:03)
[2019-02-23 06:45] LABS: BASO # 0.01 K/mm3 (0.0-2.0); BASO % 0.1 % (0.0-3.0); HEMOGLOBIN 7.5 g/dL (14.0-18.0); LYMPH # 0.6 (1.2-3.4); LYMPH % 3.5 % (22.0-35.0); MEAN CELL VOLUME 84.3 fl (80.0-105.0); MEAN CORPUSCULAR HEMOGLOBIN 26.1 pg (25.0-35.0); MEAN PLATELET VOLUME 10.3 fl (7.0-11.0); MONO # 0.4 (0.1-0.6); MONO % 1.9 % (1.0-6.0); RBC 2.87 10^6/uL (3.5-6.1); RED CELL DISTRIBUTION WIDTH 15.5 % (11.5-14.5); WHITE BLOOD COUNT 18.5 10^3/uL (4.5-11.0)
[2019-02-23 06:48] LABS: ALB/GLOB RATIO 0.9 (1.1-1.8); ALBUMIN 2.6 g/dL (3.0-4.8); ALT/SGPT 24 U/L (7-56); AST/SGOT 50 U/L (17-59); BILIRUBIN,DIRECT 0.2 mg/dL (0.0-0.4); BLOOD UREA NITROGEN 28 mg/dL (7-21); CALCIUM 7.5 mg/dL (8.4-10.5); GFR NON-AFRICAN AMERICAN > 60
[2019-02-23] MEDS ORDERED: Potassium Phosphate 30 MMOLE in Dextrose 5% In Water 250 ML IVPB ONE (06:55)
--- NOTE | 2019-02-23 08:53 | RAD ---
Date of service: 02/23/2019 HISTORY: intubated COMPARISON: 02/22/2019. FINDINGS: Endotracheal tube terminates in the mid trachea. The nasogastric tube terminates in the stomach. LUNGS: The lungs are well inflated and clear. PLEURA: No pleural effusions or pneumothorax. CARDIOVASCULAR: The heart is normal in size. No aortic atherosclerotic calcifications present. OSSEOUS STRUCTURES: Within normal limits for the patient's age. VISUALIZED UPPER ABDOMEN: Normal. OTHER FINDINGS: None. IMPRESSION: Endotracheal tube terminates in the mid trachea. Nasogastric tube terminates in the stomach. No acute findings.
[2019-02-23] MEDS: Vancomycin 1gm in NS 250ml 1 GM/250 ML BAG IVPB SCH ×2 (09:19→22:04)
[2019-02-23] MEDS: Mupirocin 2% Ointment 15 GM TUBE TOP SCH ×3 (09:20→18:53)
--- NOTE | 2019-02-23 09:58 | CP.PCM.PN ---
Subjective - Date & Time of Evaluation Date of Evaluation: 02/23/19 Time of Evaluation: 07:28 - Subjective Subjective: Sly Meade PGY2 IM Progress Note for Dr. Elizondo Patient was seen and examined at bedside in ICU. The patient is still on vent, and being sedated. He is requiring less vasopressor support today. No other acute overnight events. Objective - Vital Signs/Intake and Output Vital Signs (last 24 hours): Temp Pulse Resp BP Pulse Ox 99.1 F 97 H 23 107/66 99 02/23/19 06:20 02/23/19 06:20 02/23/19 07:45 02/23/19 06:15 02/23/19 07:45 Intake and Output: 02/23/19 02/23/19 06:59 18:59 Intake Total 1027 20 Output Total 300 Balance 727 20 - Medications Medications: Current Medications Acetaminophen (Tylenol 325mg Tab) 650 mg PO Q6 PRN PRN Reason: TEMP>=99.5F Last Admin: 02/21/19 00:43 Dose: 650 mg Acetaminophen (Tylenol 650 Mg Supp) 650 mg RC Q6H PRN PRN Reason: TEMP>=99.5F Last Admin: 02/19/19 10:16 Dose: 650 mg Acetylcysteine (Acetylcysteine 20%) 4 ml IH [id number] [facility] Last Admin: 02/23/19 07:44 Dose: 4 ml Aripiprazole (Abilify) 5 mg PO HS [facility] Last Admin: 02/20/19 21:44 Dose: 5 mg Atorvastatin Calcium (Lipitor) 40 mg PO DIN [facility] Last Admin: 02/20/19 18:47 Dose: 40 mg Dextrose (Dextrose 50% Inj) 50 ml IVP PRN PRN PRN Reason: Low blood sugar Dextrose (Dextrose 50% Inj) 0 ml IV STAT PRN; Protocol PRN Reason: Hypoglycemia Protocol Docusate Sodium (Colace) 100 mg PO BID [facility] Last Admin: 02/20/19 18:47 Dose: 100 mg Donepezil HCl (Aricept) 10 mg PO HS [facility] Last Admin: 02/20/19 21:44 Dose: 10 mg Duloxetine HCl (Cymbalta) 60 mg PO BID [facility] Last Admin: 02/20/19 18:47 Dose: 60 mg Enoxaparin Sodium (Lovenox) 40 mg SC DAILY [facility]; Protocol Last Admin: 02/22/19 09:22 Dose: 40 mg Home Med (Home Med) 10 unit PO BID [facility] Last Admin: 02/20/19 18:49 Dose: Not Given Home Med (Home Med) 0.25 unit PO BID [facility] Last Admin: 02/20/19 18:49 Dose: Not Given Hydrocortisone Sodium Succinate (Solu-Cortef) 50 mg IVP Q8 [facility] Dextrose (Dextrose 5% In Water 1000 Ml) 1,000 mls @ 100 mls/hr IV .Q10H [facility] Last Admin: 02/23/19 09:14 Dose: Not Given Doxycycline Hyclate 100 mg/ (Sodium Chloride) 100 mls @ 100 mls/hr IVPB Q12 [facility]; Protocol Stop: 03/01/19 13:16 Last Admin: 02/23/19 09:20 Dose: 100 mls/hr Meropenem (Merrem Iv 1 Gm Premix) 1 gm in 50 mls @ 100 mls/hr IVPB Q8 [facility]; Protocol Stop: 03/01/19 14:01 Last Admin: 02/23/19 05:58 Dose: 100 mls/hr Fentanyl Citrate (Fentanyl Citrate/Sodium Chloride 1 Mg/100 Ml) 1,000 mcg in 100 mls @ 2 mls/hr IV .Q24H PRN; Protocol PRN Reason: TITRATE PER MD ORDER Last Titration: 02/23/19 09:39 Dose: 20 mcg/hr, 2 mls/hr NOREPINEPHRINE BIT/0.9 % NACL (Levophed 4 Mg/ 250 Ml Ns Premixed) 4 mg in 250 mls @ 15 mls/hr IV .[id number] PRN; Protocol PRN Reason: TITRATE PER MD ORDER Last Titration: 02/22/19 19:17 Dose: 0 mcg/min, 0 mls/hr Vancomycin HCl (Vancomycin 1gm) 1 gm in 250 mls @ 167 mls/hr IVPB Q12H [facility]; Protocol Stop: 03/02/19 09:46 Last Admin: 02/23/19 09:19 Dose: 167 mls/hr Dextrose (Dextrose 5% In Water 1000 Ml) 1,000 mls @ 0 mls/hr IV .Q0M PRN; Pro tocol PRN Reason: Hypoglycemia Protocol Potassium Phosphate 30 mmole/ (Dextrose) 260 mls @ 42.5 mls/hr IVPB ONCE ONE Stop: 02/23/19 13:02 Last Admin: 02/23/19 08:46 Dose: 42.5 mls/hr Insulin Human Lispro (Humalog Med) 0 units SC Q6 [facility]; Protocol Levalbuterol HCl (Xopenex) 0.63 mg IH [id number] [facility] Last Admin: 02/23/19 07:44 Dose: 0.63 mg Mupirocin (Bactroban Ointment) 0 gm TOP TID [facility] Last Admin: 02/23/19 09:20 Dose: 1 applic Mycophenolate Mofetil (Cellcept Cap) 500 mg PO BID [facility] Last Admin: 02/20/19 18:47 Dose: 500 mg Ondansetron HCl (Zofran Inj) 4 mg IVP Q4H PRN PRN Reason: Nausea/Vomiting Pantoprazole Sodium (Protonix Ec Tab) 40 mg PO 0600 [facility] Last Admin: 02/20/19 06:08 Dose: 40 mg Pantoprazole Sodium (Protonix Inj) 40 mg IVP DAILY [facility] Last Admin: 02/22/19 09:26 Dose: 40 mg Tamsulosin HCl (Flomax) 0.4 mg PO DAILY [facility] Last Admin: 02/20/19 11:34 Dose: 0.4 mg - Labs Labs: 02/23/19 05:40 02/23/19 05:40 PT 14.3 SECONDS (9.4-12.5) H 02/14/19 14:15 INR 1.29 02/14/19 14:15 APTT 39.4 Seconds (26.9-38.3) H 02/14/19 14:15 - Constitutional Appears: Non-toxic, No Acute Distress - Head Exam Head Exam: ATRAUMATIC, NORMAL INSPECTION - Eye Exam Eye Exam: Normal appearance, PERRL - ENT Exam ENT Exam: Mucous Membranes Dry Additional comments: ETT in place - Neck Exam Neck Exam: Full ROM, Normal Inspection - Respiratory Exam Respiratory Exam: absent: Wheezes, Respiratory Distress Additional comments: on vent, ETT in place - Cardiovascular Exam Cardiovascular Exam: RRR, +S1, +S2 - GI/Abdominal Exam GI & Abdominal Exam: Soft. absent: Distended, Tenderness - Extremities Exam Extremities Exam: absent: Pedal Edema Additional comments: RUE skin discoloration and small superficial ulcer with moderate swelling - Neurological Exam Neurological Exam: Altered (sedated) - Skin Skin Exam: Normal Color, Warm Assessment and Plan - Assessment and Plan (Free Text) Assessment: 63 year old male with a PMH of chronic pain on narcotics, HTN, depression, hypothyroidism, liver transplant 2/2 liver cirrhosis, craniopharyngioma, blindness, and psoriasis presenting to the hospital for 2 week history of generalized weakness. Hospital course has been complicated by septic shock and failure to protect airway requiring intubation. Plan: 1. Septic shock Likely secondary to aspiration pneumonia vs cellulitis vs central fevers - cont Vancomycin, Meropenem and Doxycycline per ID recs - cont stress-dosed steroids per ICU - procal elevated - currently on Vasopressin; d/c off levophed - cont ICU management - holding mycophenolate - cont Bactroban topical - PPI for GI ppx - blood cultures negative x24 hrs - urine cultures pending - CXR reviewed - will order chest, abdomen, pelvis CT 2. Hypoxic respiratory failure, failure to protect airway - currently intubated, and on sedation w/ fentanyl for protection of airway as patient was lethargic - elevate HOB - cont Xopenex and Mucomyst - daily sedation vacations per ICU management - Abx per ID 3. Hypernatremia, likely due to fevers; improving - cont IVF repletion 4. Lumbar compression fracture - MRI lumbar reviewed - bone scan r/o pathologic fractures - cont pain regimen 5. s/p liver transplant - holding immunosuppressants at this time - transaminitis improved - GI on consult, Dr. Canas 6. Depression - continue duloxetine, aricept - Psych on consult, Dr. Martin - denies suicidal/homicidal ideation 7. HTN - holding lopressor 25mg BID due to current shock 8. Anemia, likely iron deficiency anemia - monitor H/H 9. Peripheral Neuropathy - hold gabapentin at this time 10. BPH - continue flomax - monitor urinary output via grossman 11. HLD - hold lipitor 12. PPX - SCDs/Lovenox for DVT ppx - protonix for GI ppx Further recs per Dr. Elizondo Case was reviewed and discussed with Dr. Elizondo
[2019-02-23 10:35] LABS: ARTERIAL BLOOD GAS HCO3 19.7 mmol/L (21-28); ARTERIAL BLOOD GAS HEMOGLOBIN 7.7 g/dL (11.7-17.4); ARTERIAL BLOOD GAS O2 CAPACITY 10.8 mL/dl (16-24); ARTERIAL BLOOD GAS O2 CONTENT 10.7 ML/dl (15-23); ARTERIAL BLOOD GAS O2 SAT 99.1 % (95-98); ARTERIAL BLOOD GAS PCO2 29 mm/Hg (35-45); ARTERIAL BLOOD GAS PH 7.44 (7.35-7.45); ARTERIAL BLOOD GAS TCO2 20.6 mmol.L (22-28)
[2019-02-23 10:50] LABS: INR 1.17; PROTHROMBIN TIME 13.2 SECONDS (9.4-12.5)
--- NOTE | 2019-02-23 11:11 | CP.CCUPN ---
<Chapo Chan - Last Filed: 02/23/19 11:26> CCU Subjective - Physician Review Subjective (Free Text): Chapo Chan DO, PGY-1 MICU Progress Note for Dr. Feldman Patient was seen and examined at bedside this AM. He remains intubated, sedated but is now off maintaining MAP > 65 off pressor support. CCU Objective - Vital Signs / Intake & Output Vital Signs (Last 4 hours): Vital Signs Resp Pulse Ox 02/23/19 07:45 23 99 Intake and Output (Last 8hrs): Intake & Output 02/22/19 02/23/19 02/23/19 22:59 06:59 14:59 Intake Total 2400 1027 20 Output Total 300 300 Balance 2100 727 20 Intake: IV 2400 562 20 Left Hand 0 Right Femoral 2400 482 Oral 240 Tube Feeding 225 Output: Urine 300 300 Urethral (Grossman) 300 300 Stool 0 Emesis 0 - Physical Exam Head: Positive for: Atraumatic, Normocephalic Pupils: Positive for: PERRL Extroacular Muscles: Positive for: EOMI Conjunctiva: Positive for: Icteric Ears: Positive for: Normal, NORMAL TM, Normal Canal. Negative for: Erythema, TM Bulging, Fluid, TM Perf Mouth: Positive for: Moist Mucous Membranes Pharnyx: Positive for: Normal. Negative for: ERYTHEMA, EXUDATE Neck: Negative for: Lymphadenopathy Respiratory/Chest: Positive for: Clear to Auscultation (intubated, on ventilator, breath sounds auscultated b/l). Negative for: Wheezes, Rales, Rhonchi Cardiovascular: Positive for: Regular Rate and Rhythm, Normal S1, S2. Negative for: Murmurs, Rub, Gallop Abdomen: Positive for: Normal Bowel Sounds, Scars (liver transplant post-op abdominal scar noted). Negative for: Tenderness, Distention, Peritoneal Signs Genitourinary Male: Positive for: Normal External Genitalia, Circumcised Penis, Other (grossman in place) Back: Positive for: Normal Inspection. Negative for: CVA Tenderness, Midline Tenderness Upper Extremity: Positive for: NORMAL PULSES, Capillary Refill < 2s, Other (RUE with area of erythema, approximately 3 x 5 cm). Negative for: Cyanosis, Edema Lower Extremity: Positive for: NORMAL PULSES, Capillary Refill < 2 s. Negative for: Edema Neurological: Positive for: Other (intubated, sedated) Skin: Positive for: Warm, Dry, Other (diffusely jaundiced and pale) Psychiatric: Positive for: Other (intubated, sedated) - Medications Active Medications: Active Medications Generic Name Dose Route Start Last Admin Trade Name Freq PRN Reason Stop Dose Admin Acetaminophen 650 mg 02/15/19 09:01 02/21/19 00:43 Tylenol 325mg Tab PO 650 mg Q6 PRN Administration TEMP>=99.5F Acetaminophen 650 mg 02/15/19 09:01 02/19/19 10:16 Tylenol 650 Mg Supp RC 650 mg Q6H PRN Administration TEMP>=99.5F Acetylcysteine 4 ml 02/22/19 14:00 02/23/19 07:44 Acetylcysteine 20% IH 4 ml Q5IDAOB NETTA Administration Aripiprazole 5 mg 02/16/19 08:34 02/20/19 21:44 Abilify PO 5 mg HS NETTA Administration Atorvastatin Calcium 40 mg 02/15/19 17:00 02/20/19 18:47 Lipitor PO 40 mg DIN NETTA Administration Dextrose 50 ml 02/22/19 07:50 Dextrose 50% Inj IVP PRN PRN Low blood sugar Dextrose 0 ml 02/22/19 21:32 Dextrose 50% Inj IV STAT PRN Hypoglycemia Protocol Protocol Docusate Sodium 100 mg 02/17/19 18:00 02/20/19 18:47 Colace PO 100 mg BID NETTA Administration Donepezil HCl 10 mg 02/14/19 22:00 02/20/19 21:44 Aricept PO 10 mg HS NETTA Administration Duloxetine HCl 60 mg 02/14/19 18:00 02/20/19 18:47 Cymbalta PO 60 mg BID NETTA Administration Enoxaparin Sodium 40 mg 02/15/19 10:00 02/22/19 09:22 Lovenox SC 40 mg DAILY NETTA Administration Protocol Home Med 10 unit 02/14/19 18:00 02/20/19 18:49 Home Med PO Not Given BID NETTA Home Med 0.25 unit 02/14/19 18:00 02/20/19 18:49 Home Med PO Not Given BID NETTA Hydrocortisone Sodium Succinate 25 mg 02/23/19 22:00 Solu-Cortef IVP Q12 NETTA Dextrose 1,000 mls @ 100 mls/hr 02/18/19 09:00 02/23/19 09:14 Dextrose 5% In Water 1000 Ml IV Not Given .Q10H NETTA Doxycycline Hyclate 100 mg/ 100 mls @ 100 mls/hr 02/20/19 13:15 02/23/19 09:20 Sodium Chloride IVPB 03/01/19 13:16 100 mls/hr Q12 NETTA Administration Protocol Meropenem 1 gm in 50 mls @ 100 mls/hr 02/20/19 14:00 02/23/19 05:58 Merrem Iv 1 Gm Premix IVPB 03/01/19 14:01 100 mls/hr Q8 NETTA Administration Protocol Fentanyl Citrate 1,000 mcg in 100 mls @ 2 mls/hr 02/21/19 09:30 02/23/19 09:39 Fentanyl Citrate/Sodium Chloride 1 Mg/100 Ml IV 20 mcg/hr .Q24H PRN 2 mls/hr TITRATE PER MD ORDER Titration Protocol 20 MCG/HR Vancomycin HCl 1 gm in 250 mls @ 167 mls/hr 02/21/19 09:45 02/23/19 09:19 Vancomycin 1gm IVPB 03/02/19 09:46 167 mls/hr Q12H NETTA Administration Protocol Dextrose 1,000 mls @ 0 mls/hr 02/22/19 21:32 Dextrose 5% In Water 1000 Ml IV .Q0M PRN Hypoglycemia Protocol Protocol Per Protocol Potassium Phosphate 30 mmole/ 260 mls @ 42.5 mls/hr 02/23/19 06:55 02/23/19 08:46 Dextrose IVPB 02/23/19 13:02 42.5 mls/hr ONCE ONE Administration Insulin Human Lispro 0 units 02/23/19 12:00 Humalog Med SC Q6 NETTA Protocol Levalbuterol HCl 0.63 mg 02/15/19 14:00 02/23/19 07:44 Xopenex IH 0.63 mg [id number] NETTA Administration Mupirocin 0 gm 02/19/19 10:00 02/23/19 09:20 Bactroban Ointment TOP 1 applic TID NETTA Administration Mycophenolate Mofetil 500 mg 02/15/19 18:00 02/20/19 18:47 Cellcept Cap PO 500 mg BID NETTA Administration Ondansetron HCl 4 mg 02/15/19 09:01 Zofran Inj IVP Q4H PRN Nausea/Vomiting Pantoprazole Sodium 40 mg 02/15/19 06:00 02/20/19 06:08 Protonix Ec Tab PO 40 mg 0600 NETTA Administration Pantoprazole Sodium 40 mg 02/21/19 10:00 02/22/19 09:26 Protonix Inj IVP 40 mg DAILY NETTA Administration Tamsulosin HCl 0.4 mg 02/15/19 10:00 02/20/19 11:34 Flomax PO 0.4 mg DAILY NETTA Administration - Patient Studies Lab Studies: Microbiology Studies 02/21/19 19:45 Blood Culture - Preliminary Blood NO GROWTH AFTER 24 HOURS 02/21/19 17:30 Blood Culture - Preliminary Blood NO GROWTH AFTER 24 HOURS 02/17/19 15:50 Blood Culture - Final Blood NO GROWTH AFTER 5 DAYS Gram Stain - Final TEST NOT PERFORMED 02/17/19 15:50 Blood Culture - Final Blood NO GROWTH AFTER 5 DAYS Gram Stain - Final TEST NOT PERFORMED 02/20/19 14:00 Blood Culture - Preliminary Blood NO GROWTH AFTER 48 HOURS 02/20/19 13:40 Blood Culture - Preliminary Blood NO GROWTH AFTER 48 HOURS Lab Studies 02/23/19 02/23/19 02/23/19 Range/Units 10:25 10:20 07:28 WBC (4.5-11.0) 10^3/uL RBC (3.5-6.1) 10^6/uL Hgb (14.0-18.0) g/dL Hct (42.0-52.0) % MCV (80.0-105.0) fl MCH (25.0-35.0) pg MCHC (31.0-37.0) g/dl RDW (11.5-14.5) % Plt Count (120.0-450.0) 10^3/uL MPV (7.0-11.0) fl Neut % (Auto) (50.0-68.0) % Lymph % (Auto) (22.0-35.0) % [place] % (Auto) (1.0-6.0) % Eos % (Auto) (1.5-5.0) % Baso % (Auto) (0.0-3.0) % Lymph # (Auto) (1.2-3.4) [place] # (Auto) (0.1-0.6) Eos # (Auto) (0.0-0.7) Baso # (Auto) (0.0-2.0) K/mm3 Absolute Neuts (auto) (1.4-6.5) PT 13.2 H (9.4-12.5) SECONDS INR 1.17 pCO2 29 L (35-45) mm/Hg pO2 92.0 (80-100) mm/Hg HCO3 19.7 L (21-28) mmol/L ABG pH 7.44 (7.35-7.45) ABG Total CO2 20.6 L (22-28) mmol.L ABG O2 Saturation 99.1 H (95-98) % ABG O2 Content 10.7 L (15-23) ML/dl ABG Base Excess -3.9 L (-2.0-3.0) mmol/L ABG Hemoglobin 7.7 L (11.7-17.4) g/dL ABG Carboxyhemoglobin 1.4 (0.5-1.5) % POC ABG HHb (Measured) 0.9 (0-5) % ABG Methemoglobin 0.8 (0.0-3.0) % ABG O2 Capacity 10.8 L (16-24) mL/dl Hgb O2 Saturation 96.9 (95.0-98.0) % FiO2 35.0 % Sodium (132-148) mmol/L Potassium (3.6-5.0) mmol/L Chloride (98-107) mmol/L Carbon Dioxide (21-33) mmol/L Anion Gap (10-20) BUN (7-21) mg/dL Creatinine (0.8-1.5) mg/dl Est GFR ( Amer) Est GFR (Non-Af Amer) POC Glucose (mg/dL) 218 H (65-110) mg/dL Random Glucose (70-110) mg/dL Calcium (8.4-10.5) mg/dL Phosphorus (2.5-4.5) mg/dL Magnesium (1.7-2.2) mg/dL Total Bilirubin (0.2-1.3) mg/dL Direct Bilirubin (0.0-0.4) mg/dL AST (17-59) U/L ALT (7-56) U/L Alkaline Phosphatase (38-126) U/L Total Protein (5.8-8.3) g/dL Albumin (3.0-4.8) g/dL Globulin gm/dL Albumin/Globulin Ratio (1.1-1.8) T.pallidum Ab (FTA-ABS) (Nonreactive) Crossmatch 02/23/19 02/23/19 02/22/19 Range/Units 05:40 05:40 21:44 WBC 18.5 H (4.5-11.0) 10^3/uL RBC 2.87 L (3.5-6.1) 10^6/uL Hgb 7.5 L (14.0-18.0) g/dL Hct 24.2 L (42.0-52.0) % MCV 84.3 (80.0-105.0) fl MCH 26.1 (25.0-35.0) pg MCHC 31.0 (31.0-37.0) g/dl RDW 15.5 H (11.5-14.5) % Plt Count 320 (120.0-450.0) 10^3/uL MPV 10.3 (7.0-11.0) fl Neut % (Auto) 94.5 H (50.0-68.0) % Lymph % (Auto) 3.5 L (22.0-35.0) % [place] % (Auto) 1.9 (1.0-6.0) % Eos % (Auto) 0.0 L (1.5-5.0) % Baso % (Auto) 0.1 (0.0-3.0) % Lymph # (Auto) 0.6 L (1.2-3.4) [place] # (Auto) 0.4 (0.1-0.6) Eos # (Auto) 0.0 (0.0-0.7) Baso # (Auto) 0.01 (0.0-2.0) K/mm3 Absolute Neuts (auto) 17.52 H (1.4-6.5) PT (9.4-12.5) SECONDS INR pCO2 (35-45) mm/Hg pO2 (80-100) mm/Hg HCO3 (21-28) mmol/L ABG pH (7.35-7.45) ABG Total CO2 (22-28) mmol.L ABG O2 Saturation (95-98) % ABG O2 Content (15-23) ML/dl ABG Base Excess (-2.0-3.0) mmol/L ABG Hemoglobin (11.7-17.4) g/dL ABG Carboxyhemoglobin (0.5-1.5) % POC ABG HHb (Measured) (0-5) % ABG Methemoglobin (0.0-3.0) % ABG O2 Capacity (16-24) mL/dl Hgb O2 Saturation (95.0-98.0) % FiO2 % Sodium 140 (132-148) mmol/L Potassium 3.7 (3.6-5.0) mmol/L Chloride 113 H (98-107) mmol/L Carbon Dioxide 23 (21-33) mmol/L Anion Gap 8 L (10-20) BUN 28 H (7-21) mg/dL Creatinine 0.8 (0.8-1.5) mg/dl Est GFR ( Amer) > 60 Est GFR (Non-Af Amer) > 60 POC Glucose (mg/dL) 244 H (65-110) mg/dL Random Glucose 178 H (70-110) mg/dL Calcium 7.5 L (8.4-10.5) mg/dL Phosphorus 1.7 L (2.5-4.5) mg/dL Magnesium 2.2 (1.7-2.2) mg/dL Total Bilirubin 0.2 (0.2-1.3) mg/dL Direct Bilirubin 0.2 (0.0-0.4) mg/dL AST 50 (17-59) U/L ALT 24 (7-56) U/L Alkaline Phosphatase 81 (38-126) U/L Total Protein 5.5 L (5.8-8.3) g/dL Albumin 2.6 L (3.0-4.8) g/dL Globulin 2.9 gm/dL Albumin/Globulin Ratio 0.9 L (1.1-1.8) T.pallidum Ab (FTA-ABS) (Nonreactive) Crossmatch 02/22/19 02/22/19 02/19/19 Range/Units 16:43 11:31 09:20 WBC (4.5-11.0) 10^3/uL RBC (3.5-6.1) 10^6/uL Hgb (14.0-18.0) g/dL Hct (42.0-52.0) % MCV (80.0-105.0) fl MCH (25.0-35.0) pg MCHC (31.0-37.0) g/dl RDW (11.5-14.5) % Plt Count (120.0-450.0) 10^3/uL MPV (7.0-11.0) fl Neut % (Auto) (50.0-68.0) % Lymph % (Auto) (22.0-35.0) % [place] % (Auto) (1.0-6.0) % Eos % (Auto) (1.5-5.0) % Baso % (Auto) (0.0-3.0) % Lymph # (Auto) (1.2-3.4) [place] # (Auto) (0.1-0.6) Eos # (Auto) (0.0-0.7) Baso # (Auto) (0.0-2.0) K/mm3 Absolute Neuts (auto) (1.4-6.5) PT (9.4-12.5) SECONDS INR pCO2 (35-45) mm/Hg pO2 (80-100) mm/Hg HCO3 (21-28) mmol/L ABG pH (7.35-7.45) ABG Total CO2 (22-28) mmol.L ABG O2 Saturation (95-98) % ABG O2 Content (15-23) ML/dl ABG Base Excess (-2.0-3.0) mmol/L ABG Hemoglobin (11.7-17.4) g/dL ABG Carboxyhemoglobin (0.5-1.5) % POC ABG HHb (Measured) (0-5) % ABG Methemoglobin (0.0-3.0) % ABG O2 Capacity (16-24) mL/dl Hgb O2 Saturation (95.0-98.0) % FiO2 % Sodium (132-148) mmol/L Potassium (3.6-5.0) mmol/L Chloride (98-107) mmol/L Carbon Dioxide (21-33) mmol/L Anion Gap (10-20) BUN (7-21) mg/dL Creatinine (0.8-1.5) mg/dl Est GFR ( Amer) Est GFR (Non-Af Amer) POC Glucose (mg/dL) 196 H 225 H (65-110) mg/dL Random Glucose (70-110) mg/dL Calcium (8.4-10.5) mg/dL Phosphorus (2.5-4.5) mg/dL Magnesium (1.7-2.2) mg/dL Total Bilirubin (0.2-1.3) mg/dL Direct Bilirubin (0.0-0.4) mg/dL AST (17-59) U/L ALT (7-56) U/L Alkaline Phosphatase (38-126) U/L Total Protein (5.8-8.3) g/dL Albumin (3.0-4.8) g/dL Globulin gm/dL Albumin/Globulin Ratio (1.1-1.8) T.pallidum Ab (FTA-ABS) (Nonreactive) Crossmatch See Detail 02/19/19 Range/Units 07:10 WBC (4.5-11.0) 10^3/uL RBC (3.5-6.1) 10^6/uL Hgb (14.0-18.0) g/dL Hct (42.0-52.0) % MCV (80.0-105.0) fl MCH (25.0-35.0) pg MCHC (31.0-37.0) g/dl RDW (11.5-14.5) % Plt Count (120.0-450.0) 10^3/uL MPV (7.0-11.0) fl Neut % (Auto) (50.0-68.0) % Lymph % (Auto) (22.0-35.0) % [place] % (Auto) (1.0-6.0) % Eos % (Auto) (1.5-5.0) % Baso % (Auto) (0.0-3.0) % Lymph # (Auto) (1.2-3.4) [place] # (Auto) (0.1-0.6) Eos # (Auto) (0.0-0.7) Baso # (Auto) (0.0-2.0) K/mm3 Absolute Neuts (auto) (1.4-6.5) PT (9.4-12.5) SECONDS INR pCO2 (35-45) mm/Hg pO2 (80-100) mm/Hg HCO3 (21-28) mmol/L ABG pH (7.35-7.45) ABG Total CO2 (22-28) mmol.L ABG O2 Saturation (95-98) % ABG O2 Content (15-23) ML/dl ABG Base Excess (-2.0-3.0) mmol/L ABG Hemoglobin (11.7-17.4) g/dL ABG Carboxyhemoglobin (0.5-1.5) % POC ABG HHb (Measured) (0-5) % ABG Methemoglobin (0.0-3.0) % ABG O2 Capacity (16-24) mL/dl Hgb O2 Saturation (95.0-98.0) % FiO2 % Sodium (132-148) mmol/L Potassium (3.6-5.0) mmol/L Chloride (98-107) mmol/L Carbon Dioxide (21-33) mmol/L Anion Gap (10-20) BUN (7-21) mg/dL Creatinine (0.8-1.5) mg/dl Est GFR ( Amer) Est GFR (Non-Af Amer) POC Glucose (mg/dL) (65-110) mg/dL Random Glucose (70-110) mg/dL Calcium (8.4-10.5) mg/dL Phosphorus (2.5-4.5) mg/dL Magnesium (1.7-2.2) mg/dL Total Bilirubin (0.2-1.3) mg/dL Direct Bilirubin (0.0-0.4) mg/dL AST (17-59) U/L ALT (7-56) U/L Alkaline Phosphatase (38-126) U/L Total Protein (5.8-8.3) g/dL Albumin (3.0-4.8) g/dL Globulin gm/dL Albumin/Globulin Ratio (1.1-1.8) T.pallidum Ab (FTA-ABS) Nonreactive (Nonreactive) Crossmatch Laboratory Results - last 24 hr 02/19/19 02/19/19 02/22/19 07:10 09:20 11:31 WBC RBC Hgb Hct MCV MCH MCHC RDW Plt Count MPV Neut % (Auto) Lymph % (Auto) [place] % (Auto) Eos % (Auto) Baso % (Auto) Lymph # (Auto) [place] # (Auto) Eos # (Auto) Baso # (Auto) Absolute Neuts (auto) PT INR pCO2 pO2 HCO3 ABG pH ABG Total CO2 ABG O2 Saturation ABG O2 Content ABG Base Excess ABG Hemoglobin ABG Carboxyhemoglobin POC ABG HHb (Measured) ABG Methemoglobin ABG O2 Capacity Hgb O2 Saturation FiO2 Sodium Potassium Chloride Carbon Dioxide Anion Gap BUN Creatinine Est GFR ( Amer) Est GFR (Non-Af Amer) POC Glucose (mg/dL) 225 H Random Glucose Calcium Phosphorus Magnesium Total Bilirubin Direct Bilirubin AST ALT Alkaline Phosphatase Total Protein Albumin Globulin Albumin/Globulin Ratio T.pallidum Ab (FTA-ABS) Nonreactive Crossmatch See Detail 02/22/19 02/22/19 02/23/19 16:43 21:44 05:40 WBC 18.5 H RBC 2.87 L Hgb 7.5 L Hct 24.2 L MCV 84.3 MCH 26.1 MCHC 31.0 RDW 15.5 H Plt Count 320 MPV 10.3 Neut % (Auto) 94.5 H Lymph % (Auto) 3.5 L [place] % (Auto) 1.9 Eos % (Auto) 0.0 L Baso % (Auto) 0.1 Lymph # (Auto) 0.6 L [place] # (Auto) 0.4 Eos # (Auto) 0.0 Baso # (Auto) 0.01 Absolute Neuts (auto) 17.52 H PT INR pCO2 pO2 HCO3 ABG pH ABG Total CO2 ABG O2 Saturation ABG O2 Content ABG Base Excess ABG Hemoglobin ABG Carboxyhemoglobin POC ABG HHb (Measured) ABG Methemoglobin ABG O2 Capacity Hgb O2 Saturation FiO2 Sodium Potassium Chloride Carbon Dioxide Anion Gap BUN Creatinine Est GFR ( Amer) Est GFR (Non-Af Amer) POC Glucose (mg/dL) 196 H 244 H Random Glucose Calcium Phosphorus Magnesium Total Bilirubin Direct Bilirubin AST ALT Alkaline Phosphatase Total Protein Albumin Globulin Albumin/Globulin Ratio T.pallidum Ab (FTA-ABS) Crossmatch 02/23/19 02/23/19 02/23/19 05:40 07:28 10:20 WBC RBC Hgb Hct MCV MCH MCHC RDW Plt Count MPV Neut % (Auto) Lymph % (Auto) [place] % (Auto) Eos % (Auto) Baso % (Auto) Lymph # (Auto) [place] # (Auto) Eos # (Auto) Baso # (Auto) Absolute Neuts (auto) PT 13.2 H INR 1.17 pCO2 pO2 HCO3 ABG pH ABG Total CO2 ABG O2 Saturation ABG O2 Content ABG Base Excess ABG Hemoglobin ABG Carboxyhemoglobin POC ABG HHb (Measured) ABG Methemoglobin ABG O2 Capacity Hgb O2 Saturation FiO2 Sodium 140 Potassium 3.7 Chloride 113 H Carbon Dioxide 23 Anion Gap 8 L BUN 28 H Creatinine 0.8 Est GFR ( Amer) > 60 Est GFR (Non-Af Amer) > 60 POC Glucose (mg/dL) 218 H Random Glucose 178 H Calcium 7.5 L Phosphorus 1.7 L Magnesium 2.2 Total Bilirubin 0.2 Direct Bilirubin 0.2 AST 50 ALT 24 Alkaline Phosphatase 81 Total Protein 5.5 L Albumin 2.6 L Globulin 2.9 Albumin/Globulin Ratio 0.9 L T.pallidum Ab (FTA-ABS) Crossmatch 02/23/19 10:25 WBC RBC Hgb Hct MCV MCH MCHC RDW Plt Count MPV Neut % (Auto) Lymph % (Auto) [place] % (Auto) Eos % (Auto) Baso % (Auto) Lymph # (Auto) [place] # (Auto) Eos # (Auto) Baso # (Auto) Absolute Neuts (auto) PT INR pCO2 29 L pO2 92.0 HCO3 19.7 L ABG pH 7.44 ABG Total CO2 20.6 L ABG O2 Saturation 99.1 H ABG O2 Content 10.7 L ABG Base Excess -3.9 L ABG Hemoglobin 7.7 L ABG Carboxyhemoglobin 1.4 POC ABG HHb (Measured) 0.9 ABG Methemoglobin 0.8 ABG O2 Capacity 10.8 L Hgb O2 Saturation 96.9 FiO2 35.0 Sodium Potassium Chloride Carbon Dioxide Anion Gap BUN Creatinine Est GFR ( Amer) Est GFR (Non-Af Amer) POC Glucose (mg/dL) Random Glucose Calcium Phosphorus Magnesium Total Bilirubin Direct Bilirubin AST ALT Alkaline Phosphatase Total Protein Albumin Globulin Albumin/Globulin Ratio T.pallidum Ab (FTA-ABS) Crossmatch Radiology Impressions: Radiology Impressions Extremity Ultrasound 02/21/19 10:51 IMPRESSION: No sonographic evidence for deep venous thrombosis in the visualized segments of both lower extremities. Chest X-Ray 02/23/19 06:39 IMPRESSION: Endotracheal tube terminates in the mid trachea. Nasogastric tube terminates in the stomach. No acute findings. Fingerstick Blood Sugar Results: 166 Critical Care Progress Note - Ventilator Checklist Head of Bed 30 Degrees: Yes Daily Sedation Vacation: Yes Daily Assessment of Readiness to Wean: Yes Daily Spontaneous Breathing Trial: Yes PUD Prophalyxis: Yes DVT Prophylaxis: Yes Oral Care with Chlorhexidine Gluconate {CHG}: Yes - Vent Settings MODE:: PRVC - Extremities/Vascular Does the Patient have a Central Venous Catheter?: Yes Insertion Site: Femoral Vein Does the Patient have a Grossman Catheter?: Yes Catheter Insertion Criteria: Need for accurate measurement of output in critically ill patient - Restraints Justification for Restraints: High risk for removing IV access - Prophylaxis GI Prophylaxis GI: PPI - Prophylaxis DVT Prophylaxis DVT: Lovenox - Nutrition Nutrition: Nutrition Category Date Time Status NPO Diet [DIET] Diets 02/21/19 Breakfast Ordered Assessment/Plan - Assessment and Plan (Free Text) Assessment: 63 yo M with PMH of cirrhosis (s/p liver transplant), chronic pain on narcotics, HTN, depression, hypothyroidism, blindness, craniopharyngioma, and psoriasis initially admitted for fever, generalized weakness, and sepsis thought to be 2/2 RUE cellulitis. Yesterday morning, he began to acutely decompensate into septic shock, requiring rapid IVF resuscitation, ET intubation, and trasnfer to MICU. 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 Neurology following, all recs appreciated Cardio: No longer requiring pressor support F/u with PICC team regarding placement Would like to d/c R femoral access as soon as possible due to high risk of infec tion Maintain MAP > 65 Continue to monitor HD parameters closely Pulm: Acute hypoxic respiratory failure Repeat CXR this AM shows stable right middle lobe infiltrate, proper ET tube placement ABG consistent with improving hypoxic respiratory failure Ventilator settings: 400/12/10, FiO2 decreased to 35% Appropriate ventilator management as follows: Maintain head of bed > 30 degrees Maintain oral hygiene Daily ABG and CXR Daily sedation and weaning trials with assessment of readiness to wean Endo: Random glucose: 178 Continue ISS - medium Maintain glucose between 140-180 Wean solu-cortef to 25 mg q12h GI: NPO, on ventilator GI ppx with daily protonix 40 mg IVP Continue tube feeds with adjustments as recommended by expressive therapist Per Dr. Pratt, continue to hold mycophenalate, no other management warranted at this time GI following, all recs appreciated /Nephro: Renal function parameters stable Monitor UOP closely Hypernatremia improved, will d/c maintenance IVF and continue tube feeds Continue to monitor electrolytes, replete PRN Maintain euvolemia Heme/Onc: Normocytic anemia likely 2/2 anemia of chronic disease H/H trended down this AM Will plan on transfusion of 2 u PRBCs Continue serial monitoring of H/H MRI brain identified suprasellar mass with bony lesions on bone scan concerning for mets Unclear primary malignancy, unclear if patient had followed up about this Will discuss situation with patient's family Palliative following, all recs appreciated ID: Persistently febrile throughout hospitalization but afebrile since admission to MICU Per ID, suspect source of infection is R lobe infiltrates, less likely RUE cellulitis Murphy cx continues to be negative to date 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 Gaston Chan, [facility]apo. IM Resident PGY-1 Pager: [phone] <Royce Feldman - Last Filed: 02/23/19 14:08> CCU Objective - Vital Signs / Intake & Output Vital Signs (Last 4 hours): Vital Signs Temp Pulse Resp BP 02/23/19 14:00 98.4 F 98 H 24 111/70 Intake and Output (Last 8hrs): Intake & Output 02/22/19 02/23/19 02/23/19 22:59 06:59 14:59 Intake Total 2400 1027 20 Output Total 300 300 Balance 2100 727 20 Intake: IV 2400 562 20 Left Hand 0 Right Femoral 2400 482 Oral 240 Tube Feeding 225 Blood Product 0 Red Blood Cells Cpd As1 0 Lr Unit [id number] Output: Urine 300 300 Urethral (Grossman) 300 300 Stool 0 Emesis 0 - Medications Active Medications: Active Medications Generic Name Dose Route Start Last Admin Trade Name Freq PRN Reason Stop Dose Admin Acetaminophen 650 mg 02/15/19 09:01 02/21/19 00:43 Tylenol 325mg Tab PO 650 mg Q6 PRN Administration TEMP>=99.5F Acetaminophen 650 mg 02/15/19 09:01 02/19/19 10:16 Tylenol 650 Mg Supp RC 650 mg Q6H PRN Administration TEMP>=99.5F Acetylcysteine 4 ml 02/22/19 14:00 02/23/19 13:43 Acetylcysteine 20% IH 4 ml [id number] NETTA Administration Aripiprazole 5 mg 02/16/19 08:34 02/20/19 21:44 Abilify PO 5 mg HS NETTA Administration Atorvastatin Calcium 40 mg 02/15/19 17:00 02/20/19 18:47 Lipitor PO 40 mg DIN NETTA Administration Dextrose 50 ml 02/22/19 07:50 Dextrose 50% Inj IVP PRN PRN Low blood sugar Dextrose 0 ml 02/22/19 21:32 Dextrose 50% Inj IV STAT PRN Hypoglycemia Protocol Protocol Docusate Sodium 100 mg 02/17/19 18:00 02/20/19 18:47 Colace PO 100 mg BID NETTA Administration Donepezil HCl 10 mg 02/14/19 22:00 02/20/19 21:44 Aricept PO 10 mg HS NETTA Administration Duloxetine HCl 60 mg 02/14/19 18:00 02/20/19 18:47 Cymbalta PO 60 mg BID NETTA Administration Enoxaparin Sodium 40 mg 02/15/19 10:00 02/23/19 13:53 Lovenox SC 40 mg DAILY NETTA Administration Protocol Home Med 10 unit 02/14/19 18:00 02/20/19 18:49 Home Med PO Not Given BID NETTA Home Med 0.25 unit 02/14/19 18:00 02/20/19 18:49 Home Med PO Not Given BID NETTA Hydrocortisone Sodium Succinate 25 mg 02/23/19 22:00 Solu-Cortef IVP Q12 NETTA Dextrose 1,000 mls @ 100 mls/hr 02/18/19 09:00 02/23/19 09:14 Dextrose 5% In Water 1000 Ml IV Not Given .Q10H NETTA Doxycycline Hyclate 100 mg/ 100 mls @ 100 mls/hr 02/20/19 13:15 02/23/19 09:20 Sodium Chloride IVPB 03/01/19 13:16 100 mls/hr Q12 NETTA Administration Protocol Meropenem 1 gm in 50 mls @ 100 mls/hr 02/20/19 14:00 02/23/19 05:58 Merrem Iv 1 Gm Premix IVPB 03/01/19 14:01 100 mls/hr Q8 NETTA Administration Protocol Fentanyl Citrate 1,000 mcg in 100 mls @ 2 mls/hr 02/21/19 09:30 02/23/19 09:39 Fentanyl Citrate/Sodium Chloride 1 Mg/100 Ml IV 20 mcg/hr .Q24H PRN 2 mls/hr TITRATE PER MD ORDER Titration Protocol 20 MCG/HR Vancomycin HCl 1 gm in 250 mls @ 167 mls/hr 02/21/19 09:45 02/23/19 09:19 Vancomycin 1gm IVPB 03/02/19 09:46 167 mls/hr Q12H NETTA Administration Protocol Dextrose 1,000 mls @ 0 mls/hr 02/22/19 21:32 Dextrose 5% In Water 1000 Ml IV .Q0M PRN Hypoglycemia Protocol Protocol Per Protocol NOREPINEPHRINE BIT/0.9 % NACL 4 mg in 250 mls @ 15 mls/hr 02/23/19 12:33 02/23/19 12:51 Levophed 4 Mg/ 250 Ml Ns Premixed IV 4 mcg/min .[id number] PRN 15 mls/hr TITRATE PER MD ORDER Administration Protocol 4 MCG/MIN Insulin Human Lispro 0 units 02/23/19 12:00 02/23/19 13:51 Humalog Med SC 3 units Q6 NETTA Administration Protocol Levalbuterol HCl 0.63 mg 02/15/19 14:00 02/23/19 13:43 Xopenex IH 0.63 mg [id number] NETTA Administration Mupirocin 0 gm 04/12/19 10:00 02/23/19 13:51 Bactroban Ointment TOP 1 applic TID NETTA Administration Mycophenolate Mofetil 500 mg 02/15/19 18:00 02/20/19 18:47 Cellcept Cap PO 500 mg BID NETTA Administration Ondansetron HCl 4 mg 02/15/19 09:01 Zofran Inj IVP Q4H PRN Nausea/Vomiting Pantoprazole Sodium 40 mg 02/15/19 06:00 02/20/19 06:08 Protonix Ec Tab PO 40 mg 0600 NETTA Administration Pantoprazole Sodium 40 mg 02/21/19 10:00 02/23/19 11:07 Protonix Inj IVP 40 mg DAILY NETTA Administration Tamsulosin HCl 0.4 mg 02/15/19 10:00 02/20/19 11:34 Flomax PO 0.4 mg DAILY NETTA Administration - Patient Studies Lab Studies: Microbiology Studies 02/20/19 13:40 Blood Culture - Preliminary Blood NO GROWTH AFTER 3 DAYS 02/21/19 17:00 Urine Culture - Final Urine,[place] No Growth (<1,000 CFU/ML) 02/21/19 17:00 Gram Stain - Final Trachasp Sputum Culture - Final Yeast Species 02/21/19 19:45 Blood Culture - Preliminary Blood NO GROWTH AFTER 24 HOURS 02/21/19 17:30 Blood Culture - Preliminary Blood NO GROWTH AFTER 24 HOURS 02/17/19 15:50 Blood Culture - Final Blood NO GROWTH AFTER 5 DAYS Gram Stain - Final TEST NOT PERFORMED 02/17/19 15:50 Blood Culture - Final Blood NO GROWTH AFTER 5 DAYS Gram Stain - Final TEST NOT PERFORMED 02/20/19 14:00 Blood Culture - Preliminary Blood NO GROWTH AFTER 48 HOURS Lab Studies 02/23/19 02/23/19 02/23/19 Range/Units 11:18 10:25 10:20 WBC (4.5-11.0) 10^3/uL RBC (3.5-6.1) 10^6/uL Hgb (14.0-18.0) g/dL Hct (42.0-52.0) % MCV (80.0-105.0) fl MCH (25.0-35.0) pg MCHC (31.0-37.0) g/dl RDW (11.5-14.5) % Plt Count (120.0-450.0) 10^3/uL MPV (7.0-11.0) fl Neut % (Auto) (50.0-68.0) % Lymph % (Auto) (22.0-35.0) % [place] % (Auto) (1.0-6.0) % Eos % (Auto) (1.5-5.0) % Baso % (Auto) (0.0-3.0) % Lymph # (Auto) (1.2-3.4) [place] # (Auto) (0.1-0.6) Eos # (Auto) (0.0-0.7) Baso # (Auto) (0.0-2.0) K/mm3 Absolute Neuts (auto) (1.4-6.5) PT 13.2 H (9.4-12.5) SECONDS INR 1.17 pCO2 29 L (35-45) mm/Hg pO2 92.0 (80-100) mm/Hg HCO3 19.7 L (21-28) mmol/L ABG pH 7.44 (7.35-7.45) ABG Total CO2 20.6 L (22-28) mmol.L ABG O2 Saturation 99.1 H (95-98) % ABG O2 Content 10.7 L (15-23) ML/dl ABG Base Excess -3.9 L (-2.0-3.0) mmol/L ABG Hemoglobin 7.7 L (11.7-17.4) g/dL ABG Carboxyhemoglobin 1.4 (0.5-1.5) % POC ABG HHb (Measured) 0.9 (0-5) % ABG Methemoglobin 0.8 (0.0-3.0) % ABG O2 Capacity 10.8 L (16-24) mL/dl Hgb O2 Saturation 96.9 (95.0-98.0) % FiO2 35.0 % Sodium (132-148) mmol/L Potassium (3.6-5.0) mmol/L Chloride (98-107) mmol/L Carbon Dioxide (21-33) mmol/L Anion Gap (10-20) BUN (7-21) mg/dL Creatinine (0.8-1.5) mg/dl Est GFR ( Amer) Est GFR (Non-Af Amer) POC Glucose (mg/dL) 205 H (65-110) mg/dL Random Glucose (70-110) mg/dL Calcium (8.4-10.5) mg/dL Phosphorus (2.5-4.5) mg/dL Magnesium (1.7-2.2) mg/dL Total Bilirubin (0.2-1.3) mg/dL Direct Bilirubin (0.0-0.4) mg/dL AST (17-59) U/L ALT (7-56) U/L Alkaline Phosphatase (38-126) U/L Total Protein (5.8-8.3) g/dL Albumin (3.0-4.8) g/dL Globulin gm/dL Albumin/Globulin Ratio (1.1-1.8) T.pallidum Ab (FTA-ABS) (Nonreactive) Blood Type Antibody Screen Crossmatch BBK History Checked 02/23/19 02/23/19 02/23/19 Range/Units 10:20 07:28 05:40 WBC (4.5-11.0) 10^3/uL RBC (3.5-6.1) 10^6/uL Hgb (14.0-18.0) g/dL Hct (42.0-52.0) % MCV (80.0-105.0) fl MCH (25.0-35.0) pg MCHC (31.0-37.0) g/dl RDW (11.5-14.5) % Plt Count (120.0-450.0) 10^3/uL MPV (7.0-11.0) fl Neut % (Auto) (50.0-68.0) % Lymph % (Auto) (22.0-35.0) % [place] % (Auto) (1.0-6.0) % Eos % (Auto) (1.5-5.0) % Baso % (Auto) (0.0-3.0) % Lymph # (Auto) (1.2-3.4) [place] # (Auto) (0.1-0.6) Eos # (Auto) (0.0-0.7) Baso # (Auto) (0.0-2.0) K/mm3 Absolute Neuts (auto) (1.4-6.5) PT (9.4-12.5) SECONDS INR pCO2 (35-45) mm/Hg pO2 (80-100) mm/Hg HCO3 (21-28) mmol/L ABG pH (7.35-7.45) ABG Total CO2 (22-28) mmol.L ABG O2 Saturation (95-98) % ABG O2 Content (15-23) ML/dl ABG Base Excess (-2.0-3.0) mmol/L ABG Hemoglobin (11.7-17.4) g/dL ABG Carboxyhemoglobin (0.5-1.5) % POC ABG HHb (Measured) (0-5) % ABG Methemoglobin (0.0-3.0) % ABG O2 Capacity (16-24) mL/dl Hgb O2 Saturation (95.0-98.0) % FiO2 % Sodium 140 (132-148) mmol/L Potassium 3.7 (3.6-5.0) mmol/L Chloride 113 H (98-107) mmol/L Carbon Dioxide 23 (21-33) mmol/L Anion Gap 8 L (10-20) BUN 28 H (7-21) mg/dL Creatinine 0.8 (0.8-1.5) mg/dl Est GFR ( Amer) > 60 Est GFR (Non-Af Amer) > 60 POC Glucose (mg/dL) 218 H (65-110) mg/dL Random Glucose 178 H (70-110) mg/dL Calcium 7.5 L (8.4-10.5) mg/dL Phosphorus 1.7 L (2.5-4.5) mg/dL Magnesium 2.2 (1.7-2.2) mg/dL Total Bilirubin 0.2 (0.2-1.3) mg/dL Direct Bilirubin 0.2 (0.0-0.4) mg/dL AST 50 (17-59) U/L ALT 24 (7-56) U/L Alkaline Phosphatase 81 (38-126) U/L Total Protein 5.5 L (5.8-8.3) g/dL Albumin 2.6 L (3.0-4.8) g/dL Globulin 2.9 gm/dL Albumin/Globulin Ratio 0.9 L (1.1-1.8) T.pallidum Ab (FTA-ABS) (Nonreactive) Blood Type A POSITIVE Antibody Screen Negative Crossmatch See Detail BBK History Checked Patient has bt 02/23/19 02/22/19 02/22/19 Range/Units 05:40 21:44 16:43 WBC 18.5 H (4.5-11.0) 10^3/uL RBC 2.87 L (3.5-6.1) 10^6/uL Hgb 7.5 L (14.0-18.0) g/dL Hct 24.2 L (42.0-52.0) % MCV 84.3 (80.0-105.0) fl MCH 26.1 (25.0-35.0) pg MCHC 31.0 (31.0-37.0) g/dl RDW 15.5 H (11.5-14.5) % Plt Count 320 (120.0-450.0) 10^3/uL MPV 10.3 (7.0-11.0) fl Neut % (Auto) 94.5 H (50.0-68.0) % Lymph % (Auto) 3.5 L (22.0-35.0) % [place] % (Auto) 1.9 (1.0-6.0) % Eos % (Auto) 0.0 L (1.5-5.0) % Baso % (Auto) 0.1 (0.0-3.0) % Lymph # (Auto) 0.6 L (1.2-3.4) [place] # (Auto) 0.4 (0.1-0.6) Eos # (Auto) 0.0 (0.0-0.7) Baso # (Auto) 0.01 (0.0-2.0) K/mm3 Absolute Neuts (auto) 17.52 H (1.4-6.5) PT (9.4-12.5) SECONDS INR pCO2 (35-45) mm/Hg pO2 (80-100) mm/Hg HCO3 (21-28) mmol/L ABG pH (7.35-7.45) ABG Total CO2 (22-28) mmol.L ABG O2 Saturation (95-98) % ABG O2 Content (15-23) ML/dl ABG Base Excess (-2.0-3.0) mmol/L ABG Hemoglobin (11.7-17.4) g/dL ABG Carboxyhemoglobin (0.5-1.5) % POC ABG HHb (Measured) (0-5) % ABG Methemoglobin (0.0-3.0) % ABG O2 Capacity (16-24) mL/dl Hgb O2 Saturation (95.0-98.0) % FiO2 % Sodium (132-148) mmol/L Potassium (3.6-5.0) mmol/L Chloride (98-107) mmol/L Carbon Dioxide (21-33) mmol/L Anion Gap (10-20) BUN (7-21) mg/dL Creatinine (0.8-1.5) mg/dl Est GFR ( Amer) Est GFR (Non-Af Amer) POC Glucose (mg/dL) 244 H 196 H (65-110) mg/dL Random Glucose (70-110) mg/dL Calcium (8.4-10.5) mg/dL Phosphorus (2.5-4.5) mg/dL Magnesium (1.7-2.2) mg/dL Total Bilirubin (0.2-1.3) mg/dL Direct Bilirubin (0.0-0.4) mg/dL AST (17-59) U/L ALT (7-56) U/L Alkaline Phosphatase (38-126) U/L Total Protein (5.8-8.3) g/dL Albumin (3.0-4.8) g/dL Globulin gm/dL Albumin/Globulin Ratio (1.1-1.8) T.pallidum Ab (FTA-ABS) (Nonreactive) Blood Type Antibody Screen Crossmatch BBK History Checked 02/19/19 Range/Units 07:10 WBC (4.5-11.0) 10^3/uL RBC (3.5-6.1) 10^6/uL Hgb (14.0-18.0) g/dL Hct (42.0-52.0) % MCV (80.0-105.0) fl MCH (25.0-35.0) pg MCHC (31.0-37.0) g/dl RDW (11.5-14.5) % Plt Count (120.0-450.0) 10^3/uL MPV (7.0-11.0) fl Neut % (Auto) (50.0-68.0) % Lymph % (Auto) (22.0-35.0) % [place] % (Auto) (1.0-6.0) % Eos % (Auto) (1.5-5.0) % Baso % (Auto) (0.0-3.0) % Lymph # (Auto) (1.2-3.4) [place] # (Auto) (0.1-0.6) Eos # (Auto) (0.0-0.7) Baso # (Auto) (0.0-2.0) K/mm3 Absolute Neuts (auto) (1.4-6.5) PT (9.4-12.5) SECONDS INR pCO2 (35-45) mm/Hg pO2 (80-100) mm/Hg HCO3 (21-28) mmol/L ABG pH (7.35-7.45) ABG Total CO2 (22-28) mmol.L ABG O2 Saturation (95-98) % ABG O2 Content (15-23) ML/dl ABG Base Excess (-2.0-3.0) mmol/L ABG Hemoglobin (11.7-17.4) g/dL ABG Carboxyhemoglobin (0.5-1.5) % POC ABG HHb (Measured) (0-5) % ABG Methemoglobin (0.0-3.0) % ABG O2 Capacity (16-24) mL/dl Hgb O2 Saturation (95.0-98.0) % FiO2 % Sodium (132-148) mmol/L Potassium (3.6-5.0) mmol/L Chloride (98-107) mmol/L Carbon Dioxide (21-33) mmol/L Anion Gap (10-20) BUN (7-21) mg/dL Creatinine (0.8-1.5) mg/dl Est GFR ( Amer) Est GFR (Non-Af Amer) POC Glucose (mg/dL) (65-110) mg/dL Random Glucose (70-110) mg/dL Calcium (8.4-10.5) mg/dL Phosphorus (2.5-4.5) mg/dL Magnesium (1.7-2.2) mg/dL Total Bilirubin (0.2-1.3) mg/dL Direct Bilirubin (0.0-0.4) mg/dL AST (17-59) U/L ALT (7-56) U/L Alkaline Phosphatase (38-126) U/L Total Protein (5.8-8.3) g/dL Albumin (3.0-4.8) g/dL Globulin gm/dL Albumin/Globulin Ratio (1.1-1.8) T.pallidum Ab (FTA-ABS) Nonreactive (Nonreactive) Blood Type Antibody Screen Crossmatch BBK History Checked Laboratory Results - last 24 hr 02/19/19 02/22/19 02/22/19 07:10 16:43 21:44 WBC RBC Hgb Hct MCV MCH MCHC RDW Plt Count MPV Neut % (Auto) Lymph % (Auto) [place] % (Auto) Eos % (Auto) Baso % (Auto) Lymph # (Auto) [place] # (Auto) Eos # (Auto) Baso # (Auto) Absolute Neuts (auto) PT INR pCO2 pO2 HCO3 ABG pH ABG Total CO2 ABG O2 Saturation ABG O2 Content ABG Base Excess ABG Hemoglobin ABG Carboxyhemoglobin POC ABG HHb (Measured) ABG Methemoglobin ABG O2 Capacity Hgb O2 Saturation FiO2 Sodium Potassium Chloride Carbon Dioxide Anion Gap BUN Creatinine Est GFR ( Amer) Est GFR (Non-Af Amer) POC Glucose (mg/dL) 196 H 244 H Random Glucose Calcium Phosphorus Magnesium Total Bilirubin Direct Bilirubin AST ALT Alkaline Phosphatase Total Protein Albumin Globulin Albumin/Globulin Ratio T.pallidum Ab (FTA-ABS) Nonreactive Blood Type Antibody Screen Crossmatch BBK History Checked 02/23/19 02/23/19 02/23/19 05:40 05:40 07:28 WBC 18.5 H RBC 2.87 L Hgb 7.5 L Hct 24.2 L MCV 84.3 MCH 26.1 MCHC 31.0 RDW 15.5 H Plt Count 320 MPV 10.3 Neut % (Auto) 94.5 H Lymph % (Auto) 3.5 L [place] % (Auto) 1.9 Eos % (Auto) 0.0 L Baso % (Auto) 0.1 Lymph # (Auto) 0.6 L [place] # (Auto) 0.4 Eos # (Auto) 0.0 Baso # (Auto) 0.01 Absolute Neuts (auto) 17.52 H PT INR pCO2 pO2 HCO3 ABG pH ABG Total CO2 ABG O2 Saturation ABG O2 Content ABG Base Excess ABG Hemoglobin ABG Carboxyhemoglobin POC ABG HHb (Measured) ABG Methemoglobin ABG O2 Capacity Hgb O2 Saturation FiO2 Sodium 140 Potassium 3.7 Chloride 113 H Carbon Dioxide 23 Anion Gap 8 L BUN 28 H Creatinine 0.8 Est GFR ( Amer) > 60 Est GFR (Non-Af Amer) > 60 POC Glucose (mg/dL) 218 H Random Glucose 178 H Calcium 7.5 L Phosphorus 1.7 L Magnesium 2.2 Total Bilirubin 0.2 Direct Bilirubin 0.2 AST 50 ALT 24 Alkaline Phosphatase 81 Total Protein 5.5 L Albumin 2.6 L Globulin 2.9 Albumin/Globulin Ratio 0.9 L T.pallidum Ab (FTA-ABS) Blood Type Antibody Screen Crossmatch BBK History Checked 02/23/19 02/23/19 02/23/19 10:20 10:20 10:25 WBC RBC Hgb Hct MCV MCH MCHC RDW Plt Count MPV Neut % (Auto) Lymph % (Auto) [place] % (Auto) Eos % (Auto) Baso % (Auto) Lymph # (Auto) [place] # (Auto) Eos # (Auto) Baso # (Auto) Absolute Neuts (auto) PT 13.2 H INR 1.17 pCO2 29 L pO2 92.0 HCO3 19.7 L ABG pH 7.44 ABG Total CO2 20.6 L ABG O2 Saturation 99.1 H ABG O2 Content 10.7 L ABG Base Excess -3.9 L ABG Hemoglobin 7.7 L ABG Carboxyhemoglobin 1.4 POC ABG HHb (Measured) 0.9 ABG Methemoglobin 0.8 ABG O2 Capacity 10.8 L Hgb O2 Saturation 96.9 FiO2 35.0 Sodium Potassium Chloride Carbon Dioxide Anion Gap BUN Creatinine Est GFR ( Amer) Est GFR (Non-Af Amer) POC Glucose (mg/dL) Random Glucose Calcium Phosphorus Magnesium Total Bilirubin Direct Bilirubin AST ALT Alkaline Phosphatase Total Protein Albumin Globulin Albumin/Globulin Ratio T.pallidum Ab (FTA-ABS) Blood Type A POSITIVE Antibody Screen Negative Crossmatch See Detail BBK History Checked Patient has bt 02/23/19 11:18 WBC RBC Hgb Hct MCV MCH MCHC RDW Plt Count MPV Neut % (Auto) Lymph % (Auto) [place] % (Auto) Eos % (Auto) Baso % (Auto) Lymph # (Auto) [place] # (Auto) Eos # (Auto) Baso # (Auto) Absolute Neuts (auto) PT INR pCO2 pO2 HCO3 ABG pH ABG Total CO2 ABG O2 Saturation ABG O2 Content ABG Base Excess ABG Hemoglobin ABG Carboxyhemoglobin POC ABG HHb (Measured) ABG Methemoglobin ABG O2 Capacity Hgb O2 Saturation FiO2 Sodium Potassium Chloride Carbon Dioxide Anion Gap BUN Creatinine Est GFR ( Amer) Est GFR (Non-Af Amer) POC Glucose (mg/dL) 205 H Random Glucose Calcium Phosphorus Magnesium Total Bilirubin Direct Bilirubin AST ALT Alkaline Phosphatase Total Protein Albumin Globulin Albumin/Globulin Ratio T.pallidum Ab (FTA-ABS) Blood Type Antibody Screen Crossmatch BBK History Checked Radiology Impressions: Radiology Impressions Extremity Ultrasound 02/21/19 10:51 IMPRESSION: No sonographic evidence for deep venous thrombosis in the visualized segments of both lower extremities. Chest/Abdomen/Pelvis CT 02/22/19 11:32 IMPRESSION: Bibasilar and right upper lobe pneumonia with small pleural effusions. Nonspecific mesenteric stranding in the right upper quadrant. Etiology uncertain. No evidence of intra-abdominal abscess. Chest X-Ray 02/23/19 06:39 IMPRESSION: Endotracheal tube terminates in the mid trachea. Nasogastric tube terminates in the stomach. No acute findings. Critical Care Progress Note - Nutrition Nutrition: Nutrition Category Date Time Status NPO Diet [DIET] Diets 02/21/19 Breakfast Ordered Assessment/Plan - Assessment and Plan (Free Text) Plan: I saw and examined the patient on rounds, with resident, agree with note with following additions/exceptions: Patient is 63yo male with extensive PMHX including, liver transplant s/p cirrhosis, chronic pain on narcotics, HTN, depression, hypothyroidism, blindn ess, craniopharyngioma and psoriasis, initially admitted for fever, generalized weakness, sepsis likely 2/2 RUE cellulitis Over the weekend became hypotensive, hypoxic, intubated, transferred to MICU Currently intubated, off sedation, slowly waking up R femoral TLC placed, on low dose Levophed, Vasopressin, Stress dose steroids Intubated, on PRVC 500/PEEP10/35%/RR12 Profound hypoxemia, improved, now on 35% FiO2. CT Angio PE protocol neg on admission, CT A/P on admission neg for intra abdominal pathology ID following GI following Bedside ECHO demonstrates hyperdynamic LV, normal RV function/size; poor windows Offical ECHO results noted Ammonia level normal Repeat Cultures thus far negative Shock, septic/hyperdynamic Resp failure, acute, hypoxic Hx liver transplant on immunosuppressants Cirrhosis HTN Depression Hypothyroidism Hx craniopharyngioma RUE cellulitis PNA Recommend:- - cont with vent support, low tidal vol ventilation, daily ABG, CXR, daily sedation vacation - broad spectrum abx, Vanco, Merrem, Doxy - follow up ID, follow up cultures - Vasopressor support, Levophed, Vasopressin, Stress dose steroids - DC D5W - Obtain PICC line - DC R femoral line - follow up GI - Rifaximin, Lactulose - GI ppx - DVT ppx - Overall prognosis extremely poor Critical care time 35 minutes
[2019-02-23] MEDS ORDERED: NOREPINEPHRINE BIT/0.9 % NACL 4 MG/250 ML BAG IV PRN (12:33)
[2019-02-23] MEDS ORDERED: NOREPINEPHRINE BIT/0.9 % NACL 4 MG/250 ML BAG IV ONE (12:38)
[2019-02-23] MEDS ORDERED: Sodium Chloride 0.9% 1,000 ML IV STA (12:39)
--- NOTE | 2019-02-23 13:09 | PN ---
DATE: 02/23/2019 SUBJECTIVE: The patient is on CCU bed 2. Overnight nurse's notes were reviewed. The patient continued to be intubated on a respirator. Continued on vasopressors including Levophed and vasopressin and sedation. PHYSICAL EXAMINATION: VITAL SIGNS: T-max 99.3. Telemetry shows sinus rhythm, sinus tachycardia, heart rate 90s to 100, blood pressure 107/66, 111/69, O2 sat 99% on ventilator support. HEENT: Head examinations shows right craniotomy. Positive bilateral blindness. Positive NG tube. Positive ET tube. CHEST: Positive rhonchi, upper lung melara, right more than the left. CARDIOVASCULAR: S1, S2, regular rhythm. Positive systolic murmur at left sternal border, right second intercostal space, left second intercostal space. ABDOMEN: Soft, positive bowel sounds, positive healed surgical scar of the hepatic liver transplant. GENITALIA: Male, positive Rdz catheter. EXTREMITY: Shows trace swelling of the lower extremity. Positive SCDs. NEUROLOGICAL: Examination is limited. The patient is only responsive to painful stimuli. The patient is sedated. Gait examination, bedridden. Psychiatric examination is not applicable. DIAGNOSTICS: 02/23/2019, WBC 18.5, hemoglobin and hematocrit has dropped to 7.5 and 24.2, platelets 320, granulocytes 95% segs, bands 8. Sodium 140, potassium 3.7, chloride 113, CO2 of 23, BUN 28, creatinine 0.8, glucose 178, calcium 7.5, phosphorus 1.7, magnesium 2.2, total protein 5.5, albumin 2.6. Chest x-ray shows decreased right-sided pneumonia, positive ET tube, positive NG tube, from this morning chest x-ray reviewed. IMPRESSION: 1. Ventilator-dependent respiratory failure. 2. Hypoxic respiratory failure. 3. High-grade fever. 4. Sinus tachycardia. 5. Hypotensive hypovolemic versus septic shock. 6. Sepsis secondary to multilobar right-sided aspiration pneumonia and right upper extremity cellulitis. 7. Hypertension. 8. Leukocytosis with granulocytosis and bandemia. 9. Anemia with decreasing hemoglobin and hematocrit. 10. Hypernatremia. 11. Hypokalemia, hypophosphatemia. 12. Steroid-induced hyperglycemia. 13. Mild protein malnutrition and hypoalbuminemia. 14. Hypercalcitoninemia. 15. Grade 1 abnormal relaxation pattern with left ventricular ejection fraction of 64%. 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 17. Proteinuria. 18. Multilobar right upper lobe, right middle lobe, right lower lobe aspiration pneumonia. 19. Transaminitis. 20. Elevated erythrocyte sedimentation rate of 127 and elevated C-reactive protein of greater than 15. 21. Status post right femoral triple-lumen catheter placement. 22. Voiding dysfunction with Rdz catheter placement. 23. History of liver transplant. 24. 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 25. Bilateral blindness. 26. History of craniopharyngioma. 27. History of cirrhosis, status post hepatic transplant. PLAN: At this time, the patient will be continued in ICU with ventilator support. The patient will be continued on vasopressors until the patient is able to be weaned off the vasopressors. The patient has been ordered PRBC transfusion today. The patient is on IV antibiotics as per Infectious Disease. The patient has been ordered one potassium phosphate rider. The patient at present will be continued on all the medications as per the MAR of today. Serial labs have been ordered. CONSULTATION: Infectious Disease, Neurology, Neurosurgery, Cardiology, and Gastroenterology. At present, the patient's prognosis is guarded to poor. Family aware. Time spent is more than 35 minutes. Dictated and electronically signed, not read. Neeraj Elizondo MD
[2019-02-23] MEDS: Insulin Lispro (humaLOG) MEDIUM Coverage SC SCH ×2 (13:51→18:41)
[2019-02-23] MEDS: Enoxaparin 40 mg Syringe SC SCH (13:53)
--- NOTE | 2019-02-23 13:58 | CT ---
Date of service: 02/23/2019 PROCEDURE: CT Chest, Abdomen and Pelvis without intravenous contrast HISTORY: septic shock COMPARISON: None available. TECHNIQUE: Radiation dose: Total exam DLP = 1007.88 mGy-cm. This CT exam was performed using one or more of the following dose reduction techniques: Automated exposure control, adjustment of the mA and/or kV according to patient size, and/or use of iterative reconstruction technique. FINDINGS: CT CHEST WITHOUT CONTRAST: LUNGS: Bibasilar infiltrates are seen right greater than left with small pleural effusions. There also patchy infiltrate in the posterior inferior segment of the right upper lobe adjacent to the major fissure. Findings are consistent with pneumonia MEDIASTINUM: Unremarkable. Normal caliber aorta and pulmonary arterial trunk. Normal size heart. Aortic and coronary artery calcification. LYMPH NODES: Unremarkable. PLEURA: Unremarkable. No pneumothorax. No pleural fluid. BONES: Unremarkable. OTHER FINDINGS: None. CT ABDOMEN AND PELVIS: LIVER: Unremarkable. No gross lesion or ductal dilatation. GALLBLADDER AND BILE DUCTS: Unremarkable. PANCREAS: Unremarkable. No gross lesion or ductal dilatation. SPLEEN: Unremarkable. ADRENALS: Unremarkable. No mass. KIDNEYS AND URETERS: Unremarkable. No hydronephrosis. No solid mass. VASCULATURE: Aortic calcification Unremarkable. No aortic aneurysm. BOWEL: Unremarkable. No obstruction. No gross mural thickening. Nasogastric tube in the stomach. There is some mesenteric stranding in the right upper quadrant. Etiology of this is uncertain. There is no evidence of pneumatosis. There is no free air APPENDIX: Normal appendix. PERITONEUM: Unremarkable. No free fluid. No free air. LYMPH NODES: Unremarkable. No enlarged lymph nodes. BLADDER: Unremarkable. REPRODUCTIVE: Unremarkable. BONES: Multilevel disc degeneration OTHER FINDINGS: None. IMPRESSION: Bibasilar and right upper lobe pneumonia with small pleural effusions. Nonspecific mesenteric stranding in the right upper quadrant. Etiology uncertain. No evidence of intra-abdominal abscess.
[2019-02-23] MEDS ORDERED: Lubricant Eye Drops UD OU PRN (15:40)
[2019-02-23] MEDS ORDERED: White Petrolatum Ophth Oint (Puralube) OU PRN (18:52)
[2019-02-23] MEDS ORDERED: Cisatracurium 200 MG in Sodium Chloride 0.9% 500 ML IV ONE (18:52)
--- NOTE | 2019-02-23 20:08 | CP.PCM.PN ---
Subjective - Date & Time of Evaluation Date of Evaluation: 02/23/19 Time of Evaluation: 07:05 - Subjective Subjective: Patient continues to be on the ventilator, sedated, no fevers. Objective - Vital Signs/Intake and Output Vital Signs (last 24 hours): Temp Pulse Resp BP Pulse Ox 99.3 F 95 H 20 116/68 99 02/22/19 19:10 02/22/19 19:10 02/21/19 06:00 02/22/19 19:00 02/22/19 19:10 Intake and Output: 02/22/19 02/23/19 18:59 06:59 Intake Total 2733.0 0 Output Total 300 Balance 2433.0 0 - Medications Medications: Current Medications Acetaminophen (Tylenol 325mg Tab) 650 mg PO Q6 PRN PRN Reason: TEMP>=99.5F Last Admin: 02/21/19 00:43 Dose: 650 mg Acetaminophen (Tylenol 650 Mg Supp) 650 mg RC Q6H PRN PRN Reason: TEMP>=99.5F Last Admin: 02/19/19 10:16 Dose: 650 mg Acetylcysteine (Acetylcysteine 20%) 4 ml IH [id number] [facility] Last Admin: 02/22/19 12:59 Dose: 4 ml Aripiprazole (Abilify) 5 mg PO HS [facility] Last Admin: 02/20/19 21:44 Dose: 5 mg Atorvastatin Calcium (Lipitor) 40 mg PO DIN [facility] Last Admin: 02/20/19 18:47 Dose: 40 mg Dextrose (Dextrose 50% Inj) 50 ml IVP PRN PRN PRN Reason: Low blood sugar Docusate Sodium (Colace) 100 mg PO BID [facility] Last Admin: 02/20/19 18:47 Dose: 100 mg Donepezil HCl (Aricept) 10 mg PO HS [facility] Last Admin: 02/20/19 21:44 Dose: 10 mg Duloxetine HCl (Cymbalta) 60 mg PO BID [facility] Last Admin: 02/20/19 18:47 Dose: 60 mg Enoxaparin Sodium (Lovenox) 40 mg SC DAILY [facility]; Protocol Last Admin: 02/22/19 09:22 Dose: 40 mg Home Med (Home Med) 10 unit PO BID [facility] Last Admin: 02/20/19 18:49 Dose: Not Given Home Med (Home Med) 0.25 unit PO BID [facility] Last Admin: 02/20/19 18:49 Dose: Not Given Hydrocortisone Sodium Succinate (Solu-Cortef) 50 mg IVP Q6H [facility] Last Admin: 02/22/19 15:47 Dose: 50 mg Dextrose (Dextrose 5% In Water 1000 Ml) 1,000 mls @ 100 mls/hr IV .Q10H [facility] Last Admin: 02/22/19 05:30 Dose: Not Given Doxycycline Hyclate 100 mg/ (Sodium Chloride) 100 mls @ 100 mls/hr IVPB Q12 [facility]; Protocol Stop: 03/01/19 13:16 Last Admin: 02/22/19 11:40 Dose: 100 mls/hr Meropenem (Merrem Iv 1 Gm Premix) 1 gm in 50 mls @ 100 mls/hr IVPB Q8 [facility]; Protocol Stop: 03/01/19 14:01 Last Admin: 02/22/19 15:00 Dose: 100 mls/hr Fentanyl Citrate (Fentanyl Citrate/Sodium Chloride 1 Mg/100 Ml) 1,000 mcg in 100 mls @ 2 mls/hr IV .Q24H PRN; Protocol PRN Reason: TITRATE PER MD ORDER Last Titration: 02/21/19 20:00 Dose: 20 mcg/hr, 2 mls/hr NOREPINEPHRINE BIT/0.9 % NACL (Levophed 4 Mg/ 250 Ml Ns Premixed) 4 mg in 250 mls @ 15 mls/hr IV .[id number] PRN; Protocol PRN Reason: TITRATE PER MD ORDER Last Titration: 02/22/19 19:17 Dose: 0 mcg/min, 0 mls/hr Vasopressin 20 units/ Sodium (Chloride) 101 mls @ 9.09 mls/hr IV .Q11H7M [facility]; Protocol Last Admin: 02/22/19 16:15 Dose: 9.09 mls/hr Vancomycin HCl (Vancomycin 1gm) 1 gm in 250 mls @ 167 mls/hr IVPB Q12H [facility]; Protocol Stop: 03/02/19 09:46 Last Admin: 02/22/19 09:24 Dose: 167 mls/hr Insulin Human Lispro (Humalog Med) 0 units SC AC [facility]; Protocol Last Admin: 02/22/19 19:17 Dose: Not Given Levalbuterol HCl (Xopenex) 0.63 mg IH [id number] [facility] Last Admin: 02/22/19 12:59 Dose: 0.63 mg Mupirocin (Bactroban Ointment) 0 gm TOP TID [facility] Last Admin: 02/22/19 18:11 Dose: 1 applic Mycophenolate Mofetil (Cellcept Cap) 500 mg PO BID [facility] Last Admin: 02/20/19 18:47 Dose: 500 mg Ondansetron HCl (Zofran Inj) 4 mg IVP Q4H PRN PRN Reason: Nausea/Vomiting Pantoprazole Sodium (Protonix Ec Tab) 40 mg PO 0600 [facility] Last Admin: 02/20/19 06:08 Dose: 40 mg Pantoprazole Sodium (Protonix Inj) 40 mg IVP DAILY [facility] Last Admin: 02/22/19 09:26 Dose: 40 mg Tamsulosin HCl (Flomax) 0.4 mg PO DAILY [facility] Last Admin: 02/20/19 11:34 Dose: 0.4 mg - Labs Labs: 02/22/19 05:30 02/22/19 05:30 PT 14.3 SECONDS (9.4-12.5) H 02/14/19 14:15 INR 1.29 02/14/19 14:15 APTT 39.4 Seconds (26.9-38.3) H 02/14/19 14:15 - Constitutional Appears: Chronically Ill, Other (intubated, sedated) - Head Exam Head Exam: NORMAL INSPECTION - ENT Exam Additional comments: ET tube in place - Respiratory Exam Respiratory Exam: Decreased Breath Sounds - Cardiovascular Exam Cardiovascular Exam: +S1, +S2 - GI/Abdominal Exam GI & Abdominal Exam: Soft. 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
[2019-02-23 21:48] LABS: ARTERIAL BLOOD GAS HCO3 21.1 mmol/L (21-28); ARTERIAL BLOOD GAS HEMOGLOBIN 10.1 g/dL (11.7-17.4); ARTERIAL BLOOD GAS O2 CAPACITY 14.4 mL/dl (16-24); ARTERIAL BLOOD GAS O2 CONTENT 14.3 ML/dl (15-23); ARTERIAL BLOOD GAS O2 SAT 99.2 % (95-98); ARTERIAL BLOOD GAS PCO2 34 mm/Hg (35-45); ARTERIAL BLOOD GAS TCO2 22.1 mmol.L (22-28)
[2019-02-24 05:28] LABS: ARTERIAL BLOOD GAS HCO3 21.5 mmol/L (21-28); ARTERIAL BLOOD GAS HEMOGLOBIN 10.4 g/dL (11.7-17.4); ARTERIAL BLOOD GAS O2 CAPACITY 14.4 mL/dl (16-24); ARTERIAL BLOOD GAS O2 CONTENT 14.2 ML/dl (15-23); ARTERIAL BLOOD GAS O2 SAT 98.6 % (95-98); ARTERIAL BLOOD GAS PCO2 38 mm/Hg (35-45); ARTERIAL BLOOD GAS PH 7.36 (7.35-7.45); ARTERIAL BLOOD GAS TCO2 22.7 mmol.L (22-28)
[2019-02-24] MEDS: Meropenem IV 1 gm in NS 1 GM/50 ML BAG IVPB SCH ×3 (05:34→21:24)
[2019-02-24] MEDS: Insulin Lispro (humaLOG) MEDIUM Coverage SC SCH ×4 (06:00→18:00)
[2019-02-24 06:57] LABS: INR 1.06
[2019-02-24 07:27] LABS: ALB/GLOB RATIO 0.9 (1.1-1.8); ALBUMIN 2.6 g/dL (3.0-4.8); ALT/SGPT 22 U/L (7-56); AST/SGOT 51 U/L (17-59); BILIRUBIN,DIRECT 0.3 mg/dL (0.0-0.4); BLOOD UREA NITROGEN 23 mg/dL (7-21); CALCIUM 7.7 mg/dL (8.4-10.5); GFR NON-AFRICAN AMERICAN > 60
[2019-02-24 07:44] LABS: BASO # 0.01 K/mm3 (0.0-2.0); BASO % 0.1 % (0.0-3.0); LYMPH # 0.5 (1.2-3.4); LYMPH % 3.7 % (22.0-35.0); MEAN CELL VOLUME 84.7 fl (80.0-105.0); MEAN CORPUSCULAR HEMOGLOBIN 27.4 pg (25.0-35.0); MEAN CORPUSCULAR HGB CONC 32.3 g/dl (31.0-37.0); MEAN PLATELET VOLUME 10.3 fl (7.0-11.0); MONO # 0.9 (0.1-0.6); MONO % 6.2 % (1.0-6.0); RBC 3.91 10^6/uL (3.5-6.1); RED CELL DISTRIBUTION WIDTH 15.6 % (11.5-14.5); WHITE BLOOD COUNT 14.2 10^3/uL (4.5-11.0)
[2019-02-24 07:47] LABS: HEMOGLOBIN 10.7 g/dL (14.0-18.0)
[2019-02-24] MEDS: Acetylcysteine 20% Inhal Soln (4ml) IH SCH ×4 (07:48→19:50)
[2019-02-24] MEDS: Levalbuterol 0.63 MG/3 ML Inhal Soln UD IH SCH ×4 (07:48→19:51)
[2019-02-24] MEDS ORDERED: Potassium Phosphate 15 MMOLE in Dextrose 5% In Water 250 ML IVPB ONE ×2 (07:51→15:00)
--- NOTE | 2019-02-24 09:05 | RAD ---
Date of service: 02/23/2019 HISTORY: picc line placement COMPARISON: No prior. TECHNIQUE: 1 view obtained. FINDINGS: LUNGS: No active pulmonary disease. PLEURA: No significant pleural effusion identified, no pneumothorax apparent. CARDIOVASCULAR: No aortic atherosclerotic calcification present. Normal cardiac size. No pulmonary vascular congestion. OSSEOUS STRUCTURES: No significant abnormalities. VISUALIZED UPPER ABDOMEN: Normal. OTHER FINDINGS: None. IMPRESSION: Left-sided PICC line in satisfactory position at the junction of the right atrium and SVC
--- NOTE | 2019-02-24 09:32 | RAD ---
Date of service: 02/24/2019 HISTORY: intubated COMPARISON: 02/23/2019 TECHNIQUE: 1 view obtained. FINDINGS: LUNGS: No active pulmonary disease. Linear atelectasis on the left PLEURA: No significant pleural effusion identified, no pneumothorax apparent. CARDIOVASCULAR: No aortic atherosclerotic calcification present. Normal cardiac size. Mild vascular congestion OSSEOUS STRUCTURES: No significant abnormalities. VISUALIZED UPPER ABDOMEN: Normal. OTHER FINDINGS: None. IMPRESSION: Mild vascular congestion
--- NOTE | 2019-02-24 10:03 | PN ---
DATE: 02/24/2019 SUBJECTIVE: The patient is seen in CCU, bed 2. Overnight events were noted. The patient self extubated himself last evening. The patient is placed on BiPAP 5/10, FIO2 of 100%. The patient received 2 units of PRBC which he tolerated well. The patient underwent a CAT scan of the chest, abdomen, pelvis, results are reviewed. The patient is seen in CCU, bed 2. PHYSICAL EXAMINATION VITAL SIGNS: T-max 98.20; telemetry shows sinus rhythm, sinus tachycardia, heart rate in high 90s to low 100s; respirations 20-25; blood pressure 123/65 and O2 sat is 100% on BiPAP 5/10, 100%. HEENT: Head examination shows positive right craniotomy. Positive bilateral eye blindness pinkish pale conjunctivae. Anicteric sclerae. No oropharyngeal lesion. CHEST: Kyphosis. LUNGS: Shows positive rhonchi in bilateral upper lung field, right more than the left. CARDIOVASCULAR: Shows S1 and S2, tachycardic rhythm. ABDOMEN: Soft, positive bowel sounds. A surgical scar of liver transplant. GENITALIA: Male. Positive Rdz catheter. EXTREMITIES: Shows positive SCDs. NEUROLOGIC: The patient is arousable to painful stimuli; though, intermittent periods of lethargy noted. Cranial nerves II-XII limited. Gait examination is not tested. The patient is lying in the bed. PSYCHIATRIC: Examination is negative for anxiety and depression. Negative for auditory and visual hallucination. Negative for suicidal or homicidal ideation. DIAGNOSTICS: CAT scan of the chest, abdomen, pelvis shows multilobar bilateral pneumonia with a predominantly right upper lobe, right middle lobe pneumonia, bibasilar pneumonia and bilateral pleural effusion. Mesenteric stranding of the right upper quadrant, etiology undetermined. The patient's lab data from today; WBC 14.2, hemoglobin/hematocrit 10.7/ 33.1 and, platelets 333. Sodium 155, potassium 3.5, chloride 129, CO2 of 24, BUN 23, creatinine 0.7, glucose 145, calcium 7.7, phosphorus 2.1, magnesium 2.4, total protein 5.5 and albumin 2.6. IMPRESSION: 1. Severe sepsis. 2. Status post ventilator dependent respiratory failure with self extubation. 3. Status post acute hypoxic respiratory failure. 4. Severe sepsis with possible septic versus hypovolemic hypotensive shock. 5. Tachycardia. 6. High-grade fever. 7. Multilobar bilateral pneumonia and bibasilar pneumonia with the right upper lobe, right middle lobe, right lower lobe multilobar pneumonia. 8. Bilateral pleural effusion. 9. Right upper quadrant mesenteric stranding etiology undetermined. 10. Status post PRBC transfusion x2. 11. Leukocytosis with granulocytosis. 12. Normocytic anemia. 13. Hypernatremia. 14. Hypokalemia. 15. Hypophosphatemia. 16. Mild protein malnutrition and hypoalbuminemia. 17. Bilateral blindness. 18. 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 20. History of cirrhosis with status post liver transplant. 21. Right craniectomy. 22. Gait dysfunction. 23. Deconditioning. 24. Steroid-induced hyperglycemia. 25. Vasopressor dependent septic versus hypovolemic hypotensive shock. PLAN: At this time the patient will be continued in the ICU till further stabilization of the patient's pulmonary status and overall medical status. The patient is presently on BiPAP 5/10, FIO2 100%. The patient is to be continued on D5W IV fluid. The patient has been ordered K-Phos riders x2. The patient will be ordered free water p.o. or via NG tube 250 mL every 6 hours. Serial labs have been ordered for the morning. Consultation; Infectious Disease, Critical Care, Cardiology, Neurology and Gastroenterology. At present, the patient will be continued on all the medications as per the MAR of today. The patient is continued on norepinephrine and vasopressin drip. The patient is on pharmacological, non-pharmacological GI/DVT prophylaxis. The patient is to be continued on broad-spectrum IV antibiotic as per Infectious Disease recommendations. Dictated and electronically signed, not read. Signing off the MD lui thank you Neeraj Elizondo MD
[2019-02-24] MEDS: Vancomycin 1gm in NS 250ml 1 GM/250 ML BAG IVPB SCH ×2 (10:45→21:25)
[2019-02-24] MEDS: Enoxaparin 40 mg Syringe SC SCH (11:00)
[2019-02-24] MEDS: Mupirocin 2% Ointment 15 GM TUBE TOP SCH ×4 (11:08→18:00)
--- NOTE | 2019-02-24 11:49 | CP.CCUPN ---
<Chapo Chan - Last Filed: 02/24/19 12:36> CCU Subjective - Physician Review Subjective (Free Text): Chapo Chan DO, PGY-1 MICU Progress Note for Dr. Feldman Patient was seen and examined at bedside this AM. Patient self extubated yesterday evening but tolerated bipap well overnight. He is now maintaining SpO2 > 95% on NC alone. He is more awake and alert, states he would like to eat. CCU Objective - Vital Signs / Intake & Output Vital Signs (Last 4 hours): Vital Signs Temp Pulse Resp BP Pulse Ox 02/24/19 08:00 95.7 F L 89 18 110/72 100 02/24/19 07:50 95.7 F L 93 H 17 100 Intake and Output (Last 8hrs): Intake & Output 02/23/19 02/24/19 02/24/19 22:59 06:59 14:59 Intake Total 2960 632 Output Total 1300 2000 Balance 1660 -1368 Weight 164 lb 11.2 oz Intake: IV 2250 632 Right Femoral 2200 600 Blood Product 650 Red Blood Cells Cpd As1 325 Lr Unit [id number] Red Blood Cells Cpd As1 325 Lr Unit [id number] Other 60 Red Blood Cells Cpd As1 30 Lr Unit [id number] Red Blood Cells Cpd As1 30 Lr Unit [id number] Output: Urine 1300 2000 Urethral (Rdz) 1300 2000 Other: # Bowel Movements 2 - Physical Exam Head: Positive for: Atraumatic, Normocephalic Pupils: Positive for: PERRL Extroacular Muscles: Positive for: EOMI Conjunctiva: Positive for: Icteric Ears: Positive for: Normal, NORMAL TM, Normal Canal. Negative for: Erythema, TM Bulging, Fluid, TM Perf Mouth: Positive for: Moist Mucous Membranes Pharnyx: Positive for: Normal. Negative for: ERYTHEMA, EXUDATE Neck: Negative for: Lymphadenopathy Respiratory/Chest: Positive for: Rales (faint rales loudest over RUL, RML). Negative for: Wheezes, Rhonchi Cardiovascular: Positive for: Regular Rate and Rhythm, Normal S1, S2. Negative for: Murmurs, Rub, Gallop Abdomen: Positive for: Normal Bowel Sounds, Scars (liver transplant post-op abdominal scar noted). Negative for: Tenderness, Distention, Peritoneal Signs Back: Positive for: Normal Inspection. Negative for: CVA Tenderness, Midline Tenderness Upper Extremity: Positive for: NORMAL PULSES, Capillary Refill < 2s, Other (RUE with area of erythema, approximately 3 x 5 cm). Negative for: Cyanosis, Edema Lower Extremity: Positive for: NORMAL PULSES, Capillary Refill < 2 s. Negative for: Edema Neurological: Positive for: CN II-XII Intact, Motor Func Grossly Intact Skin: Positive for: Warm, Dry, Other (diffusely jaundiced and pale) Psychiatric: Positive for: Alert, Oriented x 3, Anxious - Medications Active Medications: Active Medications Generic Name Dose Route Start Last Admin Trade Name Freq PRN Reason Stop Dose Admin Acetaminophen 650 mg 02/15/19 09:01 02/21/19 00:43 Tylenol 325mg Tab PO 650 mg Q6 PRN Administration TEMP>=99.5F Acetaminophen 650 mg 02/15/19 09:01 02/19/19 10:16 Tylenol 650 Mg Supp RC 650 mg Q6H PRN Administration TEMP>=99.5F Acetylcysteine 4 ml 02/22/19 14:00 02/24/19 11:15 Acetylcysteine 20% IH Not Given [id number] NETTA Aripiprazole 5 mg 02/16/19 08:34 02/20/19 21:44 Abilify PO 5 mg HS NETTA Administration Artificial Tears 0.3 ml 02/23/19 15:40 02/23/19 18:41 Refresh Opth Soln OU 1 drop Q4H PRN Administration Dry eyes Artificial Tears 1 appl 02/23/19 18:52 Puralube Opht Oint OU Q4H PRN Dry eyes Atorvastatin Calcium 40 mg 02/15/19 17:00 02/20/19 18:47 Lipitor PO 40 mg DIN NETTA Administration Dextrose 50 ml 02/22/19 07:50 Dextrose 50% Inj IVP PRN PRN Low blood sugar Dextrose 0 ml 02/22/19 21:32 Dextrose 50% Inj IV STAT PRN Hypoglycemia Protocol Protocol Docusate Sodium 100 mg 02/17/19 18:00 02/20/19 18:47 Colace PO 100 mg BID NETTA Administration Donepezil HCl 10 mg 02/14/19 22:00 02/20/19 21:44 Aricept PO 10 mg HS NETTA Administration Duloxetine HCl 60 mg 02/14/19 18:00 02/20/19 18:47 Cymbalta PO 60 mg BID NETTA Administration Enoxaparin Sodium 40 mg 02/15/19 10:00 02/24/19 11:00 Lovenox SC 40 mg DAILY NETTA Administration Protocol Home Med 10 unit 02/14/19 18:00 02/20/19 18:49 Home Med PO Not Given BID NETTA Home Med 0.25 unit 02/14/19 18:00 02/20/19 18:49 Home Med PO Not Given BID NETTA Hydrocortisone Sodium Succinate 25 mg 02/23/19 22:00 02/24/19 11:02 Solu-Cortef IVP 25 mg Q12 NETTA Administration Doxycycline Hyclate 100 mg/ 100 mls @ 100 mls/hr 02/20/19 13:15 02/24/19 11:13 Sodium Chloride IVPB 03/01/19 13:16 100 mls/hr Q12 NETTA Administration Protocol Meropenem 1 gm in 50 mls @ 100 mls/hr 02/20/19 14:00 02/24/19 05:34 Merrem Iv 1 Gm Premix IVPB 03/01/19 14:01 100 mls/hr Q8 NETTA Administration Protocol Vancomycin HCl 1 gm in 250 mls @ 167 mls/hr 02/21/19 09:45 02/24/19 10:45 Vancomycin 1gm IVPB 03/02/19 09:46 167 mls/hr Q12H NETTA Administration Protocol Dextrose 1,000 mls @ 0 mls/hr 02/22/19 21:32 Dextrose 5% In Water 1000 Ml IV .Q0M PRN Hypoglycemia Protocol Protocol Per Protocol Potassium Phosphate 15 mmole/ 255 mls @ 42.5 mls/hr 02/24/19 07:51 02/24/19 10:09 Dextrose IVPB 02/24/19 13:50 42.5 mls/hr ONCE ONE Administration Potassium Phosphate 15 mmole/ 255 mls @ 42.5 mls/hr 02/24/19 15:00 Dextrose IVPB 02/24/19 20:59 ONCE ONE Dextrose 1,000 mls @ 60 mls/hr 02/24/19 08:15 02/24/19 10:07 Dextrose 5% In Water 1000 Ml IV 60 mls/hr .[id number] NETTA Administration Insulin Human Lispro 0 units 02/23/19 12:00 02/24/19 06:00 Humalog Med SC Not Given Q6 [facility] Protocol Levalbuterol HCl 0.63 mg 02/15/19 14:00 02/24/19 11:16 [facility]ex [facility]H [id number] Morphine Sulfate 2 mg 02/24/19 11:39 Morphine IVP Q4H PRN Pain, moderate (4-7) Mupirocin 0 gm 02/19/19 10:00 02/24/19 11:08 Bactroban Ointment TOP 1 applic TID [facility] Administration Mycophenolate Mofetil 500 mg 02/15/19 18:00 02/20/19 18:47 Cellcept Cap PO 500 mg BID [facility] Administration Ondansetron HCl 4 mg 02/15/19 09:01 Zofran Inj IVP Q4H PRN Nausea/Vomiting Pantoprazole Sodium 40 mg 02/15/19 06:00 02/20/19 06:08 Protonix Ec Tab PO 40 mg 0600 [facility] Administration Pantoprazole Sodium 40 mg 02/21/19 10:00 02/24/19 11:00 Protonix Inj IVP 40 mg DAILY [facility] Administration Tamsulosin HCl 0.4 mg 02/15/19 10:00 02/20/19 11:34 Flomax PO 0.4 mg DAILY [facility] Administration - Patient Studies Lab Studies: Microbiology Studies 02/21/19 19:45 Blood Culture - Preliminary Blood NO GROWTH AFTER 48 HOURS 02/21/19 17:30 Blood Culture - Preliminary Blood NO GROWTH AFTER 48 HOURS 02/20/19 14:00 Blood Culture - Preliminary Blood NO GROWTH AFTER 3 DAYS 02/20/19 13:40 Blood Culture - Preliminary Blood NO GROWTH AFTER 3 DAYS 02/21/19 17:00 Urine Culture - Final Urine,Rdz No Growth (<1,000 CFU/ML) 02/21/19 17:00 Gram Stain - Final Trachasp Sputum Culture - Final Yeast Species Lab Studies 02/24/19 02/24/19 02/24/19 Range/Units 06:00 06:00 06:00 WBC 14.2 H D (4.5-11.0) 10^3/uL RBC 3.91 (3.5-6.1) 10^6/uL Hgb 10.7 L D (14.0-18.0) g/dL Hct 33.1 L (42.0-52.0) % MCV 84.7 (80.0-105.0) fl MCH 27.4 (25.0-35.0) pg MCHC 32.3 (31.0-37.0) g/dl RDW 15.6 H (11.5-14.5) % Plt Count 333 (120.0-450.0) 10^3/uL MPV 10.3 (7.0-11.0) fl Neut % (Auto) 90.0 H (50.0-68.0) % Lymph % (Auto) 3.7 L (22.0-35.0) % [place] % (Auto) 6.2 H (1.0-6.0) % Eos % (Auto) 0.0 L (1.5-5.0) % Baso % (Auto) 0.1 (0.0-3.0) % Lymph # (Auto) 0.5 L (1.2-3.4) [place] # (Auto) 0.9 H (0.1-0.6) Eos # (Auto) 0.0 (0.0-0.7) Baso # (Auto) 0.01 (0.0-2.0) K/mm3 Absolute Neuts (auto) 12.83 H (1.4-6.5) PT 12.0 (9.4-12.5) SECONDS INR 1.06 pCO2 (35-45) mm/Hg pO2 (80-100) mm/Hg HCO3 (21-28) mmol/L ABG pH (7.35-7.45) ABG Total CO2 (22-28) mmol.L ABG O2 Saturation (95-98) % ABG O2 Content (15-23) ML/dl ABG Base Excess (-2.0-3.0) mmol/L ABG Hemoglobin (11.7-17.4) g/dL ABG Carboxyhemoglobin (0.5-1.5) % POC ABG HHb (Measured) (0-5) % ABG Methemoglobin (0.0-3.0) % ABG O2 Capacity (16-24) mL/dl Hgb O2 Saturation (95.0-98.0) % FiO2 % Sodium 155 H (132-148) mmol/L Potassium 3.5 L (3.6-5.0) mmol/L Chloride 129 H (98-107) mmol/L Carbon Dioxide 24 (21-33) mmol/L Anion Gap 6 L (10-20) BUN 23 H (7-21) mg/dL Creatinine 0.7 L (0.8-1.5) mg/dl Est GFR ( Amer) > 60 Est GFR (Non-Af Amer) > 60 POC Glucose (mg/dL) (65-110) mg/dL Random Glucose 145 H (70-110) mg/dL Calcium 7.7 L (8.4-10.5) mg/dL Phosphorus 2.1 L (2.5-4.5) mg/dL Magnesium 2.4 H (1.7-2.2) mg/dL Total Bilirubin 0.3 (0.2-1.3) mg/dL Direct Bilirubin 0.3 (0.0-0.4) mg/dL AST 51 (17-59) U/L ALT 22 (7-56) U/L Alkaline Phosphatase 81 (38-126) U/L Total Protein 5.5 L (5.8-8.3) g/dL Albumin 2.6 L (3.0-4.8) g/dL Globulin 2.9 gm/dL Albumin/Globulin Ratio 0.9 L (1.1-1.8) Blood Type Antibody Screen Crossmatch BBK History Checked 02/24/19 02/24/19 02/23/19 Range/Units 05:45 05:20 23:26 WBC (4.5-11.0) 10^3/uL RBC (3.5-6.1) 10^6/uL Hgb (14.0-18.0) g/dL Hct (42.0-52.0) % MCV (80.0-105.0) fl MCH (25.0-35.0) pg MCHC (31.0-37.0) g/dl RDW (11.5-14.5) % Plt Count (120.0-450.0) 10^3/uL MPV (7.0-11.0) fl Neut % (Auto) (50.0-68.0) % Lymph % (Auto) (22.0-35.0) % [place] % (Auto) (1.0-6.0) % Eos % (Auto) (1.5-5.0) % Baso % (Auto) (0.0-3.0) % Lymph # (Auto) (1.2-3.4) [place] # (Auto) (0.1-0.6) Eos # (Auto) (0.0-0.7) Baso # (Auto) (0.0-2.0) K/mm3 Absolute Neuts (auto) (1.4-6.5) PT (9.4-12.5) SECONDS INR pCO2 38 (35-45) mm/Hg pO2 110.0 H (80-100) mm/Hg HCO3 21.5 (21-28) mmol/L ABG pH 7.36 (7.35-7.45) ABG Total CO2 22.7 (22-28) mmol.L ABG O2 Saturation 98.6 H (95-98) % ABG O2 Content 14.2 L (15-23) ML/dl ABG Base Excess -3.6 L (-2.0-3.0) mmol/L ABG Hemoglobin 10.4 L (11.7-17.4) g/dL ABG Carboxyhemoglobin 1.1 (0.5-1.5) % POC ABG HHb (Measured) 1.4 (0-5) % ABG Methemoglobin 1.4 (0.0-3.0) % ABG O2 Capacity 14.4 L (16-24) mL/dl Hgb O2 Saturation 96.1 (95.0-98.0) % FiO2 50.0 % Sodium (132-148) mmol/L Potassium (3.6-5.0) mmol/L Chloride (98-107) mmol/L Carbon Dioxide (21-33) mmol/L Anion Gap (10-20) BUN (7-21) mg/dL Creatinine (0.8-1.5) mg/dl Est GFR ( Amer) Est GFR (Non-Af Amer) POC Glucose (mg/dL) 148 H 203 H (65-110) mg/dL Random Glucose (70-110) mg/dL Calcium (8.4-10.5) mg/dL Phosphorus (2.5-4.5) mg/dL Magnesium (1.7-2.2) mg/dL Total Bilirubin (0.2-1.3) mg/dL Direct Bilirubin (0.0-0.4) mg/dL AST (17-59) U/L ALT (7-56) U/L Alkaline Phosphatase (38-126) U/L Total Protein (5.8-8.3) g/dL Albumin (3.0-4.8) g/dL Globulin gm/dL Albumin/Globulin Ratio (1.1-1.8) Blood Type Antibody Screen Crossmatch BBK History Checked 02/23/19 02/23/19 02/23/19 Range/Units 21:40 15:50 10:20 WBC (4.5-11.0) 10^3/uL RBC (3.5-6.1) 10^6/uL Hgb (14.0-18.0) g/dL Hct (42.0-52.0) % MCV (80.0-105.0) fl MCH (25.0-35.0) pg MCHC (31.0-37.0) g/dl RDW (11.5-14.5) % Plt Count (120.0-450.0) 10^3/uL MPV (7.0-11.0) fl Neut % (Auto) (50.0-68.0) % Lymph % (Auto) (22.0-35.0) % [place] % (Auto) (1.0-6.0) % Eos % (Auto) (1.5-5.0) % Baso % (Auto) (0.0-3.0) % Lymph # (Auto) (1.2-3.4) [place] # (Auto) (0.1-0.6) Eos # (Auto) (0.0-0.7) Baso # (Auto) (0.0-2.0) K/mm3 Absolute Neuts (auto) (1.4-6.5) PT (9.4-12.5) SECONDS INR pCO2 34 L (35-45) mm/Hg pO2 209.0 H (80-100) mm/Hg HCO3 21.1 (21-28) mmol/L ABG pH 7.40 (7.35-7.45) ABG Total CO2 22.1 (22-28) mmol.L ABG O2 Saturation 99.2 H (95-98) % ABG O2 Content 14.3 L (15-23) ML/dl ABG Base Excess -3.2 L (-2.0-3.0) mmol/L ABG Hemoglobin 10.1 L (11.7-17.4) g/dL ABG Carboxyhemoglobin 1.1 (0.5-1.5) % POC ABG HHb (Measured) 0.8 (0-5) % ABG Methemoglobin 1.2 (0.0-3.0) % ABG O2 Capacity 14.4 L (16-24) mL/dl Hgb O2 Saturation 97.0 (95.0-98.0) % FiO2 100.0 % Sodium (132-148) mmol/L Potassium (3.6-5.0) mmol/L Chloride (98-107) mmol/L Carbon Dioxide (21-33) mmol/L Anion Gap (10-20) BUN (7-21) mg/dL Creatinine (0.8-1.5) mg/dl Est GFR ( Amer) Est GFR (Non-Af Amer) POC Glucose (mg/dL) 207 H (65-110) mg/dL Random Glucose (70-110) mg/dL Calcium (8.4-10.5) mg/dL Phosphorus (2.5-4.5) mg/dL Magnesium (1.7-2.2) mg/dL Total Bilirubin (0.2-1.3) mg/dL Direct Bilirubin (0.0-0.4) mg/dL AST (17-59) U/L ALT (7-56) U/L Alkaline Phosphatase (38-126) U/L Total Protein (5.8-8.3) g/dL Albumin (3.0-4.8) g/dL Globulin gm/dL Albumin/Globulin Ratio (1.1-1.8) Blood Type A POSITIVE Antibody Screen Negative Crossmatch See Detail BBK History Checked Patient has bt Laboratory Results - last 24 hr 02/23/19 02/23/19 02/23/19 10:20 15:50 21:40 WBC RBC Hgb Hct MCV MCH MCHC RDW Plt Count MPV Neut % (Auto) Lymph % (Auto) [place] % (Auto) Eos % (Auto) Baso % (Auto) Lymph # (Auto) [place] # (Auto) Eos # (Auto) Baso # (Auto) Absolute Neuts (auto) PT INR pCO2 34 L pO2 209.0 H HCO3 21.1 ABG pH 7.40 ABG Total CO2 22.1 ABG O2 Saturation 99.2 H ABG O2 Content 14.3 L ABG Base Excess -3.2 L ABG Hemoglobin 10.1 L ABG Carboxyhemoglobin 1.1 POC ABG HHb (Measured) 0.8 ABG Methemoglobin 1.2 ABG O2 Capacity 14.4 L Hgb O2 Saturation 97.0 FiO2 100.0 Sodium Potassium Chloride Carbon Dioxide Anion Gap BUN Creatinine Est GFR ( Amer) Est GFR (Non-Af Amer) POC Glucose (mg/dL) 207 H Random Glucose Calcium Phosphorus Magnesium Total Bilirubin Direct Bilirubin AST ALT Alkaline Phosphatase Total Protein Albumin Globulin Albumin/Globulin Ratio Blood Type A POSITIVE Antibody Screen Negative Crossmatch See Detail BBK History Checked Patient has bt 02/23/19 02/24/19 02/24/19 23:26 05:20 05:45 WBC RBC Hgb Hct MCV MCH MCHC RDW Plt Count MPV Neut % (Auto) Lymph % (Auto) [place] % (Auto) Eos % (Auto) Baso % (Auto) Lymph # (Auto) [place] # (Auto) Eos # (Auto) Baso # (Auto) Absolute Neuts (auto) PT INR pCO2 38 pO2 110.0 H HCO3 21.5 ABG pH 7.36 ABG Total CO2 22.7 ABG O2 Saturation 98.6 H ABG O2 Content 14.2 L ABG Base Excess -3.6 L ABG Hemoglobin 10.4 L ABG Carboxyhemoglobin 1.1 POC ABG HHb (Measured) 1.4 ABG Methemoglobin 1.4 ABG O2 Capacity 14.4 L Hgb O2 Saturation 96.1 FiO2 50.0 Sodium Potassium Chloride Carbon Dioxide Anion Gap BUN Creatinine Est GFR ( Amer) Est GFR (Non-Af Amer) POC Glucose (mg/dL) 203 H 148 H Random Glucose Calcium Phosphorus Magnesium Total Bilirubin Direct Bilirubin AST ALT Alkaline Phosphatase Total Protein Albumin Globulin Albumin/Globulin Ratio Blood Type Antibody Screen Crossmatch BBK History Checked 02/24/19 02/24/19 02/24/19 06:00 06:00 06:00 WBC 14.2 H D RBC 3.91 Hgb 10.7 L D Hct 33.1 L MCV 84.7 MCH 27.4 MCHC 32.3 RDW 15.6 H Plt Count 333 MPV 10.3 Neut % (Auto) 90.0 H Lymph % (Auto) 3.7 L [place] % (Auto) 6.2 H Eos % (Auto) 0.0 L Baso % (Auto) 0.1 Lymph # (Auto) 0.5 L [place] # (Auto) 0.9 H Eos # (Auto) 0.0 Baso # (Auto) 0.01 Absolute Neuts (auto) 12.83 H PT 12.0 INR 1.06 pCO2 pO2 HCO3 ABG pH ABG Total CO2 ABG O2 Saturation ABG O2 Content ABG Base Excess ABG Hemoglobin ABG Carboxyhemoglobin POC ABG HHb (Measured) ABG Methemoglobin ABG O2 Capacity Hgb O2 Saturation FiO2 Sodium 155 H Potassium 3.5 L Chloride 129 H Carbon Dioxide 24 Anion Gap 6 L BUN 23 H Creatinine 0.7 L Est GFR ( Amer) > 60 Est GFR (Non-Af Amer) > 60 POC Glucose (mg/dL) Random Glucose 145 H Calcium 7.7 L Phosphorus 2.1 L Magnesium 2.4 H Total Bilirubin 0.3 Direct Bilirubin 0.3 AST 51 ALT 22 Alkaline Phosphatase 81 Total Protein 5.5 L Albumin 2.6 L Globulin 2.9 Albumin/Globulin Ratio 0.9 L Blood Type Antibody Screen Crossmatch BBK History Checked Radiology Impressions: Radiology Impressions Chest/Abdomen/Pelvis CT 02/22/19 11:32 IMPRESSION: Bibasilar and right upper lobe pneumonia with small pleural effusions. Nonspecific mesenteric stranding in the right upper quadrant. Etiology uncertain. No evidence of intra-abdominal abscess. Chest X-Ray 02/23/19 19:48 IMPRESSION: Left-sided PICC line in satisfactory position at the junction of the right atrium and SVC Chest X-Ray 02/24/19 07:00 IMPRESSION: Mild vascular congestion Fingerstick Blood Sugar Results: 148 Critical Care Progress Note - Nutrition Nutrition: Nutrition Category Date Time Status NPO Diet [DIET] Diets 02/21/19 Breakfast Ordered Assessment/Plan - Assessment and Plan (Free Text) Assessment: 63 yo M with PMH of cirrhosis (s/p liver transplant), chronic pain on narcotics, HTN, depression, hypothyroidism, blindness, craniopharyngioma, and psoriasis initially admitted for fever, generalized weakness, and sepsis thought to be 2/2 RUE cellulitis. Yesterday morning, he began to acutely decompensate into septic shock, requiring rapid IVF resuscitation, ET intubation, and trasnfer to MICU. Plan: Neuro: Now off ventilator, more awake and alert, requesting food Additional history obtained Patient has known history of craniopharyngioma Case has been reviewed by Dr. Villarreal, Dr. Nichols previously No acute intervention warranted Ammonia negative since admission Neurology following, all recs appreciated Cardio: No longer requiring pressor support LUE PICC line placed yesterday D/c R femoral line today Continue to maintain MAP > 65 Continue to monitor HD parameters closely Pulm: Patient self-extubated yesterday evening Has not been hypoxemic since extubation, tolerated bipap well overnight Repeat ABG this AM with resolution of hypoxemic respiratory failure Repeat CXR this AM with improved RUL and RML infiltrates Continue to maintain SpO2 > 95%, O2 NC PRN Endo: Random glucose: 145 Continue ISS - medium Maintain glucose between 140-180 Continue stress dose solu-cortef 25 mg q12h On day 3 of stress dose steroids Will recommend quicker taper following 3-5 days now that patient is off pressors per [facility] guidelines GI: Will get speech/swallow eval Restart diet following recs Recommend collecting FOBT GI following, all recs appreciated /Nephro: Renal function parameters stable Monitor UOP closely Hypernatremia returned Restart D5W, 1/2 NS at 60 cc/hr Heme/Onc: H/H acutely worsened, concerning for possible bleed, but improved s/p transfusion of 2 u PRBCs Recommend FOBT Patient has been worked up for craniopharyngioma in the past, no intervention was recommended Bone scan was negative for signs of metastatic disease Palliative following, all recs appreciated ID: AFebrile overnight with improvement of leukocytosis On vanc/merrem/doxycycline per ID recs ID following, all recs appreciated DVT/GI PPX: Lovenox/protonix Full Code NPO pending swallow eval/recs Monitor in MICU, if stabilized by afternoon may consider transfer to telemetry Patient seen, examined with, and plan confirmed with my attending Dr. Sascha Chan D.O. IM Resident PGY-1 Pager: [phone] <Rocco Desai - Last Filed: 02/24/19 17:54> CCU Objective - Vital Signs / Intake & Output Intake and Output (Last 8hrs): Intake & Output 02/24/19 02/24/19 02/24/19 06:59 14:59 22:59 Intake Total 632 Output Total 1999 Balance -1368 Weight 74.707 kg Intake: IV 632 Right Femoral 600 Output: Urine 2000 Urethral (Rdz) 1999 Other: # Bowel Movements 2 - Medications Active Medications: Active Medications Generic Name Dose Route Start Last Admin Trade Name Freq PRN Reason Stop Dose Admin Acetaminophen 650 mg 02/15/19 09:01 02/21/19 00:43 Tylenol 325mg Tab PO 650 mg Q6 PRN Administration TEMP>=99.5F Acetaminophen 650 mg 02/15/19 09:01 02/19/19 10:16 Tylenol 650 Mg Supp RC 650 mg Q6H PRN Administration TEMP>=99.5F Acetylcysteine 4 ml 02/22/19 14:00 02/24/19 13:33 Acetylcysteine 20% IH 4 ml [id number] NETTA Administration Aripiprazole 5 mg 02/16/19 08:34 02/20/19 21:44 Abilify PO 5 mg HS NETTA Administration Artificial Tears 0.3 ml 02/23/19 15:40 02/23/19 18:41 Refresh Opth Soln OU 1 drop Q4H PRN Administration Dry eyes Artificial Tears 1 appl 02/23/19 18:52 Puralube Opht Oint OU Q4H PRN Dry eyes Atorvastatin Calcium 40 mg 02/15/19 17:00 02/20/19 18:47 Lipitor PO 40 mg DIN NETTA Administration Dextrose 50 ml 02/22/19 07:50 Dextrose 50% Inj IVP PRN PRN Low blood sugar Dextrose 0 ml 02/22/19 21:32 Dextrose 50% Inj IV STAT PRN Hypoglycemia Protocol Protocol Docusate Sodium 100 mg 02/17/19 18:00 02/20/19 18:47 Colace PO 100 mg BID NETTA Administration Donepezil HCl 10 mg 02/14/19 22:00 02/20/19 21:44 Aricept PO 10 mg HS NETTA Administration Duloxetine HCl 60 mg 02/14/19 18:00 02/20/19 18:47 Cymbalta PO 60 mg BID NETTA Administration Enoxaparin Sodium 40 mg 02/15/19 10:00 02/24/19 11:00 Lovenox SC 40 mg DAILY [facility] Administration Protocol Fentanyl 50 mcg 02/24/19 15:48 Fentanyl IVP Q6 PRN Agitation Home Med 10 unit 02/14/19 18:00 02/20/19 18:49 Home Med PO Not Given BID NETTA Home Med 0.25 unit 02/14/19 18:00 02/20/19 18:49 Home Med PO Not Given BID NETTA Doxycycline Hyclate 100 mg/ 100 mls @ 100 mls/hr 02/20/19 13:15 02/24/19 11:13 Sodium Chloride IVPB 03/01/19 13:16 100 mls/hr Q12 NET[facility] Administration Protocol Meropenem 1 gm in 50 mls @ 100 mls/hr 02/20/19 14:00 02/24/19 14:59 Merrem Iv 1 Gm Premix IVPB 03/01/19 14:01 100 mls/hr Q8 [facility] Administration Protocol Vancomycin HCl 1 gm in 250 mls @ 167 mls/hr 02/21/19 09:45 02/24/19 10:45 Vancomycin 1gm IVPB 03/02/19 09:46 167 mls/hr Q12H NET[facility] Administration Protocol Dextrose 1,000 mls @ 0 mls/hr 02/22/19 21:32 Dextrose 5% In Water 1000 Ml IV .Q0M PRN Hypoglycemia Protocol Protocol Per Protocol Potassium Phosphate 15 mmole/ 255 mls @ 42.5 mls/hr 02/24/19 15:00 Dextrose IVPB 02/24/19 20:59 ONCE ONE Dextrose 1,000 mls @ 100 mls/hr 02/24/19 14:15 02/24/19 14:52 Dextrose 5% In Water 1000 Ml IV 100 mls/hr .Q10H NETTA Administration Insulin Human Lispro 0 units 02/23/19 12:00 02/24/19 12:00 Humalog Med SC Not Given Q6 [facility] Protocol Levalbuterol HCl 0.63 mg 02/15/19 14:00 02/24/19 13:34 Xopenex IH 0.63 mg [id number] NETTA Administration Morphine Sulfate 2 mg 02/24/19 11:39 02/24/19 12:17 Morphine IVP 2 mg Q4H PRN Administration Pain, moderate (4-7) Mupirocin 0 gm 02/19/19 10:00 02/24/19 15:00 Bactroban Ointment TOP 1 applic TID NETTA Administration Mycophenolate Mofetil 500 mg 02/15/19 18:00 02/20/19 18:47 Cellcept Cap PO 500 mg BID [facility] Administration Ondansetron HCl 4 mg 02/15/19 09:01 Zofran Inj IVP Q4H PRN Nausea/Vomiting Pantoprazole Sodium 40 mg 02/15/19 06:00 02/20/19 06:08 Protonix Ec Tab PO 40 mg 0600 NETTA Administration Pantoprazole Sodium 40 mg 02/21/19 10:00 02/24/19 11:00 Protonix Inj IVP 40 mg DAILY NETTA Administration Prednisone 5 mg 02/24/19 18:00 Prednisone Tab PO BID [facility] Tamsulosin HCl 0.4 mg 02/15/19 10:00 02/20/19 11:34 Flomax PO 0.4 mg DAILY NETTA Administration - Patient Studies Lab Studies: Microbiology Studies 02/20/19 14:00 Blood Culture - Preliminary Blood NO GROWTH AFTER 4 DAYS 02/20/19 13:40 Blood Culture - Preliminary Blood NO GROWTH AFTER 4 DAYS 02/21/19 19:45 Blood Culture - Preliminary Blood NO GROWTH AFTER 48 HOURS 02/21/19 17:30 Blood Culture - Preliminary Blood NO GROWTH AFTER 48 HOURS Lab Studies 02/24/19 02/24/19 02/24/19 Range/Units 17:37 12:47 06:00 WBC (4.5-11.0) 10^3/uL RBC (3.5-6.1) 10^6/uL Hgb (14.0-18.0) g/dL Hct (42.0-52.0) % MCV (80.0-105.0) fl MCH (25.0-35.0) pg MCHC (31.0-37.0) g/dl RDW (11.5-14.5) % Plt Count (120.0-450.0) 10^3/uL MPV (7.0-11.0) fl Neut % (Auto) (50.0-68.0) % Lymph % (Auto) (22.0-35.0) % [place] % (Auto) (1.0-6.0) % Eos % (Auto) (1.5-5.0) % Baso % (Auto) (0.0-3.0) % Lymph # (Auto) (1.2-3.4) [place] # (Auto) (0.1-0.6) Eos # (Auto) (0.0-0.7) Baso # (Auto) (0.0-2.0) K/mm3 Absolute Neuts (auto) (1.4-6.5) PT 12.0 (9.4-12.5) SECONDS INR 1.06 pCO2 (35-45) mm/Hg pO2 (80-100) mm/Hg HCO3 (21-28) mmol/L ABG pH (7.35-7.45) ABG Total CO2 (22-28) mmol.L ABG O2 Saturation (95-98) % ABG O2 Content (15-23) ML/dl ABG Base Excess (-2.0-3.0) mmol/L ABG Hemoglobin (11.7-17.4) g/dL ABG Carboxyhemoglobin (0.5-1.5) % POC ABG HHb (Measured) (0-5) % ABG Methemoglobin (0.0-3.0) % ABG O2 Capacity (16-24) mL/dl Hgb O2 Saturation (95.0-98.0) % FiO2 % Sodium (132-148) mmol/L Potassium (3.6-5.0) mmol/L Chloride (98-107) mmol/L Carbon Dioxide (21-33) mmol/L Anion Gap (10-20) BUN (7-21) mg/dL Creatinine (0.8-1.5) mg/dl Est GFR ( Amer) Est GFR (Non-Af Amer) POC Glucose (mg/dL) 171 H 112 H (65-110) mg/dL Random Glucose (70-110) mg/dL Calcium (8.4-10.5) mg/dL Phosphorus (2.5-4.5) mg/dL Magnesium (1.7-2.2) mg/dL Total Bilirubin (0.2-1.3) mg/dL Direct Bilirubin (0.0-0.4) mg/dL AST (17-59) U/L ALT (7-56) U/L Alkaline Phosphatase (38-126) U/L Total Protein (5.8-8.3) g/dL Albumin (3.0-4.8) g/dL Globulin gm/dL Albumin/Globulin Ratio (1.1-1.8) Crossmatch 02/24/19 02/24/19 02/24/19 Range/Units 06:00 06:00 05:45 WBC 14.2 H D (4.5-11.0) 10^3/uL RBC 3.91 (3.5-6.1) 10^6/uL Hgb 10.7 L D (14.0-18.0) g/dL Hct 33.1 L (42.0-52.0) % MCV 84.7 (80.0-105.0) fl MCH 27.4 (25.0-35.0) pg MCHC 32.3 (31.0-37.0) g/dl RDW 15.6 H (11.5-14.5) % Plt Count 333 (120.0-450.0) 10^3/uL MPV 10.3 (7.0-11.0) fl Neut % (Auto) 90.0 H (50.0-68.0) % Lymph % (Auto) 3.7 L (22.0-35.0) % [place] % (Auto) 6.2 H (1.0-6.0) % Eos % (Auto) 0.0 L (1.5-5.0) % Baso % (Auto) 0.1 (0.0-3.0) % Lymph # (Auto) 0.5 L (1.2-3.4) [place] # (Auto) 0.9 H (0.1-0.6) Eos # (Auto) 0.0 (0.0-0.7) Baso # (Auto) 0.01 (0.0-2.0) K/mm3 Absolute Neuts (auto) 12.83 H (1.4-6.5) PT (9.4-12.5) SECONDS INR pCO2 (35-45) mm/Hg pO2 (80-100) mm/Hg HCO3 (21-28) mmol/L ABG pH (7.35-7.45) ABG Total CO2 (22-28) mmol.L ABG O2 Saturation (95-98) % ABG O2 Content (15-23) ML/dl ABG Base Excess (-2.0-3.0) mmol/L ABG Hemoglobin (11.7-17.4) g/dL ABG Carboxyhemoglobin (0.5-1.5) % POC ABG HHb (Measured) (0-5) % ABG Methemoglobin (0.0-3.0) % ABG O2 Capacity (16-24) mL/dl Hgb O2 Saturation (95.0-98.0) % FiO2 % Sodium 155 H (132-148) mmol/L Potassium 3.5 L (3.6-5.0) mmol/L Chloride 129 H (98-107) mmol/L Carbon Dioxide 24 (21-33) mmol/L Anion Gap 6 L (10-20) BUN 23 H (7-21) mg/dL Creatinine 0.7 L (0.8-1.5) mg/dl Est GFR ( Amer) > 60 Est GFR (Non-Af Amer) > 60 POC Glucose (mg/dL) 148 H (65-110) mg/dL Random Glucose 145 H (70-110) mg/dL Calcium 7.7 L (8.4-10.5) mg/dL Phosphorus 2.1 L (2.5-4.5) mg/dL Magnesium 2.4 H (1.7-2.2) mg/dL Total Bilirubin 0.3 (0.2-1.3) mg/dL Direct Bilirubin 0.3 (0.0-0.4) mg/dL AST 51 (17-59) U/L ALT 22 (7-56) U/L Alkaline Phosphatase 81 (38-126) U/L Total Protein 5.5 L (5.8-8.3) g/dL Albumin 2.6 L (3.0-4.8) g/dL Globulin 2.9 gm/dL Albumin/Globulin Ratio 0.9 L (1.1-1.8) Crossmatch 02/24/19 02/23/19 02/23/19 Range/Units 05:20 23:26 21:40 WBC (4.5-11.0) 10^3/uL RBC (3.5-6.1) 10^6/uL Hgb (14.0-18.0) g/dL Hct (42.0-52.0) % MCV (80.0-105.0) fl MCH (25.0-35.0) pg MCHC (31.0-37.0) g/dl RDW (11.5-14.5) % Plt Count (120.0-450.0) 10^3/uL MPV (7.0-11.0) fl Neut % (Auto) (50.0-68.0) % Lymph % (Auto) (22.0-35.0) % [place] % (Auto) (1.0-6.0) % Eos % (Auto) (1.5-5.0) % Baso % (Auto) (0.0-3.0) % Lymph # (Auto) (1.2-3.4) [place] # (Auto) (0.1-0.6) Eos # (Auto) (0.0-0.7) Baso # (Auto) (0.0-2.0) K/mm3 Absolute Neuts (auto) (1.4-6.5) PT (9.4-12.5) SECONDS INR pCO2 38 34 L (35-45) mm/Hg pO2 110.0 H 209.0 H (80-100) mm/Hg HCO3 21.5 21.1 (21-28) mmol/L ABG pH 7.36 7.40 (7.35-7.45) ABG Total CO2 22.7 22.1 (22-28) mmol.L ABG O2 Saturation 98.6 H 99.2 H (95-98) % ABG O2 Content 14.2 L 14.3 L (15-23) ML/dl ABG Base Excess -3.6 L -3.2 L (-2.0-3.0) mmol/L ABG Hemoglobin 10.4 L 10.1 L (11.7-17.4) g/dL ABG Carboxyhemoglobin 1.1 1.1 (0.5-1.5) % POC ABG HHb (Measured) 1.4 0.8 (0-5) % ABG Methemoglobin 1.4 1.2 (0.0-3.0) % ABG O2 Capacity 14.4 L 14.4 L (16-24) mL/dl Hgb O2 Saturation 96.1 97.0 (95.0-98.0) % FiO2 50.0 100.0 % Sodium (132-148) mmol/L Potassium (3.6-5.0) mmol/L Chloride (98-107) mmol/L Carbon Dioxide (21-33) mmol/L Anion Gap (10-20) BUN (7-21) mg/dL Creatinine (0.8-1.5) mg/dl Est GFR ( Amer) Est GFR (Non-Af Amer) POC Glucose (mg/dL) 203 H (65-110) mg/dL Random Glucose (70-110) mg/dL Calcium (8.4-10.5) mg/dL Phosphorus (2.5-4.5) mg/dL Magnesium (1.7-2.2) mg/dL Total Bilirubin (0.2-1.3) mg/dL Direct Bilirubin (0.0-0.4) mg/dL AST (17-59) U/L ALT (7-56) U/L Alkaline Phosphatase (38-126) U/L Total Protein (5.8-8.3) g/dL Albumin (3.0-4.8) g/dL Globulin gm/dL Albumin/Globulin Ratio (1.1-1.8) Crossmatch 02/23/19 02/23/19 Range/Units 15:50 10:20 WBC (4.5-11.0) 10^3/uL RBC (3.5-6.1) 10^6/uL Hgb (14.0-18.0) g/dL Hct (42.0-52.0) % MCV (80.0-105.0) fl MCH (25.0-35.0) pg MCHC (31.0-37.0) g/dl RDW (11.5-14.5) % Plt Count (120.0-450.0) 10^3/uL MPV (7.0-11.0) fl Neut % (Auto) (50.0-68.0) % Lymph % (Auto) (22.0-35.0) % [place] % (Auto) (1.0-6.0) % Eos % (Auto) (1.5-5.0) % Baso % (Auto) (0.0-3.0) % Lymph # (Auto) (1.2-3.4) [place] # (Auto) (0.1-0.6) Eos # (Auto) (0.0-0.7) Baso # (Auto) (0.0-2.0) K/mm3 Absolute Neuts (auto) (1.4-6.5) PT (9.4-12.5) SECONDS INR pCO2 (35-45) mm/Hg pO2 (80-100) mm/Hg HCO3 (21-28) mmol/L ABG pH (7.35-7.45) ABG Total CO2 (22-28) mmol.L ABG O2 Saturation (95-98) % ABG O2 Content (15-23) ML/dl ABG Base Excess (-2.0-3.0) mmol/L ABG Hemoglobin (11.7-17.4) g/dL ABG Carboxyhemoglobin (0.5-1.5) % POC ABG HHb (Measured) (0-5) % ABG Methemoglobin (0.0-3.0) % ABG O2 Capacity (16-24) mL/dl Hgb O2 Saturation (95.0-98.0) % FiO2 % Sodium (132-148) mmol/L Potassium (3.6-5.0) mmol/L Chloride (98-107) mmol/L Carbon Dioxide (21-33) mmol/L Anion Gap (10-20) BUN (7-21) mg/dL Creatinine (0.8-1.5) mg/dl Est GFR ( Amer) Est GFR (Non-Af Amer) POC Glucose (mg/dL) 207 H (65-110) mg/dL Random Glucose (70-110) mg/dL Calcium (8.4-10.5) mg/dL Phosphorus (2.5-4.5) mg/dL Magnesium (1.7-2.2) mg/dL Total Bilirubin (0.2-1.3) mg/dL Direct Bilirubin (0.0-0.4) mg/dL AST (17-59) U/L ALT (7-56) U/L Alkaline Phosphatase (38-126) U/L Total Protein (5.8-8.3) g/dL Albumin (3.0-4.8) g/dL Globulin gm/dL Albumin/Globulin Ratio (1.1-1.8) Crossmatch See Detail Laboratory Results - last 24 hr 02/23/19 02/23/19 02/23/19 10:20 15:50 21:40 WBC RBC Hgb Hct MCV MCH MCHC RDW Plt Count MPV Neut % (Auto) Lymph % (Auto) [place] % (Auto) Eos % (Auto) Baso % (Auto) Lymph # (Auto) [place] # (Auto) Eos # (Auto) Baso # (Auto) Absolute Neuts (auto) PT INR pCO2 34 L pO2 209.0 H HCO3 21.1 ABG pH 7.40 ABG Total CO2 22.1 ABG O2 Saturation 99.2 H ABG O2 Content 14.3 L ABG Base Excess -3.2 L ABG Hemoglobin 10.1 L ABG Carboxyhemoglobin 1.1 POC ABG HHb (Measured) 0.8 ABG Methemoglobin 1.2 ABG O2 Capacity 14.4 L Hgb O2 Saturation 97.0 FiO2 100.0 Sodium Potassium Chloride Carbon Dioxide Anion Gap BUN Creatinine Est GFR ( Amer) Est GFR (Non-Af Amer) POC Glucose (mg/dL) 207 H Random Glucose Calcium Phosphorus Magnesium Total Bilirubin Direct Bilirubin AST ALT Alkaline Phosphatase Total Protein Albumin Globulin Albumin/Globulin Ratio Crossmatch See Detail 02/23/19 02/24/19 02/24/19 23:26 05:20 05:45 WBC RBC Hgb Hct MCV MCH MCHC RDW Plt Count MPV Neut % (Auto) Lymph % (Auto) [place] % (Auto) Eos % (Auto) Baso % (Auto) Lymph # (Auto) [place] # (Auto) Eos # (Auto) Baso # (Auto) Absolute Neuts (auto) PT INR pCO2 38 pO2 110.0 H HCO3 21.5 ABG pH 7.36 ABG Total CO2 22.7 ABG O2 Saturation 98.6 H ABG O2 Content 14.2 L ABG Base Excess -3.6 L ABG Hemoglobin 10.4 L ABG Carboxyhemoglobin 1.1 POC ABG HHb (Measured) 1.4 ABG Methemoglobin 1.4 ABG O2 Capacity 14.4 L Hgb O2 Saturation 96.1 FiO2 50.0 Sodium Potassium Chloride Carbon Dioxide Anion Gap BUN Creatinine Est GFR ( Amer) Est GFR (Non-Af Amer) POC Glucose (mg/dL) 203 H 148 H Random Glucose Calcium Phosphorus Magnesium Total Bilirubin Direct Bilirubin AST ALT Alkaline Phosphatase Total Protein Albumin Globulin Albumin/Globulin Ratio Crossmatch 02/24/19 02/24/19 02/24/19 06:00 06:00 06:00 WBC 14.2 H D RBC 3.91 Hgb 10.7 L D Hct 33.1 L MCV 84.7 MCH 27.4 MCHC 32.3 RDW 15.6 H Plt Count 333 MPV 10.3 Neut % (Auto) 90.0 H Lymph % (Auto) 3.7 L [place] % (Auto) 6.2 H Eos % (Auto) 0.0 L Baso % (Auto) 0.1 Lymph # (Auto) 0.5 L [place] # (Auto) 0.9 H Eos # (Auto) 0.0 Baso # (Auto) 0.01 Absolute Neuts (auto) 12.83 H PT 12.0 INR 1.06 pCO2 pO2 HCO3 ABG pH ABG Total CO2 ABG O2 Saturation ABG O2 Content ABG Base Excess ABG Hemoglobin ABG Carboxyhemoglobin POC ABG HHb (Measured) ABG Methemoglobin ABG O2 Capacity Hgb O2 Saturation FiO2 Sodium 155 H Potassium 3.5 L Chloride 129 H Carbon Dioxide 24 Anion Gap 6 L BUN 23 H Creatinine 0.7 L Est GFR ( Amer) > 60 Est GFR (Non-Af Amer) > 60 POC Glucose (mg/dL) Random Glucose 145 H Calcium 7.7 L Phosphorus 2.1 L Magnesium 2.4 H Total Bilirubin 0.3 Direct Bilirubin 0.3 AST 51 ALT 22 Alkaline Phosphatase 81 Total Protein 5.5 L Albumin 2.6 L Globulin 2.9 Albumin/Globulin Ratio 0.9 L Crossmatch 02/24/19 02/24/19 12:47 17:37 WBC RBC Hgb Hct MCV MCH MCHC RDW Plt Count MPV Neut % (Auto) Lymph % (Auto) [place] % (Auto) Eos % (Auto) Baso % (Auto) Lymph # (Auto) [place] # (Auto) Eos # (Auto) Baso # (Auto) Absolute Neuts (auto) PT INR pCO2 pO2 HCO3 ABG pH ABG Total CO2 ABG O2 Saturation ABG O2 Content ABG Base Excess ABG Hemoglobin ABG Carboxyhemoglobin POC ABG HHb (Measured) ABG Methemoglobin ABG O2 Capacity Hgb O2 Saturation FiO2 Sodium Potassium Chloride Carbon Dioxide Anion Gap BUN Creatinine Est GFR ( Amer) Est GFR (Non-Af Amer) POC Glucose (mg/dL) 112 H 171 H Random Glucose Calcium Phosphorus Magnesium Total Bilirubin Direct Bilirubin AST ALT Alkaline Phosphatase Total Protein Albumin Globulin Albumin/Globulin Ratio Crossmatch Radiology Impressions: Radiology Impressions Chest X-Ray 02/23/19 19:48 IMPRESSION: Left-sided PICC line in satisfactory position at the junction of the right atrium and SVC Chest X-Ray 02/24/19 07:00 IMPRESSION: Mild vascular congestion Critical Care Progress Note - Nutrition Nutrition: Nutrition Category Date Time Status Diabetic [Consistent Carbohydrate] [DIET] Diets 02/24/19 Lunch Ordered Addendum Addendum: 02/24/19 17:54 MICU Attending Addendum Patient seen and examined with housestaff case discussed on round agree with resident note above with the following additions/exceptions: 63M with cirrhosis (s/p liver transplant), chronic pain on narcotics, HTN, depression, hypothyroidism, blindness, craniopharyngioma, and psoriasis being managed in the ICU for sepsis and respiratory failure Intially admitted on 02/14 for lethargy, developed fevers on 02/17 and became hypoxic and hypotensive and subsequently intubated on 02/21. He self-extubated 02/23. 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 ID on board, cultures neg, on broad abx tx asp pna and RUE cellutlties his oxygenation is improving. On bipap after self extubation, trial off Bipap today with diuresis given he is 10L volume overloaded. Bone scan shows lesion that was thought to be benign. Will need to verify what then is the differtential for these. 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 Carrasco discussing the above and answered all questions Rest of care as mentioned in above resident note Rocco Desai MD Pulmonary Critical Care Sleep Medicine CC Time : 41 mins
[2019-02-24] MEDS: Morphine 2 mg/ml ISec IVP PRN (12:17)
--- NOTE | 2019-02-24 13:28 | CP.PCM.PN ---
<TracyayalaJamesh - Last Filed: 02/24/19 13:28> Subjective - Date & Time of Evaluation Date of Evaluation: 02/24/19 Time of Evaluation: 13:27 - Subjective Subjective: Surgery Progress Note for Dr. Donato 63M seen and evaluated at bedside this morning. No acute events overnight. Leukocytosis downtrending. Patient self-extubated yesterday, tolerating BiPAP. Daughter at bedside, questions and concerns addressed. Denies f/c, n/v/d, SOB, CP, or urinary symptoms. Objective - Vital Signs/Intake and Output Vital Signs (last 24 hours): Temp Pulse Resp BP Pulse Ox 95.7 F L 89 18 110/72 100 02/24/19 08:00 02/24/19 08:00 02/24/19 08:00 02/24/19 08:00 02/24/19 08:00 Intake and Output: 02/24/19 02/24/19 06:59 18:59 Intake Total 682 Output Total 2000 Balance -1318 - Medications Medications: Current Medications Acetaminophen (Tylenol 325mg Tab) 650 mg PO Q6 PRN PRN Reason: TEMP>=99.5F Last Admin: 02/21/19 00:43 Dose: 650 mg Acetaminophen (Tylenol 650 Mg Supp) 650 mg RC Q6H PRN PRN Reason: TEMP>=99.5F Last Admin: 02/19/19 10:16 Dose: 650 mg Acetylcysteine (Acetylcysteine 20%) 4 ml IH [id number] [facility] Last Admin: 02/24/19 11:15 Dose: Not Given Aripiprazole (Abilify) 5 mg PO HS [facility] Last Admin: 02/20/19 21:44 Dose: 5 mg Artificial Tears (Refresh Opth Soln) 0.3 ml OU Q4H PRN PRN Reason: Dry eyes Last Admin: 02/23/19 18:41 Dose: 1 drop Artificial Tears (Puralube Opht Oint) 1 appl OU Q4H PRN PRN Reason: Dry eyes Atorvastatin Calcium (Lipitor) 40 mg PO DIN [facility] Last Admin: 02/20/19 18:47 Dose: 40 mg Dextrose (Dextrose 50% Inj) 50 ml IVP PRN PRN PRN Reason: Low blood sugar Dextrose (Dextrose 50% Inj) 0 ml IV STAT PRN; Protocol PRN Reason: Hypoglycemia Protocol Docusate Sodium (Colace) 100 mg PO BID [facility] Last Admin: 02/20/19 18:47 Dose: 100 mg Donepezil HCl (Aricept) 10 mg PO HS [facility] Last Admin: 02/20/19 21:44 Dose: 10 mg Duloxetine HCl (Cymbalta) 60 mg PO BID [facility] Last Admin: 02/20/19 18:47 Dose: 60 mg Enoxaparin Sodium (Lovenox) 40 mg SC DAILY [facility]; Protocol Last Admin: 02/24/19 11:00 Dose: 40 mg Home Med (Home Med) 10 unit PO BID [facility] Last Admin: 02/20/19 18:49 Dose: Not Given Home Med (Home Med) 0.25 unit PO BID [facility] Last Admin: 02/20/19 18:49 Dose: Not Given Hydrocortisone Sodium Succinate (Solu-Cortef) 25 mg IVP Q12 [facility] Last Admin: 02/24/19 11:02 Dose: 25 mg Doxycycline Hyclate 100 mg/ (Sodium Chloride) 100 mls @ 100 mls/hr IVPB Q12 [facility]; Protocol Stop: 03/01/19 13:16 Last Admin: 02/24/19 11:13 Dose: 100 mls/hr Meropenem (Merrem Iv 1 Gm Premix) 1 gm in 50 mls @ 100 mls/hr IVPB Q8 [facility]; Protocol Stop: 03/01/19 14:01 Last Admin: 02/24/19 05:34 Dose: 100 mls/hr Vancomycin HCl (Vancomycin 1gm) 1 gm in 250 mls @ 167 mls/hr IVPB Q12H [facility]; Protocol Stop: 03/02/19 09:46 Last Admin: 02/24/19 10:45 Dose: 167 mls/hr Dextrose (Dextrose 5% In Water 1000 Ml) 1,000 mls @ 0 mls/hr IV .Q0M PRN; Protocol PRN Reason: Hypoglycemia Protocol Potassium Phosphate 15 mmole/ (Dextrose) 255 mls @ 42.5 mls/hr IVPB ONCE ONE Stop: 02/24/19 13:50 Last Admin: 02/24/19 10:09 Dose: 42.5 mls/hr Potassium Phosphate 15 mmole/ (Dextrose) 255 mls @ 42.5 mls/hr IVPB ONCE ONE Stop: 02/24/19 20:59 Dextrose (Dextrose 5% In Water 1000 Ml) 1,000 mls @ 60 mls/hr IV .[id number] [facility] Last Admin: 02/24/19 10:07 Dose: 60 mls/hr Insulin Human Lispro (Humalog Med) 0 units SC Q6 [facility]; Protocol Last Admin: 02/24/19 06:00 Dose: Not Given Levalbuterol HCl (Xopenex) 0.63 mg IH [id number] [facility] Last Admin: 02/24/19 11:16 Dose: Not Given Morphine Sulfate (Morphine) 2 mg IVP Q4H PRN PRN Reason: Pain, moderate (4-7) Last Admin: 02/24/19 12:17 Dose: 2 mg Mupirocin (Bactroban Ointment) 0 gm TOP TID [facility] Last Admin: 02/24/19 11:08 Dose: 1 applic Mycophenolate Mofetil (Cellcept Cap) 500 mg PO BID [facility] Last Admin: 02/20/19 18:47 Dose: 500 mg Ondansetron HCl (Zofran Inj) 4 mg IVP Q4H PRN PRN Reason: Nausea/Vomiting Pantoprazole Sodium (Protonix Ec Tab) 40 mg PO 0600 [facility] Last Admin: 02/20/19 06:08 Dose: 40 mg Pantoprazole Sodium (Protonix Inj) 40 mg IVP DAILY [facility] Last Admin: 02/24/19 11:00 Dose: 40 mg Tamsulosin HCl (Flomax) 0.4 mg PO DAILY [facility] Last Admin: 02/20/19 11:34 Dose: 0.4 mg - Labs Labs: 02/24/19 06:00 02/24/19 06:00 PT 12.0 SECONDS (9.4-12.5) 02/24/19 06:00 INR 1.06 02/24/19 06:00 APTT 39.4 Seconds (26.9-38.3) H 02/14/19 14:15 - Constitutional Appears: Non-toxic, No Acute Distress - Head Exam Head Exam: ATRAUMATIC, NORMAL INSPECTION, NORMOCEPHALIC - GI/Abdominal Exam GI & Abdominal Exam: Soft, Normal Bowel Sounds. absent: Tenderness - Neurological Exam Neurological Exam: Awake - Psychiatric Exam Psychiatric exam: Agitated - Skin Skin Exam: Dry, Intact, Normal Color, Warm Assessment and Plan - Assessment and Plan (Free Text) Assessment: 63M w/ hx of liver transplant currently being treated for bilateral pneumonia, self-extubated on BiPAP Plan: Continue to hold immunosuppressive medications Continue to monitor LFTs for increases Half dose Celcept D/w Dr. Krishnamurthy PGY1 <Surendra Pratt N - Last Filed: 02/25/19 08:20> Objective - Vital Signs/Intake and Output Vital Signs (last 24 hours): Temp Pulse Resp BP Pulse Ox 97.8 F 92 H 31 H 106/56 L 95 02/25/19 04:00 02/25/19 03:30 02/25/19 03:30 02/25/19 03:00 02/25/19 03:30 Intake and Output: 02/25/19 02/25/19 06:59 18:59 Intake Total 4020 Output Total 2000 Balance 2019 - Medications Medications: Current Medications Acetaminophen (Tylenol 325mg Tab) 650 mg PO Q6 PRN PRN Reason: TEMP>=99.5F Last Admin: 02/21/19 00:43 Dose: 650 mg Acetaminophen (Tylenol 650 Mg Supp) 650 mg RC Q6H PRN PRN Reason: TEMP>=99.5F Last Admin: 02/19/19 10:16 Dose: 650 mg Acetylcysteine (Acetylcysteine 20%) 4 ml IH [id number] [facility] Last Admin: 02/25/19 07:08 Dose: 4 ml Aripiprazole (Abilify) 5 mg PO HS [facility] Last Admin: 02/20/19 21:44 Dose: 5 mg Artificial Tears (Refresh Opth Soln) 0.3 ml OU Q4H PRN PRN Reason: Dry eyes Last Admin: 02/23/19 18:41 Dose: 1 drop Artificial Tears (Puralube Opht Oint) 1 appl OU Q4H PRN PRN Reason: Dry eyes Atorvastatin Calcium (Lipitor) 40 mg PO DIN [facility] Last Admin: 02/20/19 18:47 Dose: 40 mg Dextrose (Dextrose 50% Inj) 50 ml IVP PRN PRN PRN Reason: Low blood sugar Dextrose (Dextrose 50% Inj) 0 ml IV STAT PRN; Protocol PRN Reason: Hypoglycemia Protocol Docusate Sodium (Colace) 100 mg PO BID [facility] Last Admin: 02/20/19 18:47 Dose: 100 mg Donepezil HCl (Aricept) 10 mg PO HS [facility] Last Admin: 02/20/19 21:44 Dose: 10 mg Duloxetine HCl (Cymbalta) 60 mg PO BID [facility] Last Admin: 02/20/19 18:47 Dose: 60 mg Enoxaparin Sodium (Lovenox) 40 mg SC DAILY [facility]; Protocol Last Admin: 02/24/19 11:00 Dose: 40 mg Fentanyl (Fentanyl) 50 mcg IVP Q6 PRN PRN Reason: Agitation Home Med (Home Med) 10 unit PO BID [facility] Last Admin: 02/20/19 18:49 Dose: Not Given Home Med (Home Med) 0.25 unit PO BID [facility] Last Admin: 02/20/19 18:49 Dose: Not Given Doxycycline Hyclate 100 mg/ (Sodium Chloride) 100 mls @ 100 mls/hr IVPB Q12 [facility]; Protocol Stop: 03/01/19 13:16 Last Admin: 02/24/19 22:03 Dose: 100 mls/hr Meropenem (Merrem Iv 1 Gm Premix) 1 gm in 50 mls @ 100 mls/hr IVPB Q8 [facility]; Pr otocol Stop: 03/01/19 14:01 Last Admin: 02/25/19 05:38 Dose: 100 mls/hr Vancomycin HCl (Vancomycin 1gm) 1 gm in 250 mls @ 167 mls/hr IVPB Q12H [facility]; Protocol Stop: 03/02/19 09:46 Last Admin: 02/24/19 21:25 Dose: 167 mls/hr Dextrose (Dextrose 5% In Water 1000 Ml) 1,000 mls @ 0 mls/hr IV .Q0M PRN; Protocol PRN Reason: Hypoglycemia Protocol Dextrose (Dextrose 5% In Water 1000 Ml) 1,000 mls @ 125 mls/hr IV .Q8H [facility] Last Admin: 02/25/19 05:00 Dose: 125 mls/hr Fluconazole (Diflucan Iv 200 Mg/100 Ml Ns) 100 mls @ 100 mls/hr IVPB DAILY [facility]; Protocol Stop: 03/01/19 10:59 Potassium Phosphate 15 mmole/ (Dextrose) 255 mls @ 42.5 mls/hr IVPB ONCE ONE Stop: 02/25/19 14:17 Insulin Human Lispro (Humalog Med) 0 units SC Q6 [facility]; Protocol Last Admin: 02/25/19 06:23 Dose: Not Given Levalbuterol HCl (Xopenex) 0.63 mg IH [id number] [facility] Last Admin: 02/25/19 07:08 Dose: 0.63 mg Morphine Sulfate (Morphine) 2 mg IVP Q4H PRN PRN Reason: Pain, moderate (4-7) Last Admin: 02/24/19 12:17 Dose: 2 mg Mupirocin (Bactroban Ointment) 0 gm TOP TID [facility] Last Admin: 02/24/19 18:00 Dose: 1 applic Mycophenolate Mofetil (Cellcept Cap) 500 mg PO BID [facility] Last Admin: 02/24/19 19:25 Dose: 500 mg Ondansetron HCl (Zofran Inj) 4 mg IVP Q4H PRN PRN Reason: Nausea/Vomiting Pantoprazole Sodium (Protonix Ec Tab) 40 mg PO 0600 [facility] Last Admin: 02/20/19 06:08 Dose: 40 mg Pantoprazole Sodium (Protonix Inj) 40 mg IVP DAILY [facility] Last Admin: 02/24/19 11:00 Dose: 40 mg Prednisone (Prednisone Tab) 5 mg PO BID [facility] Last Admin: 02/24/19 19:20 Dose: 5 mg Tamsulosin HCl (Flomax) 0.4 mg PO DAILY [facility] Last Admin: 02/20/19 11:34 Dose: 0.4 mg - Labs Labs: 02/25/19 05:30 02/25/19 05:30 PT 12.1 SECONDS (9.4-12.5) 02/25/19 05:30 INR 1.07 02/25/19 05:30 APTT 39.4 Seconds (26.9-38.3) H 02/14/19 14:15 Assessment and Plan - Assessment and Plan (Free Text) Plan: All medical record entries made by the resident were at my direction. I have reviewed the chart and agree that the record accurately reflects my personal performance of the history, physical exam, and medical decision making. Extubated, breathing comfortably Start Cellcept at 250 bid, continue to monitor LFT's
--- NOTE | 2019-02-24 15:48 | CP.PCM.PN ---
Subjective - Date & Time of Evaluation Date of Evaluation: 02/24/19 Time of Evaluation: 07:49 - Subjective Subjective: Sly Meade PGY2 IM Progress Note for Dr. Elizondo Patient was seen and examined at bedside. The patient's niece Dr. Michelle Lubin is visiting from [place], and Dr. Elizondo explained to her that he cannot disclose information to her since she's not POA and not mentioned on the chart. Patient advocate consult was placed, and I discussed with Kiko that he spoke to her and explained things to her. I discussed with Dr. Nichols and Dr. Villarreal who both expressed that patient is a poor surgical candidate at this time, and would require higher level of care when surgery is considered. Objective - Vital Signs/Intake and Output Vital Signs (last 24 hours): Temp Pulse Resp BP Pulse Ox 95.7 F L 89 18 110/72 100 02/24/19 08:00 02/24/19 08:00 02/24/19 08:00 02/24/19 08:00 02/24/19 08:00 Intake and Output: 02/24/19 02/24/19 06:59 18:59 Intake Total 682 Output Total 1999 Balance -1318 - Medications Medications: Current Medications Acetaminophen (Tylenol 325mg Tab) 650 mg PO Q6 PRN PRN Reason: TEMP>=99.5F Last Admin: 02/21/19 00:43 Dose: 650 mg Acetaminophen (Tylenol 650 Mg Supp) 650 mg RC Q6H PRN PRN Reason: TEMP>=99.5F Last Admin: 02/19/19 10:16 Dose: 650 mg Acetylcysteine (Acetylcysteine 20%) 4 ml IH [id number] NETTA Last Admin: 02/24/19 13:33 Dose: 4 ml Aripiprazole (Abilify) 5 mg PO HS NETTA Last Admin: 02/20/19 21:44 Dose: 5 mg Artificial Tears (Refresh Opth Soln) 0.3 ml OU Q4H PRN PRN Reason: Dry eyes Last Admin: 02/23/19 18:41 Dose: 1 drop Artificial Tears (Puralube Opht Oint) 1 appl OU Q4H PRN PRN Reason: Dry eyes Atorvastatin Calcium (Lipitor) 40 mg PO DIN [facility] Last Admin: 02/20/19 18:47 Dose: 40 mg Dextrose (Dextrose 50% Inj) 50 ml IVP PRN PRN PRN Reason: Low blood sugar Dextrose (Dextrose 50% Inj) 0 ml IV STAT PRN; Protocol PRN Reason: Hypoglycemia Protocol Docusate Sodium (Colace) 100 mg PO BID [facility] Last Admin: 02/20/19 18:47 Dose: 100 mg Donepezil HCl (Aricept) 10 mg PO HS [facility] Last Admin: 02/20/19 21:44 Dose: 10 mg Duloxetine HCl (Cymbalta) 60 mg PO BID [facility] Last Admin: 02/20/19 18:47 Dose: 60 mg Enoxaparin Sodium (Lovenox) 40 mg SC DAILY [facility]; Protocol Last Admin: 02/24/19 11:00 Dose: 40 mg Home Med (Home Med) 10 unit PO BID [facility] Last Admin: 02/20/19 18:49 Dose: Not Given Home Med (Home Med) 0.25 unit PO BID [facility] Last Admin: 02/20/19 18:49 Dose: Not Given Doxycycline Hyclate 100 mg/ (Sodium Chloride) 100 mls @ 100 mls/hr IVPB Q12 [facility]; Protocol Stop: 03/01/19 13:16 Last Admin: 02/24/19 11:13 Dose: 100 mls/hr Meropenem (Merrem Iv 1 Gm Premix) 1 gm in 50 mls @ 100 mls/hr IVPB Q8 [facility]; Protocol Stop: 03/01/19 14:01 Last Admin: 02/24/19 14:59 Dose: 100 mls/hr Vancomycin HCl (Vancomycin 1gm) 1 gm in 250 mls @ 167 mls/hr IVPB Q12H [facility]; Pr otocol Stop: 03/02/19 09:46 Last Admin: 02/24/19 10:45 Dose: 167 mls/hr Dextrose (Dextrose 5% In Water 1000 Ml) 1,000 mls @ 0 mls/hr IV .Q0M PRN; Protocol PRN Reason: Hypoglycemia Protocol Potassium Phosphate 15 mmole/ (Dextrose) 255 mls @ 42.5 mls/hr IVPB ONCE ONE Stop: 02/24/19 20:59 Dextrose (Dextrose 5% In Water 1000 Ml) 1,000 mls @ 100 mls/hr IV .Q10H [facility] Last Admin: 02/24/19 14:52 Dose: 100 mls/hr Insulin Human Lispro (Humalog Med) 0 units SC Q6 [facility]; Protocol Last Admin: 02/24/19 12:00 Dose: Not Given Levalbuterol HCl (Xopenex) 0.63 mg IH [id number] [facility] Last Admin: 02/24/19 13:34 Dose: 0.63 mg Morphine Sulfate (Morphine) 2 mg IVP Q4H PRN PRN Reason: Pain, moderate (4-7) Last Admin: 02/24/19 12:17 Dose: 2 mg Mupirocin (Bactroban Ointment) 0 gm TOP TID [facility] Last Admin: 02/24/19 15:00 Dose: 1 applic Mycophenolate Mofetil (Cellcept Cap) 500 mg PO BID [facility] Last Admin: 02/20/19 18:47 Dose: 500 mg Ondansetron HCl (Zofran Inj) 4 mg IVP Q4H PRN PRN Reason: Nausea/Vomiting Pantoprazole Sodium (Protonix Ec Tab) 40 mg PO 0600 [facility] Last Admin: 02/20/19 06:08 Dose: 40 mg Pantoprazole Sodium (Protonix Inj) 40 mg IVP DAILY [facility] Last Admin: 02/24/19 11:00 Dose: 40 mg Prednisone (Prednisone Tab) 5 mg PO BID [facility] Tamsulosin HCl (Flomax) 0.4 mg PO DAILY [facility] Last Admin: 02/20/19 11:34 Dose: 0.4 mg - Labs Labs: 02/24/19 06:00 02/24/19 06:00 PT 12.0 SECONDS (9.4-12.5) 02/24/19 06:00 INR 1.06 02/24/19 06:00 APTT 39.4 Seconds (26.9-38.3) H 02/14/19 14:15 - Constitutional Appears: Non-toxic, No Acute Distress - Head Exam Head Exam: ATRAUMATIC, NORMAL INSPECTION - Eye Exam Eye Exam: Normal appearance - ENT Exam ENT Exam: Mucous Membranes Dry, Normal Exam - Neck Exam Neck Exam: Full ROM, Normal Inspection - Respiratory Exam Respiratory Exam: NORMAL BREATHING PATTERN. absent: Respiratory Distress - Cardiovascular Exam Cardiovascular Exam: RRR, +S1, +S2 - GI/Abdominal Exam GI & Abdominal Exam: Soft. absent: Tenderness Additional comments: horizontal scar post liver transplant - Extremities Exam Extremities Exam: Full ROM. absent: Pedal Edema Additional comments: RUE skin discoloration and small superficial ulcer with moderate swelling - Skin Skin Exam: Normal Color, Warm Assessment and Plan - Assessment and Plan (Free Text) Assessment: 63 year old male with a PMH of chronic pain on narcotics, HTN, depression, hypothyroidism, liver transplant 2/2 liver cirrhosis, craniopharyngioma, blindness, and psoriasis presenting to the hospital for 2 week history of generalized weakness. Hospital course has been complicated by septic shock and failure to protect airway requiring intubation. Now patient not requiring vent and off pressors. Plan: 1. Septic shock Likely secondary to aspiration pneumonia vs cellulitis - cont Vancomycin, Meropenem and Doxycycline per ID recs - cont stress-dosed steroids per ICU - procal elevated - cont ICU management - holding mycophenolate - cont Bactroban topical - PPI for GI ppx - blood cultures negative x48 hrs - urine cultures negative - CXR and CT chest/abdomen/pelvis reviewed - Palliative care and patient advocate consults placed 2. Hypoxic respiratory failure, failure to protect airway - currently extubated and off sedation - elevate HOB - cont Xopenex and Mucomyst - Abx per ID 3. Hypernatremia, likely due to fevers; improving - cont IVF repletion 4. LA dilation w/ possible myxoma - Cardiology consulted, recs appreciated 5. Lumbar compression fracture - MRI lumbar reviewed - bone scan r/o pathologic fractures - cont pain regimen 6. Hx cirrhosis s/p liver transplant - holding immunosuppressants at this time - transaminitis improved - GI on consult, Dr. Canas 7. Depression - continue duloxetine, aricept - Psych on consult, Dr. Martin - denies suicidal/homicidal ideation 8. HTN - holding lopressor 25mg BID 9. Anemia, likely iron deficiency anemia - monitor H/H 10. Peripheral Neuropathy - hold gabapentin at this time 11. BPH - continue flomax - monitor urinary output via grossman 12. HLD - hold lipitor 13. PPX - SCDs/Lovenox for DVT ppx - protonix for GI ppx Further recs per Dr. Elizondo Case was reviewed and discussed with Dr. Elizondo
[2019-02-24 18:48] LABS: BLOOD UREA NITROGEN 22 mg/dL (7-21); CALCIUM 8.1 mg/dL (8.4-10.5); GFR NON-AFRICAN AMERICAN > 60
[2019-02-24 22:00] LABS: OSMOLALITY,URINE 124 mosm/kg (300-1000)
[2019-02-24] MEDS ORDERED: Potassium Chloride 20 mEq ER Tab PO STA (22:03)
[2019-02-24 22:04] LABS: BLOOD UREA NITROGEN 20 mg/dL (7-21); CALCIUM 8.1 mg/dL (8.4-10.5); GFR NON-AFRICAN AMERICAN > 60
[2019-02-24 22:27] LABS: URINE BILIRUBIN NEGATIVE (NEGATIVE); URINE BLOOD LARGE (NEGATIVE); URINE GLUCOSE (UA) NEGATIVE (NEGATIVE); URINE LEUKOCYTE ESTERASE TRACE Leu/uL (NEGATIVE); URINE PROTEIN NEGATIVE mg/dL (<30 mg/dL); URINE UROBILINOGEN 0.2 E.U./dL (<1 E.U./dL)
[2019-02-24 22:32] LABS: URINE APPEARANCE SL CLOUDY (CLEAR); URINE COLOR YELLOW (YELLOW)
[2019-02-24 22:46] LABS: URINE BACTERIA MOD /hpf; URINE RBC 15 - 20 /hpf (0-2)
--- NOTE | 2019-02-24 23:19 | CP.PCM.PN ---
<Shari Overton - Last Filed: 02/24/19 23:14> Subjective - Date & Time of Evaluation Date of Evaluation: 02/24/19 Time of Evaluation: 20:00 - Subjective Subjective: Night resident physician covering ICU: - Placed nephrology consult for Dr Fields. Spoke with Dr Fields regarding hypernatremia Na 160. After discussion, patient was placed on D5W to 125 cc/hr. Recommended to encourage PO water intake by patient. UA, urine osm and urine sodium level ordered. Dr Fields recommended to check a BMP in the morning at 5 AM, after 6-8 hours of D5W infusion. The following orders were communicated with the nursing staff. Shari Overton PGY2 Objective - Vital Signs/Intake and Output Vital Signs (last 24 hours): Temp Pulse Resp BP Pulse Ox 97.3 F L 89 18 110/72 100 02/24/19 16:00 02/24/19 08:00 02/24/19 08:00 02/24/19 08:00 02/24/19 08:00 Intake and Output: 02/24/19 02/25/19 18:59 06:59 Intake Total 2110 Output Total 2700 Balance -590 - Medications Medications: Current Medications Acetaminophen (Tylenol 325mg Tab) 650 mg PO Q6 PRN PRN Reason: TEMP>=99.5F Last Admin: 02/21/19 00:43 Dose: 650 mg Acetaminophen (Tylenol 650 Mg Supp) 650 mg RC Q6H PRN PRN Reason: TEMP>=99.5F Last Admin: 02/19/19 10:16 Dose: 650 mg Acetylcysteine (Acetylcysteine 20%) 4 ml IH [id number] NETTA Last Admin: 02/24/19 19:50 Dose: 4 ml Aripiprazole (Abilify) 5 mg PO HS NETTA Last Admin: 02/20/19 21:44 Dose: 5 mg Artificial Tears (Refresh Opth Soln) 0.3 ml OU Q4H PRN PRN Reason: Dry eyes Last Admin: 02/23/19 18:41 Dose: 1 drop Artificial Tears (Puralube Opht Oint) 1 appl OU Q4H PRN PRN Reason: Dry eyes Atorvastatin Calcium (Lipitor) 40 mg PO DIN [facility] Last Admin: 02/20/19 18:47 Dose: 40 mg Dextrose (Dextrose 50% Inj) 50 ml IVP PRN PRN PRN Reason: Low blood sugar Dextrose (Dextrose 50% Inj) 0 ml IV STAT PRN; Protocol PRN Reason: Hypoglycemia Protocol Docusate Sodium (Colace) 100 mg PO BID [facility] Last Admin: 02/20/19 18:47 Dose: 100 mg Donepezil HCl (Aricept) 10 mg PO HS [facility] Last Admin: 02/20/19 21:44 Dose: 10 mg Duloxetine HCl (Cymbalta) 60 mg PO BID [facility] Last Admin: 02/20/19 18:47 Dose: 60 mg Enoxaparin Sodium (Lovenox) 40 mg SC DAILY [facility]; Protocol Last Admin: 02/24/19 11:00 Dose: 40 mg Fentanyl (Fentanyl) 50 mcg IVP Q6 PRN PRN Reason: Agitation Home Med (Home Med) 10 unit PO BID [facility] Last Admin: 02/20/19 18:49 Dose: Not Given Home Med (Home Med) 0.25 unit PO BID [facility] Last Admin: 02/20/19 18:49 Dose: Not Given Doxycycline Hyclate 100 mg/ (Sodium Chloride) 100 mls @ 100 mls/hr IVPB Q12 [facility]; Protocol Stop: 03/01/19 13:16 Last Admin: 02/24/19 22:03 Dose: 100 mls/hr Meropenem (Merrem Iv 1 Gm Premix) 1 gm in 50 mls @ 100 mls/hr IVPB Q8 [facility]; Protocol Stop: 03/01/19 14:01 Last Admin: 02/24/19 21:24 Dose: 100 mls/hr Vancomycin HCl (Vancomycin 1gm) 1 gm in 250 mls @ 167 mls/hr IVPB Q12H [facility]; Protocol Stop: 03/02/19 09:46 Last Admin: 02/24/19 21:25 Dose: 167 mls/hr Dextrose (Dextrose 5% In Water 1000 Ml) 1,000 mls @ 0 mls/hr IV .Q0M PRN; Protocol PRN Reason: Hypoglycemia Protocol Dextrose (Dextrose 5% In Water 1000 Ml) 1,000 mls @ 125 mls/hr IV .Q8H [facility] Last Admin: 02/24/19 21:23 Dose: 125 mls/hr Insulin Human Lispro (Humalog Med) 0 units SC Q6 [facility]; Protocol Last Admin: 02/24/19 18:00 Dose: Not Given Levalbuterol HCl (Xopenex) 0.63 mg IH [id number] [facility] Last Admin: 02/24/19 19:51 Dose: 0.63 mg Morphine Sulfate (Morphine) 2 mg IVP Q4H PRN PRN Reason: Pain, moderate (4-7) Last Admin: 02/24/19 12:17 Dose: 2 mg Mupirocin (Bactroban Ointment) 0 gm TOP TID [facility] Last Admin: 02/24/19 18:00 Dose: 1 applic Mycophenolate Mofetil (Cellcept Cap) 500 mg PO BID [facility] Last Admin: 02/24/19 19:25 Dose: 500 mg Ondansetron HCl (Zofran Inj) 4 mg IVP Q4H PRN PRN Reason: Nausea/Vomiting Pantoprazole Sodium (Protonix Ec Tab) 40 mg PO 0600 [facility] Last Admin: 02/20/19 06:08 Dose: 40 mg Pantoprazole Sodium (Protonix Inj) 40 mg IVP DAILY [facility] Last Admin: 02/24/19 11:00 Dose: 40 mg Prednisone (Prednisone Tab) 5 mg PO BID [facility] Last Admin: 02/24/19 19:20 Dose: 5 mg Tamsulosin HCl (Flomax) 0.4 mg PO DAILY [facility] Last Admin: 02/20/19 11:34 Dose: 0.4 mg - Labs Labs: 02/24/19 06:00 02/24/19 21:10 PT 12.0 SECONDS (9.4-12.5) 02/24/19 06:00 INR 1.06 02/24/19 06:00 APTT 39.4 Seconds (26.9-38.3) H 02/14/19 14:15 <Lupe Forbes - Last Filed: 02/26/19 19:54> Objective - Vital Signs/Intake and Output Vital Signs (last 24 hours): Temp Pulse Resp BP Pulse Ox 98.9 F 86 21 147/94 H 80 L 02/26/19 12:00 02/26/19 15:03 02/26/19 15:03 02/26/19 15:00 02/26/19 14:00 Intake and Output: 02/26/19 02/27/19 18:59 06:59 Intake Total 1950 Output Total 900 Balance 1050 - Labs Labs: 02/26/19 03:20 02/26/19 03:20 PT 13.7 SECONDS (9.4-12.5) H 02/26/19 03:20 INR 1.23 02/26/19 03:20 APTT 39.4 Seconds (26.9-38.3) H 02/14/19 14:15 Attending/Attestation - Attestation I have personally seen and examined this patient.: No I have fully participated in the care of the patient.: No I have reviewed all pertinent clinical information, including history, physical exam and plan: No
--- NOTE | 2019-02-24 23:28 | CP.PCM.PN ---
Subjective - Date & Time of Evaluation Date of Evaluation: 02/24/19 Time of Evaluation: 06:30 - Subjective Subjective: Patient is now extubated and on the BiPAP, no fevers. Has some agitation. Objective - Vital Signs/Intake and Output Vital Signs (last 24 hours): Temp Pulse Resp BP Pulse Ox 98.4 F 97 H 26 H 118/68 99 02/23/19 18:52 02/23/19 19:28 02/23/19 18:52 02/23/19 18:52 02/23/19 07:45 Intake and Output: 02/23/19 02/24/19 18:59 06:59 Intake Total 2930 Output Total 1300 Balance 1630 - Medications Medications: Current Medications Acetaminophen (Tylenol 325mg Tab) 650 mg PO Q6 PRN PRN Reason: TEMP>=99.5F Last Admin: 02/21/19 00:43 Dose: 650 mg Acetaminophen (Tylenol 650 Mg Supp) 650 mg RC Q6H PRN PRN Reason: TEMP>=99.5F Last Admin: 02/19/19 10:16 Dose: 650 mg Acetylcysteine (Acetylcysteine 20%) 4 ml IH [id number] [facility] Last Admin: 02/23/19 19:27 Dose: 4 ml Aripiprazole (Abilify) 5 mg PO HS [facility] Last Admin: 02/20/19 21:44 Dose: 5 mg Artificial Tears (Refresh Opth Soln) 0.3 ml OU Q4H PRN PRN Reason: Dry eyes Last Admin: 02/23/19 18:41 Dose: 1 drop Artificial Tears (Puralube Opht Oint) 1 appl OU Q4H PRN PRN Reason: Dry eyes Atorvastatin Calcium (Lipitor) 40 mg PO DIN [facility] Last Admin: 02/20/19 18:47 Dose: 40 mg Dextrose (Dextrose 50% Inj) 50 ml IVP PRN PRN PRN Reason: Low blood sugar Dextrose (Dextrose 50% Inj) 0 ml IV STAT PRN; Protocol PRN Reason: Hypoglycemia Protocol Docusate Sodium (Colace) 100 mg PO BID [facility] Last Admin: 02/20/19 18:47 Dose: 100 mg Donepezil HCl (Aricept) 10 mg PO HS [facility] Last Admin: 02/20/19 21:44 Dose: 10 mg Duloxetine HCl (Cymbalta) 60 mg PO BID [facility] Last Admin: 02/20/19 18:47 Dose: 60 mg Enoxaparin Sodium (Lovenox) 40 mg SC DAILY [facility]; Protocol Last Admin: 02/23/19 13:53 Dose: 40 mg Home Med (Home Med) 10 unit PO BID [facility] Last Admin: 02/20/19 18:49 Dose: Not Given Home Med (Home Med) 0.25 unit PO BID [facility] Last Admin: 02/20/19 18:49 Dose: Not Given Hydrocortisone Sodium Succinate (Solu-Cortef) 25 mg IVP Q12 [facility] Doxycycline Hyclate 100 mg/ (Sodium Chloride) 100 mls @ 100 mls/hr IVPB Q12 [facility]; Protocol Stop: 03/01/19 13:16 Last Admin: 02/23/19 09:20 Dose: 100 mls/hr Meropenem (Merrem Iv 1 Gm Premix) 1 gm in 50 mls @ 100 mls/hr IVPB Q8 [facility]; Protocol Stop: 03/01/19 14:01 Last Admin: 02/23/19 18:42 Dose: 100 mls/hr Fentanyl Citrate (Fentanyl Citrate/Sodium Chloride 1 Mg/100 Ml) 1,000 mcg in 100 mls @ 2 mls/hr IV .Q24H PRN; Protocol PRN Reason: TITRATE PER MD ORDER Last Titration: 02/23/19 18:53 Dose: 50 mcg/hr, 5 mls/hr Vancomycin HCl (Vancomycin 1gm) 1 gm in 250 mls @ 167 mls/hr IVPB Q12H [facility]; Protocol Stop: 03/02/19 09:46 Last Admin: 02/23/19 09:19 Dose: 167 mls/hr Dextrose (Dextrose 5% In Water 1000 Ml) 1,000 mls @ 0 mls/hr IV .Q0M PRN; Protocol PRN Reason: Hypoglycemia Protocol NOREPINEPHRINE BIT/0.9 % NACL (Levophed 4 Mg/ 250 Ml Ns Premixed) 4 mg in 250 mls @ 15 mls/hr IV .[id number] PRN; Protocol PRN Reason: TITRATE PER MD ORDER Last Admin: 02/23/19 12:51 Dose: 4 mcg/min, 15 mls/hr Insulin Human Lispro (Humalog Med) 0 units SC Q6 [facility]; Protocol Last Admin: 04/16/19 18:41 Dose: 3 units Levalbuterol HCl (Xopenex) 0.63 mg IH [id number] [facility] Last Admin: 02/23/19 19:27 Dose: 0.63 mg Mupirocin (Bactroban Ointment) 0 gm TOP TID [facility] Last Admin: 02/23/19 18:53 Dose: 1 applic Mycophenolate Mofetil (Cellcept Cap) 500 mg PO BID [facility] Last Admin: 02/20/19 18:47 Dose: 500 mg Ondansetron HCl (Zofran Inj) 4 mg IVP Q4H PRN PRN Reason: Nausea/Vomiting Pantoprazole Sodium (Protonix Ec Tab) 40 mg PO 0600 [facility] Last Admin: 02/20/19 06:08 Dose: 40 mg Pantoprazole Sodium (Protonix Inj) 40 mg IVP DAILY [facility] Last Admin: 02/23/19 11:07 Dose: 40 mg Tamsulosin HCl (Flomax) 0.4 mg PO DAILY [facility] Last Admin: 02/20/19 11:34 Dose: 0.4 mg - Labs Labs: 02/23/19 05:40 02/23/19 05:40 PT 13.2 SECONDS (9.4-12.5) H 02/23/19 10:20 INR 1.17 02/23/19 10:20 APTT 39.4 Seconds (26.9-38.3) H 02/14/19 14:15 - Constitutional Appears: Chronically Ill - Head Exam Head Exam: NORMAL INSPECTION - Respiratory Exam Respiratory Exam: Decreased Breath Sounds - Cardiovascular Exam Cardiovascular Exam: +S1, +S2 - GI/Abdominal Exam GI & Abdominal Exam: Soft. 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
[2019-02-25] MEDS: Levalbuterol 0.63 MG/3 ML Inhal Soln UD IH SCH ×4 (02:16→19:59)
[2019-02-25] MEDS: Acetylcysteine 20% Inhal Soln (4ml) IH SCH ×4 (02:17→19:59)
[2019-02-25] MEDS: Meropenem IV 1 gm in NS 1 GM/50 ML BAG IVPB SCH ×2 (05:38→15:00)
[2019-02-25] MEDS: Insulin Lispro (humaLOG) MEDIUM Coverage SC SCH ×4 (06:23→19:00)
[2019-02-25 06:54] LABS: BASO # 0.03 K/mm3 (0.0-2.0); BASO % 0.2 % (0.0-3.0); EOS % 0.1 % (1.5-5.0); HEMOGLOBIN 11.9 g/dL (14.0-18.0); LYMPH # 1.8 (1.2-3.4); LYMPH % 12.9 % (22.0-35.0); MEAN CELL VOLUME 85.1 fl (80.0-105.0); MEAN CORPUSCULAR HEMOGLOBIN 26.9 pg (25.0-35.0); MEAN CORPUSCULAR HGB CONC 31.6 g/dl (31.0-37.0); MEAN PLATELET VOLUME 10.1 fl (7.0-11.0); MONO # 0.9 (0.1-0.6); MONO % 6.4 % (1.0-6.0); RBC 4.42 10^6/uL (3.5-6.1); RED CELL DISTRIBUTION WIDTH 15.9 % (11.5-14.5); WHITE BLOOD COUNT 13.6 10^3/uL (4.5-11.0)
[2019-02-25 07:05] LABS: INR 1.07; PROTHROMBIN TIME 12.1 SECONDS (9.4-12.5)
--- NOTE | 2019-02-25 07:11 | CP.CCUPN ---
<Chapo Chan - Last Filed: 02/25/19 12:40> CCU Subjective - Physician Review Subjective (Free Text): Chapo Chan DO, PGY-1 MICU Progress Note for Dr. Sascha Desai Patient was seen and examined at bedside this AM. He remained HD stable last night, no longer requiring pressor support. He was able to drink supplements with assistance and has not had any nausea/vomiting. He is intermittently agitated which improves with re-orientation and family at bedside. He is no longer on fentanyl PRN for agitation. CCU Objective - Vital Signs / Intake & Output Vital Signs (Last 4 hours): Vital Signs Temp Pulse Resp Pulse Ox 02/25/19 04:00 97.8 F 02/25/19 03:30 92 H 31 H 95 02/25/19 03:20 100 H 32 H 94 L 02/25/19 03:10 97 H 34 H 96 Intake and Output (Last 8hrs): Intake & Output 02/24/19 02/25/19 02/25/19 22:59 06:59 14:59 Intake Total 2110 4020 Output Total 2700 2000 Balance -590 2020 Intake: IV 1860 3520 Left Upper arm 3520 Right Femoral 1860 Oral 250 500 Output: Urine 2700 2000 Urethral (Grossman) 2700 2000 Other: # Bowel Movements 2 - Physical Exam Head: Positive for: Atraumatic, Normocephalic Pupils: Positive for: PERRL Extroacular Muscles: Positive for: EOMI Conjunctiva: Positive for: Icteric Ears: Positive for: Normal, NORMAL TM, Normal Canal. Negative for: Erythema, TM Bulging, Fluid, TM Perf Mouth: Positive for: Moist Mucous Membranes Pharnyx: Positive for: Normal. Negative for: ERYTHEMA, EXUDATE Neck: Negative for: Lymphadenopathy Respiratory/Chest: Positive for: Rales (faint rales loudest over RUL, RML, improved from prior exams). Negative for: Respiratory Distress, Accessory Muscle Use, Wheezes, Rhonchi Cardiovascular: Positive for: Regular Rate and Rhythm, Normal S1, S2. Negative for: Murmurs, Rub, Gallop Abdomen: Positive for: Normal Bowel Sounds, Scars (liver transplant post-op abdominal scar noted). Negative for: Tenderness, Distention, Peritoneal Signs Genitourinary Male: Positive for: Normal External Genitalia, Circumcised Penis, Other (grossman in place) Back: Positive for: Normal Inspection. Negative for: CVA Tenderness, Midline Tenderness Upper Extremity: Positive for: NORMAL PULSES, Capillary Refill < 2s, Other (RUE with area of erythema, approximately 3 x 5 cm, improved from prior exams). Negative for: Cyanosis, Edema Lower Extremity: Positive for: NORMAL PULSES, Capillary Refill < 2 s, Other (R sided femoral line now removed, dressing site without drainage or surrounding erythema). Negative for: Edema Neurological: Positive for: CN II-XII Intact, Motor Func Grossly Intact, Other (moving all limbs spontaneously, grimaces with pain, conversant, requesting food) Skin: Positive for: Warm, Dry, Other (diffusely jaundiced and pale) Psychiatric: Positive for: Alert, Oriented x 3, Anxious - Medications Active Medications: Active Medications Generic Name Dose Route Start Last Admin Trade Name Freq PRN Reason Stop Dose Admin Acetaminophen 650 mg 02/15/19 09:01 02/21/19 00:43 Tylenol 325mg Tab PO 650 mg Q6 PRN Administration TEMP>=99.5F Acetaminophen 650 mg 02/15/19 09:01 02/19/19 10:16 Tylenol 650 Mg Supp RC 650 mg Q6H PRN Administration TEMP>=99.5F Acetylcysteine 4 ml 02/22/19 14:00 02/25/19 02:17 Acetylcysteine 20% IH 4 ml [id number] NETTA Administration Aripiprazole 5 mg 02/16/19 08:34 02/20/19 21:44 Abilify PO 5 mg HS NETTA Administration Artificial Tears 0.3 ml 02/23/19 15:40 02/23/19 18:41 Refresh Opth Soln OU 1 drop Q4H PRN Administration Dry eyes Artificial Tears 1 appl 02/23/19 18:52 Puralube Opht Oint OU Q4H PRN Dry eyes Atorvastatin Calcium 40 mg 02/15/19 17:00 02/20/19 18:47 Lipitor PO 40 mg DIN NETTA Administration Dextrose 50 ml 02/22/19 07:50 Dextrose 50% Inj IVP PRN PRN Low blood sugar Dextrose 0 ml 02/22/19 21:32 Dextrose 50% Inj IV STAT PRN Hypoglycemia Protocol Protocol Docusate Sodium 100 mg 02/17/19 18:00 02/20/19 18:47 Colace PO 100 mg BID NETTA Administration Donepezil HCl 10 mg 02/14/19 22:00 02/20/19 21:44 Aricept PO 10 mg HS NETTA Administration Duloxetine HCl 60 mg 02/14/19 18:00 02/20/19 18:47 Cymbalta PO 60 mg BID NETTA Administration Enoxaparin Sodium 40 mg 02/15/19 10:00 02/24/19 11:00 Lovenox SC 40 mg DAILY NETTA Administration Protocol Fentanyl 50 mcg 02/24/19 15:48 Fentanyl IVP Q6 PRN Agitation Home Med 10 unit 02/14/19 18:00 02/20/19 18:49 Home Med PO Not Given BID NETTA Home Med 0.25 unit 02/14/19 18:00 02/20/19 18:49 Home Med PO Not Given BID NETTA Doxycycline Hyclate 100 mg/ 100 mls @ 100 mls/hr 02/20/19 13:15 02/24/19 22:03 Sodium Chloride IVPB 03/01/19 13:16 100 mls/hr Q12 NETTA Administration Protocol Meropenem 1 gm in 50 mls @ 100 mls/hr 02/20/19 14:00 02/25/19 05:38 Merrem Iv 1 Gm Premix IVPB 03/01/19 14:01 100 mls/hr Q8 NETTA Administration Protocol Vancomycin HCl 1 gm in 250 mls @ 167 mls/hr 02/21/19 09:45 02/24/19 21:25 Vancomycin 1gm IVPB 03/02/19 09:46 167 mls/hr Q12H NETTA Administration Protocol Dextrose 1,000 mls @ 0 mls/hr 02/22/19 21:32 Dextrose 5% In Water 1000 Ml IV .Q0M PRN Hypoglycemia Protocol Protocol Per Protocol Dextrose 1,000 mls @ 125 mls/hr 02/24/19 20:53 02/25/19 05:00 Dextrose 5% In Water 1000 Ml IV 125 mls/hr .Q8H NETTA Administration Fluconazole 100 mls @ 100 mls/hr 02/25/19 10:00 Diflucan Iv 200 Mg/100 Ml Ns IVPB 03/01/19 10:59 DAILY NETTA Protocol Insulin Human Lispro 0 units 02/23/19 12:00 04/18/19 06:23 Humalog Med SC Not Given Q6 [facility] Protocol Levalbuterol HCl 0.63 mg 02/15/19 14:00 02/25/19 02:16 Xopenex IH 0.63 mg [id number] NETTA Administration Morphine Sulfate 2 mg 02/24/19 11:39 02/24/19 12:17 Morphine IVP 2 mg Q4H PRN Administration Pain, moderate (4-7) Mupirocin 0 gm 02/19/19 10:00 02/24/19 18:00 Bactroban Ointment TOP 1 applic TID NETTA Administration Mycophenolate Mofetil 500 mg 02/15/19 18:00 02/24/19 19:25 Cellcept Cap PO 500 mg BID NETTA Administration Ondansetron HCl 4 mg 02/15/19 09:01 Zofran Inj IVP Q4H PRN Nausea/Vomiting Pantoprazole Sodium 40 mg 02/15/19 06:00 02/20/19 06:08 Protonix Ec Tab PO 40 mg 0600 NETTA Administration Pantoprazole Sodium 40 mg 02/21/19 10:00 02/24/19 11:00 Protonix Inj IVP 40 mg DAILY NETTA Administration Prednisone 5 mg 02/24/19 18:00 02/24/19 19:20 Prednisone Tab PO 5 mg BID NETTA Administration Tamsulosin HCl 0.4 mg 02/15/19 10:00 02/20/19 11:34 Flomax PO 0.4 mg DAILY NETTA Administration - Patient Studies Lab Studies: Microbiology Studies 02/21/19 17:00 Gram Stain - Final Trachasp Sputum Culture - Final Yeast Species 02/21/19 19:45 Blood Culture - Preliminary Blood NO GROWTH AFTER 3 DAYS 02/21/19 17:30 Blood Culture - Preliminary Blood NO GROWTH AFTER 3 DAYS 02/20/19 14:00 Blood Culture - Preliminary Blood NO GROWTH AFTER 4 DAYS 02/20/19 13:40 Blood Culture - Preliminary Blood NO GROWTH AFTER 4 DAYS Lab Studies 02/25/19 02/25/19 02/25/19 Range/Units 06:53 06:21 05:30 WBC (4.5-11.0) 10^3/uL RBC (3.5-6.1) 10^6/uL Hgb (14.0-18.0) g/dL Hct (42.0-52.0) % MCV (80.0-105.0) fl MCH (25.0-35.0) pg MCHC (31.0-37.0) g/dl RDW (11.5-14.5) % Plt Count (120.0-450.0) 10^3/uL MPV (7.0-11.0) fl Neut % (Auto) (50.0-68.0) % Lymph % (Auto) (22.0-35.0) % [place] % (Auto) (1.0-6.0) % Eos % (Auto) (1.5-5.0) % Baso % (Auto) (0.0-3.0) % Lymph # (Auto) (1.2-3.4) [place] # (Auto) (0.1-0.6) Eos # (Auto) (0.0-0.7) Baso # (Auto) (0.0-2.0) K/mm3 Absolute Neuts (auto) (1.4-6.5) PT 12.1 (9.4-12.5) SECONDS INR 1.07 Sodium (132-148) mmol/L Potassium (3.6-5.0) mmol/L Chloride (98-107) mmol/L Carbon Dioxide (21-33) mmol/L Anion Gap (10-20) BUN (7-21) mg/dL Creatinine (0.8-1.5) mg/dl Est GFR ( Amer) Est GFR (Non-Af Amer) POC Glucose (mg/dL) 115 H 105 (65-110) mg/dL Random Glucose (70-110) mg/dL Serum Osmolality (272-300) mosm/kg Calcium (8.4-10.5) mg/dL Phosphorus (2.5-4.5) mg/dL Magnesium (1.7-2.2) mg/dL Total Bilirubin (0.2-1.3) mg/dL Direct Bilirubin (0.0-0.4) mg/dL AST (17-59) U/L ALT (7-56) U/L Alkaline Phosphatase (38-126) U/L Total Protein (5.8-8.3) g/dL Albumin (3.0-4.8) g/dL Globulin gm/dL Albumin/Globulin Ratio (1.1-1.8) Urine Color (YELLOW) Urine Appearance (CLEAR) Urine pH (4.7-8.0) Ur Specific Elaine (1.005-1.035) Urine Protein (<30 mg/dL) mg/dL Urine Glucose (UA) (NEGATIVE) mg/dL Urine Ketones (NEGATIVE) mg/dL Urine Blood (NEGATIVE) Urine Nitrate (NEGATIVE) Urine Bilirubin (NEGATIVE) Urine Urobilinogen (<1 E.U./dL) E.U./dL Ur Leukocyte Esterase (NEGATIVE) Marisela/uL Urine RBC (0-2) /hpf Urine WBC (0-6) /hpf Ur Epithelial Cells (0-5) /hpf Urine Bacteria (NONE) /hpf Urine Osmolality (300-1000) mosm/kg Ur Random Sodium meq/L 02/25/19 02/24/19 02/24/19 Range/Units 00:05 23:13 21:30 WBC (4.5-11.0) 10^3/uL RBC (3.5-6.1) 10^6/uL Hgb (14.0-18.0) g/dL Hct (42.0-52.0) % MCV (80.0-105.0) fl MCH (25.0-35.0) pg MCHC (31.0-37.0) g/dl RDW (11.5-14.5) % Plt Count (120.0-450.0) 10^3/uL MPV (7.0-11.0) fl Neut % (Auto) (50.0-68.0) % Lymph % (Auto) (22.0-35.0) % [place] % (Auto) (1.0-6.0) % Eos % (Auto) (1.5-5.0) % Baso % (Auto) (0.0-3.0) % Lymph # (Auto) (1.2-3.4) [place] # (Auto) (0.1-0.6) Eos # (Auto) (0.0-0.7) Baso # (Auto) (0.0-2.0) K/mm3 Absolute Neuts (auto) (1.4-6.5) PT (9.4-12.5) SECONDS INR Sodium (132-148) mmol/L Potassium (3.6-5.0) mmol/L Chloride (98-107) mmol/L Carbon Dioxide (21-33) mmol/L Anion Gap (10-20) BUN (7-21) mg/dL Creatinine (0.8-1.5) mg/dl Est GFR ( Amer) Est GFR (Non-Af Amer) POC Glucose (mg/dL) 138 H 150 H (65-110) mg/dL Random Glucose (70-110) mg/dL Serum Osmolality (272-300) mosm/kg Calcium (8.4-10.5) mg/dL Phosphorus (2.5-4.5) mg/dL Magnesium (1.7-2.2) mg/dL Total Bilirubin (0.2-1.3) mg/dL Direct Bilirubin (0.0-0.4) mg/dL AST (17-59) U/L ALT (7-56) U/L Alkaline Phosphatase (38-126) U/L Total Protein (5.8-8.3) g/dL Albumin (3.0-4.8) g/dL Globulin gm/dL Albumin/Globulin Ratio (1.1-1.8) Urine Color (YELLOW) Urine Appearance (CLEAR) Urine pH (4.7-8.0) Ur Specific Elaine (1.005-1.035) Urine Protein (<30 mg/dL) mg/dL Urine Glucose (UA) (NEGATIVE) mg/dL Urine Ketones (NEGATIVE) mg/dL Urine Blood (NEGATIVE) Urine Nitrate (NEGATIVE) Urine Bilirubin (NEGATIVE) Urine Urobilinogen (<1 E.U./dL) E.U./dL Ur Leukocyte Esterase (NEGATIVE) Marisela/uL Urine RBC (0-2) /hpf Urine WBC (0-6) /hpf Ur Epithelial Cells (0-5) /hpf Urine Bacteria (NONE) /hpf Urine Osmolality 124 L (300-1000) mosm/kg Ur Random Sodium < 5 meq/L 02/24/19 02/24/19 02/24/19 Range/Units 21:30 21:10 21:10 WBC (4.5-11.0) 10^3/uL RBC (3.5-6.1) 10^6/uL Hgb (14.0-18.0) g/dL Hct (42.0-52.0) % MCV (80.0-105.0) fl MCH (25.0-35.0) pg MCHC (31.0-37.0) g/dl RDW (11.5-14.5) % Plt Count (120.0-450.0) 10^3/uL MPV (7.0-11.0) fl Neut % (Auto) (50.0-68.0) % Lymph % (Auto) (22.0-35.0) % [place] % (Auto) (1.0-6.0) % Eos % (Auto) (1.5-5.0) % Baso % (Auto) (0.0-3.0) % Lymph # (Auto) (1.2-3.4) [place] # (Auto) (0.1-0.6) Eos # (Auto) (0.0-0.7) Baso # (Auto) (0.0-2.0) K/mm3 Absolute Neuts (auto) (1.4-6.5) PT (9.4-12.5) SECONDS INR Sodium 159 H* (132-148) mmol/L Potassium 3.3 L (3.6-5.0) mmol/L Chloride 133 H (98-107) mmol/L Carbon Dioxide 24 (21-33) mmol/L Anion Gap 6 L (10-20) BUN 20 (7-21) mg/dL Creatinine 0.7 L (0.8-1.5) mg/dl Est GFR ( Amer) > 60 Est GFR (Non-Af Amer) > 60 POC Glucose (mg/dL) (65-110) mg/dL Random Glucose 177 H (70-110) mg/dL Serum Osmolality 337 H (272-300) mosm/kg Calcium 8.1 L (8.4-10.5) mg/dL Phosphorus (2.5-4.5) mg/dL Magnesium (1.7-2.2) mg/dL Total Bilirubin (0.2-1.3) mg/dL Direct Bilirubin (0.0-0.4) mg/dL AST (17-59) U/L ALT (7-56) U/L Alkaline Phosphatase (38-126) U/L Total Protein (5.8-8.3) g/dL Albumin (3.0-4.8) g/dL Globulin gm/dL Albumin/Globulin Ratio (1.1-1.8) Urine Color Yellow (YELLOW) Urine Appearance Sl cloudy (CLEAR) Urine pH 6.0 (4.7-8.0) Ur Specific Elaine 1.015 (1.005-1.035) Urine Protein Negative (<30 mg/dL) mg/dL Urine Glucose (UA) Negative (NEGATIVE) mg/dL Urine Ketones Negative (NEGATIVE) mg/dL Urine Blood Large H (NEGATIVE) Urine Nitrate Negative (NEGATIVE) Urine Bilirubin Negative (NEGATIVE) Urine Urobilinogen 0.2 (<1 E.U./dL) E.U./dL Ur Leukocyte Esterase Trace H (NEGATIVE) Marisela/uL Urine RBC 15 - 20 H (0-2) /hpf Urine WBC 5 - 10 H (0-6) /hpf Ur Epithelial Cells 6 - 8 H (0-5) /hpf Urine Bacteria Mod (NONE) /hpf Urine Osmolality (300-1000) mosm/kg Ur Random Sodium meq/L 02/24/19 02/24/19 02/24/19 Range/Units 18:07 17:37 12:47 WBC (4.5-11.0) 10^3/uL RBC (3.5-6.1) 10^6/uL Hgb (14.0-18.0) g/dL Hct (42.0-52.0) % MCV (80.0-105.0) fl MCH (25.0-35.0) pg MCHC (31.0-37.0) g/dl RDW (11.5-14.5) % Plt Count (120.0-450.0) 10^3/uL MPV (7.0-11.0) fl Neut % (Auto) (50.0-68.0) % Lymph % (Auto) (22.0-35.0) % [place] % (Auto) (1.0-6.0) % Eos % (Auto) (1.5-5.0) % Baso % (Auto) (0.0-3.0) % Lymph # (Auto) (1.2-3.4) [place] # (Auto) (0.1-0.6) Eos # (Auto) (0.0-0.7) Baso # (Auto) (0.0-2.0) K/mm3 Absolute Neuts (auto) (1.4-6.5) PT (9.4-12.5) SECONDS INR Sodium 160 H* (132-148) mmol/L Potassium 3.3 L (3.6-5.0) mmol/L Chloride 134 H (98-107) mmol/L Carbon Dioxide 23 (21-33) mmol/L Anion Gap 6 L (10-20) BUN 22 H (7-21) mg/dL Creatinine 0.7 L (0.8-1.5) mg/dl Est GFR ( Amer) > 60 Est GFR (Non-Af Amer) > 60 POC Glucose (mg/dL) 171 H 112 H (65-110) mg/dL Random Glucose 156 H (70-110) mg/dL Serum Osmolality (272-300) mosm/kg Calcium 8.1 L (8.4-10.5) mg/dL Phosphorus (2.5-4.5) mg/dL Magnesium (1.7-2.2) mg/dL Total Bilirubin (0.2-1.3) mg/dL Direct Bilirubin (0.0-0.4) mg/dL AST (17-59) U/L ALT (7-56) U/L Alkaline Phosphatase (38-126) U/L Total Protein (5.8-8.3) g/dL Albumin (3.0-4.8) g/dL Globulin gm/dL Albumin/Globulin Ratio (1.1-1.8) Urine Color (YELLOW) Urine Appearance (CLEAR) Urine pH (4.7-8.0) Ur Specific Elaine (1.005-1.035) Urine Protein (<30 mg/dL) mg/dL Urine Glucose (UA) (NEGATIVE) mg/dL Urine Ketones (NEGATIVE) mg/dL Urine Blood (NEGATIVE) Urine Nitrate (NEGATIVE) Urine Bilirubin (NEGATIVE) Urine Urobilinogen (<1 E.U./dL) E.U./dL Ur Leukocyte Esterase (NEGATIVE) Marisela/uL Urine RBC (0-2) /hpf Urine WBC (0-6) /hpf Ur Epithelial Cells (0-5) /hpf Urine Bacteria (NONE) /hpf Urine Osmolality (300-1000) mosm/kg Ur Random Sodium meq/L 0402/24/19 02/24/19 Range/Units 06:00 06:00 05:45 WBC 14.2 H D (4.5-11.0) 10^3/uL RBC 3.91 (3.5-6.1) 10^6/uL Hgb 10.7 L D (14.0-18.0) g/dL Hct 33.1 L (42.0-52.0) % MCV 84.7 (80.0-105.0) fl MCH 27.4 (25.0-35.0) pg MCHC 32.3 (31.0-37.0) g/dl RDW 15.6 H (11.5-14.5) % Plt Count 333 (120.0-450.0) 10^3/uL MPV 10.3 (7.0-11.0) fl Neut % (Auto) 90.0 H (50.0-68.0) % Lymph % (Auto) 3.7 L (22.0-35.0) % [place] % (Auto) 6.2 H (1.0-6.0) % Eos % (Auto) 0.0 L (1.5-5.0) % Baso % (Auto) 0.1 (0.0-3.0) % Lymph # (Auto) 0.5 L (1.2-3.4) [place] # (Auto) 0.9 H (0.1-0.6) Eos # (Auto) 0.0 (0.0-0.7) Baso # (Auto) 0.01 (0.0-2.0) K/mm3 Absolute Neuts (auto) 12.83 H (1.4-6.5) PT (9.4-12.5) SECONDS INR Sodium 155 H (132-148) mmol/L Potassium 3.5 L (3.6-5.0) mmol/L Chloride 129 H (98-107) mmol/L Carbon Dioxide 24 (21-33) mmol/L Anion Gap 6 L (10-20) BUN 23 H (7-21) mg/dL Creatinine 0.7 L (0.8-1.5) mg/dl Est GFR ( Amer) > 60 Est GFR (Non-Af Amer) > 60 POC Glucose (mg/dL) 148 H (65-110) mg/dL Random Glucose 145 H (70-110) mg/dL Serum Osmolality (272-300) mosm/kg Calcium 7.7 L (8.4-10.5) mg/dL Phosphorus 2.1 L (2.5-4.5) mg/dL Magnesium 2.4 H (1.7-2.2) mg/dL Total Bilirubin 0.3 (0.2-1.3) mg/dL Direct Bilirubin 0.3 (0.0-0.4) mg/dL AST 51 (17-59) U/L ALT 22 (7-56) U/L Alkaline Phosphatase 81 (38-126) U/L Total Protein 5.5 L (5.8-8.3) g/dL Albumin 2.6 L (3.0-4.8) g/dL Globulin 2.9 gm/dL Albumin/Globulin Ratio 0.9 L (1.1-1.8) Urine Color (YELLOW) Urine Appearance (CLEAR) Urine pH (4.7-8.0) Ur Specific Elaine (1.005-1.035) Urine Protein (<30 mg/dL) mg/dL Urine Glucose (UA) (NEGATIVE) mg/dL Urine Ketones (NEGATIVE) mg/dL Urine Blood (NEGATIVE) Urine Nitrate (NEGATIVE) Urine Bilirubin (NEGATIVE) Urine Urobilinogen (<1 E.U./dL) E.U./dL Ur Leukocyte Esterase (NEGATIVE) Marisela/uL Urine RBC (0-2) /hpf Urine WBC (0-6) /hpf Ur Epithelial Cells (0-5) /hpf Urine Bacteria (NONE) /hpf Urine Osmolality (300-1000) mosm/kg Ur Random Sodium meq/L 02/23/19 Range/Units 23:26 WBC (4.5-11.0) 10^3/uL RBC (3.5-6.1) 10^6/uL Hgb (14.0-18.0) g/dL Hct (42.0-52.0) % MCV (80.0-105.0) fl MCH (25.0-35.0) pg MCHC (31.0-37.0) g/dl RDW (11.5-14.5) % Plt Count (120.0-450.0) 10^3/uL MPV (7.0-11.0) fl Neut % (Auto) (50.0-68.0) % Lymph % (Auto) (22.0-35.0) % [place] % (Auto) (1.0-6.0) % Eos % (Auto) (1.5-5.0) % Baso % (Auto) (0.0-3.0) % Lymph # (Auto) (1.2-3.4) [place] # (Auto) (0.1-0.6) Eos # (Auto) (0.0-0.7) Baso # (Auto) (0.0-2.0) K/mm3 Absolute Neuts (auto) (1.4-6.5) PT (9.4-12.5) SECONDS INR Sodium (132-148) mmol/L Potassium (3.6-5.0) mmol/L Chloride (98-107) mmol/L Carbon Dioxide (21-33) mmol/L Anion Gap (10-20) BUN (7-21) mg/dL Creatinine (0.8-1.5) mg/dl Est GFR ( Amer) Est GFR (Non-Af Amer) POC Glucose (mg/dL) 203 H (65-110) mg/dL Random Glucose (70-110) mg/dL Serum Osmolality (272-300) mosm/kg Calcium (8.4-10.5) mg/dL Phosphorus (2.5-4.5) mg/dL Magnesium (1.7-2.2) mg/dL Total Bilirubin (0.2-1.3) mg/dL Direct Bilirubin (0.0-0.4) mg/dL AST (17-59) U/L ALT (7-56) U/L Alkaline Phosphatase (38-126) U/L Total Protein (5.8-8.3) g/dL Albumin (3.0-4.8) g/dL Globulin gm/dL Albumin/Globulin Ratio (1.1-1.8) Urine Color (YELLOW) Urine Appearance (CLEAR) Urine pH (4.7-8.0) Ur Specific Elaine (1.005-1.035) Urine Protein (<30 mg/dL) mg/dL Urine Glucose (UA) (NEGATIVE) mg/dL Urine Ketones (NEGATIVE) mg/dL Urine Blood (NEGATIVE) Urine Nitrate (NEGATIVE) Urine Bilirubin (NEGATIVE) Urine Urobilinogen (<1 E.U./dL) E.U./dL Ur Leukocyte Esterase (NEGATIVE) Marisela/uL Urine RBC (0-2) /hpf Urine WBC (0-6) /hpf Ur Epithelial Cells (0-5) /hpf Urine Bacteria (NONE) /hpf Urine Osmolality (300-1000) mosm/kg Ur Random Sodium meq/L Laboratory Results - last 24 hr 02/23/19 02/24/19 02/24/19 23:26 05:45 06:00 WBC 14.2 H D RBC 3.91 Hgb 10.7 L D Hct 33.1 L MCV 84.7 MCH 27.4 MCHC 32.3 RDW 15.6 H Plt Count 333 MPV 10.3 Neut % (Auto) 90.0 H Lymph % (Auto) 3.7 L [place] % (Auto) 6.2 H Eos % (Auto) 0.0 L Baso % (Auto) 0.1 Lymph # (Auto) 0.5 L [place] # (Auto) 0.9 H Eos # (Auto) 0.0 Baso # (Auto) 0.01 Absolute Neuts (auto) 12.83 H PT INR Sodium Potassium Chloride Carbon Dioxide Anion Gap BUN Creatinine Est GFR ( Amer) Est GFR (Non-Af Amer) POC Glucose (mg/dL) 203 H 148 H Random Glucose Serum Osmolality Calcium Phosphorus Magnesium Total Bilirubin Direct Bilirubin AST ALT Alkaline Phosphatase Total Protein Albumin Globulin Albumin/Globulin Ratio Urine Color Urine Appearance Urine pH Ur Specific Elaine Urine Protein Urine Glucose (UA) Urine Ketones Urine Blood Urine Nitrate Urine Bilirubin Urine Urobilinogen Ur Leukocyte Esterase Urine RBC Urine WBC Ur Epithelial Cells Urine Bacteria Urine Osmolality Ur Random Sodium 02/24/19 02/24/19 02/24/19 06:00 12:47 17:37 WBC RBC Hgb Hct MCV MCH MCHC RDW Plt Count MPV Neut % (Auto) Lymph % (Auto) [place] % (Auto) Eos % (Auto) Baso % (Auto) Lymph # (Auto) [place] # (Auto) Eos # (Auto) Baso # (Auto) Absolute Neuts (auto) PT INR Sodium 155 H Potassium 3.5 L Chloride 129 H Carbon Dioxide 24 Anion Gap 6 L BUN 23 H Creatinine 0.7 L Est GFR ( Amer) > 60 Est GFR (Non-Af Amer) > 60 POC Glucose (mg/dL) 112 H 171 H Random Glucose 145 H Serum Osmolality Calcium 7.7 L Phosphorus 2.1 L Magnesium 2.4 H Total Bilirubin 0.3 Direct Bilirubin 0.3 AST 51 ALT 22 Alkaline Phosphatase 81 Total Protein 5.5 L Albumin 2.6 L Globulin 2.9 Albumin/Globulin Ratio 0.9 L Urine Color Urine Appearance Urine pH Ur Specific Elaine Urine Protein Urine Glucose (UA) Urine Ketones Urine Blood Urine Nitrate Urine Bilirubin Urine Urobilinogen Ur Leukocyte Esterase Urine RBC Urine WBC Ur Epithelial Cells Urine Bacteria Urine Osmolality Ur Random Sodium 02/24/19 02/24/19 02/24/19 18:07 21:10 21:10 WBC RBC Hgb Hct MCV MCH MCHC RDW Plt Count MPV Neut % (Auto) Lymph % (Auto) [place] % (Auto) Eos % (Auto) Baso % (Auto) Lymph # (Auto) [place] # (Auto) Eos # (Auto) Baso # (Auto) Absolute Neuts (auto) PT INR Sodium 160 H* 159 H* Potassium 3.3 L 3.3 L Chloride 134 H 133 H Carbon Dioxide 23 24 Anion Gap 6 L 6 L BUN 22 H 20 Creatinine 0.7 L 0.7 L Est GFR ( Amer) > 60 > 60 Est GFR (Non-Af Amer) > 60 > 60 POC Glucose (mg/dL) Random Glucose 156 H 177 H Serum Osmolality 337 H Calcium 8.1 L 8.1 L Phosphorus Magnesium Total Bilirubin Direct Bilirubin AST ALT Alkaline Phosphatase Total Protein Albumin Globulin Albumin/Globulin Ratio Urine Color Urine Appearance Urine pH Ur Specific Elaine Urine Protein Urine Glucose (UA) Urine Ketones Urine Blood Urine Nitrate Urine Bilirubin Urine Urobilinogen Ur Leukocyte Esterase Urine RBC Urine WBC Ur Epithelial Cells Urine Bacteria Urine Osmolality Ur Random Sodium 02/24/19 02/24/19 02/24/19 21:30 21:30 23:13 WBC RBC Hgb Hct MCV MCH MCHC RDW Plt Count MPV Neut % (Auto) Lymph % (Auto) [place] % (Auto) Eos % (Auto) Baso % (Auto) Lymph # (Auto) [place] # (Auto) Eos # (Auto) Baso # (Auto) Absolute Neuts (auto) PT INR Sodium Potassium Chloride Carbon Dioxide Anion Gap BUN Creatinine Est GFR ( Amer) Est GFR (Non-Af Amer) POC Glucose (mg/dL) 150 H Random Glucose Serum Osmolality Calcium Phosphorus Magnesium Total Bilirubin Direct Bilirubin AST ALT Alkaline Phosphatase Total Protein Albumin Globulin Albumin/Globulin Ratio Urine Color Yellow Urine Appearance Sl cloudy Urine pH 6.0 Ur Specific Elaine 1.015 Urine Protein Negative Urine Glucose (UA) Negative Urine Ketones Negative Urine Blood Large H Urine Nitrate Negative Urine Bilirubin Negative Urine Urobilinogen 0.2 Ur Leukocyte Esterase Trace H Urine RBC 15 - 20 H Urine WBC 5 - 10 H Ur Epithelial Cells 6 - 8 H Urine Bacteria Mod Urine Osmolality 124 L Ur Random Sodium < 5 02/25/19 02/25/19 02/25/19 00:05 05:30 06:21 WBC RBC Hgb Hct MCV MCH MCHC RDW Plt Count MPV Neut % (Auto) Lymph % (Auto) [place] % (Auto) Eos % (Auto) Baso % (Auto) Lymph # (Auto) [place] # (Auto) Eos # (Auto) Baso # (Auto) Absolute Neuts (auto) PT 12.1 INR 1.07 Sodium Potassium Chloride Carbon Dioxide Anion Gap BUN Creatinine Est GFR ( Amer) Est GFR (Non-Af Amer) POC Glucose (mg/dL) 138 H 105 Random Glucose Serum Osmolality Calcium Phosphorus Magnesium Total Bilirubin Direct Bilirubin AST ALT Alkaline Phosphatase Total Protein Albumin Globulin Albumin/Globulin Ratio Urine Color Urine Appearance Urine pH Ur Specific Elaine Urine Protein Urine Glucose (UA) Urine Ketones Urine Blood Urine Nitrate Urine Bilirubin Urine Urobilinogen Ur Leukocyte Esterase Urine RBC Urine WBC Ur Epithelial Cells Urine Bacteria Urine Osmolality Ur Random Sodium 02/25/19 06:53 WBC RBC Hgb Hct MCV MCH MCHC RDW Plt Count MPV Neut % (Auto) Lymph % (Auto) [place] % (Auto) Eos % (Auto) Baso % (Auto) Lymph # (Auto) [place] # (Auto) Eos # (Auto) Baso # (Auto) Absolute Neuts (auto) PT INR Sodium Potassium Chloride Carbon Dioxide Anion Gap BUN Creatinine Est GFR ( Amer) Est GFR (Non-Af Amer) POC Glucose (mg/dL) 115 H Random Glucose Serum Osmolality Calcium Phosphorus Magnesium Total Bilirubin Direct Bilirubin AST ALT Alkaline Phosphatase Total Protein Albumin Globulin Albumin/Globulin Ratio Urine Color Urine Appearance Urine pH Ur Specific Elaine Urine Protein Urine Glucose (UA) Urine Ketones Urine Blood Urine Nitrate Urine Bilirubin Urine Urobilinogen Ur Leukocyte Esterase Urine RBC Urine WBC Ur Epithelial Cells Urine Bacteria Urine Osmolality Ur Random Sodium Radiology Impressions: Radiology Impressions Chest X-Ray 02/23/19 19:48 IMPRESSION: Left-sided PICC line in satisfactory position at the junction of the right atrium and SVC Chest X-Ray 02/24/19 07:00 IMPRESSION: Mild vascular congestion Fingerstick Blood Sugar Results: 105 Critical Care Progress Note - Nutrition Nutrition: Nutrition Category Date Time Status Diabetic [Consistent Carbohydrate] [DIET] Diets 02/24/19 Lunch Ordered Assessment/Plan - Assessment and Plan (Free Text) Assessment: 63 yo M with PMH of cirrhosis (s/p liver transplant), chronic pain on narcotics, HTN, depression, hypothyroidism, blindness, craniopharyngioma, and psoriasis initially admitted for fever, generalized weakness, and sepsis thought to be 2/2 RUE cellulitis. Yesterday morning, he began to acutely decompensate into septic shock, requiring rapid IVF resuscitation, ET intubation, and trasnfer to MICU. Plan: Neuro: Now off ventilator, awake, alert, intermittently agitated Appears to be at baseline Additional history obtained Patient has known history of craniopharyngioma Case has been reviewed by Dr. Villarreal, Dr. Nichols previously No acute intervention warranted Ammonia negative since admission Neurology following, all recs appreciated Cardio: No longer requiring pressor support and HR is RRR LUE PICC line placed yesterday and R femoral line removed Continue to maintain MAP > 65 Continue to monitor HD parameters closely Pulm: Patient self-extubated but has maintained SpO2 > 90% on O2 NC overnight No longer requiring Bipap, last ABG without hypercapnia Continue to maintain SpO2 > 95%, O2 NC PRN Endo: Random glucose: 145 Continue ISS - medium Maintain glucose between 140-180 D/c stress dose corticosteroid Will resume home prednisone 5 mg BID GI: Per speech/swallow evaluation, purreed, thin liquid diet started yesterday Tolerating diet well so far GI following, all recs appreciated /Nephro: Renal function parameters stable Hypotonic polyuria with worsening hypernatremia 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 D5W infusion rate increased to 225 cc/hr Continue strict I & O Encourage PO water intake Per nephrology, will give one time dose of DDAVP and continue to monitor serial BMP Nephrology consult placed, all recs appreciated Heme/Onc: H/H stable s/p transfusion of 2 u PRBCs but need to determine etiology of prior acute blood loss anemia FOBT pending 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 Sascha Chan D.O. IM Resident PGY-1 Pager: [phone] <[email or web address] - Last Filed: 02/25/19 18:04> CCU Objective - Vital Signs / Intake & Output Intake and Output (Last 8hrs): Intake & Output 02/25/19 02/25/19 02/25/19 06:59 14:59 22:59 Intake Total 4020 Output Total 1999 Balance 2019 Intake: IV 3520 Left Upper arm 3520 Oral 500 Output: Urine 2000 Urethral ([place]) 2000 Other: # Bowel Movements 2 - Medications Active Medications: Active Medications Generic Name Dose Route Start Last Admin Trade Name Freq PRN Reason Stop Dose Admin Acetaminophen 650 mg 02/15/19 09:01 02/21/19 00:43 Tylenol 325mg Tab PO 650 mg Q6 PRN Administration TEMP>=99.5F Acetaminophen 650 mg 02/15/19 09:01 02/19/19 10:16 Tylenol 650 Mg Supp RC 650 mg Q6H PRN Administration TEMP>=99.5F Acetylcysteine 4 ml 02/22/19 14:00 02/25/19 13:02 Acetylcysteine 20% IH 4 ml [id number] NETTA Administration Aripiprazole 5 mg 02/16/19 08:34 02/20/19 21:44 Abilify PO 5 mg HS NETTA Administration Artificial Tears 0.3 ml 02/23/19 15:40 02/23/19 18:41 Refresh Opth Soln OU 1 drop Q4H PRN Administration Dry eyes Artificial Tears 1 appl 02/23/19 18:52 Puralube Opht Oint OU Q4H PRN Dry eyes Atorvastatin Calcium 40 mg 02/15/19 17:00 02/20/19 18:47 Lipitor PO 40 mg DIN NETTA Administration Betamethasone/Clotrimazole 1 gm 02/25/19 18:00 Lotrisone TOP BID NETTA Dextrose 50 ml 02/22/19 07:50 Dextrose 50% Inj IVP PRN PRN Low blood sugar Dextrose 0 ml 02/22/19 21:32 Dextrose 50% Inj IV STAT PRN Hypoglycemia Protocol Protocol Docusate Sodium 100 mg 02/17/19 18:00 02/20/19 18:47 Colace PO 100 mg BID NETTA Administration Donepezil HCl 10 mg 02/14/19 22:00 02/20/19 21:44 Aricept PO 10 mg HS NETTA Administration Duloxetine HCl 60 mg 02/14/19 18:00 02/20/19 18:47 Cymbalta PO 60 mg BID NETTA Administration Enoxaparin Sodium 40 mg 02/15/19 10:00 02/25/19 11:46 Lovenox SC 40 mg DAILY NETTA Administration Protocol Fentanyl 50 mcg 02/24/19 15:48 Fentanyl IVP Q6 PRN Agitation Home Med 10 unit 02/14/19 18:00 02/20/19 18:49 Home Med PO Not Given BID NETTA Home Med 0.25 unit 02/14/19 18:00 02/20/19 18:49 Home Med PO Not Given BID NETTA Home Med 1 unit 02/25/19 18:00 Home Med PO BID NETTA Hydrocortisone 0 ea 02/25/19 12:43 Cortizone 0.5% TOP BID PRN Rash Vancomycin HCl 1 gm in 250 mls @ 167 mls/hr 02/21/19 09:45 02/25/19 10:34 Vancomycin 1gm IVPB 03/02/19 09:46 167 mls/hr Q12H NETTA Administration Protocol Dextrose 1,000 mls @ 0 mls/hr 02/22/19 21:32 Dextrose 5% In Water 1000 Ml IV .Q0M PRN Hypoglycemia Protocol Protocol Per Protocol Fluconazole 100 mls @ 100 mls/hr 02/25/19 10:00 02/25/19 11:47 Diflucan Iv 200 Mg/100 Ml Ns IVPB 03/01/19 10:59 100 mls/hr DAILY NETTA Administration Protocol Dextrose 1,000 mls @ 225 mls/hr 02/25/19 08:32 02/25/19 10:06 Dextrose 5% In Water 1000 Ml IV 225 mls/hr .Q4H27M NETTA Administration Insulin Human Lispro 0 units 02/23/19 12:00 02/25/19 13:10 Humalog Med SC Not Given Q6 [facility] Protocol Levalbuterol HCl 0.63 mg 02/15/19 14:00 02/25/19 13:02 Xopenex IH 0.63 mg [id number] NETTA Administration Morphine Sulfate 2 mg 02/24/19 11:39 02/25/19 10:40 Morphine IVP 2 mg Q4H PRN Administration Pain, moderate (4-7) Mupirocin 0 gm 02/19/19 10:00 02/24/19 18:00 Bactroban Ointment TOP 1 applic TID NETTA Administration Mycophenolate Mofetil 500 mg 02/15/19 18:00 02/25/19 11:46 Cellcept Cap PO 500 mg BID NETTA Administration Ondansetron HCl 4 mg 02/15/19 09:01 Zofran Inj IVP Q4H PRN Nausea/Vomiting Pantoprazole Sodium 40 mg 02/15/19 06:00 02/20/19 06:08 Protonix Ec Tab PO 40 mg 0600 NETTA Administration Pantoprazole Sodium 40 mg 02/21/19 10:00 02/25/19 11:00 Protonix Inj IVP 40 mg DAILY NETTA Administration Prednisone 5 mg 02/24/19 18:00 02/25/19 11:45 Prednisone Tab PO 5 mg BID NETTA Administration Tamsulosin HCl 0.4 mg 02/15/19 10:00 02/20/19 11:34 Flomax PO 0.4 mg DAILY NETTA Administration - Patient Studies Lab Studies: Microbiology Studies 02/20/19 14:00 Blood Culture - Final Blood NO GROWTH AFTER 5 DAYS Gram Stain - Final TEST NOT PERFORMED 02/20/19 13:40 Blood Culture - Final Blood NO GROWTH AFTER 5 DAYS Gram Stain - Final TEST NOT PERFORMED 02/21/19 17:00 Gram Stain - Final Trachasp Sputum Culture - Final Yeast Species 02/21/19 19:45 Blood Culture - Preliminary Blood NO GROWTH AFTER 3 DAYS 02/21/19 17:30 Blood Culture - Preliminary Blood NO GROWTH AFTER 3 DAYS Lab Studies 02/25/19 02/25/19 02/25/19 Range/Units 13:30 13:02 09:10 WBC (4.5-11.0) 10^3/uL RBC (3.5-6.1) 10^6/uL Hgb (14.0-18.0) g/dL Hct (42.0-52.0) % MCV (80.0-105.0) fl MCH (25.0-35.0) pg MCHC (31.0-37.0) g/dl RDW (11.5-14.5) % Plt Count (120.0-450.0) 10^3/uL MPV (7.0-11.0) fl Neut % (Auto) (50.0-68.0) % Lymph % (Auto) (22.0-35.0) % [place] % (Auto) (1.0-6.0) % Eos % (Auto) (1.5-5.0) % Baso % (Auto) (0.0-3.0) % Lymph # (Auto) (1.2-3.4) [place] # (Auto) (0.1-0.6) Eos # (Auto) (0.0-0.7) Baso # (Auto) (0.0-2.0) K/mm3 Absolute Neuts (auto) (1.4-6.5) PT (9.4-12.5) SECONDS INR Sodium 163 H* 163 H* (132-148) mmol/L Potassium 3.7 3.6 (3.6-5.0) mmol/L Chloride 135 H 136 H (98-107) mmol/L Carbon Dioxide 26 25 (21-33) mmol/L Anion Gap 6 L 7 L (10-20) BUN 16 18 (7-21) mg/dL Creatinine 0.7 L 0.6 L (0.8-1.5) mg/dl Est GFR ( Amer) > 60 > 60 Est GFR (Non-Af Amer) > 60 > 60 POC Glucose (mg/dL) 81 (65-110) mg/dL Random Glucose 111 H 106 (70-110) mg/dL Serum Osmolality (272-300) mosm/kg Calcium 8.0 L 8.2 L (8.4-10.5) mg/dL Phosphorus (2.5-4.5) mg/dL Magnesium (1.7-2.2) mg/dL Total Bilirubin (0.2-1.3) mg/dL Direct Bilirubin (0.0-0.4) mg/dL AST (17-59) U/L ALT (7-56) U/L Alkaline Phosphatase (38-126) U/L Total Protein (5.8-8.3) g/dL Albumin (3.0-4.8) g/dL Globulin gm/dL Albumin/Globulin Ratio (1.1-1.8) Urine Color (YELLOW) Urine Appearance (CLEAR) Urine pH (4.7-8.0) Ur Specific Elaine (1.005-1.035) Urine Protein (<30 mg/dL) mg/dL Urine Glucose (UA) (NEGATIVE) mg/dL Urine Ketones (NEGATIVE) mg/dL Urine Blood (NEGATIVE) Urine Nitrate (NEGATIVE) Urine Bilirubin (NEGATIVE) Urine Urobilinogen (<1 E.U./dL) E.U./dL Ur Leukocyte Esterase (NEGATIVE) Marisela/uL Urine RBC (0-2) /hpf Urine WBC (0-6) /hpf Ur Epithelial Cells (0-5) /hpf Urine Bacteria (NONE) /hpf Urine Osmolality (300-1000) mosm/kg Ur Random Sodium meq/L 02/25/19 02/25/19 02/25/19 Range/Units 06:53 06:21 05:30 WBC (4.5-11.0) 10^3/uL RBC (3.5-6.1) 10^6/uL Hgb (14.0-18.0) g/dL Hct (42.0-52.0) % MCV (80.0-105.0) fl MCH (25.0-35.0) pg MCHC (31.0-37.0) g/dl RDW (11.5-14.5) % Plt Count (120.0-450.0) 10^3/uL MPV (7.0-11.0) fl Neut % (Auto) (50.0-68.0) % Lymph % (Auto) (22.0-35.0) % [place] % (Auto) (1.0-6.0) % Eos % (Auto) (1.5-5.0) % Baso % (Auto) (0.0-3.0) % Lymph # (Auto) (1.2-3.4) [place] # (Auto) (0.1-0.6) Eos # (Auto) (0.0-0.7) Baso # (Auto) (0.0-2.0) K/mm3 Absolute Neuts (auto) (1.4-6.5) PT 12.1 (9.4-12.5) SECONDS INR 1.07 Sodium (132-148) mmol/L Potassium (3.6-5.0) mmol/L Chloride (98-107) mmol/L Carbon Dioxide (21-33) mmol/L Anion Gap (10-20) BUN (7-21) mg/dL Creatinine (0.8-1.5) mg/dl Est GFR ( Amer) Est GFR (Non-Af Amer) POC Glucose (mg/dL) 115 H 105 (65-110) mg/dL Random Glucose (70-110) mg/dL Serum Osmolality (272-300) mosm/kg Calcium (8.4-10.5) mg/dL Phosphorus (2.5-4.5) mg/dL Magnesium (1.7-2.2) mg/dL Total Bilirubin (0.2-1.3) mg/dL Direct Bilirubin (0.0-0.4) mg/dL AST (17-59) U/L ALT (7-56) U/L Alkaline Phosphatase (38-126) U/L Total Protein (5.8-8.3) g/dL Albumin (3.0-4.8) g/dL Globulin gm/dL Albumin/Globulin Ratio (1.1-1.8) Urine Color (YELLOW) Urine Appearance (CLEAR) Urine pH (4.7-8.0) Ur Specific Elaine (1.005-1.035) Urine Protein (<30 mg/dL) mg/dL Urine Glucose (UA) (NEGATIVE) mg/dL Urine Ketones (NEGATIVE) mg/dL Urine Blood (NEGATIVE) Urine Nitrate (NEGATIVE) Urine Bilirubin (NEGATIVE) Urine Urobilinogen (<1 E.U./dL) E.U./dL Ur Leukocyte Esterase (NEGATIVE) Marisela/uL Urine RBC (0-2) /hpf Urine WBC (0-6) /hpf Ur Epithelial Cells (0-5) /hpf Urine Bacteria (NONE) /hpf Urine Osmolality (300-1000) mosm/kg Ur Random Sodium meq/L 02/25/19 02/25/19 02/25/19 Range/Units 05:30 05:30 00:05 WBC 13.6 H (4.5-11.0) 10^3/uL RBC 4.42 (3.5-6.1) 10^6/uL Hgb 11.9 L (14.0-18.0) g/dL Hct 37.6 L (42.0-52.0) % MCV 85.1 (80.0-105.0) fl MCH 26.9 (25.0-35.0) pg MCHC 31.6 (31.0-37.0) g/dl RDW 15.9 H (11.5-14.5) % Plt Count 386 (120.0-450.0) 10^3/uL MPV 10.1 (7.0-11.0) fl Neut % (Auto) 80.4 H (50.0-68.0) % Lymph % (Auto) 12.9 L (22.0-35.0) % [place] % (Auto) 6.4 H (1.0-6.0) % Eos % (Auto) 0.1 L (1.5-5.0) % Baso % (Auto) 0.2 (0.0-3.0) % Lymph # (Auto) 1.8 (1.2-3.4) [place] # (Auto) 0.9 H (0.1-0.6) Eos # (Auto) 0.0 (0.0-0.7) Baso # (Auto) 0.03 (0.0-2.0) K/mm3 Absolute Neuts (auto) 10.92 H (1.4-6.5) PT (9.4-12.5) SECONDS INR Sodium 164 H* (132-148) mmol/L Potassium 3.6 (3.6-5.0) mmol/L Chloride 135 H (98-107) mmol/L Carbon Dioxide 25 (21-33) mmol/L Anion Gap 7 L (10-20) BUN 18 (7-21) mg/dL Creatinine 0.7 L (0.8-1.5) mg/dl Est GFR ( Amer) > 60 Est GFR (Non-Af Amer) > 60 POC Glucose (mg/dL) 138 H (65-110) mg/dL Random Glucose 95 (70-110) mg/dL Serum Osmolality (272-300) mosm/kg Calcium 8.3 L (8.4-10.5) mg/dL Phosphorus 2.3 L (2.5-4.5) mg/dL Magnesium 2.7 H (1.7-2.2) mg/dL Total Bilirubin 0.3 (0.2-1.3) mg/dL Direct Bilirubin 0.3 (0.0-0.4) mg/dL AST 46 (17-59) U/L ALT 23 (7-56) U/L Alkaline Phosphatase 86 (38-126) U/L Total Protein 5.8 (5.8-8.3) g/dL Albumin 2.8 L (3.0-4.8) g/dL Globulin 3.0 gm/dL Albumin/Globulin Ratio 0.9 L (1.1-1.8) Urine Color (YELLOW) Urine Appearance (CLEAR) Urine pH (4.7-8.0) Ur Specific Elaine (1.005-1.035) Urine Protein (<30 mg/dL) mg/dL Urine Glucose (UA) (NEGATIVE) mg/dL Urine Ketones (NEGATIVE) mg/dL Urine Blood (NEGATIVE) Urine Nitrate (NEGATIVE) Urine Bilirubin (NEGATIVE) Urine Urobilinogen (<1 E.U./dL) E.U./dL Ur Leukocyte Esterase (NEGATIVE) Marisela/uL Urine RBC (0-2) /hpf Urine WBC (0-6) /hpf Ur Epithelial Cells (0-5) /hpf Urine Bacteria (NONE) /hpf Urine Osmolality (300-1000) mosm/kg Ur Random Sodium meq/L 02/24/19 02/24/19 02/24/19 Range/Units 23:13 21:30 21:30 WBC (4.5-11.0) 10^3/uL RBC (3.5-6.1) 10^6/uL Hgb (14.0-18.0) g/dL Hct (42.0-52.0) % MCV (80.0-105.0) fl MCH (25.0-35.0) pg MCHC (31.0-37.0) g/dl RDW (11.5-14.5) % Plt Count (120.0-450.0) 10^3/uL MPV (7.0-11.0) fl Neut % (Auto) (50.0-68.0) % Lymph % (Auto) (22.0-35.0) % [place] % (Auto) (1.0-6.0) % Eos % (Auto) (1.5-5.0) % Baso % (Auto) (0.0-3.0) % Lymph # (Auto) (1.2-3.4) [place] # (Auto) (0.1-0.6) Eos # (Auto) (0.0-0.7) Baso # (Auto) (0.0-2.0) K/mm3 Absolute Neuts (auto) (1.4-6.5) PT (9.4-12.5) SECONDS INR Sodium (132-148) mmol/L Potassium (3.6-5.0) mmol/L Chloride (98-107) mmol/L Carbon Dioxide (21-33) mmol/L Anion Gap (10-20) BUN (7-21) mg/dL Creatinine (0.8-1.5) mg/dl Est GFR ( Amer) Est GFR (Non-Af Amer) POC Glucose (mg/dL) 150 H (65-110) mg/dL Random Glucose (70-110) mg/dL Serum Osmolality (272-300) mosm/kg Calcium (8.4-10.5) mg/dL Phosphorus (2.5-4.5) mg/dL Magnesium (1.7-2.2) mg/dL Total Bilirubin (0.2-1.3) mg/dL Direct Bilirubin (0.0-0.4) mg/dL AST (17-59) U/L ALT (7-56) U/L Alkaline Phosphatase (38-126) U/L Total Protein (5.8-8.3) g/dL Albumin (3.0-4.8) g/dL Globulin gm/dL Albumin/Globulin Ratio (1.1-1.8) Urine Color Yellow (YELLOW) Urine Appearance Sl cloudy (CLEAR) Urine pH 6.0 (4.7-8.0) Ur Specific Elaine 1.015 (1.005-1.035) Urine Protein Negative (<30 mg/dL) mg/dL Urine Glucose (UA) Negative (NEGATIVE) mg/dL Urine Ketones Negative (NEGATIVE) mg/dL Urine Blood Large H (NEGATIVE) Urine Nitrate Negative (NEGATIVE) Urine Bilirubin Negative (NEGATIVE) Urine Urobilinogen 0.2 (<1 E.U./dL) E.U./dL Ur Leukocyte Esterase Trace H (NEGATIVE) Marisela/uL Urine RBC 15 - 20 H (0-2) /hpf Urine WBC 5 - 10 H (0-6) /hpf Ur Epithelial Cells 6 - 8 H (0-5) /hpf Urine Bacteria Mod (NONE) /hpf Urine Osmolality 124 L (300-1000) mosm/kg Ur Random Sodium < 5 meq/L 02/24/19 02/24/19 02/24/19 Range/Units 21:10 21:10 18:07 WBC (4.5-11.0) 10^3/uL RBC (3.5-6.1) 10^6/uL Hgb (14.0-18.0) g/dL Hct (42.0-52.0) % MCV (80.0-105.0) fl MCH (25.0-35.0) pg MCHC (31.0-37.0) g/dl RDW (11.5-14.5) % Plt Count (120.0-450.0) 10^3/uL MPV (7.0-11.0) fl Neut % (Auto) (50.0-68.0) % Lymph % (Auto) (22.0-35.0) % [place] % (Auto) (1.0-6.0) % Eos % (Auto) (1.5-5.0) % Baso % (Auto) (0.0-3.0) % Lymph # (Auto) (1.2-3.4) [place] # (Auto) (0.1-0.6) Eos # (Auto) (0.0-0.7) Baso # (Auto) (0.0-2.0) K/mm3 Absolute Neuts (auto) (1.4-6.5) PT (9.4-12.5) SECONDS INR Sodium 159 H* 160 H* (132-148) mmol/L Potassium 3.3 L 3.3 L (3.6-5.0) mmol/L Chloride 133 H 134 H (98-107) mmol/L Carbon Dioxide 24 23 (21-33) mmol/L Anion Gap 6 L 6 L (10-20) BUN 20 22 H (7-21) mg/dL Creatinine 0.7 L 0.7 L (0.8-1.5) mg/dl Est GFR ( Amer) > 60 > 60 Est GFR (Non-Af Amer) > 60 > 60 POC Glucose (mg/dL) (65-110) mg/dL Random Glucose 177 H 156 H (70-110) mg/dL Serum Osmolality 337 H (272-300) mosm/kg Calcium 8.1 L 8.1 L (8.4-10.5) mg/dL Phosphorus (2.5-4.5) mg/dL Magnesium (1.7-2.2) mg/dL Total Bilirubin (0.2-1.3) mg/dL Direct Bilirubin (0.0-0.4) mg/dL AST (17-59) U/L ALT (7-56) U/L Alkaline Phosphatase (38-126) U/L Total Protein (5.8-8.3) g/dL Albumin (3.0-4.8) g/dL Globulin gm/dL Albumin/Globulin Ratio (1.1-1.8) Urine Color (YELLOW) Urine Appearance (CLEAR) Urine pH (4.7-8.0) Ur Specific Elaine (1.005-1.035) Urine Protein (<30 mg/dL) mg/dL Urine Glucose (UA) (NEGATIVE) mg/dL Urine Ketones (NEGATIVE) mg/dL Urine Blood (NEGATIVE) Urine Nitrate (NEGATIVE) Urine Bilirubin (NEGATIVE) Urine Urobilinogen (<1 E.U./dL) E.U./dL Ur Leukocyte Esterase (NEGATIVE) Marisela/uL Urine RBC (0-2) /hpf Urine WBC (0-6) /hpf Ur Epithelial Cells (0-5) /hpf Urine Bacteria (NONE) /hpf Urine Osmolality (300-1000) mosm/kg Ur Random Sodium meq/L Laboratory Results - last 24 hr 02/24/19 02/24/19 02/24/19 18:07 21:10 21:10 WBC RBC Hgb Hct MCV MCH MCHC RDW Plt Count MPV Neut % (Auto) Lymph % (Auto) [place] % (Auto) Eos % (Auto) Baso % (Auto) Lymph # (Auto) [place] # (Auto) Eos # (Auto) Baso # (Auto) Absolute Neuts (auto) PT INR Sodium 160 H* 159 H* Potassium 3.3 L 3.3 L Chloride 134 H 133 H Carbon Dioxide 23 24 Anion Gap 6 L 6 L BUN 22 H 20 Creatinine 0.7 L 0.7 L Est GFR ( Amer) > 60 > 60 Est GFR (Non-Af Amer) > 60 > 60 POC Glucose (mg/dL) Random Glucose 156 H 177 H Serum Osmolality 337 H Calcium 8.1 L 8.1 L Phosphorus Magnesium Total Bilirubin Direct Bilirubin AST ALT Alkaline Phosphatase Total Protein Albumin Globulin Albumin/Globulin Ratio Urine Color Urine Appearance Urine pH Ur Specific Elaine Urine Protein Urine Glucose (UA) Urine Ketones Urine Blood Urine Nitrate Urine Bilirubin Urine Urobilinogen Ur Leukocyte Esterase Urine RBC Urine WBC Ur Epithelial Cells Urine Bacteria Urine Osmolality Ur Random Sodium 02/24/19 02/24/19 02/24/19 21:30 21:30 23:13 WBC RBC Hgb Hct MCV MCH MCHC RDW Plt Count MPV Neut % (Auto) Lymph % (Auto) [place] % (Auto) Eos % (Auto) Baso % (Auto) Lymph # (Auto) [place] # (Auto) Eos # (Auto) Baso # (Auto) Absolute Neuts (auto) PT INR Sodium Potassium Chloride Carbon Dioxide Anion Gap BUN Creatinine Est GFR ( Amer) Est GFR (Non-Af Amer) POC Glucose (mg/dL) 150 H Random Glucose Serum Osmolality Calcium Phosphorus Magnesium Total Bilirubin Direct Bilirubin AST ALT Alkaline Phosphatase Total Protein Albumin Globulin Albumin/Globulin Ratio Urine Color Yellow Urine Appearance Sl cloudy Urine pH 6.0 Ur Specific Elaine 1.015 Urine Protein Negative Urine Glucose (UA) Negative Urine Ketones Negative Urine Blood Large H Urine Nitrate Negative Urine Bilirubin Negative Urine Urobilinogen 0.2 Ur Leukocyte Esterase Trace H Urine RBC 15 - 20 H Urine WBC 5 - 10 H Ur Epithelial Cells 6 - 8 H Urine Bacteria Mod Urine Osmolality 124 L Ur Random Sodium < 5 02/25/19 02/25/19 02/25/19 00:05 05:30 05:30 WBC 13.6 H RBC 4.42 Hgb 11.9 L Hct 37.6 L MCV 85.1 MCH 26.9 MCHC 31.6 RDW 15.9 H Plt Count 386 MPV 10.1 Neut % (Auto) 80.4 H Lymph % (Auto) 12.9 L [place] % (Auto) 6.4 H Eos % (Auto) 0.1 L Baso % (Auto) 0.2 Lymph # (Auto) 1.8 [place] # (Auto) 0.9 H Eos # (Auto) 0.0 Baso # (Auto) 0.03 Absolute Neuts (auto) 10.92 H PT INR Sodium 164 H* Potassium 3.6 Chloride 135 H Carbon Dioxide 25 Anion Gap 7 L BUN 18 Creatinine 0.7 L Est GFR ( Amer) > 60 Est GFR (Non-Af Amer) > 60 POC Glucose (mg/dL) 138 H Random Glucose 95 Serum Osmolality Calcium 8.3 L Phosphorus 2.3 L Magnesium 2.7 H Total Bilirubin 0.3 Direct Bilirubin 0.3 AST 46 ALT 23 Alkaline Phosphatase 86 Total Protein 5.8 Albumin 2.8 L Globulin 3.0 Albumin/Globulin Ratio 0.9 L Urine Color Urine Appearance Urine pH Ur Specific Elaine Urine Protein Urine Glucose (UA) Urine Ketones Urine Blood Urine Nitrate Urine Bilirubin Urine Urobilinogen Ur Leukocyte Esterase Urine RBC Urine WBC Ur Epithelial Cells Urine Bacteria Urine Osmolality Ur Random Sodium 02/25/19 02/25/19 02/25/19 05:30 06:21 06:53 WBC RBC Hgb Hct MCV MCH MCHC RDW Plt Count MPV Neut % (Auto) Lymph % (Auto) [place] % (Auto) Eos % (Auto) Baso % (Auto) Lymph # (Auto) [place] # (Auto) Eos # (Auto) Baso # (Auto) Absolute Neuts (auto) PT 12.1 INR 1.07 Sodium Potassium Chloride Carbon Dioxide Anion Gap BUN Creatinine Est GFR ( Amer) Est GFR (Non-Af Amer) POC Glucose (mg/dL) 105 115 H Random Glucose Serum Osmolality Calcium Phosphorus Magnesium Total Bilirubin Direct Bilirubin AST ALT Alkaline Phosphatase Total Protein Albumin Globulin Albumin/Globulin Ratio Urine Color Urine Appearance Urine pH Ur Specific Elaine Urine Protein Urine Glucose (UA) Urine Ketones Urine Blood Urine Nitrate Urine Bilirubin Urine Urobilinogen Ur Leukocyte Esterase Urine RBC Urine WBC Ur Epithelial Cells Urine Bacteria Urine Osmolality Ur Random Sodium 0402/25/19 02/25/19 09:10 13:02 13:30 WBC RBC Hgb Hct MCV MCH MCHC RDW Plt Count MPV Neut % (Auto) Lymph % (Auto) [place] % (Auto) Eos % (Auto) Baso % (Auto) Lymph # (Auto) [place] # (Auto) Eos # (Auto) Baso # (Auto) Absolute Neuts (auto) PT INR Sodium 163 H* 163 H* Potassium 3.6 3.7 Chloride 136 H 135 H Carbon Dioxide 25 26 Anion Gap 7 L 6 L BUN 18 16 Creatinine 0.6 L 0.7 L Est GFR ( Amer) > 60 > 60 Est GFR (Non-Af Amer) > 60 > 60 POC Glucose (mg/dL) 81 Random Glucose 106 111 H Serum Osmolality Calcium 8.2 L 8.0 L Phosphorus Magnesium Total Bilirubin Direct Bilirubin AST ALT Alkaline Phosphatase Total Protein Albumin Globulin Albumin/Globulin Ratio Urine Color Urine Appearance Urine pH Ur Specific Elaine Urine Protein Urine Glucose (UA) Urine Ketones Urine Blood Urine Nitrate Urine Bilirubin Urine Urobilinogen Ur Leukocyte Esterase Urine RBC Urine WBC Ur Epithelial Cells Urine Bacteria Urine Osmolality Ur Random Sodium Radiology Impressions: Radiology Impressions Extremity Ultrasound 02/25/19 08:26 IMPRESSION: 1. No sonographic evidence for deep venous thrombosis in the visualized segments of both upper strategies. Chest X-Ray 02/25/19 12:00 IMPRESSION: Mild vascular congestion. Atelectasis in the left midlung field Critical Care Progress Note - Nutrition Nutrition: Nutrition Category Date Time Status Diabetic [Consistent Carbohydrate] [DIET] Diets 02/24/19 Lunch Ordered Addendum Addendum: 02/25/19 17:59 MICU Attending Addendum Patient seen and examined with housestaff case discussed on round agree with resident note above with the following additions/exceptions: 63M with cirrhosis (s/p liver transplant), chronic pain on narcotics, HTN, depression, hypothyroidism, blindness, craniopharyngioma, and psoriasis being managed in the ICU for sepsis and respiratory failure Initially admitted on 02/14 for lethargy, developed fevers on 02/17 and became hypoxic and hypotensive and subsequently intubated on 02/21. He self-extubated 02/23. 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 ID on board, cultures neg, on broad abx tx asp pna and RUE cellutlties his oxygenation is much improved - transition to nasal cannula Bone scan shows lesion that was thought to be benign. HB stable now no signs of active bleeding hemodynamically stable Patient has become very hypernatremia despite [id number] nephro consulted urine is dilute, looks like DI after digging deeper in his history, we found out that he has a hx of DI and is on desmopressin at home will resume home dose Plan for patient to go to LTACH tomorrow samuel case manage, family, and Alissa Rep After discharge from here to LTACH he must have: -Further work up for atrial myxoma, will need a NELLY - cont monitoring sodium while on desmopressing - at some point resume him immunosupressant meds for liver transplant once deemed appropriate -descalte abx -neuro follow up for cranipharyngoima Rest of care as mentioned in above resident note Rocco Desai MD Pulmonary Critical Care Sleep Medicine CC Time : 35 mins 02/25/19 18:04
[2019-02-25 07:55] LABS: ALB/GLOB RATIO 0.9 (1.1-1.8); ALBUMIN 2.8 g/dL (3.0-4.8); ALT/SGPT 23 U/L (7-56); AST/SGOT 46 U/L (17-59); BILIRUBIN,DIRECT 0.3 mg/dL (0.0-0.4); BLOOD UREA NITROGEN 18 mg/dL (7-21); CALCIUM 8.3 mg/dL (8.4-10.5); GFR NON-AFRICAN AMERICAN > 60
[2019-02-25] MEDS ORDERED: Potassium Phosphate 15 MMOLE in Dextrose 5% In Water 250 ML IVPB ONE (08:18)
--- NOTE | 2019-02-25 08:55 | CP.PCM.PN ---
<Royce Cruz - Last Filed: 02/25/19 12:45> Subjective - Date & Time of Evaluation Date of Evaluation: 02/25/19 Time of Evaluation: 08:00 - Subjective Subjective: Hepatobiliary surgery progress note for Dr. Gomez Pt seen and evaluated at bedside. Nasal cannula replaced (4L) as pt removed it. Pt is awake but confused/disoriented. ROS limited due to mental status. Objective - Vital Signs/Intake and Output Vital Signs (last 24 hours): Temp Pulse Resp BP Pulse Ox 97.8 F 92 H 31 H 106/56 L 95 02/25/19 04:00 02/25/19 03:30 02/25/19 03:30 02/25/19 03:00 02/25/19 03:30 Intake and Output: 02/25/19 02/25/19 06:59 18:59 Intake Total 4020 Output Total 2000 Balance 2020 - Medications Medications: Current Medications Acetaminophen (Tylenol 325mg Tab) 650 mg PO Q6 PRN PRN Reason: TEMP>=99.5F Last Admin: 02/21/19 00:43 Dose: 650 mg Acetaminophen (Tylenol 650 Mg Supp) 650 mg RC Q6H PRN PRN Reason: TEMP>=99.5F Last Admin: 02/19/19 10:16 Dose: 650 mg Acetylcysteine (Acetylcysteine 20%) 4 ml IH [id number] [facility] Last Admin: 02/25/19 07:08 Dose: 4 ml Aripiprazole (Abilify) 5 mg PO HS [facility] Last Admin: 02/20/19 21:44 Dose: 5 mg Artificial Tears (Refresh Opth Soln) 0.3 ml OU Q4H PRN PRN Reason: Dry eyes Last Admin: 02/23/19 18:41 Dose: 1 drop Artificial Tears (Puralube Opht Oint) 1 appl OU Q4H PRN PRN Reason: Dry eyes Atorvastatin Calcium (Lipitor) 40 mg PO DIN [facility] Last Admin: 02/20/19 18:47 Dose: 40 mg Dextrose (Dextrose 50% Inj) 50 ml IVP PRN PRN PRN Reason: Low blood sugar Dextrose (Dextrose 50% Inj) 0 ml IV STAT PRN; Protocol PRN Reason: Hypoglycemia Protocol Docusate Sodium (Colace) 100 mg PO BID [facility] Last Admin: 02/20/19 18:47 Dose: 100 mg Donepezil HCl (Aricept) 10 mg PO HS [facility] Last Admin: 02/20/19 21:44 Dose: 10 mg Duloxetine HCl (Cymbalta) 60 mg PO BID [facility] Last Admin: 02/20/19 18:47 Dose: 60 mg Enoxaparin Sodium (Lovenox) 40 mg SC DAILY [facility]; Protocol Last Admin: 02/24/19 11:00 Dose: 40 mg Fentanyl (Fentanyl) 50 mcg IVP Q6 PRN PRN Reason: Agitation Home Med (Home Med) 10 unit PO BID [facility] Last Admin: 02/20/19 18:49 Dose: Not Given Home Med (Home Med) 0.25 unit PO BID [facility] Last Admin: 02/20/19 18:49 Dose: Not Given Doxycycline Hyclate 100 mg/ (Sodium Chloride) 100 mls @ 100 mls/hr IVPB Q12 [facility]; Protocol Stop: 03/01/19 13:16 Last Admin: 02/24/19 22:03 Dose: 100 mls/hr Meropenem (Merrem Iv 1 Gm Premix) 1 gm in 50 mls @ 100 mls/hr IVPB Q8 [facility]; Protocol Stop: 03/01/19 14:01 Last Admin: 02/25/19 05:38 Dose: 100 mls/hr Vancomycin HCl (Vancomycin 1gm) 1 gm in 250 mls @ 167 mls/hr IVPB Q12H [facility]; Protocol Stop: 03/02/19 09:46 Last Admin: 02/24/19 21:25 Dose: 167 mls/hr Dextrose (Dextrose 5% In Water 1000 Ml) 1,000 mls @ 0 mls/hr IV .Q0M PRN; Protocol PRN Reason: Hypoglycemia Protocol Fluconazole (Diflucan Iv 200 Mg/100 Ml Ns) 100 mls @ 100 mls/hr IVPB DAILY [facility]; Protocol Stop: 03/01/19 10:59 Potassium Phosphate 15 mmole/ (Dextrose) 255 mls @ 42.5 mls/hr IVPB ONCE ONE Stop: 02/25/19 14:17 Dextrose (Dextrose 5% In Water 1000 Ml) 1,000 mls @ 225 mls/hr IV .Q4H27M [facility] Insulin Human Lispro (Humalog Med) 0 units SC Q6 [facility]; Protocol Last Admin: 02/25/19 06:23 Dose: Not Given Levalbuterol HCl (Xopenex) 0.63 mg IH [id number] [facility] Last Admin: 02/25/19 07:08 Dose: 0.63 mg Morphine Sulfate (Morphine) 2 mg IVP Q4H PRN PRN Reason: Pain, moderate (4-7) Last Admin: 02/24/19 12:17 Dose: 2 mg Mupirocin (Bactroban Ointment) 0 gm TOP TID [facility] Last Admin: 02/24/19 18:00 Dose: 1 applic Mycophenolate Mofetil (Cellcept Cap) 500 mg PO BID [facility] Last Admin: 02/24/19 19:25 Dose: 500 mg Ondansetron HCl (Zofran Inj) 4 mg IVP Q4H PRN PRN Reason: Nausea/Vomiting Pantoprazole Sodium (Protonix Ec Tab) 40 mg PO 0600 [facility] Last Admin: 02/20/19 06:08 Dose: 40 mg Pantoprazole Sodium (Protonix Inj) 40 mg IVP DAILY [facility] Last Admin: 02/24/19 11:00 Dose: 40 mg Prednisone (Prednisone Tab) 5 mg PO BID [facility] Last Admin: 02/24/19 19:20 Dose: 5 mg Tamsulosin HCl (Flomax) 0.4 mg PO DAILY [facility] Last Admin: 02/20/19 11:34 Dose: 0.4 mg - Labs Labs: 02/25/19 05:30 02/25/19 05:30 PT 12.1 SECONDS (9.4-12.5) 02/25/19 05:30 INR 1.07 02/25/19 05:30 APTT 39.4 Seconds (26.9-38.3) H 02/14/19 14:15 - Constitutional Appears: Non-toxic, Confused - Head Exam Head Exam: ATRAUMATIC - Eye Exam Eye Exam: EOMI, Normal appearance - ENT Exam ENT Exam: Mucous Membranes Dry - Respiratory Exam Respiratory Exam: Decreased Breath Sounds, Rhonchi. absent: Rales, Wheezes, Respiratory Distress, Stridor - Cardiovascular Exam Cardiovascular Exam: Tachycardia (at approximately 100), REGULAR RHYTHM, +S1, +S2 - GI/Abdominal Exam GI & Abdominal Exam: Soft, Normal Bowel Sounds. absent: Tenderness, Organomegaly Additional comments: (+) well healed horizontal scar post liver transplant; no signs of infection - Extremities Exam Extremities Exam: Normal Capillary Refill. absent: Pedal Edema - Neurological Exam Neurological Exam: Awake. absent: Oriented x3 - Skin Skin Exam: Dry, Warm Assessment and Plan - Assessment and Plan (Free Text) Assessment: 63 year old Ukrainian speaking male with PMH of cirrhosis (s/p liver transplant), chronic pain on narcotics, HTN, depression, hypothyroidism, blindness, craniopharyngioma, and psoriasis initially admitted for fever, generalized weakness, and sepsis thought to be 2/2 RUE cellulitis. Pt decompensated to septic shock and was tranfered to ICU for pressor management. Currently being treated for bilateral pneumonia, self-extubated on 02/24. Plan: Continue to monitor LFTs Labs reviewed: GGT is 19; AST/ALT/ALP are normal. Albumin borderline low, likely due to poor oral intake as it was normal before Recommend continuing Cellcept 500 mg PO BID Pt's family presented medication box labeled: Everolimus 0.5 mg PO BID, which she states pt also takes. Hold this medication until pt's infection is more controlled. Potentially in a few days, Friday02/28/19, at the earliest. Continue Abx as per ID Neurosurgery, Dr. Villarreal, is following the pt. Further management as per primary team Case discussed with Dr. Walters PGY1 Pager # [phone] <Surendra Pratt - Last Filed: 02/27/19 14:14> Objective - Vital Signs/Intake and Output Vital Signs (last 24 hours): Temp Pulse Resp BP Pulse Ox 98.9 F 86 21 147/94 H 80 L 02/26/19 12:00 02/26/19 15:03 02/26/19 15:03 02/26/19 15:00 02/26/19 14:00 Intake and Output: 02/27/19 02/27/19 06:59 18:59 Intake Total 1950 Output Total 900 Balance 1050 - Labs Labs: 02/26/19 03:20 02/26/19 03:20 PT 13.7 SECONDS (9.4-12.5) H 02/26/19 03:20 INR 1.23 02/26/19 03:20 APTT 39.4 Seconds (26.9-38.3) H 02/14/19 14:15 Assessment and Plan - Assessment and Plan (Free Text) Plan: All medical record entries made by the resident were at my direction. I have reviewed the chart and agree that the record accurately reflects my personal performance of the history, physical exam, and medical decision making.
--- NOTE | 2019-02-25 09:09 | CP.PCM.PN ---
Subjective - Date & Time of Evaluation Date of Evaluation: 02/25/19 Time of Evaluation: 07:24 - Subjective Subjective: Sly Meade PGY2 IM Progress Note for Dr. Elizondo Patient was seen and examined at bedside in ICU. He is more awake but remains confused/altered and non-oriented. Overnight, he had light brown stools. He is currently comfortable on NC, and not requiring vasopressors. Objective - Vital Signs/Intake and Output Vital Signs (last 24 hours): Temp Pulse Resp BP Pulse Ox 97.8 F 92 H 31 H 106/56 L 95 02/25/19 04:00 02/25/19 03:30 02/25/19 03:30 02/25/19 03:00 02/25/19 03:30 Intake and Output: 02/25/19 02/25/19 06:59 18:59 Intake Total 4020 Output Total 2000 Balance 2020 - Medications Medications: Current Medications Acetaminophen (Tylenol 325mg Tab) 650 mg PO Q6 PRN PRN Reason: TEMP>=99.5F Last Admin: 02/21/19 00:43 Dose: 650 mg Acetaminophen (Tylenol 650 Mg Supp) 650 mg RC Q6H PRN PRN Reason: TEMP>=99.5F Last Admin: 02/19/19 10:16 Dose: 650 mg Acetylcysteine (Acetylcysteine 20%) 4 ml IH [id number] [facility] Last Admin: 02/25/19 07:08 Dose: 4 ml Aripiprazole (Abilify) 5 mg PO HS [facility] Last Admin: 02/20/19 21:44 Dose: 5 mg Artificial Tears (Refresh Opth Soln) 0.3 ml OU Q4H PRN PRN Reason: Dry eyes Last Admin: 02/23/19 18:41 Dose: 1 drop Artificial Tears (Puralube Opht Oint) 1 appl OU Q4H PRN PRN Reason: Dry eyes Atorvastatin Calcium (Lipitor) 40 mg PO DIN [facility] Last Admin: 02/20/19 18:47 Dose: 40 mg Dextrose (Dextrose 50% Inj) 50 ml IVP PRN PRN PRN Reason: Low blood sugar Dextrose (Dextrose 50% Inj) 0 ml IV STAT PRN; Protocol PRN Reason: Hypoglycemia Protocol Docusate Sodium (Colace) 100 mg PO BID [facility] Last Admin: 02/20/19 18:47 Dose: 100 mg Donepezil HCl (Aricept) 10 mg PO HS [facility] Last Admin: 02/20/19 21:44 Dose: 10 mg Duloxetine HCl (Cymbalta) 60 mg PO BID [facility] Last Admin: 02/20/19 18:47 Dose: 60 mg Enoxaparin Sodium (Lovenox) 40 mg SC DAILY [facility]; Protocol Last Admin: 02/24/19 11:00 Dose: 40 mg Fentanyl (Fentanyl) 50 mcg IVP Q6 PRN PRN Reason: Agitation Home Med (Home Med) 10 unit PO BID [facility] Last Admin: 02/20/19 18:49 Dose: Not Given Home Med (Home Med) 0.25 unit PO BID [facility] Last Admin: 02/20/19 18:49 Dose: Not Given Doxycycline Hyclate 100 mg/ (Sodium Chloride) 100 mls @ 100 mls/hr IVPB Q12 [facility]; Protocol Stop: 03/01/19 13:16 Last Admin: 02/24/19 22:03 Dose: 100 mls/hr Meropenem (Merrem Iv 1 Gm Premix) 1 gm in 50 mls @ 100 mls/hr IVPB Q8 [facility]; Protocol Stop: 03/01/19 14:01 Last Admin: 02/25/19 05:38 Dose: 100 mls/hr Vancomycin HCl (Vancomycin 1gm) 1 gm in 250 mls @ 167 mls/hr IVPB Q12H [facility]; Protocol Stop: 03/02/19 09:46 Last Admin: 02/24/19 21:25 Dose: 167 mls/hr Dextrose (Dextrose 5% In Water 1000 Ml) 1,000 mls @ 0 mls/hr IV .Q0M PRN; Protocol PRN Reason: Hypoglycemia Protocol Fluconazole (Diflucan Iv 200 Mg/100 Ml Ns) 100 mls @ 100 mls/hr IVPB DAILY [facility]; Protocol Stop: 03/01/19 10:59 Potassium Phosphate 15 mmole/ (Dextrose) 255 mls @ 42.5 mls/hr IVPB ONCE ONE Stop: 02/25/19 14:17 Dextrose (Dextrose 5% In Water 1000 Ml) 1,000 mls @ 225 mls/hr IV .Q4H27M [facility] Insulin Human Lispro (Humalog Med) 0 units SC Q6 [facility]; Protocol Last Admin: 02/25/19 06:23 Dose: Not Given Levalbuterol HCl (Xopenex) 0.63 mg IH [id number] [facility] Last Admin: 02/25/19 07:08 Dose: 0.63 mg Morphine Sulfate (Morphine) 2 mg IVP Q4H PRN PRN Reason: Pain, moderate (4-7) Last Admin: 02/24/19 12:17 Dose: 2 mg Mupirocin (Bactroban Ointment) 0 gm TOP TID [facility] Last Admin: 02/24/19 18:00 Dose: 1 applic Mycophenolate Mofetil (Cellcept Cap) 500 mg PO BID [facility] Last Admin: 02/24/19 19:25 Dose: 500 mg Ondansetron HCl (Zofran Inj) 4 mg IVP Q4H PRN PRN Reason: Nausea/Vomiting Pantoprazole Sodium (Protonix Ec Tab) 40 mg PO 0600 [facility] Last Admin: 02/20/19 06:08 Dose: 40 mg Pantoprazole Sodium (Protonix Inj) 40 mg IVP DAILY [facility] Last Admin: 02/24/19 11:00 Dose: 40 mg Prednisone (Prednisone Tab) 5 mg PO BID [facility] Last Admin: 02/24/19 19:20 Dose: 5 mg Tamsulosin HCl (Flomax) 0.4 mg PO DAILY [facility] Last Admin: 02/20/19 11:34 Dose: 0.4 mg - Labs Labs: 02/25/19 05:30 02/25/19 05:30 PT 12.1 SECONDS (9.4-12.5) 02/25/19 05:30 INR 1.07 02/25/19 05:30 APTT 39.4 Seconds (26.9-38.3) H 02/14/19 14:15 - Constitutional Appears: Non-toxic, No Acute Distress - Head Exam Head Exam: ATRAUMATIC, NORMAL INSPECTION - Eye Exam Eye Exam: Normal appearance - ENT Exam ENT Exam: Mucous Membranes Dry, Normal Exam - Neck Exam Neck Exam: Full ROM, Normal Inspection - Respiratory Exam Respiratory Exam: NORMAL BREATHING PATTERN. absent: Respiratory Distress - Cardiovascular Exam Cardiovascular Exam: RRR, +S1, +S2 - GI/Abdominal Exam GI & Abdominal Exam: Soft. absent: Tenderness Additional comments: horizontal scar post liver transplant (no discoloration) - Extremities Exam Extremities Exam: Full ROM. absent: Pedal Edema Additional comments: RUE skin discoloration and small superficial ulcer with moderate swelling - Skin Skin Exam: Normal Color, Warm Assessment and Plan - Assessment and Plan (Free Text) Assessment: 63 year old male with a PMH of chronic pain on narcotics, HTN, depression, hypothyroidism, liver transplant 2/2 liver cirrhosis, craniopharyngioma, blindness, and psoriasis presenting to the hospital for 2 week history of generalized weakness. Hospital course has been complicated by septic shock and failure to protect airway requiring intubation. Now patient not requiring vent and off pressors. Plan: 1. Septic shock Likely secondary to aspiration pneumonia vs cellulitis - cont Vancomycin, Meropenem and Doxycycline per ID recs; Fluconazole added - off stress-dosed steroids per ICU, back on home prednisone regimen - procal elevated - cont ICU management - holding mycophenolate - cont Bactroban topical - PPI for GI ppx - blood cultures negative x72 hrs - urine cultures negative - CXR and CT chest/abdomen/pelvis reviewed - Palliative care and patient advocate consults placed 2. Hypoxic respiratory failure, failure to protect airway - currently extubated and off sedation - elevate HOB - cont Xopenex and Mucomyst - Abx per ID 3. Hypernatremia, likely due to fevers; worsening - Nephrology consulted - cont IVF repletion 4. LA dilation w/ possible myxoma - Cardiology consulted, recs appreciated 5. Lumbar compression fracture - MRI lumbar reviewed - bone scan r/o pathologic fractures - cont pain regimen 6. Hx cirrhosis s/p liver transplant - holding immunosuppressants at this time - transaminitis improved - GI on consult, Dr. Canas 7. Carniopharyngioma, chronic - Neurosurgery consulted, discussed w/ Dr. Villarreal that surgery is high-risk and needs to be performed at center w/ higher level of care - Neurology consulted, discussed w/ Dr. Nichols that this is a surgical matter and should be handled by neurosurgery - Heme/Onc consulted, recs appreciated - bone scan showed no metastases 8. Depression - continue duloxetine, aricept - Psych on consult, Dr. Martin - denies suicidal/homicidal ideation 9. HTN - holding lopressor 25mg BID 10. Anemia, likely iron deficiency anemia - monitor H/H 11. Peripheral Neuropathy - hold gabapentin at this time 12. BPH - continue flomax - monitor urinary output via grossman 13. HLD - hold lipitor 14. PPX - SCDs/Lovenox for DVT ppx - protonix for GI ppx Further recs per Dr. Elizondo Case was reviewed and discussed with Dr. Elizondo
[2019-02-25 09:43] LABS: BLOOD UREA NITROGEN 18 mg/dL (7-21); CALCIUM 8.2 mg/dL (8.4-10.5); GFR NON-AFRICAN AMERICAN > 60
[2019-02-25] MEDS: Mupirocin 2% Ointment 15 GM TUBE TOP SCH ×3 (10:00→18:00)
[2019-02-25] MEDS: Vancomycin 1gm in NS 250ml 1 GM/250 ML BAG IVPB SCH ×2 (10:34→21:03)
[2019-02-25] MEDS: Morphine 2 mg/ml ISec IVP PRN (10:40)
--- NOTE | 2019-02-25 11:01 | US ---
HISTORY: Arm pain and swelling. Evaluate for deep venous thrombosis. PHYSICIAN(S): Ac Bear MD. FINDINGS: The visualized internal jugular veins are sonographically normal and compressible. No evidence of obstruction or thrombus this is seen. The visualized segments of the subclavian veins are patent with normal waveforms. No sonographic evidence of obstruction or thrombosis is seen. The visualized deep venous systems of both upper extremities proximally are sonographically normal and compressible. Catheter is noted in the left central veins. No significant thrombus is seen IMPRESSION: 1. No sonographic evidence for deep venous thrombosis in the visualized segments of both upper strategies.
[2019-02-25] MEDS: Enoxaparin 40 mg Syringe SC SCH (11:46)
[2019-02-25] MEDS: Fluconazole IV 200mg/100 ml NS 100 ML IVPB SCH (11:47)
[2019-02-25] MEDS ORDERED: Hydrocortisone 0.5% Cream(30 gm) TOP PRN (12:43)
--- NOTE | 2019-02-25 12:59 | PN ---
DATE: 02/25/2019 SUBJECTIVE: The patient was seen lying in the bed in ICU-CCU, bed 2. The patient is awake, responsive, alert; not on BiPAP. The patient is awake, responsive, able to say his name, confused, and disoriented. Overnight nurse's notes were reviewed. The patient had episodes of disorientation, confusion, and yelling and climbing out of bed in the last 24 hours. REVIEW OF SYSTEMS: A 14-system review was done, pertinent positive, negative dictated above. PHYSICAL EXAMINATION: VITAL SIGNS: T-max is 97.8. Telemetry shows sinus rhythm and sinus tachycardia. Heart rate 90, 99, 97 and 100. Respiration rate is 29, 30, 34, 31 and 32. Blood pressure is 106/56, 119/78, 125/78, 123/78 and 115/78. O2 sat is 94%-99%. INTAKE AND OUTPUT: Intake 4020 and output is 2000. HEENT: Head examination shows positive right craniectomy. Positive bilateral blindness. Pinkish pale conjunctivae. Dry oral mucosa. No neck rigidity. CHEST: Kyphosis. LUNGS: Shows positive rhonchi, bilateral upper lung melara, right more than the left. CARDIOVASCULAR: S1 and S2, regular rhythm. Questionable soft systolic murmur, left sternal border, right second intercostal space, left second intercostal space. ABDOMEN: Soft, positive bowel sounds. Positive surgical scar of hepatic transplant. GENITALIA: Male. Positive Rdz catheter. EXTREMITIES: Shows positive SCD's. MUSCULOSKELETAL: Shows body mass index of 27.4. NEUROLOGICAL: The patient is alert, awake, responsive, confused, and disoriented. He is able to move upper and lower extremity without assistance. Gait examination is not tested. PSYCHIATRIC: As per the psychiatric evaluation. DIAGNOSTIC DATA: On 02/25/2019, WBC 13.6, hemoglobin/hematocrit 11.9/37.6, platelet 386, and granulocytes 80.4. PT is 12.1 and INR 1.07. ABG 150%, FiO2 pH of 7.36, pCO2 of 38, pO2 of 110, bicarb 21, and saturation of 98.6%. Sodium has gone up to 164 since yesterday from 155, potassium 3.6, chloride 135, CO2 of 25, anion gap 7, BUN 18, creatinine 0.7, GFR greater than 60, glucose 95, calcium 8.3, phosphorus 2.3, magnesium 2.7, total protein 5.8, and albumin 2.8. RPR, FTA, hepatitis, and HIV all negative. Microbiology results show tracheal aspirate of yeast. The patient received 3 units of PRBC. Chest x-ray from 02/24/2019; left lower lobe atelectasis. IMPRESSION AND PLAN: 1. Status post ventilator-dependent respiratory failure. 2. Possible multilobar bilateral aspiration pneumonia. 3. Oropharyngeal dysphagia. 4. Severe sepsis. 5. Status post hypotensive hypovolemic shock. 6. Status post left upper extremity peripherally inserted central catheter line placement. 7. Deconditioning. 8. Gait dysfunction. Neeraj Elizondo MD
--- NOTE | 2019-02-25 13:01 | PN ---
DATE: 02/25/2019 This is an Addendum to the Progress Note I dictated earlier today. DIAGNOSES: 1. Multilobar bilateral bibasilar infiltrates and pleural effusion with right upper lobe, right middle lobe, right lower lobe pneumonia. 2. Status post right craniectomy. 3. Right upper quadrant mesenteric stranding, etiology undetermined. 4. Degenerative joint disease of the cervical, thoracic, lumbar spine and bilateral knees. 5. Abnormal increased uptake of the right jerrell-calvarium related to and right craniectomy. 6. Increased uptake in the sternum on bone scan. 7. Lumbar spine degenerative disc disease with dextroscoliosis and L1 vertebral body compression deformity. 8. Lumbar spine multilevel spinal stenosis. 9. Lumbar spine disc bulge at multiple levels. 10. Multiple bilateral facet arthropathy of the lumbar spine with neural foramen narrowing. 11. Lumbar spine bilateral facet arthropathy with severe neural foraminal narrowing. 12. Moderate bilateral facet arthropathy. 13. Deconditioning. 14. Gait dysfunction. 15. Right frontal cortex and right posterior parietal cortex restricted diffusion. 16. Multi focal cystic encephalomalacia in the right frontal parietal and parietooccipital lobes with volume loss with chronic lacunar infarction of the last posterior basal ganglia 17. Left frontal lobe chronic infarction and chronic infarction of the left parietal lobe with a chronic infarction of the left jerrell wayne 18. Large sellar mass with suprasellar extension to the right with peripheral course calcification and expansion of the sella turcica with lateral displacement of the cavernous carotid signal voids 19. Global parenchymal volume loss and ventriculomegaly 20. Status post right frontoparietal craniotomies. 21. Paranasal sinuses and bilateral mastoid mucosal thickening. 22. Distal esophageal mucosal thickening, questionable esophagitis. 23. Left posterior bladder wall diverticulum. 24. Multilevel lumbar spine degenerative disc disease. 25. L1 compression deformity, age indeterminate. 26. Left ventricle ejection fraction of 64% with grade 1 abnormal relaxation pattern. 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 28. Deconditioning. 29. Bilateral blindness. 30. Leukocytosis with granulocytosis. 31. Normocytic anemia, status post packed red blood cell transfusion. 32. Granulocytosis. 33. Bandemia. 34. Elevated erythrocyte sedimentation rate of 127. 35. Elevated D-dimer etiology undetermined. 36. Status post hypoxic ventilator dependent respiratory failure. 37. Intermittent hypernatremia. 38. Hypokalemia. 39. Prerenal kidney injury. 40. Hypocalcemia. 41. Hypophosphatemia. 42. Possible iron-deficiency anemia. 43. Mild protein malnutrition and hypoalbuminemia. 44. . 45. Trace proteinuria, microscopic hematuria, pyuria. 46. Questionable yeast in the tracheal aspirate. 47. Status post packed red blood cell transfusion x3. 48. Status post hypotensive hypovolemic septic shock, secondary to aspiration pneumonia and right upper extremity cellulitis. 49. Status post hypoxic respiratory failure. 50. Hypernatremia. 51. History of cirrhosis, status post liver transplant. 52. Depression. 53. Mild oropharyngeal dysphagia. 54. 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 55. Generalized deconditioning. 56. Status post liver transplant. 57. Major depressive disorder, possibly adjustment disorder with anxiety disorder, depression. 58. Questionable mood disorder versus delirium. 59. Gait dysfunction and deconditioning. 60. Delirium with history of major depressive disorder. 61. Questionable yeast pneumonia. 62. Prostatic hypertrophy. 63. Hyperlipidemia. 64. Questionable history of dementia, neuropathy, hyperlipidemia, prostatic hypertrophy. PLAN: At this time, the patient's condition, diagnosis, management plan, overall diagnostic test results, recommendation by all physicians involving in the care of the patient, overall guarded to poor prognosis has been explained at length to the patient's niece who claims to be physician in [place], name is . I have met with the patient's niece yesterday extensively, explained about the patient's condition, diagnosis, test results, recommendation by all the physicians involved in the care of the patient was extensively explained to the patient's niece at length. I have advised the patient's niece to contact and discuss directly with all the consultants on the case caring for the patient, so the patient's niece can have first hand information and if she has any questions regarding the aspects of the patient's care with the specific specialty, she can discuss with that specific e business consultant. The patient has been ordered serial labs. CURRENT CONSULTATION: 1. Cardiology. 2. Palliative Care. 3. Gastroenterology 4. Infectious Disease. 5. Nephrology. 6. Liver Transplant Service. 7. Neurosurgery. 8. Psychiatry. The patient's case has been referred to the patient . Current all p.o. meds are on hold, presently the patient is on Xopenex, Mucomyst nebulizer treatment.. The patient is on D5W at 125 mL an hour, free water at 250 mL every 6 hours, doxycycline 100 mg IV every 12 hours, fentanyl 50 mcg IV every 6 hours p.r.n. The patient is on Humalog medium dose sliding scale coverage every 6 hours. The patient's p.o. medications are on hold, Lovenox 40 mg subcu daily, meropenem 1 g IV every 8 hours, morphine 2 mg IV every 4 hours p.r.n. The patient has been ordered one dose of K-Phos. The patient is on prednisone 5 mg twice a day, Protonix 40 mg IV daily, Tylenol p.o. suppository every six hours p.r.n. vancomycin 1 g IV every 12 hours by infectious disease, Zofran 4 mg IV every 4 hours p.r.n. The patient has been ordered venous Doppler of the bilateral upper extremity for upper extremity swelling. The patient is on chest PT, incentive spirometry. SCDs, ONELIA stockings, thigh high, out of bed, free water every 6 hours. The patient was seen by speech therapist yesterday, they recommended pureed diet with thin liquid with aspiration precautions. At this time, overall patient's prognosis is guarded to poor which has been explained to the patient's niece and the sister on multiple occasions during this hospitalization. The patient's niece has been advised to contact oncology social worker regarding discharge planning options. The patient's niece has expressed interest in getting the patient to [place] where most of the patient's family is located. Dictated and electronically signed, not read. Signing off Neeraj Elizondo MD. Neeraj Elizondo MD
--- NOTE | 2019-02-25 14:22 | RAD ---
Date of service: 02/25/2019 HISTORY: r/o pulm edema COMPARISON: 02/24/2019 TECHNIQUE: 1 view obtained. FINDINGS: LUNGS: No active pulmonary disease. PLEURA: No significant pleural effusion identified, no pneumothorax apparent. CARDIOVASCULAR: No aortic atherosclerotic calcification present. Normal cardiac size. Mild vascular congestion. Atelectasis in the left midlung field OSSEOUS STRUCTURES: No significant abnormalities. VISUALIZED UPPER ABDOMEN: Normal. OTHER FINDINGS: Left-sided PICC line in satisfactory position IMPRESSION: Mild vascular congestion. Atelectasis in the left midlung field
[2019-02-25 14:31] LABS: BLOOD UREA NITROGEN 16 mg/dL (7-21); GFR NON-AFRICAN AMERICAN > 60
--- NOTE | 2019-02-25 15:53 | CON ---
DATE: 02/25/2019 CARDIOLOGY CONSULT HISTORY OF PRESENT ILLNESS: The patient is a 63-year-old male with history of brain tumor, hypertension, hypothyroidism, history of CVA, he is on chronic narcotic medication for pain, who has status post respiratory failure. In addition, he suffered from sepsis. He has status post liver transplant for cirrhosis. Echocardiogram was done on admission yesterday, which revealed good LV function with an EF of 64%, minimal elevated pulmonary pressure, however, there is an echo density noted in the left atrium. Given these above findings, the patient will need NELLY. I have discussed with Dr. Montes, he was scheduled for the NELLY on Friday. Ac Srivastava MD
[2019-02-25] MEDS ORDERED: EVEROLIMUS 0.5 MG PO SCH (18:00)
[2019-02-25] MEDS: Clotrimazole/Betamethasone Cream(15 gm) TOP SCH (18:00)
--- NOTE | 2019-02-25 20:20 | CP.PCM.CON ---
History of Present Illness - History of Present Illness History of Present Illness: 63 year old male with a history of chronic narcotic medication requirement, blindness, psoriasis, hypothyroidism, liver cirrhosis s/p liver transplant, craniopharyngioma s/p resection 10 years ago, admitted with sepsis, pneumonia, respiratory failure s/p intubation, now extubated, with anemia and brain lesion. The patient is lethargic and I am unable to obtain much history from him. He notes to brain surgery and removal of a brain tumor about 10 years ago at [facility] in [place]. He denies adjuvant chemotherapy and radiation treatments. Review of his imaging does shows a 5.6cm sellar mass with suprasellar extension. A bone scan showed bone lesions which are non metastatic in etiology. Past medical, surgical, family, social history cannot be obtained from the patient. Allergies: Per documentation NKA Review of systems cannot be obtained from the patient. Past Patient History - Infectious Disease Hx of Infectious Diseases: None - Past Medical History & Family History Past Medical History?: Yes - Past Social History Smoking Status: Light Smoker < 10 Cigarettes Daily - CARDIAC Hx Hypertension: Yes - PULMONARY Hx Respiratory Disorders: No - NEUROLOGICAL Hx Neurological Disorder: Yes HX Cerebrovascular Accident: Yes (x 3) Other/Comment: Brain tumor - HEENT Hx HEENT Problems: Yes Hx Blind: Yes (LEGALLY BLIND) - RENAL Hx Chronic Kidney Disease: No - ENDOCRINE/METABOLIC Hx Hypothyroidism: Yes - HEMATOLOGICAL/ONCOLOGICAL Hx Blood Disorders: Yes Hx Anemia: Yes - INTEGUMENTARY Hx Dermatological Problems: No - MUSCULOSKELETAL/RHEUMATOLOGICAL Hx Arthritis: Yes - GASTROINTESTINAL Hx Gastrointestinal Disorders: Yes Hx Liver Failure: Yes (Liver transplant) - GENITOURINARY/GYNECOLOGICAL Hx Genitourinary Disorders: No - PSYCHIATRIC Hx Depression: Yes Hx Substance Use: No - SURGICAL HISTORY Hx Liver Transplant: Yes (2008) Other/Comment: Brain tumor removal - ANESTHESIA Hx Anesthesia: Yes Hx Anesthesia Reactions: No Hx Malignant Hyperthermia: No Meds Allergies/Adverse Reactions: Allergies Allergy/AdvReac Type Severity Reaction Status Date / Time No Known Allergies Allergy Verified 12/24/18 16:48 - Medications Medications: Current Medications Acetaminophen (Tylenol 325mg Tab) 650 mg PO Q6 PRN PRN Reason: TEMP>=99.5F Last Admin: 02/21/19 00:43 Dose: 650 mg Acetaminophen (Tylenol 650 Mg Supp) 650 mg RC Q6H PRN PRN Reason: TEMP>=99.5F Last Admin: 02/19/19 10:16 Dose: 650 mg Acetylcysteine (Acetylcysteine 20%) 4 ml IH [id number] [facility] Last Admin: 02/25/19 19:59 Dose: 4 ml Aripiprazole (Abilify) 5 mg PO HS [facility] Last Admin: 02/20/19 21:44 Dose: 5 mg Artificial Tears (Refresh Opth Soln) 0.3 ml OU Q4H PRN PRN Reason: Dry eyes Last Admin: 02/23/19 18:41 Dose: 1 drop Artificial Tears (Puralube Opht Oint) 1 appl OU Q4H PRN PRN Reason: Dry eyes Atorvastatin Calcium (Lipitor) 40 mg PO DIN [facility] Last Admin: 02/20/19 18:47 Dose: 40 mg Betamethasone/Clotrimazole (Lotrisone) 1 gm TOP BID [facility] Last Admin: 02/25/19 18:00 Dose: 1 gm Dextrose (Dextrose 50% Inj) 50 ml IVP PRN PRN PRN Reason: Low blood sugar Dextrose (Dextrose 50% Inj) 0 ml IV STAT PRN; Protocol PRN Reason: Hypoglycemia Protocol Docusate Sodium (Colace) 100 mg PO BID [facility] Last Admin: 02/20/19 18:47 Dose: 100 mg Donepezil HCl (Aricept) 10 mg PO HS [facility] Last Admin: 02/20/19 21:44 Dose: 10 mg Duloxetine HCl (Cymbalta) 60 mg PO BID [facility] Last Admin: 02/20/19 18:47 Dose: 60 mg Enoxaparin Sodium (Lovenox) 40 mg SC DAILY [facility]; Protocol Last Admin: 02/25/19 11:46 Dose: 40 mg Fentanyl (Fentanyl) 50 mcg IVP Q6 PRN PRN Reason: Agitation Home Med (Home Med) 10 unit PO BID [facility] Last Admin: 02/20/19 18:49 Dose: Not Given Home Med (Home Med) 0.25 unit PO BID [facility] Last Admin: 02/20/19 18:49 Dose: Not Given Home Med (Home Med) 1 unit PO BID [facility] Hydrocortisone (Cortizone 0.5%) 0 ea TOP BID PRN PRN Reason: Rash Vancomycin HCl (Vancomycin 1gm) 1 gm in 250 mls @ 167 mls/hr IVPB Q12H [facility]; Protocol Stop: 03/02/19 09:46 Last Admin: 02/25/19 10:34 Dose: 167 mls/hr Dextrose (Dextrose 5% In Water 1000 Ml) 1,000 mls @ 0 mls/hr IV .Q0M PRN; Protocol PRN Reason: Hypoglycemia Protocol Fluconazole (Diflucan Iv 200 Mg/100 Ml Ns) 100 mls @ 100 mls/hr IVPB DAILY [facility]; Protocol Stop: 03/01/19 10:59 Last Admin: 02/25/19 11:47 Dose: 100 mls/hr Dextrose (Dextrose 5% In Water 1000 Ml) 1,000 mls @ 225 mls/hr IV .Q4H27M [facility] Last Admin: 02/25/19 10:06 Dose: 225 mls/hr Insulin Human Lispro (Humalog Med) 0 units SC Q6 NETTA; Protocol Last Admin: 02/25/19 19:00 Dose: Not Given Levalbuterol HCl (Xopenex) 0.63 mg IH [id number] [facility] Last Admin: 02/25/19 19:59 Dose: 0.63 mg Morphine Sulfate (Morphine) 2 mg IVP Q4H PRN PRN Reason: Pain, moderate (4-7) Last Admin: 02/25/19 10:40 Dose: 2 mg Mupirocin (Bactroban Ointment) 0 gm TOP TID [facility] Last Admin: 02/25/19 18:00 Dose: 1 applic Mycophenolate Mofetil (Cellcept Cap) 500 mg PO BID [facility] Last Admin: 02/25/19 19:00 Dose: 500 mg Ondansetron HCl (Zofran Inj) 4 mg IVP Q4H PRN PRN Reason: Nausea/Vomiting Pantoprazole Sodium (Protonix Ec Tab) 40 mg PO 0600 [facility] Last Admin: 02/20/19 06:08 Dose: 40 mg Pantoprazole Sodium (Protonix Inj) 40 mg IVP DAILY [facility] Last Admin: 02/25/19 11:00 Dose: 40 mg Prednisone (Prednisone Tab) 5 mg PO BID [facility] Last Admin: 02/25/19 19:20 Dose: 5 mg Tamsulosin HCl (Flomax) 0.4 mg PO DAILY [facility] Last Admin: 02/20/19 11:34 Dose: 0.4 mg Physical Exam - Head Exam Head Exam: ATRAUMATIC - Eye Exam Eye Exam: Normal appearance - ENT Exam ENT Exam: Mucous Membranes Dry - Respiratory Exam Respiratory Exam: NORMAL BREATHING PATTERN - Cardiovascular Exam Cardiovascular Exam: +S1, +S2 - GI/Abdominal Exam GI & Abdominal Exam: Normal Bowel Sounds - Extremities Exam Extremities exam: Positive for: pedal edema - Neurological Exam Neurological exam: Altered - Psychiatric Exam Psychiatric exam: Flat Affect - Skin Skin Exam: Warm Results - Vital Signs Recent Vital Signs: Last Vital Signs Temp 97.8 F 02/25/19 04:00 Pulse 92 H 02/25/19 03:30 Resp 31 H 02/25/19 03:30 BP 106/56 L 02/25/19 03:00 Pulse Ox 95 02/25/19 03:30 - Labs Result Diagrams: 02/25/19 05:30 02/25/19 13:30 Labs: Laboratory Results - last 24 hr 02/24/19 02/24/19 02/24/19 21:10 21:10 21:30 WBC RBC Hgb Hct MCV MCH MCHC RDW Plt Count MPV Neut % (Auto) Lymph % (Auto) [place] % (Auto) Eos % (Auto) Baso % (Auto) Lymph # (Auto) [place] # (Auto) Eos # (Auto) Baso # (Auto) Absolute Neuts (auto) PT INR Sodium 159 H* Potassium 3.3 L Chloride 133 H Carbon Dioxide 24 Anion Gap 6 L BUN 20 Creatinine 0.7 L Est GFR ( Amer) > 60 Est GFR (Non-Af Amer) > 60 POC Glucose (mg/dL) Random Glucose 177 H Serum Osmolality 337 H Calcium 8.1 L Phosphorus Magnesium Total Bilirubin Direct Bilirubin AST ALT Alkaline Phosphatase Total Protein Albumin Globulin Albumin/Globulin Ratio Urine Color Yellow Urine Appearance Sl cloudy Urine pH 6.0 Ur Specific [place] 1.015 Urine Protein Negative Urine Glucose (UA) Negative Urine Ketones Negative Urine Blood Large H Urine Nitrate Negative Urine Bilirubin Negative Urine Urobilinogen 0.2 Ur Leukocyte Esterase Trace H Urine RBC 15 - 20 H Urine WBC 5 - 10 H Ur Epithelial Cells 6 - 8 H Urine Bacteria Mod Urine Osmolality Ur Random Sodium 02/24/19 02/24/19 02/25/19 21:30 23:13 00:05 WBC RBC Hgb Hct MCV MCH MCHC RDW Plt Count MPV Neut % (Auto) Lymph % (Auto) [place] % (Auto) Eos % (Auto) Baso % (Auto) Lymph # (Auto) [place] # (Auto) Eos # (Auto) Baso # (Auto) Absolute Neuts (auto) PT INR Sodium Potassium Chloride Carbon Dioxide Anion Gap BUN Creatinine Est GFR ( Amer) Est GFR (Non-Af Amer) POC Glucose (mg/dL) 150 H 138 H Random Glucose Serum Osmolality Calcium Phosphorus Magnesium Total Bilirubin Direct Bilirubin AST ALT Alkaline Phosphatase Total Protein Albumin Globulin Albumin/Globulin Ratio Urine Color Urine Appearance Urine pH Ur Specific [place] Urine Protein Urine Glucose (UA) Urine Ketones Urine Blood Urine Nitrate Urine Bilirubin Urine Urobilinogen Ur Leukocyte Esterase Urine RBC Urine WBC Ur Epithelial Cells Urine Bacteria Urine Osmolality 124 L Ur Random Sodium < 5 02/25/19 02/25/19 02/25/19 05:30 05:30 05:30 WBC 13.6 H RBC 4.42 Hgb 11.9 L Hct 37.6 L MCV 85.1 MCH 26.9 MCHC 31.6 RDW 15.9 H Plt Count 386 MPV 10.1 Neut % (Auto) 80.4 H Lymph % (Auto) 12.9 L [place] % (Auto) 6.4 H Eos % (Auto) 0.1 L Baso % (Auto) 0.2 Lymph # (Auto) 1.8 [place] # (Auto) 0.9 H Eos # (Auto) 0.0 Baso # (Auto) 0.03 Absolute Neuts (auto) 10.92 H PT 12.1 INR 1.07 Sodium 164 H* Potassium 3.6 Chloride 135 H Carbon Dioxide 25 Anion Gap 7 L BUN 18 Creatinine 0.7 L Est GFR ( Amer) > 60 Est GFR (Non-Af Amer) > 60 POC Glucose (mg/dL) Random Glucose 95 Serum Osmolality Calcium 8.3 L Phosphorus 2.3 L Magnesium 2.7 H Total Bilirubin 0.3 Direct Bilirubin 0.3 AST 46 ALT 23 Alkaline Phosphatase 86 Total Protein 5.8 Albumin 2.8 L Globulin 3.0 Albumin/Globulin Ratio 0.9 L Urine Color Urine Appearance Urine pH Ur Specific [place] Urine Protein Urine Glucose (UA) Urine Ketones Urine Blood Urine Nitrate Urine Bilirubin Urine Urobilinogen Ur Leukocyte Esterase Urine RBC Urine WBC Ur Epithelial Cells Urine Bacteria Urine Osmolality Ur Random Sodium 02/25/19 02/25/19 02/25/19 06:21 06:53 09:10 WBC RBC Hgb Hct MCV MCH MCHC RDW Plt Count MPV Neut % (Auto) Lymph % (Auto) [place] % (Auto) Eos % (Auto) Baso % (Auto) Lymph # (Auto) [place] # (Auto) Eos # (Auto) Baso # (Auto) Absolute Neuts (auto) PT INR Sodium 163 H* Potassium 3.6 Chloride 136 H Carbon Dioxide 25 Anion Gap 7 L BUN 18 Creatinine 0.6 L Est GFR ( Amer) > 60 Est GFR (Non-Af Amer) > 60 POC Glucose (mg/dL) 105 115 H Random Glucose 106 Serum Osmolality Calcium 8.2 L Phosphorus Magnesium Total Bilirubin Direct Bilirubin AST ALT Alkaline Phosphatase Total Protein Albumin Globulin Albumin/Globulin Ratio Urine Color Urine Appearance Urine pH Ur Specific [place] Urine Protein Urine Glucose (UA) Urine Ketones Urine Blood Urine Nitrate Urine Bilirubin Urine Urobilinogen Ur Leukocyte Esterase Urine RBC Urine WBC Ur Epithelial Cells Urine Bacteria Urine Osmolality Ur Random Sodium 02/25/19 02/25/19 02/25/19 13:02 13:30 19:14 WBC RBC Hgb Hct MCV MCH MCHC RDW Plt Count MPV Neut % (Auto) Lymph % (Auto) [place] % (Auto) Eos % (Auto) Baso % (Auto) Lymph # (Auto) [place] # (Auto) Eos # (Auto) Baso # (Auto) Absolute Neuts (auto) PT INR Sodium 163 H* Potassium 3.7 Chloride 135 H Carbon Dioxide 26 Anion Gap 6 L BUN 16 Creatinine 0.7 L Est GFR ( Amer) > 60 Est GFR (Non-Af Amer) > 60 POC Glucose (mg/dL) 81 140 H Random Glucose 111 H Serum Osmolality Calcium 8.0 L Phosphorus Magnesium Total Bilirubin Direct Bilirubin AST ALT Alkaline Phosphatase Total Protein Albumin Globulin Albumin/Globulin Ratio Urine Color Urine Appearance Urine pH Ur Specific [place] Urine Protein Urine Glucose (UA) Urine Ketones Urine Blood Urine Nitrate Urine Bilirubin Urine Urobilinogen Ur Leukocyte Esterase Urine RBC Urine WBC Ur Epithelial Cells Urine Bacteria Urine Osmolality Ur Random Sodium Assessment & Plan (1) Craniopharyngioma Assessment and Plan: per patient, resected about 10 years ago at [facility] MRI brain imaging noted; appears consistent with craniopharyngioma unclear if this is stable disease vs progression - will need comparison with old imaging ultimately treatment would include resection +/- adjuvant radiation; if not a surgical candidate, can consider radiation alone patient does not appear to be a surgical candidate at this point given current medical issues resection candidacy can be evaluated once more stable and at an outpatient tertiary center Status: Acute (2) Anemia Assessment and Plan: anemia of chronic disease anemia related to immunosuppression cont. to monitor, no current transfusion indication Status: Acute (3) Leukocytosis Assessment and Plan: reactive component from steroids on antibiotics Thank you for this interesting consult. Status: Acute
[2019-02-25 21:16] LABS: BLOOD UREA NITROGEN 15 mg/dL (7-21); CALCIUM 7.7 mg/dL (8.4-10.5); GFR NON-AFRICAN AMERICAN > 60
--- NOTE | 2019-02-25 23:23 | CP.PCM.PN ---
Subjective - Date & Time of Evaluation Date of Evaluation: 02/25/19 Time of Evaluation: 06:40 - Subjective Subjective: Patient is still using BiPAP, no fevers, not in distress. Objective - Vital Signs/Intake and Output Vital Signs (last 24 hours): Temp Pulse Resp BP Pulse Ox 97.8 F 89 18 110/72 100 02/24/19 20:00 02/24/19 08:00 02/24/19 08:00 02/24/19 08:00 02/24/19 08:00 Intake and Output: 02/24/19 02/25/19 18:59 06:59 Intake Total 2110 Output Total 2700 Balance -590 - Medications Medications: Current Medications Acetaminophen (Tylenol 325mg Tab) 650 mg PO Q6 PRN PRN Reason: TEMP>=99.5F Last Admin: 02/21/19 00:43 Dose: 650 mg Acetaminophen (Tylenol 650 Mg Supp) 650 mg RC Q6H PRN PRN Reason: TEMP>=99.5F Last Admin: 02/19/19 10:16 Dose: 650 mg Acetylcysteine (Acetylcysteine 20%) [id number] [facility] Last Admin: 02/24/19 19:50 Dose: 4 ml Aripiprazole (Abilify) [address] [facility] Last Admin: 02/20/19 21:44 Dose: 5 mg Artificial Tears (Refresh Opth Soln) 0.3 ml OU Q4H PRN PRN Reason: Dry eyes Last Admin: 02/23/19 18:41 Dose: 1 drop Artificial Tears (Puralube Opht Oint) 1 appl OU Q4H PRN PRN Reason: Dry eyes Atorvastatin Calcium (Lipitor) [address] [facility] Last Admin: 02/20/19 18:47 Dose: 40 mg Dextrose (Dextrose 50% Inj) 50 ml IVP PRN PRN PRN Reason: Low blood sugar Dextrose (Dextrose 50% Inj) 0 ml IV STAT PRN; Protocol PRN Reason: Hypoglycemia Protocol Docusate Sodium (Colace) [address] [facility] Last Admin: 02/20/19 18:47 Dose: 100 mg Donepezil HCl (Aricept) [address] [facility] Last Admin: 02/20/19 21:44 Dose: 10 mg Duloxetine HCl (Cymbalta) [address] [facility] Last Admin: 02/20/19 18:47 Dose: 60 mg Enoxaparin Sodium (Lovenox) [address] [facility]; Protocol Last Admin: 02/24/19 11:00 Dose: 40 mg Fentanyl (Fentanyl) 50 mcg IVP Q6 PRN PRN Reason: Agitation Home Med (Home Med) [address] [facility] Last Admin: 02/20/19 18:49 Dose: Not Given Home Med (Home Med) 0.[address] [facility] Last Admin: 02/20/19 18:49 Dose: Not Given Doxycycline Hyclate 100 mg/ (Sodium Chloride) 100 mls @ 100 mls/hr IVPB Q12 [facility]; Protocol Stop: 03/01/19 13:16 Last Admin: 02/24/19 22:03 Dose: 100 mls/hr Meropenem (Merrem Iv 1 Gm Premix) 1 gm in 50 mls @ 100 mls/hr IVPB Q8 [facility]; Protocol Stop: 03/01/19 14:01 Last Admin: 02/24/19 21:24 Dose: 100 mls/hr Vancomycin HCl (Vancomycin 1gm) 1 gm in 250 mls @ 167 mls/hr IVPB Q12H [facility]; Protocol Stop: 03/02/19 09:46 Last Admin: 02/24/19 21:25 Dose: 167 mls/hr Dextrose (Dextrose 5% In Water 1000 Ml) 1,000 mls @ 0 mls/hr IV .Q0M PRN; Protocol PRN Reason: Hypoglycemia Protocol Dextrose (Dextrose 5% In Water 1000 Ml) 1,000 mls @ 125 mls/hr IV .Q8H [facility] Last Admin: 02/24/19 21:23 Dose: 125 mls/hr Insulin Human Lispro (Humalog Med) [address] [facility]; Protocol Last Admin: 02/24/19 18:00 Dose: Not Given Levalbuterol HCl (Xopenex) 0.[id number] [facility] Last Admin: 02/24/19 19:51 Dose: 0.63 mg Morphine Sulfate (Morphine) 2 mg IVP Q4H PRN PRN Reason: Pain, moderate (4-7) Last Admin: 02/24/19 12:17 Dose: 2 mg Mupirocin (Bactroban Ointment) [address] [facility] Last Admin: 02/24/19 18:00 Dose: 1 applic Mycophenolate Mofetil (Cellcept Cap) [address] [facility] Last Admin: 02/24/19 19:25 Dose: 500 mg Ondansetron HCl (Zofran Inj) 4 mg IVP Q4H PRN PRN Reason: Nausea/Vomiting Pantoprazole Sodium (Protonix Ec Tab) [address] [facility] Last Admin: 02/20/19 06:08 Dose: 40 mg Pantoprazole Sodium (Protonix Inj) [address] [facility] Last Admin: 02/24/19 11:00 Dose: 40 mg Prednisone (Prednisone Tab) [address] [facility] Last Admin: 02/24/19 19:20 Dose: 5 mg Tamsulosin HCl (Flomax) 0.[address] [facility] Last Admin: 02/20/19 11:34 Dose: 0.4 mg - Labs Labs: 02/24/19 06:00 02/24/19 21:10 PT 12.0 SECONDS (9.4-12.5) 02/24/19 06:00 INR 1.06 02/24/19 06:00 APTT 39.4 Seconds (26.9-38.3) H 02/14/19 14:15 - Constitutional Appears: Chronically Ill - Head Exam Head Exam: NORMAL INSPECTION - Respiratory Exam Respiratory Exam: Decreased Breath Sounds - Cardiovascular Exam Cardiovascular Exam: +S1, +S2 - GI/Abdominal Exam GI & Abdominal Exam: Soft. absent: Tenderness Assessment and Plan - Assessment and Plan (Free Text) Plan: Assessment severe sepsis S/P VDRF R/O aspiration pneumonia depression [employer] tumor with bone metastases chronic pain syndrome arthritis HTN dyslipidemia S/P liver transplant Plan continue Vancomycin and Merrem day 5; cultures have been negative - target up to 7 days of antibiotics overall prognosis is poor
[2019-02-26 03:45] LABS: BASO # 0.01 K/mm3 (0.0-2.0); BASO % 0.1 % (0.0-3.0); EOS % 0.3 % (1.5-5.0); HEMOGLOBIN 10.5 g/dL (14.0-18.0); LYMPH # 1.6 (1.2-3.4); LYMPH % 14.2 % (22.0-35.0); MEAN CELL VOLUME 85.4 fl (80.0-105.0); MEAN CORPUSCULAR HEMOGLOBIN 26.4 pg (25.0-35.0); MEAN CORPUSCULAR HGB CONC 30.9 g/dl (31.0-37.0); MEAN PLATELET VOLUME 10.4 fl (7.0-11.0); MONO # 0.9 (0.1-0.6); MONO % 7.7 % (1.0-6.0); RBC 3.98 10^6/uL (3.5-6.1); RED CELL DISTRIBUTION WIDTH 16.2 % (11.5-14.5); WHITE BLOOD COUNT 11.2 10^3/uL (4.5-11.0)
[2019-02-26] MEDS: Levalbuterol 0.63 MG/3 ML Inhal Soln UD IH SCH ×3 (04:14→13:31)
[2019-02-26] MEDS: Acetylcysteine 20% Inhal Soln (4ml) IH SCH ×3 (04:14→13:31)
[2019-02-26 04:18] LABS: INR 1.23; PROTHROMBIN TIME 13.7 SECONDS (9.4-12.5)
[2019-02-26 04:21] LABS: ALB/GLOB RATIO 0.9 (1.1-1.8); ALBUMIN 2.5 g/dL (3.0-4.8); ALT/SGPT 17 U/L (7-56); AST/SGOT 42 U/L (17-59); BILIRUBIN,DIRECT 0.3 mg/dL (0.0-0.4); BLOOD UREA NITROGEN 15 mg/dL (7-21); CALCIUM 7.6 mg/dL (8.4-10.5); GFR NON-AFRICAN AMERICAN > 60
[2019-02-26] MEDS: Insulin Lispro (humaLOG) MEDIUM Coverage SC SCH ×3 (06:58→15:58)
--- NOTE | 2019-02-26 07:25 | CP.PCM.PN ---
<Royce Cruz - Last Filed: 02/26/19 11:49> Subjective - Date & Time of Evaluation Date of Evaluation: 02/26/19 Time of Evaluation: 07:25 - Subjective Subjective: Hepatobiliary surgery progress note for Dr. Gomez Pt seen and evaluated at bedside. Nasal cannula replaced (5L) as pt removed it. Pt is awake but continues to be confused/disoriented; improved since yesterday. ROS limited due to mental status. Objective - Vital Signs/Intake and Output Vital Signs (last 24 hours): Temp Pulse Resp BP Pulse Ox 97.9 F 65 28 H 133/90 95 02/26/19 04:00 02/26/19 06:30 02/26/19 06:30 02/26/19 06:00 02/26/19 06:30 Intake and Output: 02/26/19 02/26/19 06:59 18:59 Intake Total 2900 Output Total 950 Balance 1950 - Medications Medications: Current Medications Acetaminophen (Tylenol 325mg Tab) 650 mg PO Q6 PRN PRN Reason: TEMP>=99.5F Last Admin: 02/21/19 00:43 Dose: 650 mg Acetaminophen (Tylenol 650 Mg Supp) 650 mg RC Q6H PRN PRN Reason: TEMP>=99.5F Last Admin: 02/19/19 10:16 Dose: 650 mg Acetylcysteine (Acetylcysteine 20%) 4 ml IH [id number] [facility] Last Admin: 02/26/19 04:14 Dose: 4 ml Aripiprazole (Abilify) 5 mg PO HS [facility] Last Admin: 02/20/19 21:44 Dose: 5 mg Artificial Tears (Refresh Opth Soln) 0.3 ml OU Q4H PRN PRN Reason: Dry eyes Last Admin: 02/23/19 18:41 Dose: 1 drop Artificial Tears (Puralube Opht Oint) 1 appl OU Q4H PRN PRN Reason: Dry eyes Atorvastatin Calcium (Lipitor) 40 mg PO DIN [facility] Last Admin: 02/20/19 18:47 Dose: 40 mg Betamethasone/Clotrimazole (Lotrisone) 1 gm TOP BID [facility] Last Admin: 02/25/19 18:00 Dose: 1 gm Dextrose (Dextrose 50% Inj) 50 ml IVP PRN PRN PRN Reason: Low blood sugar Dextrose (Dextrose 50% Inj) 0 ml IV STAT PRN; Protocol PRN Reason: Hypoglycemia Protocol Docusate Sodium (Colace) 100 mg PO BID [facility] Last Admin: 02/20/19 18:47 Dose: 100 mg Donepezil HCl (Aricept) 10 mg PO HS [facility] Last Admin: 02/20/19 21:44 Dose: 10 mg Duloxetine HCl (Cymbalta) 60 mg PO BID [facility] Last Admin: 02/20/19 18:47 Dose: 60 mg Enoxaparin Sodium (Lovenox) 40 mg SC DAILY [facility]; Protocol Last Admin: 02/25/19 11:46 Dose: 40 mg Fentanyl (Fentanyl) 50 mcg IVP Q6 PRN PRN Reason: Agitation Home Med (Home Med) 10 unit PO BID [facility] Last Admin: 02/20/19 18:49 Dose: Not Given Home Med (Home Med) 0.25 unit PO BID [facility] Last Admin: 02/20/19 18:49 Dose: Not Given Home Med (Home Med) 1 unit PO BID [facility] Hydrocortisone (Cortizone 0.5%) 0 ea TOP BID PRN PRN Reason: Rash Vancomycin HCl (Vancomycin 1gm) 1 gm in 250 mls @ 167 mls/hr IVPB Q12H [facility]; Protocol Stop: 03/02/19 09:46 Last Admin: 02/25/19 21:03 Dose: 167 mls/hr Dextrose (Dextrose 5% In Water 1000 Ml) 1,000 mls @ 0 mls/hr IV .Q0M PRN; Protocol PRN Reason: Hypoglycemia Protocol Fluconazole (Diflucan Iv 200 Mg/100 Ml Ns) 100 mls @ 100 mls/hr IVPB DAILY [facility]; Protocol Stop: 03/01/19 10:59 Last Admin: 02/25/19 11:47 Dose: 100 mls/hr Dextrose (Dextrose 5% In Water 1000 Ml) 1,000 mls @ 225 mls/hr IV .Q4H27M [facility] Last Admin: 02/25/19 22:00 Dose: 225 mls/hr Insulin Human Lispro (Humalog Med) 0 units SC Q6 [facility]; Protocol Last Admin: 02/26/19 06:58 Dose: Not Given Levalbuterol HCl (Xopenex) 0.63 mg IH [id number] [facility] Last Admin: 02/26/19 04:14 Dose: 0.63 mg Morphine Sulfate (Morphine) 2 mg IVP Q4H PRN PRN Reason: Pain, moderate (4-7) Last Admin: 02/25/19 10:40 Dose: 2 mg Mupirocin (Bactroban Ointment) 0 gm TOP TID [facility] Last Admin: 02/25/19 18:00 Dose: 1 applic Mycophenolate Mofetil (Cellcept Cap) 500 mg PO BID [facility] Last Admin: 02/25/19 19:00 Dose: 500 mg Ondansetron HCl (Zofran Inj) 4 mg IVP Q4H PRN PRN Reason: Nausea/Vomiting Pantoprazole Sodium (Protonix Ec Tab) 40 mg PO 0600 [facility] Last Admin: 02/20/19 06:08 Dose: 40 mg Pantoprazole Sodium (Protonix Inj) 40 mg IVP DAILY [facility] Last Admin: 02/25/19 11:00 Dose: 40 mg Prednisone (Prednisone Tab) 5 mg PO BID [facility] Last Admin: 02/25/19 19:20 Dose: 5 mg Tamsulosin HCl (Flomax) 0.4 mg PO DAILY [facility] Last Admin: 02/20/19 11:34 Dose: 0.4 mg - Labs Labs: 02/26/19 03:20 02/26/19 03:20 PT 13.7 SECONDS (9.4-12.5) H 02/26/19 03:20 INR 1.23 02/26/19 03:20 APTT 39.4 Seconds (26.9-38.3) H 02/14/19 14:15 - Additional Findings Additional findings: - Constitutional Appears: Non-toxic, Confused - Head Exam Head Exam: ATRAUMATIC - Eye Exam Eye Exam: EOMI, Normal appearance - ENT Exam ENT Exam: Mucous Membranes Dry - Respiratory Exam Respiratory Exam: Decreased Breath Sounds, Rhonchi, Rales. absent:Wheezes, Respiratory Distress, Stridor - Cardiovascular Exam Cardiovascular Exam: REGULAR RHYTHM, +S1, +S2. Absent: tachycardia - GI/Abdominal Exam GI & Abdominal Exam: Soft, Normal Bowel Sounds. absent: Tenderness, Organomegaly Additional comments: (+) well healed horizontal scar post liver transplant; no signs of infection - Extremities Exam Extremities Exam: Normal Capillary Refill. absent: Pedal Edema - Neurological Exam Neurological Exam: Awake. absent: Oriented x3 - Skin Skin Exam: Dry, Warm Assessment and Plan - Assessment and Plan (Free Text) Assessment: 63 year old Thai speaking male with PMH of cirrhosis (s/p liver transplant), chronic pain on narcotics, HTN, depression, hypothyroidism, blindness, craniopharyngioma, and psoriasis initially admitted for fever, generalized weakness, and sepsis thought to be 2/2 RUE cellulitis. Pt decompensated to septic shock and was tranfered to ICU for pressor management. Currently being treated for bilateral pneumonia, self-extubated on 02/24. Plan: Continue to monitor LFTs Labs reviewed: GGT is 19; AST/ALT/ALP are normal. Albumin continues to downtrend, likely due to poor oral intake as it was normal before Continue Cellcept 500 mg PO BID Continue to hold Everolimus 0.5 mg PO BID. Hold this medication until pt's infection is more controlled. Potentially in a few days, Friday02/28/19, at the earliest. Continue Abx as per [facility] Neurosurgery, Dr. Villarreal, is following the pt. Further management as per primary team [facility] Although Cardiology is attempting to do a NELLY to obtain better characterization of potential myxoma. Further recommendations as per Dr. Walters PGY1 Pager # [phone] = <Surendra Pratt - Last Filed: 02/27/19 14:18> Objective - Vital Signs/Intake and Output Vital Signs (last 24 hours): Temp Pulse Resp BP Pulse Ox 98.9 F 86 21 147/94 H 80 L 02/26/19 12:00 02/26/19 15:03 02/26/19 15:03 02/26/19 15:00 02/26/19 14:00 Intake and Output: 02/27/19 02/27/19 06:59 18:59 Intake Total 1950 Output Total 900 Balance 1050 - Labs Labs: 02/26/19 03:20 02/26/19 03:20 PT 13.7 SECONDS (9.4-12.5) H 02/26/19 03:20 INR 1.23 02/26/19 03:20 APTT 39.4 Seconds (26.9-38.3) H 02/14/19 14:15 Assessment and Plan - Assessment and Plan (Free Text) Plan: All medical record entries made by the resident were at my direction. I have reviewed the chart and agree that the record accurately reflects my personal performance of the history, physical exam, and medical decision making.
--- NOTE | 2019-02-26 08:24 | CON ---
DATE: 02/25/2019 REASON FOR CONSULTATION: Severe hypernatremia, hypokalemia. HISTORY OF PRESENTING ILLNESS: A 63-year-old male, previously unknown to me. The patient was admitted to the hospital on 02/15/2019 with chronic back pain, two-week history of generalized weakness, bone pain. He reported some fevers at the time of presentation. Denied any chest pain, shortness of breath, nausea, vomiting, numbness. The patient was admitted to the medical floor. He was evaluated by the ICU on 02/21/2019 because of low blood pressure; pressure was 84/55. The patient was thought to have aspiration pneumonia, sepsis. He was also thought to have right upper extremity cellulitis. The patient was intubated because of lethargy. In the ICU, he was treated for septic shock. He was treated with the IV antibiotics. Consultation is requested for worsening sodium levels for the last 48 hours. His sodium was 140 on 02/23/2019, subsequently marianne to 155 and then 160. This morning, sodium was 163. This is despite getting D5W at 250 mL/hour for the last 24 hours. 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 FAMILY HISTORY: Not available. SOCIAL HISTORY: Smoker of 10 cigarettes per day, marijuana, no alcohol use, no IV drug abuse. ALLERGIES: NO KNOWN DRUG ALLERGIES. CURRENT MEDICATIONS: Abilify, Mucomyst, Aricept, Bactroban, CellCept 500 b.i.d., Colace 100, Cymbalta 60 b.i.d., Diflucan at IV 200 mg daily, Flomax 0.4, everolimus 0.5 b.i.d., Lipitor 40, Lovenox 40, prednisone 5 b.i.d., Protonix, vancomycin 1 g q. Muna Renteria MD [facility] # [id number]
--- NOTE | 2019-02-26 09:08 | CP.CCUPN ---
<Chapo Chan - Last Filed: 02/26/19 10:43> CCU Subjective - Physician Review Subjective (Free Text): Chapo Chan DO, PGY-1 MICU Progress Note for Dr. Sascha Desai Patient was seen and examined at bedside this AM. He remained HD stable last night and maintained SpO2 on supplemental O2 NC alone. He is alert, oriented to self, place, but with poor insight into condition. CCU Objective - Vital Signs / Intake & Output Vital Signs (Last 4 hours): Vital Signs Pulse Resp BP Pulse Ox 02/26/19 06:30 65 28 H 95 02/26/19 06:20 80 27 H 94 L 02/26/19 06:10 80 92 L 02/26/19 06:00 75 36 H 133/90 92 L 02/26/19 05:50 74 30 H 92 L 02/26/19 05:40 97 H 22 94 L 02/26/19 05:30 81 26 H 95 02/26/19 05:20 78 24 93 L 02/26/19 05:10 81 94 L Intake and Output (Last 8hrs): Intake & Output 02/25/19 02/26/19 02/26/19 22:59 06:59 14:59 Intake Total 1250 2900 Output Total 3200 950 Balance -1950 1950 Intake: IV 950 2700 Left Upper arm 950 2700 Oral 300 200 Output: Urine 3200 950 Urethral (Grossman) 3200 950 Emesis 0 Other: # Bowel Movements 1 - Physical Exam Physical Exam Limitations: Positive for: Clinical Condition Head: Positive for: Atraumatic, Normocephalic Pupils: Positive for: PERRL Extroacular Muscles: Positive for: EOMI Conjunctiva: Positive for: Icteric Ears: Positive for: Normal, NORMAL TM, Normal Canal. Negative for: Erythema, TM Bulging, Fluid, TM Perf Mouth: Positive for: Moist Mucous Membranes Pharnyx: Positive for: Normal. Negative for: ERYTHEMA, EXUDATE Neck: Negative for: Lymphadenopathy Respiratory/Chest: Positive for: Rales (faint rales loudest over RUL, RML, improving from prior exams). Negative for: Respiratory Distress, Accessory Muscle Use, Wheezes, Rhonchi Cardiovascular: Positive for: Regular Rate and Rhythm, Normal S1, S2. Negative for: Murmurs, Rub, Gallop Abdomen: Positive for: Normal Bowel Sounds, Scars (liver transplant post-op abdominal scar noted). Negative for: Tenderness, Distention, Peritoneal Signs Genitourinary Male: Positive for: Normal External Genitalia, Circumcised Penis, Other (grossman in place) Back: Positive for: Normal Inspection. Negative for: CVA Tenderness, Midline Tenderness Upper Extremity: Positive for: NORMAL PULSES, Capillary Refill < 2s, Other (RUE with area of erythema, approximately 3 x 5 cm, improved from prior exams). Negative for: Cyanosis, Edema Lower Extremity: Positive for: NORMAL PULSES, Capillary Refill < 2 s, Other (R sided femoral line now removed, dressing site without drainage or surrounding erythema). Negative for: Edema Neurological: Positive for: CN II-XII Intact, Motor Func Grossly Intact, Other (moving all limbs spontaneously, grimaces with pain, conversant, requesting food) Skin: Positive for: Warm, Dry, Other (diffusely jaundiced and pale) Psychiatric: Positive for: Alert, Oriented x 3, Anxious - Medications Active Medications: Active Medications Generic Name Dose Route Start Last Admin Trade Name Freq PRN Reason Stop Dose Admin Acetaminophen 650 mg 02/15/19 09:01 02/21/19 00:43 Tylenol 325mg Tab PO 650 mg Q6 PRN Administration TEMP>=99.5F Acetaminophen 650 mg 02/15/19 09:01 02/19/19 10:16 Tylenol 650 Mg Supp RC 650 mg Q6H PRN Administration TEMP>=99.5F Acetylcysteine 4 ml 02/22/19 14:00 02/26/19 07:38 Acetylcysteine 20% IH 4 ml [id number] NETTA Administration Aripiprazole 5 mg 02/16/19 08:34 02/20/19 21:44 Abilify PO 5 mg HS NETTA Administration Artificial Tears 0.3 ml 02/23/19 15:40 02/23/19 18:41 Refresh Opth Soln OU 1 drop Q4H PRN Administration Dry eyes Artificial Tears 1 appl 02/23/19 18:52 Puralube Opht Oint OU Q4H PRN Dry eyes Atorvastatin Calcium 40 mg 02/15/19 17:00 02/20/19 18:47 Lipitor PO 40 mg DIN NETTA Administration Betamethasone/Clotrimazole 1 gm 02/25/19 18:00 02/25/19 18:00 Lotrisone TOP 1 gm BID NETTA Administration Dextrose 50 ml 02/22/19 07:50 Dextrose 50% Inj IVP PRN PRN Low blood sugar Dextrose 0 ml 02/22/19 21:32 Dextrose 50% Inj IV STAT PRN Hypoglycemia Protocol Protocol Docusate Sodium 100 mg 02/17/19 18:00 02/20/19 18:47 Colace PO 100 mg BID NETTA Administration Donepezil HCl 10 mg 02/14/19 22:00 02/20/19 21:44 Aricept PO 10 mg HS NETTA Administration Duloxetine HCl 60 mg 02/14/19 18:00 02/20/19 18:47 Cymbalta PO 60 mg BID NETTA Administration Enoxaparin Sodium 40 mg 02/15/19 10:00 02/25/19 11:46 Lovenox SC 40 mg DAILY NETTA Administration Protocol Fentanyl 50 mcg 02/24/19 15:48 Fentanyl IVP Q6 PRN Agitation Home Med 10 unit 02/14/19 18:00 02/20/19 18:49 Home Med PO Not Given BID NETTA Home Med 0.25 unit 02/14/19 18:00 02/20/19 18:49 Home Med PO Not Given BID NETTA Home Med 1 unit 02/25/19 18:00 Home Med PO BID NETTA Hydrocortisone 0 ea 02/25/19 12:43 Cortizone 0.5% TOP BID PRN Rash Vancomycin HCl 1 gm in 250 mls @ 167 mls/hr 02/21/19 09:45 02/25/19 21:03 Vancomycin 1gm IVPB 03/02/19 09:46 167 mls/hr Q12H NETTA Administration Protocol Dextrose 1,000 mls @ 0 mls/hr 02/22/19 21:32 Dextrose 5% In Water 1000 Ml IV .Q0M PRN Hypoglycemia Protocol Protocol Per Protocol Fluconazole 100 mls @ 100 mls/hr 02/25/19 10:00 02/25/19 11:47 Diflucan Iv 200 Mg/100 Ml Ns IVPB 03/01/19 10:59 100 mls/hr DAILY NETTA Administration Protocol Dextrose 1,000 mls @ 225 mls/hr 02/25/19 08:32 02/26/19 08:01 Dextrose 5% In Water 1000 Ml IV 225 mls/hr .Q4H27M NETTA Administration Meropenem 1 gm in 50 mls @ 100 mls/hr 02/26/19 14:00 Merrem Iv 1 Gm Premix IVPB Q8 [facility] Protocol Insulin Human Lispro 0 units 02/23/19 12:00 02/26/19 06:58 Humalog Med SC Not Given Q6 [facility] Protocol Levalbuterol HCl 0.63 mg 02/15/19 14:00 02/26/19 07:38 Xopenex IH 0.63 mg [id number] NETTA Administration Morphine Sulfate 2 mg 02/24/19 11:39 02/25/19 10:40 Morphine IVP 2 mg Q4H PRN Administration Pain, moderate (4-7) Mupirocin 0 gm 02/19/19 10:00 02/25/19 18:00 Bactroban Ointment TOP 1 applic TID NETTA Administration Mycophenolate Mofetil 500 mg 02/15/19 18:00 02/25/19 19:00 Cellcept Cap PO 500 mg BID NETTA Administration Ondansetron HCl 4 mg 02/15/19 09:01 Zofran Inj IVP Q4H PRN Nausea/Vomiting Pantoprazole Sodium 40 mg 02/15/19 06:00 02/20/19 06:08 Protonix Ec Tab PO 40 mg 0600 NETTA Administration Pantoprazole Sodium 40 mg 02/21/19 10:00 02/25/19 11:00 Protonix Inj IVP 40 mg DAILY NETTA Administration Prednisone 5 mg 02/24/19 18:00 02/25/19 19:20 Prednisone Tab PO 5 mg BID NETTA Administration Tamsulosin HCl 0.4 mg 02/15/19 10:00 02/20/19 11:34 Flomax PO 0.4 mg DAILY NETTA Administration - Patient Studies Lab Studies: Microbiology Studies 02/21/19 19:45 Blood Culture - Preliminary Blood NO GROWTH AFTER 4 DAYS 02/21/19 17:30 Blood Culture - Preliminary Blood NO GROWTH AFTER 4 DAYS 02/20/19 14:00 Blood Culture - Final Blood NO GROWTH AFTER 5 DAYS Gram Stain - Final TEST NOT PERFORMED 02/20/19 13:40 Blood Culture - Final Blood NO GROWTH AFTER 5 DAYS Gram Stain - Final TEST NOT PERFORMED Lab Studies 02/26/19 02/26/19 02/26/19 Range/Units 06:15 03:20 03:20 WBC (4.5-11.0) 10^3/uL RBC (3.5-6.1) 10^6/uL Hgb (14.0-18.0) g/dL Hct (42.0-52.0) % MCV (80.0-105.0) fl MCH (25.0-35.0) pg MCHC (31.0-37.0) g/dl RDW (11.5-14.5) % Plt Count (120.0-450.0) 10^3/uL MPV (7.0-11.0) fl Neut % (Auto) (50.0-68.0) % Lymph % (Auto) (22.0-35.0) % [place] % (Auto) (1.0-6.0) % Eos % (Auto) (1.5-5.0) % Baso % (Auto) (0.0-3.0) % Lymph # (Auto) (1.2-3.4) [place] # (Auto) (0.1-0.6) Eos # (Auto) (0.0-0.7) Baso # (Auto) (0.0-2.0) K/mm3 Absolute Neuts (auto) (1.4-6.5) PT 13.7 H (9.4-12.5) SECONDS INR 1.23 Sodium 155 H (132-148) mmol/L Potassium 3.7 (3.6-5.0) mmol/L Chloride 126 H (98-107) mmol/L Carbon Dioxide 24 (21-33) mmol/L Anion Gap 8 L (10-20) BUN 15 (7-21) mg/dL Creatinine 0.7 L (0.8-1.5) mg/dl Est GFR ( Amer) > 60 Est GFR (Non-Af Amer) > 60 POC Glucose (mg/dL) 105 (65-110) mg/dL Random Glucose 126 H (70-110) mg/dL Calcium 7.6 L (8.4-10.5) mg/dL Phosphorus 2.6 (2.5-4.5) mg/dL Magnesium 2.1 (1.7-2.2) mg/dL Total Bilirubin 0.3 (0.2-1.3) mg/dL Direct Bilirubin 0.3 (0.0-0.4) mg/dL AST 42 (17-59) U/L ALT 17 (7-56) U/L Alkaline Phosphatase 69 (38-126) U/L Total Protein 5.3 L (5.8-8.3) g/dL Albumin 2.5 L (3.0-4.8) g/dL Globulin 2.7 gm/dL Albumin/Globulin Ratio 0.9 L (1.1-1.8) 02/26/19 02/25/19 02/25/19 Range/Units 03:20 20:30 19:14 WBC 11.2 H (4.5-11.0) 10^3/uL RBC 3.98 (3.5-6.1) 10^6/uL Hgb 10.5 L (14.0-18.0) g/dL Hct 34.0 L (42.0-52.0) % MCV 85.4 (80.0-105.0) fl MCH 26.4 (25.0-35.0) pg MCHC 30.9 L (31.0-37.0) g/dl RDW 16.2 H (11.5-14.5) % Plt Count 247 (120.0-450.0) 10^3/uL MPV 10.4 (7.0-11.0) fl Neut % (Auto) 77.7 H (50.0-68.0) % Lymph % (Auto) 14.2 L (22.0-35.0) % [place] % (Auto) 7.7 H (1.0-6.0) % Eos % (Auto) 0.3 L (1.5-5.0) % Baso % (Auto) 0.1 (0.0-3.0) % Lymph # (Auto) 1.6 (1.2-3.4) [place] # (Auto) 0.9 H (0.1-0.6) Eos # (Auto) 0.0 (0.0-0.7) Baso # (Auto) 0.01 (0.0-2.0) K/mm3 Absolute Neuts (auto) 8.68 H (1.4-6.5) PT (9.4-12.5) SECONDS INR Sodium 159 H* (132-148) mmol/L Potassium 3.8 (3.6-5.0) mmol/L Chloride 130 H (98-107) mmol/L Carbon Dioxide 25 (21-33) mmol/L Anion Gap 8 L (10-20) BUN 15 (7-21) mg/dL Creatinine 0.7 L (0.8-1.5) mg/dl Est GFR ( Amer) > 60 Est GFR (Non-Af Amer) > 60 POC Glucose (mg/dL) 140 H (65-110) mg/dL Random Glucose 144 H (70-110) mg/dL Calcium 7.7 L (8.4-10.5) mg/dL Phosphorus (2.5-4.5) mg/dL Magnesium (1.7-2.2) mg/dL Total Bilirubin (0.2-1.3) mg/dL Direct Bilirubin (0.0-0.4) mg/dL AST (17-59) U/L ALT (7-56) U/L Alkaline Phosphatase (38-126) U/L Total Protein (5.8-8.3) g/dL Albumin (3.0-4.8) g/dL Globulin gm/dL Albumin/Globulin Ratio (1.1-1.8) 02/25/19 02/25/19 02/25/19 Range/Units 13:30 13:02 09:10 WBC (4.5-11.0) 10^3/uL RBC (3.5-6.1) 10^6/uL Hgb (14.0-18.0) g/dL Hct (42.0-52.0) % MCV (80.0-105.0) fl MCH (25.0-35.0) pg MCHC (31.0-37.0) g/dl RDW (11.5-14.5) % Plt Count (120.0-450.0) 10^3/uL MPV (7.0-11.0) fl Neut % (Auto) (50.0-68.0) % Lymph % (Auto) (22.0-35.0) % [place] % (Auto) (1.0-6.0) % Eos % (Auto) (1.5-5.0) % Baso % (Auto) (0.0-3.0) % Lymph # (Auto) (1.2-3.4) [place] # (Auto) (0.1-0.6) Eos # (Auto) (0.0-0.7) Baso # (Auto) (0.0-2.0) K/mm3 Absolute Neuts (auto) (1.4-6.5) PT (9.4-12.5) SECONDS INR Sodium 163 H* 163 H* (132-148) mmol/L Potassium 3.7 3.6 (3.6-5.0) mmol/L Chloride 135 H 136 H (98-107) mmol/L Carbon Dioxide 26 25 (21-33) mmol/L Anion Gap 6 L 7 L (10-20) BUN 16 18 (7-21) mg/dL Creatinine 0.7 L 0.6 L (0.8-1.5) mg/dl Est GFR ( Amer) > 60 > 60 Est GFR (Non-Af Amer) > 60 > 60 POC Glucose (mg/dL) 81 (65-110) mg/dL Random Glucose 111 H 106 (70-110) mg/dL Calcium 8.0 L 8.2 L (8.4-10.5) mg/dL Phosphorus (2.5-4.5) mg/dL Magnesium (1.7-2.2) mg/dL Total Bilirubin (0.2-1.3) mg/dL Direct Bilirubin (0.0-0.4) mg/dL AST (17-59) U/L ALT (7-56) U/L Alkaline Phosphatase (38-126) U/L Total Protein (5.8-8.3) g/dL Albumin (3.0-4.8) g/dL Globulin gm/dL Albumin/Globulin Ratio (1.1-1.8) Laboratory Results - last 24 hr 02/25/19 02/25/19 02/25/19 09:10 13:02 13:30 WBC RBC Hgb Hct MCV MCH MCHC RDW Plt Count MPV Neut % (Auto) Lymph % (Auto) Edmonson % (Auto) Eos % (Auto) Baso % (Auto) Lymph # (Auto) [place] # (Auto) Eos # (Auto) Baso # (Auto) Absolute Neuts (auto) PT INR Sodium 163 H* 163 H* Potassium 3.6 3.7 Chloride 136 H 135 H Carbon Dioxide 25 26 Anion Gap 7 L 6 L BUN 18 16 Creatinine 0.6 L 0.7 L Est GFR ( Amer) > 60 > 60 Est GFR (Non-Af Amer) > 60 > 60 POC Glucose (mg/dL) 81 Random Glucose 106 111 H Calcium 8.2 L 8.0 L Phosphorus Magnesium Total Bilirubin Direct Bilirubin AST ALT Alkaline Phosphatase Total Protein Albumin Globulin Albumin/Globulin Ratio 02/25/19 02/25/19 02/26/19 19:14 20:30 03:20 WBC 11.2 H RBC 3.98 Hgb 10.5 L Hct 34.0 L MCV 85.4 MCH 26.4 MCHC 30.9 L RDW 16.2 H Plt Count 247 MPV 10.4 Neut % (Auto) 77.7 H Lymph % (Auto) 14.2 L Edmonson % (Auto) 7.7 H Eos % (Auto) 0.3 L Baso % (Auto) 0.1 Lymph # (Auto) 1.6 Edmonson # (Auto) 0.9 H Eos # (Auto) 0.0 Baso # (Auto) 0.01 Absolute Neuts (auto) 8.68 H PT INR Sodium 159 H* Potassium 3.8 Chloride 130 H Carbon Dioxide 25 Anion Gap 8 L BUN 15 Creatinine 0.7 L Est GFR ( Amer) > 60 Est GFR (Non-Af Amer) > 60 POC Glucose (mg/dL) 140 H Random Glucose 144 H Calcium 7.7 L Phosphorus Magnesium Total Bilirubin Direct Bilirubin AST ALT Alkaline Phosphatase Total Protein Albumin Globulin Albumin/Globulin Ratio 02/26/19 02/26/19 02/26/19 03:20 03:20 06:15 WBC RBC Hgb Hct MCV MCH MCHC RDW Plt Count MPV Neut % (Auto) Lymph % (Auto) Edmonson % (Auto) Eos % (Auto) Baso % (Auto) Lymph # (Auto) [place] # (Auto) Eos # (Auto) Baso # (Auto) Absolute Neuts (auto) PT 13.7 H INR 1.23 Sodium 155 H Potassium 3.7 Chloride 126 H Carbon Dioxide 24 Anion Gap 8 L BUN 15 Creatinine 0.7 L Est GFR ( Amer) > 60 Est GFR (Non-Af Amer) > 60 POC Glucose (mg/dL) 105 Random Glucose 126 H Calcium 7.6 L Phosphorus 2.6 Magnesium 2.1 Total Bilirubin 0.3 Direct Bilirubin 0.3 AST 42 ALT 17 Alkaline Phosphatase 69 Total Protein 5.3 L Albumin 2.5 L Globulin 2.7 Albumin/Globulin Ratio 0.9 L Radiology Impressions: Radiology Impressions Extremity Ultrasound 02/25/19 08:26 IMPRESSION: 1. No sonographic evidence for deep venous thrombosis in the visualized segments of both upper strategies. Chest X-Ray 02/25/19 12:00 IMPRESSION: Mild vascular congestion. Atelectasis in the left midlung field Fingerstick Blood Sugar Results: 140 Critical Care Progress Note - Nutrition Nutrition: Nutrition Category Date Time Status Diabetic [Consistent Carbohydrate] [DIET] Diets 02/24/19 Lunch Ordered Assessment/Plan - Assessment and Plan (Free Text) Assessment: 63 yo M with PMH of cirrhosis (s/p liver transplant), chronic pain on narcotics, HTN, depression, hypothyroidism, blindness, craniopharyngioma, and psoriasis initially admitted for fever, generalized weakness, and sepsis thought to be 2/2 RUE cellulitis. Yesterday morning, he began to acutely decompensate into septic shock, requiring rapid IVF resuscitation, ET intubation, and trasnfer to MICU. Plan: Neuro: Remains off ventilator, but intermittently agitated Patient has known history of craniopharyngioma Case has been reviewed by Dr. Villarreal, Dr. Nichols previously No acute intervention was recommended Ammonia negative since admission Neurology following, all recs appreciated Cardio: No longer requiring pressor support and HR is RRR LUE PICC line remains in place Continue to maintain MAP > 65 Continue to monitor HD parameters closely NELLY recommended per cardiology for better visualization of possible myxoma identified on TTE Case discussed with cardiology Patient would be able to get this completed while at LTAC facility Pulm: Now only requiring supplemental O2 NC Continue to maintain SpO2 > 95% Endo: Random glucose: 126 Continue ISS - medium Continue home prednisone 5 mg BID GI: Per speech/swallow evaluation, continue purreed, thin liquid diet Tolerating diet well so far GI following, all recs appreciated /Nephro: Renal function parameters stable Additional history obtained Patient has a known history of Central diabetes insipidus and is taking DDAVP at home Restart home DDAVP dose Hospital pharmacy called to obtain needed DDAVP prior to transfer to LTAC Continue serial monitoring of Na to monitor for resolution of hypernatremia Nephrology following, all recs appreciated Heme/Onc: H/H increased s/p transfusion of 2 u PRBCs but has trended down since then Recommend continued outpatient w/u for bleeding, including colonoscopy Patient has been worked up for craniopharyngioma in the past, no intervention was recommended Bone scan was negative for signs of metastatic disease Palliative following, all recs appreciated ID: AFebrile overnight with improvement of leukocytosis On vanc/merrem day 6, continue up to 7 days per ID recs ID following, all recs appreciated DVT/GI PPX: Lovenox/protonix Full Code Purred, thin liquid diet Transfer to LTAC. Home medications reviewed and verified with patient's pharmacy. Needed scripts given prior to transfer. Patient seen, examined with, and plan confirmed with my attending Caden Larsen.O. IM Resident PGY-1 Pager: [phone] <Rocco Desai - Last Filed: 02/26/19 17:21> CCU Objective - Vital Signs / Intake & Output Vital Signs (Last 4 hours): Vital Signs Pulse Resp BP Pulse Ox 02/26/19 15:03 86 21 02/26/19 15:02 72 21 02/26/19 15:01 88 22 02/26/19 15:00 147/94 H 02/26/19 14:59 96 H 21 02/26/19 14:58 75 27 H 02/26/19 14:57 76 26 H 02/26/19 14:56 76 29 H 02/26/19 14:55 78 23 02/26/19 14:54 77 22 02/26/19 14:53 84 23 02/26/19 14:52 70 26 H 02/26/19 14:51 82 23 02/26/19 14:50 81 24 02/26/19 14:49 83 21 02/26/19 14:48 86 26 H 02/26/19 14:47 85 25 H 02/26/19 14:46 68 30 H 02/26/19 14:45 80 16 02/26/19 14:44 85 24 02/26/19 14:43 82 21 02/26/19 14:42 88 18 02/26/19 14:41 86 28 H 02/26/19 14:40 92 H 20 02/26/19 14:39 77 32 H 02/26/19 14:38 76 22 02/26/19 14:37 67 21 02/26/19 14:36 80 23 02/26/19 14:35 82 27 H 02/26/19 14:34 75 24 02/26/19 14:33 76 26 H 02/26/19 14:32 76 24 02/26/19 14:31 77 26 H 02/26/19 14:30 79 29 H 02/26/19 14:29 81 28 H 02/26/19 14:28 79 26 H 02/26/19 14:27 88 28 H 02/26/19 14:26 78 29 H 02/26/19 14:25 84 31 H 02/26/19 14:24 86 34 H 02/26/19 14:23 82 31 H 02/26/19 14:22 89 17 02/26/19 14:21 85 26 H 02/26/19 14:20 88 20 02/26/19 14:19 85 29 H 02/26/19 14:18 89 10 L 02/26/19 14:17 87 27 H 02/26/19 14:16 86 28 H 02/26/19 14:15 86 16 02/26/19 14:14 84 25 H 02/26/19 14:13 88 24 02/26/19 14:12 88 27 H 02/26/19 14:11 84 24 02/26/19 14:10 84 28 H 02/26/19 14:09 80 21 02/26/19 14:08 80 22 02/26/19 14:07 75 28 H 02/26/19 14:06 87 25 H 02/26/19 14:05 88 20 02/26/19 14:01 87 02/26/19 14:00 84 139/92 H 80 L 02/26/19 13:53 90 22 02/26/19 13:52 91 H 16 02/26/19 13:51 92 H 15 02/26/19 13:50 90 13 02/26/19 13:49 75 02/26/19 13:48 84 20 02/26/19 13:47 89 02/26/19 13:46 86 12 02/26/19 13:45 81 14 02/26/19 13:44 74 6 L 02/26/19 13:42 82 31 H 02/26/19 13:41 85 29 H 02/26/19 13:40 87 02/26/19 13:39 85 02/26/19 13:38 89 16 02/26/19 13:37 85 02/26/19 13:36 84 28 H Intake and Output (Last 8hrs): Intake & Output 02/26/19 02/26/19 02/26/19 06:59 14:59 22:59 Intake Total 2900 Output Total 950 Balance 1950 Intake: IV 2700 Left Upper arm 2700 Oral 200 Output: Urine 950 Urethral (Grossman) 950 Emesis 0 Other: # Bowel Movements 1 - Patient Studies Lab Studies: Microbiology Studies 02/21/19 19:45 Blood Culture - Preliminary Blood NO GROWTH AFTER 4 DAYS 02/21/19 17:30 Blood Culture - Preliminary Blood NO GROWTH AFTER 4 DAYS 02/20/19 14:00 Blood Culture - Final Blood NO GROWTH AFTER 5 DAYS Gram Stain - Final TEST NOT PERFORMED 02/20/19 13:40 Blood Culture - Final Blood NO GROWTH AFTER 5 DAYS Gram Stain - Final TEST NOT PERFORMED Lab Studies 02/26/19 02/26/19 02/26/19 Range/Units 11:34 06:15 03:20 WBC (4.5-11.0) 10^3/uL RBC (3.5-6.1) 10^6/uL Hgb (14.0-18.0) g/dL Hct (42.0-52.0) % MCV (80.0-105.0) fl MCH (25.0-35.0) pg MCHC (31.0-37.0) g/dl RDW (11.5-14.5) % Plt Count (120.0-450.0) 10^3/uL MPV (7.0-11.0) fl Neut % (Auto) (50.0-68.0) % Lymph % (Auto) (22.0-35.0) % [place] % (Auto) (1.0-6.0) % Eos % (Auto) (1.5-5.0) % Baso % (Auto) (0.0-3.0) % Lymph # (Auto) (1.2-3.4) [place] # (Auto) (0.1-0.6) Eos # (Auto) (0.0-0.7) Baso # (Auto) (0.0-2.0) K/mm3 Absolute Neuts (auto) (1.4-6.5) PT 13.7 H (9.4-12.5) SECONDS INR 1.23 Sodium (132-148) mmol/L Potassium (3.6-5.0) mmol/L Chloride (98-107) mmol/L Carbon Dioxide (21-33) mmol/L Anion Gap (10-20) BUN (7-21) mg/dL Creatinine (0.8-1.5) mg/dl Est GFR ( Amer) Est GFR (Non-Af Amer) POC Glucose (mg/dL) 67 105 (65-110) mg/dL Random Glucose (70-110) mg/dL Calcium (8.4-10.5) mg/dL Phosphorus (2.5-4.5) mg/dL Magnesium (1.7-2.2) mg/dL Total Bilirubin (0.2-1.3) mg/dL Direct Bilirubin (0.0-0.4) mg/dL AST (17-59) U/L ALT (7-56) U/L Alkaline Phosphatase (38-126) U/L Total Protein (5.8-8.3) g/dL Albumin (3.0-4.8) g/dL Globulin gm/dL Albumin/Globulin Ratio (1.1-1.8) 02/26/19 02/26/19 02/25/19 Range/Units 03:20 03:20 20:30 WBC 11.2 H (4.5-11.0) 10^3/uL RBC 3.98 (3.5-6.1) 10^6/uL Hgb 10.5 L (14.0-18.0) g/dL Hct 34.0 L (42.0-52.0) % MCV 85.4 (80.0-105.0) fl MCH 26.4 (25.0-35.0) pg MCHC 30.9 L (31.0-37.0) g/dl RDW 16.2 H (11.5-14.5) % Plt Count 247 (120.0-450.0) 10^3/uL MPV 10.4 (7.0-11.0) fl Neut % (Auto) 77.7 H (50.0-68.0) % Lymph % (Auto) 14.2 L (22.0-35.0) % [place] % (Auto) 7.7 H (1.0-6.0) % Eos % (Auto) 0.3 L (1.5-5.0) % Baso % (Auto) 0.1 (0.0-3.0) % Lymph # (Auto) 1.6 (1.2-3.4) [place] # (Auto) 0.9 H (0.1-0.6) Eos # (Auto) 0.0 (0.0-0.7) Baso # (Auto) 0.01 (0.0-2.0) K/mm3 Absolute Neuts (auto) 8.68 H (1.4-6.5) PT (9.4-12.5) SECONDS INR Sodium 155 H 159 H* (132-148) mmol/L Potassium 3.7 3.8 (3.6-5.0) mmol/L Chloride 126 H 130 H (98-107) mmol/L Carbon Dioxide 24 25 (21-33) mmol/L Anion Gap 8 L 8 L (10-20) BUN 15 15 (7-21) mg/dL Creatinine 0.7 L 0.7 L (0.8-1.5) mg/dl Est GFR ( Amer) > 60 > 60 Est GFR (Non-Af Amer) > 60 > 60 POC Glucose (mg/dL) (65-110) mg/dL Random Glucose 126 H 144 H (70-110) mg/dL Calcium 7.6 L 7.7 L (8.4-10.5) mg/dL Phosphorus 2.6 (2.5-4.5) mg/dL Magnesium 2.1 (1.7-2.2) mg/dL Total Bilirubin 0.3 (0.2-1.3) mg/dL Direct Bilirubin 0.3 (0.0-0.4) mg/dL AST 42 (17-59) U/L ALT 17 (7-56) U/L Alkaline Phosphatase 69 (38-126) U/L Total Protein 5.3 L (5.8-8.3) g/dL Albumin 2.5 L (3.0-4.8) g/dL Globulin 2.7 gm/dL Albumin/Globulin Ratio 0.9 L (1.1-1.8) 02/25/19 Range/Units 19:14 WBC (4.5-11.0) 10^3/uL RBC (3.5-6.1) 10^6/uL Hgb (14.0-18.0) g/dL Hct (42.0-52.0) % MCV (80.0-105.0) fl MCH (25.0-35.0) pg MCHC (31.0-37.0) g/dl RDW (11.5-14.5) % Plt Count (120.0-450.0) 10^3/uL MPV (7.0-11.0) fl Neut % (Auto) (50.0-68.0) % Lymph % (Auto) (22.0-35.0) % [place] % (Auto) (1.0-6.0) % Eos % (Auto) (1.5-5.0) % Baso % (Auto) (0.0-3.0) % Lymph # (Auto) (1.2-3.4) [place] # (Auto) (0.1-0.6) Eos # (Auto) (0.0-0.7) Baso # (Auto) (0.0-2.0) K/mm3 Absolute Neuts (auto) (1.4-6.5) PT (9.4-12.5) SECONDS INR Sodium (132-148) mmol/L Potassium (3.6-5.0) mmol/L Chloride (98-107) mmol/L Carbon Dioxide (21-33) mmol/L Anion Gap (10-20) BUN (7-21) mg/dL Creatinine (0.8-1.5) mg/dl Est GFR ( Amer) Est GFR (Non-Af Amer) POC Glucose (mg/dL) 140 H (65-110) mg/dL Random Glucose (70-110) mg/dL Calcium (8.4-10.5) mg/dL Phosphorus (2.5-4.5) mg/dL Magnesium (1.7-2.2) mg/dL Total Bilirubin (0.2-1.3) mg/dL Direct Bilirubin (0.0-0.4) mg/dL AST (17-59) U/L ALT (7-56) U/L Alkaline Phosphatase (38-126) U/L Total Protein (5.8-8.3) g/dL Albumin (3.0-4.8) g/dL Globulin gm/dL Albumin/Globulin Ratio (1.1-1.8) Laboratory Results - last 24 hr 02/25/19 02/25/19 02/26/19 19:14 20:30 03:20 WBC 11.2 H RBC 3.98 Hgb 10.5 L Hct 34.0 L MCV 85.4 MCH 26.4 MCHC 30.9 L RDW 16.2 H Plt Count 247 MPV 10.4 Neut % (Auto) 77.7 H Lymph % (Auto) 14.2 L [place] % (Auto) 7.7 H Eos % (Auto) 0.3 L Baso % (Auto) 0.1 Lymph # (Auto) 1.6 [place] # (Auto) 0.9 H Eos # (Auto) 0.0 Baso # (Auto) 0.01 Absolute Neuts (auto) 8.68 H PT INR Sodium 159 H* Potassium 3.8 Chloride 130 H Carbon Dioxide 25 Anion Gap 8 L BUN 15 Creatinine 0.7 L Est GFR ( Amer) > 60 Est GFR (Non-Af Amer) > 60 POC Glucose (mg/dL) 140 H Random Glucose 144 H Calcium 7.7 L Phosphorus Magnesium Total Bilirubin Direct Bilirubin AST ALT Alkaline Phosphatase Total Protein Albumin Globulin Albumin/Globulin Ratio 02/26/19 02/26/19 02/26/19 03:20 03:20 06:15 WBC RBC Hgb Hct MCV MCH MCHC RDW Plt Count MPV Neut % (Auto) Lymph % (Auto) [place] % (Auto) Eos % (Auto) Baso % (Auto) Lymph # (Auto) [place] # (Auto) Eos # (Auto) Baso # (Auto) Absolute Neuts (auto) PT 13.7 H INR 1.23 Sodium 155 H Potassium 3.7 Chloride 126 H Carbon Dioxide 24 Anion Gap 8 L BUN 15 Creatinine 0.7 L Est GFR ( Amer) > 60 Est GFR (Non-Af Amer) > 60 POC Glucose (mg/dL) 105 Random Glucose 126 H Calcium 7.6 L Phosphorus 2.6 Magnesium 2.1 Total Bilirubin 0.3 Direct Bilirubin 0.3 AST 42 ALT 17 Alkaline Phosphatase 69 Total Protein 5.3 L Albumin 2.5 L Globulin 2.7 Albumin/Globulin Ratio 0.9 L 02/26/19 11:34 WBC RBC Hgb Hct MCV MCH MCHC RDW Plt Count MPV Neut % (Auto) Lymph % (Auto) [place] % (Auto) Eos % (Auto) Baso % (Auto) Lymph # (Auto) [place] # (Auto) Eos # (Auto) Baso # (Auto) Absolute Neuts (auto) PT INR Sodium Potassium Chloride Carbon Dioxide Anion Gap BUN Creatinine Est GFR ( Amer) Est GFR (Non-Af Amer) POC Glucose (mg/dL) 67 Random Glucose Calcium Phosphorus Magnesium Total Bilirubin Direct Bilirubin AST ALT Alkaline Phosphatase Total Protein Albumin Globulin Albumin/Globulin Ratio Critical Care Progress Note - Nutrition Nutrition: Nutrition Category Date Time Status Diabetic [Consistent Carbohydrate] [DIET] Diets 02/24/19 Lunch Ordered Addendum Addendum: 02/26/19 17:20 ICU Attending Addendum Patient seen and examined with housestaff case discussed on round agree with resident note above with the following additions/exceptions: 63M with cirrhosis (s/p liver transplant), chronic pain on narcotics, HTN, depression, hypothyroidism, blindness, craniopharyngioma, and psoriasis being managed in the ICU for sepsis and respiratory failure Initially admitted on 02/14 for lethargy, developed fevers on 02/17 and became hypoxic and hypotensive and subsequently intubated on 02/21. He self-extubated 02/23. 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 ID on board, cultures neg, on broad abx tx asp pna and RUE cellutlties WBC trending down his oxygenation is much improved - cont nasal cannula Bone scan shows bening uptake. No malig lesions. HB stable now no signs of active bleeding hemodynamically stable hypernatremia from being off his tx for DI as an outpatient resumed desmopressin yesterday and now sodium improving Plan for patient to go to [facility] today After discharge from here to [facility] he must have: -Further work up for atrial myxoma, will need a NELLY - cont monitoring sodium while on desmopressin - at some point resume him immunosupressant meds for liver transplant once deemed appropriate -deescalate abx -ortho consult for back pain and prior reports of concern in regards to avscular necrosis of hip -neuro follow up for cranipharyngoima - pain management consult Rest of care as mentioned in above resident note Rocco Desai MD Pulmonary Critical Care Sleep Medicine
--- NOTE | 2019-02-26 10:02 | PN ---
DATE: 02/26/2019 SUBJECTIVE: The patient is in no acute distress. PHYSICAL EXAMINATION: VITAL SIGNS: Blood pressure is 133/90, the heart rate is in the 60s. NECK: Negative JVD. LUNGS: Without rales. HEART: S1, S2. EXTREMITIES: Without change. LABORATORY DATA: Hemoglobin is 10.5. Chemistries, BUN and creatinine are unremarkable. PLAN: The patient has a normal echocardiogram performed on this admission suspicious for an atrial myxoma according to the report. The patient will need a NELLY. This information has been passed to the LTAC which the patient is being transferred to today. Ac Srivastava MD
[2019-02-26] MEDS: Enoxaparin 40 mg Syringe SC SCH (10:30)
[2019-02-26] MEDS: Fluconazole IV 200mg/100 ml NS 100 ML IVPB SCH (10:30)
[2019-02-26] MEDS ORDERED: Vancomycin 1gm in NS 250ml 1 GM/250 ML BAG IVPB SCH (10:30)
[2019-02-26] MEDS: Clotrimazole/Betamethasone Cream(15 gm) TOP SCH (10:31)
[2019-02-26] MEDS: Mupirocin 2% Ointment 15 GM TUBE TOP SCH (10:32)
--- NOTE | 2019-02-26 11:26 | CP.PCM.PN ---
Subjective - Date & Time of Evaluation Date of Evaluation: 02/26/19 Time of Evaluation: 09:30 - Subjective Subjective: Not in distress, no fevers but patient is not very cooperative. Objective - Vital Signs/Intake and Output Vital Signs (last 24 hours): Temp Pulse Resp BP Pulse Ox 97.8 F 92 H 31 H 106/56 L 95 02/25/19 04:00 02/25/19 03:30 02/25/19 03:30 02/25/19 03:00 02/25/19 03:30 Intake and Output: 02/25/19 02/26/19 18:59 06:59 Intake Total 1250 Output Total 3200 Balance -1950 - Medications Medications: Current Medications Acetaminophen (Tylenol 325mg Tab) 650 mg PO Q6 PRN PRN Reason: TEMP>=99.5F Last Admin: 02/21/19 00:43 Dose: 650 mg Acetaminophen (Tylenol 650 Mg Supp) 650 mg RC Q6H PRN PRN Reason: TEMP>=99.5F Last Admin: 02/19/19 10:16 Dose: 650 mg Acetylcysteine (Acetylcysteine 20%) 4 ml IH [id number] [facility] Last Admin: 02/25/19 19:59 Dose: 4 ml Aripiprazole (Abilify) 5 mg PO HS [facility] Last Admin: 02/20/19 21:44 Dose: 5 mg Artificial Tears (Refresh Opth Soln) 0.3 ml OU Q4H PRN PRN Reason: Dry eyes Last Admin: 02/23/19 18:41 Dose: 1 drop Artificial Tears (Puralube Opht Oint) 1 appl OU Q4H PRN PRN Reason: Dry eyes Atorvastatin Calcium (Lipitor) 40 mg PO DIN [facility] Last Admin: 02/20/19 18:47 Dose: 40 mg Betamethasone/Clotrimazole (Lotrisone) 1 gm TOP BID [facility] Last Admin: 02/25/19 18:00 Dose: 1 gm Dextrose (Dextrose 50% Inj) 50 ml IVP PRN PRN PRN Reason: Low blood sugar Dextrose (Dextrose 50% Inj) 0 ml IV STAT PRN; Protocol PRN Reason: Hypoglycemia Protocol Docusate Sodium (Colace) 100 mg PO BID [facility] Last Admin: 02/20/19 18:47 Dose: 100 mg Donepezil HCl (Aricept) 10 mg PO HS [facility] Last Admin: 02/20/19 21:44 Dose: 10 mg Duloxetine HCl (Cymbalta) 60 mg PO BID [facility] Last Admin: 02/20/19 18:47 Dose: 60 mg Enoxaparin Sodium (Lovenox) 40 mg SC DAILY [facility]; Protocol Last Admin: 02/25/19 11:46 Dose: 40 mg Fentanyl (Fentanyl) 50 mcg IVP Q6 PRN PRN Reason: Agitation Home Med (Home Med) 10 unit PO BID [facility] Last Admin: 02/20/19 18:49 Dose: Not Given Home Med (Home Med) 0.25 unit PO BID [facility] Last Admin: 02/20/19 18:49 Dose: Not Given Home Med (Home Med) 1 unit PO BID [facility] Hydrocortisone (Cortizone 0.5%) 0 ea TOP BID PRN PRN Reason: Rash Vancomycin HCl (Vancomycin 1gm) 1 gm in 250 mls @ 167 mls/hr IVPB Q12H [facility]; Protocol Stop: 03/02/19 09:46 Last Admin: 02/25/19 21:03 Dose: 167 mls/hr Dextrose (Dextrose 5% In Water 1000 Ml) 1,000 mls @ 0 mls/hr IV .Q0M PRN; Protocol PRN Reason: Hypoglycemia Protocol Fluconazole (Diflucan Iv 200 Mg/100 Ml Ns) 100 mls @ 100 mls/hr IVPB DAILY [facility]; Protocol Stop: 03/01/19 10:59 Last Admin: 02/25/19 11:47 Dose: 100 mls/hr Dextrose (Dextrose 5% In Water 1000 Ml) 1,000 mls @ 225 mls/hr IV .Q4H27M [facility] Last Admin: 02/25/19 10:06 Dose: 225 mls/hr Insulin Human Lispro (Humalog Med) 0 units SC Q6 [facility]; Protocol Last Admin: 02/25/19 19:00 Dose: Not Given Levalbuterol HCl (Xopenex) 0.63 mg IH [id number] [facility] Last Admin: 02/25/19 19:59 Dose: 0.63 mg Morphine Sulfate (Morphine) 2 mg IVP Q4H PRN PRN Reason: Pain, moderate (4-7) Last Admin: 02/25/19 10:40 Dose: 2 mg Mupirocin (Bactroban Ointment) 0 gm TOP TID [facility] Last Admin: 02/25/19 18:00 Dose: 1 applic Mycophenolate Mofetil (Cellcept Cap) 500 mg PO BID [facility] Last Admin: 02/25/19 19:00 Dose: 500 mg Ondansetron HCl (Zofran Inj) 4 mg IVP Q4H PRN PRN Reason: Nausea/Vomiting Pantoprazole Sodium (Protonix Ec Tab) 40 mg PO 0600 [facility] Last Admin: 02/20/19 06:08 Dose: 40 mg Pantoprazole Sodium (Protonix Inj) 40 mg IVP DAILY [facility] Last Admin: 02/25/19 11:00 Dose: 40 mg Prednisone (Prednisone Tab) 5 mg PO BID [facility] Last Admin: 02/25/19 19:20 Dose: 5 mg Tamsulosin HCl (Flomax) 0.4 mg PO DAILY [facility] Last Admin: 02/20/19 11:34 Dose: 0.4 mg - Labs Labs: 02/25/19 05:30 02/25/19 20:30 PT 12.1 SECONDS (9.4-12.5) 02/25/19 05:30 INR 1.07 02/25/19 05:30 APTT 39.4 Seconds (26.9-38.3) H 02/14/19 14:15 - Constitutional Appears: Chronically Ill - Head Exam Head Exam: NORMAL INSPECTION - Respiratory Exam Respiratory Exam: Decreased Breath Sounds - Cardiovascular Exam Cardiovascular Exam: +S1, +S2 - GI/Abdominal Exam GI & Abdominal Exam: Soft. absent: Tenderness Assessment and Plan - Assessment and Plan (Free Text) Plan: Assessment severe sepsis S/P VDRF R/O aspiration pneumonia depression CVA MOLD SHAKER tumor with bone metastases chronic pain syndrome arthritis HTN dyslipidemia S/P liver transplant Plan continue Vancomycin and Merrem day 6; cultures have been negative - target up to 7 days of antibiotics overall prognosis is poor
--- NOTE | 2019-02-26 11:59 | CP.PCM.PCO ---
Additional Comments - Additional Comments Additional Comments: Pt seen today, on NC. In no acute distress. On IV Vanco/Merrem per ID. Per hepatobiliary, continue Cellcept 500 mg PO BID & continue to hold Everolimus 0.5 mg PO BID until pt's infection is more controlled. Per ICU team, pt for LTAC. Will continue to follow.
[2019-02-26] MEDS: Vancomycin 1gm in NS 250ml 1 GM/250 ML BAG IVPB SCH (12:07)
[2019-02-26] MEDS ORDERED: Meropenem IV 1 gm in NS 1 GM/50 ML BAG IVPB SCH (14:00)
[2019-02-26 14:37] VITALS: O2SAT 80
[2019-02-26 16:13] VITALS: BP 147/94; PULSE 86; RESP 21
--- NOTE | 2019-02-26 16:47 | PN ---
DATE: 02/26/2019 SUBJECTIVE: The patient is seen lying in bed in the ICU. He is awake. He is alert. He is oriented. He is coherent. Mental status is much improved. He denies any chest pain. Denies any palpitations. PHYSICAL EXAMINATION: GENERAL: Middle-aged lying in bed in the ICU. VITAL SIGNS: Blood pressure 147/94, heart rate 88, respiratory rate 22 and temperature 97.9. HEENT: Normocephalic, atraumatic, positive pallor. NECK: Supple, no JVD. LUNGS: Bilateral equal air entry, bilateral equal expansion, no rales appreciated. No rhonchi. CARDIAC: S1 and S2, regular rate and rhythm, no murmur, no rub. ABDOMEN: Distended, soft, nontender, bowel sounds present. EXTREMITIES: No lower extremity edema. INTAKE AND OUTPUT: 4150/4150. LABORATORY DATA: WBC 11, hemoglobin 10.5, hematocrit 34 and platelets 247. Sodium 155, potassium 3.7, chloride 126, CO2 of 24, BUN 15, creatinine 0.7, glucose 126, calcium 7.6, phosphorus 2.6 and magnesium 2.1. CURRENT MEDICATIONS: Abilify, Mucomyst, Aricept, CellCept 500 b.i.d., Colace, Cymbalta 60 b.i.d., fluconazole 100, fentanyl, Flomax, atorvastatin 40, Lovenox, Merrem, morphine, vancomycin and Zofran. ASSESSMENT: 1. Severe hypernatremia secondary to central . 2. History of craniopharyngioma. 3. Blindness. 4. Liver transplant. 5. Dehydration. PLAN: 1. Sodium is much improved with restarting vasopressor. 2. Push p.o. fluids. 3. Stable from the Renal standpoint. Muna Renteria MD
[2019-02-26 18:56] VITALS: TEMP 98.9
--- NOTE | 2019-02-27 03:06 | DS ---
FINAL PROGRESS NOTE AND DISCHARGE SUMMARY HISTORY OF PRESENT ILLNESS: The patient is seen and examined in CCU, bed 2. The patient was seen lying in the bed. The patient is alert, awake, responsive, confused. Patient is alert, awake, responsive to person, disoriented to place, year, date, month and time, but the patient is alert, awake, and responsive. Overnight nurse's notes and events were reviewed. PHYSICAL EXAMINATION VITAL SIGNS: The patient's last 24-hour vital signs; the patient is afebrile. Heart telemetry shows sinus rhythm. Heart rate 65, 80, 75, 74, respirations 27 to 28, O2 sat 92% to 95%. Blood pressure 130/90. HEENT: Head examination shows right craniectomy. HEENT examination shows positive bilateral blindness. Pinkish pale conjunctivae. Anicteric sclerae. No oropharyngeal lesions. NECK: No neck rigidity. CHEST: Kyphosis. LUNGS: Show positive rhonchi bilaterally, right more than the left. CARDIOVASCULAR: S1, S2, regular rhythm. Questionable soft systolic murmur left sternal border, right second intercostal space, left second intercostal space. ABDOMEN: Protuberant. Positive bowel sounds. Positive surgical scar of the hepatic liver transplant. GENITALIA: Male. Positive Rdz catheter. EXTREMITIES: Shows positive SCDs. NEUROLOGIC: The patient is alert, awake, responsive. Oriented to person. Disoriented to place, year, and month. The patient is able to move upper and lower extremities without assistance. Gait examination is not tested. DIAGNOSTICS: On 02/26/2019; WBC 11.2, hemoglobin and hematocrit 10.5 and 34, platelets 247, granulocytes 78% segs. PT 13.7, INR 1.23. Sodium is 155, potassium is 3.7, chloride 126, CO2 of 24, anion gap 8, BUN 15, creatinine 0.7, GFR greater than 60, glucose 105, 126, calcium 7.6, phosphorus 2.6, magnesium 2.1. LFTs are normal. Total protein 5.3, albumin 2.5. A chest x-ray from 02/25/2019, was reviewed. CONSULTATIONS: The patient was seen by Nephrology, Cardiology. The patient was seen by Hematology/Oncology. IMPRESSION 1. Status post ventilator-dependent respiratory failure. 2. Status post acute hypoxic respiratory failure. 3. Multilobar bilateral aspiration pneumonia. 4. Sepsis secondary to bilateral multilobar aspiration pneumonia and upper extremity cellulitis. 5. Status post left upper extremity peripherally inserted central catheter line placement. 6. Status post packed red blood cell transfusion. 7. Reactive leukocytosis. 8. Anemia of chronic disease. 9. Craniopharyngioma. 10. History of depression. 11. Status post liver transplant. 12. Status post right craniectomy. 13. History of dementia and anxiety. 14. Questionable yeast pneumonia in the sputum cultures. 15. Prostatic hypertrophy. 16. Hyperlipidemia. 17. Hypernatremia. 18. High-grade fever (resolved). 19. Leukocytosis with granulocytosis. 20. Normocytic anemia. 21. Mild coagulopathy (resolved). 22. Status post ventilator dependent respiratory failure. 23. Hyperglycemia secondary to steroids. 24. Hypocalcemia. 25. Hypophosphatemia. 26. Mild protein malnutrition and hypoalbuminemia. 27. Proteinuria. 28. Pyuria, bacteriuria. 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 30. Deconditioning. 31. Gait dysfunction. 32. Bilateral eye blindness. 33. Status post craniotomy. 34. Failure to thrive. 35. Delirium. 36. Major depressive disorder. PLAN: At this time, the patient's family including the patient's sister have had multiple discussions with the Lab Clerk and case management and the family is requesting the patient to be discharged to long-term acute care facility. I have extensively spoken to the patient's sister today, Susanne Jean. I have re-explained the patient's overall condition, diagnosis, overall [id number] prognosis, and decompensating underlying multiple chronic comorbidities in layman's language, all questions concerned answered. The patient's sister is also the next of kin and the person to notify in case emergency, has also stated very clearly that she is interested in getting Mr. Devon Jean to a long-term acute care facility. I have explained to the patient's sister about the patient's acute illnesses and need for close infectious disease, nephrology, cardiology and multi-specialty evaluation of the patient at the long-term acute care hospital with continuation of the medications as per the MAR of today. DISCHARGE MEDICATIONS: At present; Abilify 5 mg at bedtime, Mucomyst nebulizer 20% 4 mL mixed with Xopenex nebulizer four times a day, Aricept 10 mg at bedtime, Bactroban cream to the affected area, CellCept 500 mg twice a day, Colace 100 mg twice a day, hydrocortisone cream, Cymbalta 60 mg twice a day, D5W at 225 mL/hour, Diflucan 200 mg daily, fentanyl 50 mcg IV every 6 hours p.r.n., Flomax 0.4 mg daily. The patient has a bunch of home medications, which are on hold. Humalog sliding scale coverage every 6 hours, Lipitor 40 mg daily, Lotrisone cream to the affected area, Lovenox 40 mg subcutaneous daily for DVT prophylaxis, meropenem 1 g IV every 8 hours, morphine sulfate 2 mg IV every 4 hours p.r.n. prednisone 5 mg twice a day, Protonix 40 mg daily. The patient is on Artificial Tears, Tylenol p.o. suppository, vancomycin 1 g IV every 12 hours, Xopenex nebulizer every 6 hours, Zofran 4 mg IV every 4 hours p.r.n. RECOMMENDATIONS: As stated above, the patient's family including the patient's sister who is the next of kin and person to notify in case of emergencies listed on the patient's hospital information has requested the patient's transfer to long-term acute care facility. So the plan at this time; the patient will be discharged to long-term acute care facility of the patient's family's choice after the patient is cleared by Infectious Disease and Nephrology regarding the duration of the IV antibiotic and regarding the management of hypernatremia. Time spent in the discharge process, 45 minutes. Dictated and electronically signed, not read. Neeraj Elizondo MD
== END 2019-02-26 16:11 | DRG 871 ==
LOC: ED 13:05 → ERH 15:49 → 5RNO 17:46 → OBSVTOIN 02-15 14:25 → CCU 02-21 07:50
PROVIDERS: ADMIT Internal Medicine; ATTEND Internal Medicine
PROC: 5A1945Z Respiratory Ventilation, 24-96 Consecutive Hours (ICD-10-PCS; principal; 2019-02-21)
PROC: 0BH17EZ Insertion of Endotracheal Airway into Trachea, Via Natural or Artificial Opening (ICD-10-PCS; 2019-02-21)
PROC: 06HY33Z Insertion of Infusion Device into Lower Vein, Percutaneous Approach (ICD-10-PCS; 2019-02-21)
PROC: 5A09457 Assistance with Respiratory Ventilation, 24-96 Consecutive Hours, Continuous Positive Airway Pressure (ICD-10-PCS; 2019-02-23)
PROC: 0D9670Z Drainage of Stomach with Drainage Device, Via Natural or Artificial Opening (ICD-10-PCS; 2019-02-23)
PROC: 02HV33Z Insertion of Infusion Device into Superior Vena Cava, Percutaneous Approach (ICD-10-PCS; 2019-02-23)
PROC: B548ZZA Ultrasonography of Superior Vena Cava, Guidance (ICD-10-PCS; 2019-02-23)
DX: A41.9 Sepsis, unspecified organism (principal); J69.0 Pneumonitis due to inhalation of food and vomit; J96.01 Acute respiratory failure with hypoxia; R65.21 Severe sepsis with septic shock; Z94.4 Liver transplant status; F11.20 Opioid dependence, uncomplicated; N12 Tubulo-interstitial nephritis, not specified as acute or chronic; E87.0 Hyperosmolality and hypernatremia; M48.56XA Collapsed vertebra, not elsewhere classified, lumbar region, initial encounter for fracture; E44.1 Mild protein-calorie malnutrition; L03.113 Cellulitis of right upper limb; F32.1 Major depressive disorder, single episode, moderate; J90 Pleural effusion, not elsewhere classified; D44.4 Neoplasm of uncertain behavior of craniopharyngeal duct; R62.7 Adult failure to thrive; G93.89 Other specified disorders of brain; F12.90 Cannabis use, unspecified, uncomplicated; F43.23 Adjustment disorder with mixed anxiety and depressed mood; G62.9 Polyneuropathy, unspecified; D50.9 Iron deficiency anemia, unspecified; H54.8 Legal blindness, as defined in USA; E87.6 Hypokalemia; K21.0 Gastro-esophageal reflux disease with esophagitis; M51.36 Other intervertebral disc degeneration, lumbar region; E86.1 Hypovolemia; E83.39 Other disorders of phosphorus metabolism; N40.0 Benign prostatic hyperplasia without lower urinary tract symptoms; L40.9 Psoriasis, unspecified; E03.9 Hypothyroidism, unspecified; G89.4 Chronic pain syndrome; I10 Essential (primary) hypertension; F17.210 Nicotine dependence, cigarettes, uncomplicated; F03.90 Unspecified dementia, unspecified severity, without behavioral disturbance, psychotic disturbance, mood disturbance, and anxiety; E78.5 Hyperlipidemia, unspecified; R73.9 Hyperglycemia, unspecified; T38.0X5A Adverse effect of glucocorticoids and synthetic analogues, initial encounter; D63.8 Anemia in other chronic diseases classified elsewhere; N32.3 Diverticulum of bladder; R13.12 Dysphagia, oropharyngeal phase; Z91.19 Patient's noncompliance with other medical treatment and regimen; M47.812 Spondylosis without myelopathy or radiculopathy, cervical region; M48.061 Spinal stenosis, lumbar region without neurogenic claudication; Z86.73 Personal history of transient ischemic attack (TIA), and cerebral infarction without residual deficits; Z79.899 Other long term (current) drug therapy; Z91.81 History of falling; Z86.011 Personal history of benign neoplasm of the brain; G47.00 Insomnia, unspecified